=== PATIENT | female | born 1965 | race Caucasian/White ===

== ENCOUNTER 2023-08-14 10:50 | Outpatient (AMB) | payer OTHER, SELFPAY ==
--- NOTE | 2023-08-14 10:51 | MHC.PC.OV ---
Vital Signs 08/14/23 10:54 Height 5 ft 8 in Weight 204 lb 2 oz BMI 31.0 BP 134/82 Blood Pressure Location Lt brachial Position Sitting Pulse 89 Pulse Source Pulse Oximeter Pulse Oximetry (%) 99 Oxygen Delivery Method Room Air Intake Visit Reasons: APPOINTMENT COORDINATOR Est care Per AG Allergies Penicillins Allergy (Mild, Verified 08/14/23 10:56) rash bee Allergy (Severe, Uncoded 08/14/23 10:56) Swelling Medication List - Last Reconciled 08/14/23 by Marianela Plummer MD atorvastatin 20 mg PO DAILY levothyroxine 75 mcg PO DAILY minoxidil 2.5 mg PO BID Tobacco use date assessed: 08/14/23 Dental Screening Dental Screen Date: 08/14/23 Did you have a dental visit in the last 12 months?: Yes Did you have a dental problem in the last 6 months where you did not have access to dental care?: No Was dental information given to patient?: Patient has dentist HPI APPOINTMENT COORDINATOR Est care Per AG HPI Details Patient is a 58-year-old female came in today for establish care visit Patient is currently taking minoxidil 2.5 mg through Dermatology for 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 Patient would like me to take over the medication, I have ordered labs after the labs we will add finasteride 5 mg as well Patient also tried spironolactone but that caused vaginal bleeding postmenopausal so it was stopped Hypothyroidism: Currently taking levothyroxine 75 mcg and is seeing endocrinology Leighann Santana, patient also have a thyroid nodule that is being followed by endocrinology Patient have a history of left knee replacement surgery, and currently she is under care of orthopedic in [place] for her right knee pain Her other medications are atorvastatin 20 mg, patient says that she does not want to take the medication I have told her to stop the medication and then repeat labs in 6 weeks to see how high her cholesterol is and we will decide. She does not have any side effect because of the medication. Mammogram was March of 2023 Colonoscopy January of [address] Ledezma at [facility] Patient ended up having complications which required her to have 6 in of colon resecteded After that patient developed a ventral hernia She has seen a surgeon and had a CT scan of abdomen done which showed gallstone Patient is having severe bloating sensation, she will undergo elective cholecystectomy in August Her OBGYN is Dr. Castano at [facility] We will book telemedicine visit in 6 weeks to go over her labs and to decide whether to restart atorvastatin 20 mg and to add finasteride. BMI is elevated at 31.0 patient need to lose weight PFSH Family History Daughter Mental health disorder Social History Housing: House Patient Tobacco Use Status: Never used Tobacco e-Cigarette/Vaping Use: Never Used service: No Current occupational status: employed Cognitive needs: No Hearing needs: No Vision needs: Yes Questionnaire PHQ-9 Over the last 2 weeks, how often have you been bothered by any of the following problems? 1. Little interest or pleasure in doing things: not at all 2. Feeling down, depressed, or hopeless: not at all 3. Trouble falling or staying asleep, or sleeping too much: not at all 4. Feeling tired or having little energy: not at all 5. Poor appetite or overeating: not at all 6. Feeling bad about yourself - or that you are a failure or have let yourself or your family down: not at all 7. Trouble concentrating on things, such as reading the newspaper or watching television: not at all 8. Moving or speaking so slowly that other people could have noticed. Or the opposite - being so fidgety or restless that you have been moving around a lot more than usual: not at all 9. Thoughts that you would be better off or of hurting yourself in some way: not at all Total score: 0 Depression Screening Interpretation: Negative Depression Screening Done: Yes 51168 - PHQ-9 Billing: Yes Source: Developed by Drs. Clark Roy, Evette Guzman, Chip Esposito and colleagues, with an educational jono from [employer]. Thrive Questionnaire Date Thrive assessed: 08/14/23 I am a: Patient What is your living situation today?: I have a steady place to live Within the past 12 months, did the food you bought not last and you didn't have the money to get more?: Never true Within the past 12 months, did you worry whether your food would run out before you got money to buy more?: Never true Do you have trouble paying for medicines?: No Do you have trouble getting transportation to medical appointments?: No Do you have trouble paying your heating and electricity bill?: No Do you have trouble taking care of your child, family member or friend?: No Do you have trouble with day-to-day activities such as bathing, preparing meals, shopping, managing finances, etc.?: No Are you currently unemployed and looking for a job?: No Are you interested in more education?: No Please select the resources that you would like help with: None Currently or been in a relationship where the following occur: no concerns reported THRIVE Score: 0 FELIPE-7 AMB Questionnaire FELIPE-7 Date FELIPE - 7 assessed: 08/14/23 Feeling nervous, anxious, or on edge: 0 = Not at all Not being able to stop or control worryin = Not at all Worrying too much about different things: 0 = Not at all Trouble relaxin = Not at all Being so restless that it is hard to sit still: 0 = Not at all Becoming easily annoyed or irritable: 0 = Not at all Feeling afraid as if something awful might happen: 0 = Not at all Total FELIPE-7 score (0-4 normal; 5-9 mild; 10-14 moderate; 15-21 severe): 0 Source: Developed by Drs. Clark Roy, Evette Guzman, Chip Esposito and colleagues, with an educational jono from [employer]. FELIPE-7 Assessment Billing FELIPE-7 Assessment Tool: FELIPE-7 Assessment 07543 Review of Systems Const Denies chills, Denies fever(s) and Denies headache(s) Eyes Denies blurry vision ENT Denies headache(s), Denies nasal discharge, Denies nasal obstruction, Denies odynophagia and Denies sinus pain Card Denies chest pain at rest and Denies chest pain with activity Resp Denies cough and Denies hemoptysis GI Denies odynophagia, Denies vomiting and Denies hematemesis Reports as per HPI Musc Denies abnormal gait Skin/Breast Reports as per HPI Neuro Denies Neuro-related abnormal movements, Denies Abnormal speech present, Denies abnormal gait, Denies headache(s) and Denies Sensory deficit (Neuro) Psych Denies mood swings and Denies paranoia Endo Reports as per HPI Gopi/Lymph Reports as per HPI Aller/Immun Reports as per HPI Physical exam (Primary Care) Vital Signs: Last Vital Signs Pulse 89 08/14/23 10:54 BP 134/82 08/14/23 10:54 Pulse Ox 99 08/14/23 10:54 Oxygen Delivery Method Room Air 08/14/23 10:54 BMI result Body Mass Index 31.0 Tobacco/Smoking Status: Tobacco use Status Tobacco use date assessed 08/14/23 08/14/23 10:58 Patient Tobacco Use Status Never used Tobacco 08/14/23 10:58 e-Cigarette/Vaping Use Never Used 08/14/23 10:58 PHQ-9: PHQ-9 Score PHQ-9: Total score 0 08/14/23 11:10 Depression Screening Interpretation: Negative Thrive Assessment: Date of Thrive Assessment Date Thrive assessed 08/14/23 08/14/23 11:04 Currently or been in a relationship where the following occur: no concerns reported Const General: cooperative, comfortable and no acute distress Orientation/consciousness: patient oriented x3 HENMT Head: Yes normocephalic and Yes atraumatic Eyes General: appearance normal, both eyes and all related structures Pupils: Equal, round and reactive pupils present EOM: EOMs intact bilaterally Neck Neck: Yes supple and No lymphadenopathy Thyroid: Thyroid normal Lymphatic: no lymphadenopathy noted Resp Effort & Inspection: normal respiratory effort and able to speak in complete sentences Auscultation: clear to auscultation bilaterally Cardio Heart sounds: S1 normal heart sound present and S2 normal heart sound present GI Other: Small ventral hernia without any tenderness present Palpation (GI): Soft to palpation and nontender Auscultation: normal bowel sounds General: Yes no CVA tenderness Back/Spine/Pelvis Back: no CVA tenderness Skin General skin exam: elasticity normal and turgor normal Neuro General: patient oriented x3 and gait normal Cranial nerves: Yes Equal, round and reactive pupils present Speech: No Abnormal speech present Sensory Exam: No Sensory deficit (Neuro) Extrem General: Yes normal exam except as noted and No edema Office Procedures Flu Questionnaire Does the patient have a severe egg allergy?: No Does the patient have severe life threatening allergies?: No Does the patient have a fever or illness today?: No Has the patient ever had Guillain-[place] Syndrome?: No Has the patient ever had any past reaction to a flu shot?: No Immunizations flu vacc [id number] 6mos up(PF) 60 mcg(15 mcgx4)/0.5 mL IM syringe Performing Provider: Marianela Plummer MD Performing Location: [facility] Administered by: Anjali Banks CMA on 08/14/23 11:10 Dose Route Admin Location Dispensed Lot Number Expiration Date NDC Library Paraprofessional 0.5 mL IM Left Deltoid 0.5 mL [id number] 01/20/24 [id number] [employer] VIS Given Date VIS Provided VIS Publication Date 08/14/23 Single Vaccine 21 Eligibility Eligibility Date Funding Source Not VFC Eligible 08/14/23 Private Assessment and Plan Assessment & Plan (1) Establishing care with new doctor, encounter for: Code(s): Z76.89 - Persons encountering health services in other specified circumstances (2) Lipid disorder: Code(s): E78.9 - Disorder of lipoprotein metabolism, unspecified (3) Other specified hypothyroidism: Code(s): E03.8 - Other specified hypothyroidism (4) Obesity due to excess calories: Code(s): E66.09 - Other obesity due to excess calories Qualifiers: Obesity classification: adult class 1 (BMI 30 - 34.9) Serious obesity comorbidity presence: with serious comorbidity Body mass index: BMI 31.0-31.9 Qualified Code(s): E66.09 - Other obesity due to excess calories; Z68.31 - Body mass index [BMI] 31.0-31.9, adult (5) Gallstone: Code(s): K80.20 - Calculus of gallbladder without cholecystitis without obstruction Qualifiers: Cholecystitis presence: without cholecystitis Biliary obstruction: without biliary obstruction Qualified Code(s): K80.20 - Calculus of gallbladder without cholecystitis without obstruction (6) Bloating symptom: Code(s): R14.0 - Abdominal distension (gaseous) (7) Ventral hernia: Code(s): K43.9 - Ventral hernia without obstruction or gangrene Qualifiers: Obstruction and gangrene presence: without obstruction or gangrene Qualified Code(s): K43.9 - Ventral hernia without obstruction or gangrene Plan Patient is a 58-year-old female came in today for establish care visit Patient is currently taking minoxidil 2.5 mg through Dermatology for 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 Patient would like me to take over the medication, I have ordered labs after the labs we will add finasteride 5 mg as well Patient also tried spironolactone but that caused vaginal bleeding postmenopausal so it was stopped Hypothyroidism: Currently taking levothyroxine 75 mcg and is seeing endocrinology Leighann Santana, patient also have a thyroid nodule that is being followed by endocrinology Patient have a history of left knee replacement surgery, and currently she is under care of orthopedic in [place] for her right knee pain Her other medications are atorvastatin 20 mg, patient says that she does not want to take the medication I have told her to stop the medication and then repeat labs in 6 weeks to see how high her cholesterol is and we will decide. She does not have any side effect because of the medication. Mammogram was March of 2023 Colonoscopy January of [address] Ledezma at [facility] Patient ended up having complications which required her to have 6 in of colon resecteded After that patient developed a ventral hernia She has seen a surgeon and had a CT scan of abdomen done which showed gallstone Patient is having severe bloating sensation, she will undergo elective cholecystectomy in August Her OBGYN is Dr. Castano at [facility] We will book telemedicine visit in 6 weeks to go over her labs and to decide whether to restart atorvastatin 20 mg and to add finasteride. BMI is elevated at 31.0 patient need to lose weight Orders: Orders Complete Blood Count Auto Diff Today E03.8 - Other specified hypothyroidism, E66.09 - Other obesity due to excess calories, E78.9 - Disorder of lipoprotein metabolism, unspecified, Z76.89 - Persons encountering health services in other specified circumstances Influenza [id number] Immunization Today Z23 - Encounter for immunization Comprehensive [place]. Panel Fast Today E03.8 - Other specified hypothyroidism, E66.09 - Other obesity due to excess calories, E78.9 - Disorder of lipoprotein metabolism, unspecified, Z76.89 - Persons encountering health services in other specified circumstances Lipid Panel Today E03.8 - Other specified hypothyroidism, E66.09 - Other obesity due to excess calories, E78.9 - Disorder of lipoprotein metabolism, unspecified, Z76.89 - Persons encountering health services in other specified circumstances TSH reflex Free T4 Today E03.8 - Other specified hypothyroidism, E66.09 - Other obesity due to excess calories, E78.9 - Disorder of lipoprotein metabolism, unspecified, Z76.89 - Persons encountering health services in other specified circumstances Coding Level of Care Code New Pt Level 4 (95047) Diagnoses Establishing care with new doctor, encounter for Z76.89 Lipid disorder E78.9 Other specified hypothyroidism E03.8 Class 1 obesity due to excess calories with serious comorbidity and body mass index (BMI) of 31.0 to 31.9 in adult E66.09; Z68.31 Obesity classification: adult class 1 (BMI 30 - 34.9) Serious obesity comorbidity presence: with serious comorbidity Body mass index: BMI 31.0-31.9 Calculus of gallbladder without cholecystitis without obstruction K80.20 Cholecystitis presence: without cholecystitis Biliary obstruction: without biliary obstruction Bloating symptom R14.0 Ventral hernia without obstruction or gangrene K43.9 Obstruction and gangrene presence: without obstruction or gangrene Additional Codes FELIPE-7 Assessment Billing - FELIPE-7 Assessment Tool: FELIPE-7 Assessment 80474 ([id number])
[2023-08-14 10:54] VITALS: BP 134/82; PULSE 89; O2SAT 99; BMI 31.0
== END 2023-08-14 11:36 | disposition home or self-care (01) ==
PROVIDERS: Visit Provider Internal Medicine
DX: E78.9 Disorder of lipoprotein metabolism, unspecified (principal); E66.09 Other obesity due to excess calories; Z68.31 Body mass index [BMI] 31.0-31.9, adult; Z23 Encounter for immunization; E03.8 Other specified hypothyroidism; Z76.89 Persons encountering health services in other specified circumstances; K80.20 Calculus of gallbladder without cholecystitis without obstruction; R14.0 Abdominal distension (gaseous); K43.9 Ventral hernia without obstruction or gangrene
CPT/HCPCS: 90471; 90686; 99204

== ENCOUNTER 2023-09-26 09:45 | Outpatient (REF) | payer OTHER, SELFPAY ==
[2023-09-26 11:19] LABS: MANUAL DIFF FLAG NO
[2023-09-26 11:28] LABS: Basophils Percent Auto 0.5 % (0-2); Eosinophils Absolute Auto 0.1 X10*3/uL (0.0-0.4); Hematocrit 43.6 % (37.0-47.0); Hemoglobin 14.4 g/dl (12.0-16.0); Imm Gran Abs Auto 0.02 X10*3/uL (0.00-0.03); Imm Gran Pct Auto 0.3 % (0.0-0.4); Lymphocytes Absolute Auto 1.9 X10*3/uL (1.2-4.9); Lymphocytes Percent Auto 32.2 % (20-40); Mean Corpuscular Hemoglobin 30.7 pg (27.0-33.0); Mean Platelet Volume 9.9 fL (9.4-12.3); Monocytes Absolute Auto 0.5 X10*3/uL (0.1-1.2); Monocytes Percent Auto 8.2 % (2-11); Neutrophils Absolute Auto 3.4 x10*3/uL (2.0-8.3); Neutrophils Percent Auto 56.8 % (45-73); Platelet Count 259 X10*3/uL (160-400); Red Blood Count 4.69 X10*6/uL (4.20-5.50); Red Cell Distribution Width 12.5 % (11.0-16.0)
[2023-09-26 13:41] LABS: Alanine Aminotransferase 16 U/L (0-31); Albumin Level 4.1 g/dL (3.5-5.0); Alkaline Phosphatase 124 U/L (39-117); Anion Gap 10 (12-20); Aspartate Amino Transferase 13 U/L (5-31); Bilirubin Total 0.4 mg/dL (0.0-1.0); Blood Urea Nitrogen 16 mg/dL (9-16); Calcium 9.4 mg/dL (8.4-10.2); Carbon Dioxide 27 mmol/L (22-29); Chloride 107 mmol/L (96-108); Cholesterol 237 mg/dL (<200); Estimated Glomerular Filt Rate > 60; Glucose Fasting 94 mg/dL (60-99); HDL Cholesterol 57 mg/dL (>40); LDL Cholesterol Calculated 158 mg/dL (<100); Potassium 4.2 mmol/L (3.3-5.1); Sodium 140 mmol/L (135-145); Total Protein 7.3 g/dL (6.5-8.0); Triglycerides 111 mg/dL (<150)
== END 2023-09-26 09:46 | disposition home or self-care (01) ==
LOC: HO.WFDLDS 09:45
PROVIDERS: Visit Provider Internal Medicine
DX: E66.09 Other obesity due to excess calories (principal); E03.8 Other specified hypothyroidism; E78.9 Disorder of lipoprotein metabolism, unspecified; Z76.89 Persons encountering health services in other specified circumstances
CPT/HCPCS: 36415; 80053; 80061; 84443; 85025

== ENCOUNTER 2023-10-02 13:14 | Outpatient (AMB) | payer OTHER, SELFPAY ==
--- NOTE | 2023-10-02 13:16 | MHC.PC.OV ---
Vital Signs 10/02/23 13:17 Height 5 ft 8 in Intake Visit Reasons: 6 week follow up Iphone [phone] Allergies Penicillins Allergy (Mild, Verified 10/02/23 13:16) rash bee Allergy (Severe, Uncoded 08/14/23 10:56) Swelling Medication List - Last Reconciled 10/02/23 by Marianela Plummer MD levothyroxine 75 mcg PO DAILY minoxidil 2.5 mg PO BID Tobacco use date assessed: 10/02/23 Dental Screening Dental Screen Date: 10/02/23 Did you have a dental visit in the last 12 months?: Yes Did you have a dental problem in the last 6 months where you did not have access to dental care?: No Was dental information given to patient?: Patient has dentist HPI 6 week follow up Iphone [phone] HPI Details Patient is a 58 year this is telemedicine video follow-up Patient had cholecystectomy in August she is complaining of feeling bloated She also a ventral hernia which will be fixed once she recovers from cholecystectomy For the bloating I do recommend that patient refrain from drinking alcohol altogether We re-evaluate at her next visit how she is feeling Hormonal hair loss, patient is on minoxidil 2.5 mg b.i.d. I am adding finasteride 5 mg as well Lipid disorder: LDL is 158, restart atorvastatin at lower dose of 10 mg Labs to be repeated in 2 months We will repeat liver functions again, ALT still elevated BMI is above 30 patient is trying to lose weight however due to inability to exercise much she is having difficulty She agreed go to metabolic clinic at [facility] for further evaluation and help Follow-up 3 months for physical exam PFSH Family History Daughter Mental health disorder Social History Housing: House Patient Tobacco Use Status: Never used Tobacco e-Cigarette/Vaping Use: Never Used service: No Current occupational status: employed Cognitive needs: No Hearing needs: No Vision needs: Yes Questionnaire PHQ-9 Over the last 2 weeks, how often have you been bothered by any of the following problems? 1. Little interest or pleasure in doing things: not at all 2. Feeling down, depressed, or hopeless: not at all 3. Trouble falling or staying asleep, or sleeping too much: not at all 4. Feeling tired or having little energy: not at all 5. Poor appetite or overeating: not at all 6. Feeling bad about yourself - or that you are a failure or have let yourself or your family down: not at all 7. Trouble concentrating on things, such as reading the newspaper or watching television: not at all 8. Moving or speaking so slowly that other people could have noticed. Or the opposite - being so fidgety or restless that you have been moving around a lot more than usual: not at all 9. Thoughts that you would be better off or of hurting yourself in some way: not at all Total score: 0 Depression Screening Interpretation: Negative Depression Screening Done: Yes 97454 - PHQ-9 Billing: Yes Source: Developed by Drs. Clark Roy, Evette Guzman, Chip Esposito and colleagues, with an educational jono from [employer]. Thrive Questionnaire Date Thrive assessed: 10/02/23 I am a: Patient What is your living situation today?: I have a steady place to live Within the past 12 months, did the food you bought not last and you didn't have the money to get more?: Never true Within the past 12 months, did you worry whether your food would run out before you got money to buy more?: Never true Do you have trouble paying for medicines?: No Do you have trouble getting transportation to medical appointments?: No Do you have trouble paying your heating and electricity bill?: No Do you have trouble taking care of your child, family member or friend?: No Do you have trouble with day-to-day activities such as bathing, preparing meals, shopping, managing finances, etc.?: No Are you currently unemployed and looking for a job?: No Are you interested in more education?: No Please select the resources that you would like help with: None Currently or been in a relationship where the following occur: no concerns reported THRIVE Score: 0 AUDIT C Alcohol Use Questionnaire (AUDIT-C) 1. How often do you have a drink containing alcohol?: 2-3 times a week 2. How many drinks containing alcohol do you have on a typical day when you are drinking?: 1 or 2 3. How often do you have six or more drinks on one occasion?: Less than monthly Total Score: 4 Score Reviewed/Action Taken: Yes FELIPE-7 AMB Questionnaire FELIPE-7 Date FELIPE - 7 assessed: 10/02/23 Feeling nervous, anxious, or on edge: 0 = Not at all Not being able to stop or control worryin = Not at all Worrying too much about different things: 0 = Not at all Trouble relaxin = Not at all Being so restless that it is hard to sit still: 0 = Not at all Becoming easily annoyed or irritable: 0 = Not at all Feeling afraid as if something awful might happen: 0 = Not at all Total FELIPE-7 score (0-4 normal; 5-9 mild; 10-14 moderate; 15-21 severe): 0 Source: Developed by Drs. Clark Roy, Evette Guzman, Chip Esposito and colleagues, with an educational jono from [employer]. FELIPE-7 Assessment Billing FELIPE-7 Assessment Tool: FELIPE-7 Assessment 46688 Review of Systems Const Denies chills and Denies fever(s) ENT Denies epistaxis and Denies nasal discharge Card Denies chest pain Resp Denies chest congestion, Denies cough and Denies hemoptysis GI Denies diarrhea and Denies nausea Skin/Breast Denies rash Neuro Reports no additional complaints Psych Reports no additional complaints Endo Reports no additional complaints Physical exam (Primary Care) Tobacco/Smoking Status: Tobacco use Status Tobacco use date assessed 10/02/23 10/02/23 13:17 Patient Tobacco Use Status Never used Tobacco 10/02/23 13:17 e-Cigarette/Vaping Use Never Used 10/02/23 13:17 PHQ-9: PHQ-9 Score PHQ-9: Total score 0 10/02/23 13:18 Depression Screening Interpretation: Negative Thrive Assessment: Date of Thrive Assessment Date Thrive assessed 10/02/23 10/02/23 13:18 Currently or been in a relationship where the following occur: no concerns reported Telehealth Telehealth Location of provider rendering services: practice address Location of patient: address on file Patient Identification confirmed using: Name, : Yes Telehealth method: video Patient verbally consented to treatment: Yes Patient verbally consented to billing insurance company: Yes Patient informed of any privacy concerns related to visit: Yes Assessment and Plan Assessment & Plan (1) Lipid disorder: Code(s): E78.9 - Disorder of lipoprotein metabolism, unspecified (2) LFT elevation: Code(s): R79.89 - Other specified abnormal findings of blood chemistry (3) Obesity due to excess calories: Code(s): E66.09 - Other obesity due to excess calories Qualifiers: Obesity classification: adult class 1 (BMI 30 - 34.9) Serious obesity comorbidity presence: with serious comorbidity Body mass index: BMI 31.0-31.9 Qualified Code(s): E66.09 - Other obesity due to excess calories; Z68.31 - Body mass index [BMI] 31.0-31.9, adult (4) Bloating symptom: Code(s): R14.0 - Abdominal distension (gaseous) (5) Other specified hypothyroidism: Code(s): E03.8 - Other specified hypothyroidism (6) Hair loss disorder: Code(s): L65.9 - Nonscarring hair loss, unspecified Plan Patient is a 58 year this is telemedicine video follow-up Patient had cholecystectomy in August she is complaining of feeling bloated She also a ventral hernia which will be fixed once she recovers from cholecystectomy For the bloating I do recommend that patient refrain from drinking alcohol altogether We re-evaluate at her next visit how she is feeling Hormonal hair loss, patient is on minoxidil 2.5 mg b.i.d. I am adding finasteride 5 mg as well Lipid disorder: LDL is 158, restart atorvastatin at lower dose of 10 mg Labs to be repeated in 2 months We will repeat liver functions again, ALT still elevated BMI is above 30 patient is trying to lose weight however due to inability to exercise much she is having difficulty She agreed go to metabolic clinic at [facility] for further evaluation and help Follow-up 3 months for physical exam Orders: Orders Comprehensive [place]. Panel Fast 2 Months E78.9 - Disorder of lipoprotein metabolism, unspecified, R79.89 - Other specified abnormal findings of blood chemistry Lipid Panel 2 Months E78.9 - Disorder of lipoprotein metabolism, unspecified, R79.89 - Other specified abnormal findings of blood chemistry Referrals Metabolic Clinic Referral E66.09 - Other obesity due to excess calories Medications: New finasteride 5 mg PO DAILY 90 tabs 0RF minoxidil 2.5 mg PO BID 60 tabs 2RF atorvastatin 10 mg PO BEDTIME 90 tabs 0RF Coding Level of Care Code Tele Est Pt Level 4 (30292) Diagnoses Lipid disorder E78.9 LFT elevation R79.89 Class 1 obesity due to excess calories with serious comorbidity and body mass index (BMI) of 31.0 to 31.9 in adult E66.09; Z68.31 Obesity classification: adult class 1 (BMI 30 - 34.9) Serious obesity comorbidity presence: with serious comorbidity Body mass index: BMI 31.0-31.9 Bloating symptom R14.0 Other specified hypothyroidism E03.8 Hair loss disorder L65.9 Additional Codes FELIPE-7 Assessment Billing - FELIPE-7 Assessment Tool: FELIPE-7 Assessment [id number] ([id number]) Time Spent (min) 30 Comment 5 pre visit, 16 with patient, 5 charting, 4 minute coordination care
== END 2023-10-02 14:54 | disposition home or self-care (01) ==
LOC: HO.HMGC 13:15
PROVIDERS: PCP Internal Medicine; Visit Provider Internal Medicine
DX: E78.9 Disorder of lipoprotein metabolism, unspecified (principal); R79.89 Other specified abnormal findings of blood chemistry; E66.09 Other obesity due to excess calories; Z68.31 Body mass index [BMI] 31.0-31.9, adult; R14.0 Abdominal distension (gaseous); E03.8 Other specified hypothyroidism; L65.9 Nonscarring hair loss, unspecified
CPT/HCPCS: 99214

== ENCOUNTER 2023-12-25 09:09 | Outpatient (REF) | payer OTHER, SELFPAY ==
[2023-12-25 12:33] LABS: Alanine Aminotransferase 36 U/L (0-31); Albumin Level 4.1 g/dL (3.5-5.0); Alkaline Phosphatase 111 U/L (39-117); Anion Gap 13 (12-20); Aspartate Amino Transferase 21 U/L (5-31); Bilirubin Total 0.4 mg/dL (0.0-1.0); Blood Urea Nitrogen 12 mg/dL (9-16); Calcium 9.6 mg/dL (8.4-10.2); Carbon Dioxide 25 mmol/L (22-29); Chloride 107 mmol/L (96-108); Cholesterol 174 mg/dL (<200); Estimated Glomerular Filt Rate > 60; Glucose Fasting 94 mg/dL (60-99); HDL Cholesterol 52 mg/dL (>40); LDL Cholesterol Calculated 97 mg/dL (<100); Potassium 3.9 mmol/L (3.3-5.1); Sodium 141 mmol/L (135-145); Total Protein 7.2 g/dL (6.5-8.0); Triglycerides 128 mg/dL (<150)
== END 2023-12-25 09:10 | disposition home or self-care (01) ==
LOC: HO.WFDLDS 09:09
PROVIDERS: Visit Provider Internal Medicine
DX: E78.9 Disorder of lipoprotein metabolism, unspecified (principal); R79.89 Other specified abnormal findings of blood chemistry
CPT/HCPCS: 36415; 80053; 80061

== ENCOUNTER 2024-01-09 12:45 | Outpatient (AMB) | payer OTHER, SELFPAY ==
--- NOTE | 2024-01-09 12:59 | A.OFFPC_ITS ---
Vital Signs 3 01/09/24 13:01 Height 5 ft 8 in Weight 205 lb BMI 31.2 BP 140/90 H Blood Pressure Location Rt brachial Position Sitting Pulse 90 Pulse Source Pulse Oximeter Pulse Oximetry (%) 98 Oxygen Delivery Method Room Air Intake Visit Reasons: Annual PE~ Allergies Penicillins Allergy (Mild, Verified 01/09/24 13:01) rash bee Allergy (Severe, Uncoded 01/09/24 13:01) Swelling Medication List - Last Reconciled 01/09/24 by Marianela Plummer MD atorvastatin 10 mg PO BEDTIME finasteride 5 mg PO DAILY levothyroxine 75 mcg PO DAILY minoxidil 2.5 mg PO BID Tobacco use date assessed: 10/02/23 Dental Screening Dental Screen Date: 10/02/23 HPI Annual PE~ 2 HPI0 Details Patient is a 58-year-old female came in today for physical exam Labs done recently reviewed liver enzymes has improved Patient is seeing OBGYN Dr. Castano at [facility] She will be having incisional hernia repair by Dr. Wendy Knutson at [facility], she also performed her gallbladder surgery in August Patient could not tolerate finasteride that she was taking for hormonal alopecia She continued to take minoxidil however she will be having it filled through Dr. Ramirez is office BMI is elevated patient is trying to lose weight however it is difficult She also get sciatica left-sided off and on due to cyst between L3 and L4 Mammogram was March of last year Pap smear through OBGYN Colonoscopy was [address] Ledezma [facility], patient had colon perforation and ended up having resection She do not want to have further colonoscopies. Patient will return in 6 months for follow-up appointment Labs are needed before visit She is complaining of epigastric and upper abdominal discomfort off and on She has tried modifying her diet which has not helped I have sent omeprazole 20 mg to see if that will help patient. We will set up telemedicine visit in 3 weeks for that. PFSH Family History Daughter Mental health disorder Social History Housing: House Patient Tobacco Use Status: Never used Tobacco e-Cigarette/Vaping Use: Never Used service: No Current occupational status: employed Cognitive needs: No Hearing needs: No Vision needs: Yes Questionnaire Thrive Questionnaire Date Thrive assessed: 10/02/23 AUDIT C Alcohol Use Questionnaire (AUDIT-C) 1. How often do you have a drink containing alcohol?: Never 3. How often do you have six or more drinks on one occasion?: Never Total Score: 0 Score Reviewed/Action Taken: No FELIPE-7 AMB Questionnaire FELIPE-7 Date FELIPE - 7 assessed: 10/02/23 Source: Developed by Drs. Clark Roy, Evette Guzman, Chip Esposito and colleagues, with an educational jono from [employer]. Review of Systems Const Denies chills, Denies fever(s) and Denies headache(s) Eyes Denies blurry vision ENT Denies headache(s), Denies nasal discharge, Denies nasal obstruction, Denies odynophagia and Denies sinus pain Card Denies chest pain at rest and Denies chest pain with activity Resp Denies cough and Denies hemoptysis GI Denies diarrhea, Denies odynophagia, Denies vomiting and Denies hematemesis Reports as per HPI Musc Denies abnormal gait Skin/Breast Reports as per HPI Neuro Denies Neuro-related abnormal movements, Denies Abnormal speech present, Denies abnormal gait, Denies headache(s) and Denies Sensory deficit (Neuro) Psych Denies mood swings and Denies paranoia Endo Reports as per HPI Gopi/Lymph Reports as per HPI Aller/Immun Reports as per HPI Physical exam (Primary Care) Vital Signs: Last Vital Signs Pulse 90 01/09/24 13:01 BP 140/90 H 01/09/24 13:01 Pulse Ox 98 01/09/24 13:01 Oxygen Delivery Method Room Air 01/09/24 13:01 BMI result Body Mass Index 31.2 Tobacco/Smoking Status: Tobacco use Status Tobacco use date assessed 10/02/23 01/09/24 13:02 Patient Tobacco Use Status Never used Tobacco 01/09/24 13:02 e-Cigarette/Vaping Use Never Used 01/09/24 13:02 Thrive Assessment: Date of Thrive Assessment Date Thrive assessed 10/02/23 01/09/24 13:02 Const General: cooperative, comfortable and no acute distress Orientation/consciousness: patient oriented x3 HENMT Head: Yes normocephalic and Yes atraumatic Eyes General: appearance normal, both eyes and all related structures Pupils: Equal, round and reactive pupils present EOM: EOMs intact bilaterally Neck Neck: Yes supple and No lymphadenopathy Thyroid: Thyroid normal Lymphatic: no lymphadenopathy noted Resp Effort & Inspection: normal respiratory effort and able to speak in complete sentences Auscultation: clear to auscultation bilaterally Cardio Heart sounds: S1 normal heart sound present and S2 normal heart sound present GI Palpation (GI): Soft to palpation Auscultation: normal bowel sounds Abdomen image: 2 1. Discomfort with deep pressure General: Yes no CVA tenderness Back/Spine/Pelvis Back: no CVA tenderness Skin General skin exam: elasticity normal and turgor normal Neuro General: patient oriented x3 and gait normal Cranial nerves: Yes Equal, round and reactive pupils present Speech: No Abnormal speech present Sensory Exam: No Sensory deficit (Neuro) Coordination: tandem gait normal and Romberg test negative Extrem General: Yes normal exam except as noted and No edema Assessment and Plan Assessment & Plan (1) Encounter for general adult medical examination with abnormal findings: Code(s): Z00.01 - Encounter for general adult medical examination with abnormal findings (2) Left upper quadrant pain: Code(s): R10.12 - Left upper quadrant pain (3) Lipid disorder: Code(s): E78.9 - Disorder of lipoprotein metabolism, unspecified (4) Other specified hypothyroidism: Code(s): E03.8 - Other specified hypothyroidism (5) Obesity due to excess calories: Code(s): E66.09 - Other obesity due to excess calories Qualifiers: Body mass index: BMI 31.0-31.9 Obesity classification: adult class 1 (BMI 30 - 34.9) Serious obesity comorbidity presence: with serious comorbidity Qualified Code(s): E66.09 - Other obesity due to excess calories; Z68.31 - Body mass index [BMI] 31.0-31.9, adult Plan Patient is a 58-year-old female came in today for physical exam Labs done recently reviewed liver enzymes has improved Patient is seeing OBGYN Dr. Castano at [facility] She will be having incisional hernia repair by Dr. Wendy Knutson at [facility], she also performed her gallbladder surgery in August Patient could not tolerate finasteride that she was taking for hormonal alopecia She continued to take minoxidil however she will be having it filled through Dr. Ramirez is office BMI is elevated patient is trying to lose weight however it is difficult She also get sciatica left-sided off and on due to cyst between L3 and L4 Mammogram was March of last year Pap smear through OBGYN Colonoscopy was [address] Darien Santana, patient had colon perforation and ended up having resection She do not want to have further colonoscopies. Patient will return in 6 months for follow-up appointment Labs are needed before visit She is complaining of epigastric and upper abdominal discomfort off and on She has tried modifying her diet which has not helped I have sent omeprazole 20 mg to see if that will help patient. We will set up telemedicine visit in 3 weeks for that. Orders: Orders 2 Comprehensive Kirk. Panel Fast 5 Months E03.8 - Other specified hypothyroidism, E66.09 - Other obesity due to excess calories, E78.9 - Disorder of lipoprotein metabolism, unspecified, R10.12 - Left upper quadrant pain, Z68.31 - Body mass index [BMI] 31.0-31.9, adult Lipid Panel 5 Months E03.8 - Other specified hypothyroidism, E66.09 - Other obesity due to excess calories, E78.9 - Disorder of lipoprotein metabolism, unspecified, R10.12 - Left upper quadrant pain, Z68.31 - Body mass index [BMI] 31.0-31.9, adult TSH reflex Free T4 5 Months E03.8 - Other specified hypothyroidism, E66.09 - Other obesity due to excess calories, E78.9 - Disorder of lipoprotein metabolism, unspecified, R10.12 - Left upper quadrant pain, Z68.31 - Body mass index [BMI] 31.0-31.9, adult Medications: New 2 omeprazole 20 mg PO DAILY 90 caps 0RF Discontinued 2 finasteride Discontinued Reason: Doctor's Order 5 mg PO DAILY 90 tabs 0RF Coding Level of Care Code Est Pt Level 3 (96718) Est Pt Prev Care 40-64y(64343) Diagnoses Encounter for general adult medical examination with abnormal findings Z00.01 Left upper quadrant pain R10.12 Lipid disorder E78.9 Other specified hypothyroidism E03.8 Class 1 obesity due to excess calories with serious comorbidity and body mass index (BMI) of 31.0 to 31.9 in adult E66.09; Z68.31 Body mass index: BMI 31.0-31.9 Obesity classification: adult class 1 (BMI 30 - 34.9) Serious obesity comorbidity presence: with serious comorbidity
[2024-01-09 13:01] VITALS: BP 140/90; PULSE 90; O2SAT 98; BMI 31.2
== END 2024-01-09 13:30 | disposition home or self-care (01) ==
PROVIDERS: PCP Internal Medicine; Visit Provider Internal Medicine
DX: Z00.01 Encounter for general adult medical examination with abnormal findings (principal); R10.12 Left upper quadrant pain; E78.9 Disorder of lipoprotein metabolism, unspecified; E03.8 Other specified hypothyroidism; E66.09 Other obesity due to excess calories; Z68.31 Body mass index [BMI] 31.0-31.9, adult
CPT/HCPCS: 99213; 99396

== ENCOUNTER 2024-01-31 08:14 | Outpatient (AMB) | payer OTHER, SELFPAY ==
--- NOTE | 2024-01-31 08:25 | A.OFFPC_ITS ---
Intake Visit Reasons: LT upper abd F/u~ [phone] Allergies Penicillins Allergy (Mild, Verified 01/31/24 08:25) rash bee Allergy (Severe, Uncoded 01/09/24 13:01) Swelling Medication List - Last Reconciled 01/31/24 by Marianela Plummer MD atorvastatin 10 mg PO BEDTIME epinephrine (EpiPen) 0.3 mg (0.3 mL) IM Q10M PRN 90 days levothyroxine 75 mcg PO DAILY minoxidil 2.5 mg PO BID omeprazole 20 mg PO DAILY Tobacco use date assessed: 01/31/24 Dental Screening Dental Screen Date: 01/31/24 Did you have a dental visit in the last 12 months?: Yes Did you have a dental problem in the last 6 months where you did not have access to dental care?: No Was dental information given to patient?: Patient has dentist HPI LT upper abd F/u~ [phone] HPI Details f/u apt on Upper gastic discomfort Patient was started on PPI she states she is feeling much better she is to continue for 3 M and then PRN PFSH Family History Daughter Mental health disorder Social History Housing: House Patient Tobacco Use Status: Never used Tobacco e-Cigarette/Vaping Use: Never Used service: No Current occupational status: employed Cognitive needs: No Hearing needs: No Vision needs: Yes Questionnaire Thrive Questionnaire Date Thrive assessed: 10/02/23 AUDIT C Alcohol Use Questionnaire (AUDIT-C) 1. How often do you have a drink containing alcohol?: Never 3. How often do you have six or more drinks on one occasion?: Never Total Score: 0 Score Reviewed/Action Taken: Yes FELIPE-7 AMB Questionnaire FELIPE-7 Date FELIPE - 7 assessed: 10/02/23 Source: Developed by Drs. Clark Roy, Evette Guzman, Chip Esposito and colleagues, with an educational jono from [employer]. Review of Systems Const Denies chills and Denies fever(s) ENT Denies epistaxis and Denies nasal discharge Card Denies chest pain Resp Denies chest congestion, Denies cough and Denies hemoptysis GI Denies diarrhea and Denies nausea Skin/Breast Denies rash Neuro Reports no additional complaints Psych Reports no additional complaints Endo Reports no additional complaints Physical exam (Primary Care) Tobacco/Smoking Status: Tobacco use Status Tobacco use date assessed 01/31/24 01/31/24 08:25 Patient Tobacco Use Status Never used Tobacco 01/31/24 08:25 e-Cigarette/Vaping Use Never Used 01/31/24 08:25 Thrive Assessment: Date of Thrive Assessment Date Thrive assessed 10/02/23 01/31/24 08:25 Telehealth Telehealth Telehealth Platform: [employer] Location of provider rendering services: practice address Location of patient: address on file Patient Identification confirmed using: Name, : Yes Telehealth method: voice only Patient verbally consented to treatment: Yes Patient verbally consented to billing insurance company: Yes Patient informed of any privacy concerns related to visit: Yes Minutes spent on Phone/Video with Pt.: 13 Assessment and Plan Assessment & Plan (1) Left upper quadrant pain: Code(s): R10.12 - Left upper quadrant pain Plan f/u apt on Upper gastic discomfort Patient was started on PPI she states she is feeling much better she is to continue for 3 M and then PRN Coding Level of Care Code Tele Est Pt Level 3 (33782) Diagnoses Left upper quadrant pain R10.12
== END 2024-01-31 10:39 | disposition home or self-care (01) ==
LOC: HO.HMGC 08:14
PROVIDERS: PCP Internal Medicine; Visit Provider Internal Medicine
DX: R10.12 Left upper quadrant pain (principal)
CPT/HCPCS: 99213

== ENCOUNTER 2024-07-05 10:12 | Outpatient (REF) | payer OTHER, SELFPAY ==
--- OUTSIDE RECORDS SUMMARY | 2024-07-05 10:14 | XMS_ITS | Continuity of Care Document ---
Author Organization [facility] [place], [facility] Office Address [address] [place] [phone] Care Team Providers Care Lung Splitter Name Role Phone LUC NORRIS Primary Care Provider [phone] LUC NORRIS Referring Provider [phone] Assessment No assessment recorded. Plan of Treatment Reminders Order Date Submit Date Provider Last Modified By Organization Details Last Modified Time Details Appointments None record ed. Lab None record ed. Referral None record ed. Procedures None record ed. Surgeries None record ed. Imaging None record ed. Medication Orders None record ed. Patient TargetsNo targets recorded. Patient Instructions Encounter Date Encounter Id Patient Instructions Last Modified By Organization Details Last Modified Time 04/09/2024 [id number] The above clinic al findings and radiographic findings were reviewed with the patient in detail. X-rays were taken in 3 views of the right ankle today April 09, 2024. Awaiting the official radiology review. No obvious fractures, dislocations or subluxations noted. Ankle mortise appears intact. I reviewed findings consistent with peroneal tendinitis. It does seem to be improving and I recommended slowly weaning off the ankle brace and maintaining supportive midsole motion control sneakers. Warm compresses, anti-inflammatorie s and Voltaren gel all reviewed. daily stretching exercises reviewed as well as the myofascial release with a rolling stick. Peroneal strengthening exercises also reviewed. If symptoms plateau or if they worsen she was advised to call the office and return. All questions answered on today's visit. The patient understands and is in agreement with the plan. Voice recognition software disclaimer: Please note that portions of this report were transcribed using [employer] speech recognition software. If any discrepancy or uncertainty is present, please contact our office directly for clarification. [email or web address] Not available 04/09/2024 16:30:06 Reason for Referral None Reported. Results Created Date Observation Date Name Description Value Unit Range Abnormal Flag Note LastModifiedBy Organization Detail LastModifiedTime 05/27/20 24 04/09/2024 XR, ankle , 3 or more view No observ ation record ed. [email or web address] Not Available 2023 15:10:45 Result Notes None recorded. Medical Equipment None Reported. Medications Name Sig Start Date Stop Date Status Note LastModified by Organization Details LastModified Time atorvastatin 20 mg tablet TAKE 1 TABLET BY MOUTH EVERY DAY active Not Available Not Available No t Available atorvastatin 10 mg tablet TAKE 1 TABLET BY MOUTH AT BEDTIME active Not Available Not Available No t Available metronidazol e 500 mg tablet TAKE 1 TABLET BY MOUTH THREE TIMES A DAY active Not Available Not Available Not Available ciprofloxaci n 500 mg tablet TAKE 1 TABLET BY MOUTH TWICE A DAY active Not Available Not Available No t Available minoxidil 2.5 mg tablet TAKE 1 TAB ORALLY 2 TIMES A DAY active Not Available Not Available Not Available levothyroxin e 75 mcg tablet TAKE 1 TABLET BY MOUTH EVERY DAY active Not Available Not Available No t Available cephalexin 500 mg capsule TAKE 1 CAPSULE BY MOUTH 4 TIMES A DAY FOR 5 DAYS. active Not Available Not Available Not Available omeprazole 20 mg capsule,shantanu yed release TAKE 1 CAPSULE BY MOUTH EVERY DAY active Not Available Not Available No t Available Transderm-Sc op 1 mg over 3 days transdermal patch APPLY 1 PATCH TRANSDERMAL LY EVERY 3 DAYS NEEDED FOR NAUSEA AND VOMITING active Not Available Not Available No t Available epinephrine 0.3 mg/0.3 mL injection, auto-injecto r INJECT 0.3MG DIRECTED INTRAMUSCUL LAURA EVERY 10 MINUTES NEEDED FOR ANAPHYLAXIS active Not Available Not Available Not Available fluocinonide 0.05 % topical solution PLEASE SEE ATTACHED FOR DETAILED DIRECTIONS active Not Available Not Available N ot Available finasteride 5 mg tablet TAKE 1 TABLET BY MOUTH EVERY DAY active Not Available Not Available No t Available spironolacto ne 50 mg tablet TAKE 1 TABLET DAILY active Not Available Not Available No t Available diazepam 5 mg tablet TAKE 1 TABLET BY MOUTH EVERY 6 HOURS NEEDED FOR ANXIETY. active Not Available Not Available No t Available amoxicillin 875 mg-potassium clavulanate 125 mg tablet TAKE 1 TABLET BY MOUTH TWICE A DAY active Not Available Not Available No t Available oxycodone 5 mg tablet TAKE 1 TABLET (5 MG TOTAL) BY MOUTH EVERY 6 (SIX) HOURS NEEDED. active Not Available Not Available N ot Available Paxlovid 300 mg (150 mg x 2)-100 mg tablets in a dose pack TAKE 3 TABLETS BY MOUTH TWICE A DAY FOR 5 DAYS active Not Available Not Available No t Available Vitals None Recorded Social History None recorded. Functional Status None recorded. Mental Status None recorded. Family History Nothing Reported. Medical History No medical history recorded. Gynecological HistoryNo gynecological history recorded. Obstetrics History GPAL:G 0 P 0 0 0 0 Past Encounters Encounter ID Performer Location Encounter Start Date Encounter Closed Date Diagnosis/Indication Diagnosis SNOMED-CT Code Diagnosis ICD10 Code [id number] Clark Pope DPM [place] Office [address] [place] [phone] 04/09/2024 15:38:52 04/09/2024 17:16:49 Peroneal tendinitis 63337832 M76.71 Pain of ri ght ankle joint 1767280011 5239061 M25.571 Health Concerns Section Related Observation LastModified by Organization Detai ls LastModified Time None Recorded Concern Status LastModified by Organization Details LastModified Time None Recorded Payers Encounter Date Sequence Insurance Name Policy Number Policy Richards Covered Member ID Richards Member ID Guarantor Name 04/09/2024 2 [place] [facility] Kathy Velazquez [id number] Kathy Velazquez 04/09/2024 1 [facility] - HEALTH NET PLAN (MEDICAID HMO) [employer] Kathy Velazquez [id number] Kathy Velazquez Notes Date Note Type Note Provider Name and Address Organization Details Recorded Time 04/09/2024 text/html Podiatry FootReported bypatient.Notes:Hilton hangianna presents today for evaluation right ankle pain. She states it started about 2 or 3 months ago. She was receiving gel injections in her right knee for Dr. Fisher's office. The physician medical administrative assistant recommended using an ankle brace that she was having swelling and pain on the outside part of the ankle. She started wearing ankle brace 2 weeks ago and has noticed a marked improvement. It does occasionally walk up on her and she notices it when she drives for long periods of time. Clark Pope DPM [address] [place] [address], [phone], [facility], [facility] 04/09/2024 16:30:43 OBGyn Episode No OBEpisode recorded.
--- OUTSIDE RECORDS SUMMARY | 2024-07-05 10:14 | XMS_ITS | Data Portability ---
Author Organization [place] [facility] [place], [facility], [facility] Address [address] [place] [phone] Care Team Providers Care Bolt Sorter Name Role Phone LUC NORRIS Primary Care Provider [phone] LUC NORRIS Referring Provider [phone] Assessment No assessment recorded. Plan of Treatment [...] By Organization Details Last Modified Time 04/09/2024 [id number] The above clinic al findings and radiographic [...] portions of this report were transcribed using [employer] speech recognition software. If any discrepancy or [...] Available 2023 15:10:45 Result Notes None recorded. Procedures Surgical History None recorded. Imaging Results Imaging Date Name Status LastModified by Organiz ation Details LastModified Time 04/09/2024 XR, ankle, 3 or more view completed [email or web address] Information not available 05/27/2024 15:10:45 Procedure Notes None recorded. Medical Equipment None Reported. [...] Diagnosis/Indication Diagnosis SNOMED-CT Code Diagnosis ICD10 Code [id number] Clark Pope DPM [place] Office [address] [place] [phone] 04/09/2024 15:38:52 04/09/2024 17:16:49 Peroneal tendinitis 42204322 M76.71 Pain of ri ght ankle joint [id number] 6699378 M25.571 Health Concerns Section Related Observation LastModified by Organization Detai ls LastModified Time None Recorded Concern Status LastModified by Organization Details LastModified Time None Recorded Advance Directives Directive None Recorded Payers Encounter Date Sequence Insurance Name Policy Number Policy Richards Covered Member ID Richards Member ID Guarantor Name 04/09/2024 2 [place] [facility] Kathy Velazquez [id number] Kathy Velazquez 04/09/2024 1 [facility] - HEALTH NET PLAN (MEDICAID HMO) [facility] Kathy Velazquez [id number] Kathy Velazquez Notes Date Note Type Note Provider Name and Address Organization Details Recorded Time 04/09/2024 text/html Podiatry FootReported bypatient.Notes:Hilton hatch presents today for evaluation right ankle pain. She states it started about 2 or 3 months ago. She was receiving gel injections in her right knee for Dr. Fisher's office. The physician veterinary assistant technician recommended using an ankle brace that she was having swelling and pain on the outside part of the ankle. She started wearing ankle brace 2 weeks ago and has noticed a marked improvement. It does occasionally walk up on her and she notices it when she drives for long periods of time. Clark Pope DPM [address] [place] [address], [phone], [facility] - [facility] [place], [facility] 04/09/2024 16:30:43 OBGyn Episode No OBEpisode recorded.
--- OUTSIDE RECORDS SUMMARY | 2024-07-05 10:15 | XMS_ITS | Data Portability ---
Author Organization [facility], [facility] Address [address] [place] [address] Care Team Providers Care Medical Collections Specialist Name Role Phone KAUR DEY Referring Provider [phone] DEONDRE BRONSON OTHER NICOLE ANDREW Primary Care Provider Assessment Encounter Date Assessment Date Assessment LastModified by Organization Details LastModified Time 09/17/2023 09/17/2023 Clinical signs a nd symptoms are consistent with right knee osteoarthritis, imaging reviewed. We discussed etiology as well as further conservative treatment options at this time. Patient presents today requesting repeat right knee cortisone injection, as she experienced several months of significant pain relief with her last. Right knee cortisone injection was performed today in the office without difficulty. Patient tolerated the procedure well, there were no complications. She will follow-up on an as-needed basis regarding her right knee. All patient questions were answered. Patient is in agreement with the plan of care. Patient verbalizes understanding. The patient is educated to call the office with any questions or concerns. Dr. Fisher is in agreement with the plan of care and is a part of the medical decision making. Not available 09/17/2023 11:59:14 12/28/2023 12/28/2023 Xrays were perso serjio reviewed by myself. Clinical signs symptoms are consistent with exacerbation of underlying right knee osteoarthritis. We once again discussed etiology as well as further surgical versus conservative treatment options. Patient states she would like to continue with conservative treatment regarding her right knee. We discussed the option of repeat right knee cortisone injection therapy, which she would like to proceed with today. We discussed the option of viscosupplementation injections if cortisone begins to have less efficacy. Right knee cortisone injection was performed today in the office without difficulty. Patient tolerated the procedure well, there were no complications. She will follow-up on an as-needed basis regarding her knee. All patient questions were answered. Patient is in agreement with the plan of care. Patient verbalizes understanding. The patient is educated to call the office with any questions or concerns. Dr. Fisher is in agreement with the plan of care and is a part of the medical decision making. Not available 12/28/2023 12:43:25 03/25/2024 03/25/2024 The first right knee Euflexxa injection was performed today in the office without difficulty. Patient tolerated procedure well, there were no complications. She will follow up in 1 week for the second right knee Euflexxa injection. All patient questions were answered. Patient is in agreement with the plan of care. Patient verbalizes understanding. The patient is educated to call the office with any questions or concerns. Dr. Fisher is in agreement with the plan of care and is a part of the medical decision making. Not available 03/25/2024 15:03:20 04/01/2024 04/01/2024 The second right knee Euflexxa injection was performed today in the office without difficulty. Patient tolerated the procedure well, there were no complications. She will follow-up in 1 week for the third injection. All patient questions were answered. Patient is in agreement with the plan of care. Patient verbalizes understanding. The patient is educated to call the office with any questions or concerns. Dr. Fisher is in agreement with the plan of care and is a part of the medical decision making. Not available 04/01/2024 09:29:55 04/08/2024 04/08/2024 The third right knee Euflexxa injection was performed today in the office without difficulty. Patient tolerated the procedure well, there were no complications. She will follow-up on an as-needed basis regarding her knee. All patient questions were answered. Patient is in agreement with the plan of care. Patient verbalizes understanding. The patient is educated to call the office with any questions or concerns. Dr. Fisher is in agreement with the plan of care and is a part of the medical decision making. Not available 04/08/2024 14:18:28 Plan of Treatment Reminders Order Date Submit Date Provider Last Modified By Organization Details Last Modified Time Details Appointments Any 15 2024 10:15A Reginald Bronson PA-C Not available Not available Not available Lab None recorded . Referral None recorded . Procedures None recorded . Surgeries None recorded . Imaging None recorded . Medication Orders Depo-Med rol 40 mg/mL suspensi on for injectio n [id number], [address] [place] [address], [id number], 09/17/2023 11:59:15 Depo-Med rol 40 mg/mL suspensi on for injectio n [id number], [address] [place] [address], [id number], 12/28/2023 12:42:17 Euflexxa 10 mg/mL (mw 2.4-3.6 million) intra-ar ticular syringe [id number], [address] [place], [id number], 03/25/2024 15:06:09 Euflexxa 10 mg/mL (mw 2.4-3.6 million) intra-ar ticular syringe [id number], [address] [place], [id number], 04/01/2024 09:29:21 Euflexxa 10 mg/mL (mw 2.4-3.6 million) intra-ar ticular syringe [id number], [address] [place] [address], [id number], 04/08/2024 14:18:08 Patient TargetsNo targets recorded. Patient InstructionsNo instructions recorded. Reason for Referral None Reported. Problems Name Problem SNOMED Code Status Onset Date Resolution Date Notes Provider Name and Address Organization Details Recorded Time Complicati on of anesthesia 03219307 Active 2022 Latesha gonzalez [facility] 3 01:11:15 Arthritis 2481182 Active 2022 Latesha gonzalez [facility] 3 01:11:22 Osteoarthr itis 709414426 Active 2022 Latesha gonzalez, [facility] 3 01:11:28 Total knee replacemen t Active 2022 Lateshapriti Burger [facility] 3 01:11:38 Rupture of rotator cuff of shoulder 365714953 Active 2022 complete rotator cuff tear or rupture of right shoulder, not specified as traumatic Latesha gonzalez [facility] 3 01:12:34 Tear of medial meniscus of knee 205456855 [facility] 20[email or web address] 3 01:12:56 Impingemen t syndrome of shoulder region 139762971 Active 2022 right shoulder Lateshapriti gonzalez [facility] 3 01:13:12 Problem Notes None recorded. Procedures Surgical History Date Name Laterality Status Provider Name and Address Organization Details Recorded Time 2023 Viscosupplementation Knee completed Deondre Bronson PA-C [address] [place], [address], [facility] 04/08/2024 14:18:06 2023 Viscosupplementation Knee completed Deondre Bronson PA-C [address] [place], [address], [facility] 04/01/2024 09:29:19 2023 Viscosupplementation Knee completed Deondre Bronson PA-C [address] [place], [address], [facility] 03/25/2024 15:02:51 2023 Intra-articular Knee Steroid Injection completed Deondre Bronson PA-C [address] [place], [address], [facility] 12/28/2023 12:44:01 2023 Intra-articular Knee Steroid Injection completed Deondre Bronson PA-C [address] [place], [address], [facility] 09/17/2023 11:58:11 2022 Intra-articular Knee Steroid Injection completed Deondre Bronson PA-C [address] [place], [address], [facility] 04/10/2023 15:26:45 2022 Intra-articular Knee Steroid Injection completed Deondre Bronson PA-C [address] [place], [address], [facility] 11/21/2022 17:45:19 2015 total knee replacement completed Latesha Burger [facility] 11/20/2022 01:14:37 2011 Knee arthroscopy/surgery completed Not Available [facility] 09/14/2011 03:36:58 2010 Knee Surgery completed Latesha Burger [facility] 11/20/2022 01:14:20 1995 Section completed Latesha Burger [facility] 11/20/2022 01:14:08 Joint Replacement completed Noreen Lopez [facility] 11/20/2022 13:14:12 Other Surgeries completed Dai Forbes [facility] 09/17/2023 11:48:36 Imaging Results None recorded. Procedure Notes None recorded. Medical Equipment None Reported. Allergies Allergen ID Allergen Name Allergen Category Reaction Reaction Severity Criticality Documentation Date Start Date Code Code System Note Provider Name and Address Organization Details Recorded Time 202517 Medicinal product containin g penicilli n and acting as antibacte rial agent (product) medicatio n rash Not available Not available 11/20/2022 93957 05 SNOMED Latesha Burger [facility] 3 01:15:24 058489 bee pollen environme nt,medica tion Not available Not available Not available 11/20/2022 32429 7 RxNorm Lateshapriti Burger [facility] 3 01:16:01 188283 ethinyl estradiol / levonorge strel medicatio n Not available Not available Not available 11/20/2022 38289 8 RxNorm Lateshapriti Burger [facility] 3 01:16:07 538999 POLLEN EXTRACTS environme nt,medica tion Not available Not available Not available 11/20/2022 59240 6 RxNorm Noreen Lesniewsk i [facility] 3 13:13:50 574277 mold extract environme nt Not available Not available Not available 11/20/2022 92099 8 RxNorm Noreen Lesniewsk i [facility] 3 13:13:50 207746 insect venom environme nt itching other Not available Not available Not available 11/20/2022 Noreen Lesniewsk i [facility] 3 13:13:50 Medications Name Sig Start Date Stop Date Status Note LastModified by Organization Details LastModified Time amoxicillin 500 mg capsule TAKE 2 CAPSULES BY MOUTH NOW, THEN 1 CAPSULE 3 TIMES DAILY UNTIL FINISHED 04/10 completed Not Available Not Available Not Available atorvastati n 20 mg tablet TAKE 1 TABLET BY MOUTH EVERY DAY 09/15 completed Not Available Not Available Not Available Depo-Medrol 40 mg/mL suspension for injection Injected into right knee as directed 2023 active Not Available Not Available Not Avai lable clindamycin HCl 300 mg capsule TAKE 1 CAPSULE BY MOUTH EVERY 8 HOURS UNTIL FINISHED 04/10 completed Not Available Not Available Not Available atorvastati n 10 mg tablet TAKE 1 TABLET BY MOUTH EVERYDAY AT BEDTIME active Not Available Not Available No t Available azithromyci n 250 mg tablet TAKE 2 TABLETS BY MOUTH TODAY, THEN TAKE 1 TABLET DAILY FOR 4 DAYSSTA RT TODAY 04/10 completed Not Available Not Available Not Available tolterodine ER 4 mg capsule,ext ended release 24 hr TAKE 1 CAPSULE BY MOUTH EVERY DAY 11/20 completed Not Available Not Available Not Available clindamycin HCl 150 mg capsule TAKE 2 CAPSULES BY MOUTH NOW, THEN 1 CAP EVERY 6 HOURS UNTIL FINISHED. 04/09 completed Not Available Not Available Not Available metronidazo le 500 mg tablet TAKE 1 TABLET BY MOUTH THREE TIMES A DAY 12/27 completed Not Available Not Available Not Available ciprofloxac in 500 mg tablet TAKE 1 TABLET BY MOUTH TWICE A DAY 12/27 completed Not Available Not Available Not Available minoxidil 2.5 mg tablet TAKE 1 TAB ORALLY 2 TIMES A DAY active Not Available Not Available No t Available levothyroxi ne 75 mcg tablet TAKE 1 TABLET BY MOUTH EVERY DAY active Not Available Not Available No t Available oxycodone-a cetaminophe n 5 mg-325 mg tablet TAKE 1 TABLET BY MOUTH EVERY 4 HOURS NEEDED FOR PAIN 04/10 completed Not Available Not Available Not Available cephalexin 500 mg capsule TAKE 1 CAPSULE BY MOUTH 4 TIMES A DAY FOR 5 DAYS. 04/01 completed Not Available Not Available Not Available progesteron e micronized 200 mg capsule TAKE 1 CAPSULE (200 MG TOTAL) BY MOUTH NIGHTLY AT BEDTIME. 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 1 mg over 3 days transdermal patch APPLY 1 PATCH TRANSDERM ALLY EVERY 3 DAYS NEEDED FOR NAUSEA AND VOMITING active Not Available Not Available No t Available epinephrine 0.3 mg/0.3 mL injection, auto-inject or INJECT 0.3MG DIRECTED INTRAMUSC ULARLY EVERY 10 MINUTES NEEDED FOR ANAPHYLAX IS active Not Available Not Available No t Available fluocinonid e 0.05 % topical solution PLEASE SEE ATTACHED FOR DETAILED DIRECTION S active Not Available Not Available No t Available methylpredn isolone 4 mg tablets in a dose pack TAKE 6 TABLETS ON DAY 1 DIRECTED ON PACKAGE AND DECREASE BY 1 TAB EACH DAY FOR A TOTAL OF 6 DAYS 11/20 completed Not Available Not Available Not Available estradiol 0.0375 mg/[address] 1 PATCH ONTO THE SKIN 2 TIMES A WEEK. 11/20 completed Not Available Not Available Not Available doxycycline hyclate 100 mg tablet TAKE 1 TABLET BY MOUTH TWICE A DAY FOR 10 DAYS 11/20 completed Not Available Not Available Not Available finasteride 5 mg tablet TAKE 1 TABLET BY MOUTH EVERY DAY 12/27 completed Not Available Not Available Not Available spironolact one 50 mg tablet TAKE 1 TABLET DAILY 09/17 completed Not Available Not Available Not Available diazepam 5 mg tablet TAKE 1 TABLET BY MOUTH EVERY 6 HOURS NEEDED FOR ANXIETY. active Not Available Not Available No t Available amoxicillin 875 mg-potassiu m clavulanate 125 mg tablet TAKE 1 TABLET BY MOUTH TWICE A DAY 12/27 completed Not Available Not Available Not Available oxycodone 5 mg tablet TAKE 1 TABLET (5 MG TOTAL) BY MOUTH EVERY 6 (SIX) HOURS NEEDED. active Not Available Not Available No t Available clindamycin 1 % lotion APPLY PEA SIZE AMOUNT TO AFFECTED AREAS ON FACE ONCE DAILY IN THE MORNING SPOT TREATMENT 04/09 completed Not Available Not Available Not Available chlorhexidi ne gluconate 0.12 % mouthwash RINSE WITH 1/2 OZ TWICE DAILY FOR THIRTY SECONDS AND THEN EXPECTORA TE 11/20 completed Not Available Not Available Not Available Euflexxa 10 mg/mL (mw 2.4-3.6 million) intra-artic ular syringe injected into the right knee as directed 2023 active Not Available Not Available Not Avai lable ProAir HFA 90 mcg/actuati on aerosol inhaler INHALE 2 PUFFS EVERY 4 HOURS BY INHALATIO N ROUTE NEEDED 11/20 completed Not Available Not Available Not Available Paxlovid 300 mg (150 mg x 2)-100 mg tablets in a dose pack TAKE 3 TABLETS BY MOUTH TWICE A DAY FOR 5 DAYS 09/17 completed Not Available Not Available Not Available Vitals Date Recorded Body height Body mass index (BMI) Body weight Provider Name and Address Organization Details Last Updated DateTime 09/17/2023 172.72 cm 30.1 kg/m2 29960.29 g Dai Forbes [facility] 09/17/2023 11:48:27 Date Recorded Body height Body mass index (BMI) Body weight Provider Name and Address Organization Details Last Updated DateTime 12/28/2023 172.72 cm 29.3 kg/m2 33301.33 g Dai Forbes [facility] 12/28/2023 10:11:50 Date Recorded Body height Body mass index (BMI) Body weight Provider Name and Address Organization Details Last Updated DateTime 04/01/2024 172.72 cm 29.3 kg/m2 90001.33 g Payton Guidryand [facility] 04/01/2024 08:35:29 Date Recorded Body height Body mass index (BMI) Body weight Provider Name and Address Organization Details Last Updated DateTime 04/08/2024 172.72 cm 29.3 kg/m2 34299.33 edelmira Forbes [facility] 04/08/2024 13:48:49 Social History Question Answer Notes LastModified by Organizat ion Details LastModified Time Tobacco Smoking Status Former Smoker Noreen gonzalez [facility] 11/20/2022 13:14:07 Do You Have An Advance Directive? Yes Information not available 11/20/2022 What Is Your Level Of Alcohol Consumption? Moderate Information not available 11/20/2022 Are You Blind Or Do You Have Difficulty Seeing? No Information not available 11/20/2022 Is Blood Transfusion Acceptable In An Emergency? Yes Information not available 11/20/2022 What Is Your Level Of Caffeine Consumption? Moderate Information not available 11/20/2022 Are You Currently Employed? Yes Information not available 11/20/2022 Are You Deaf Or Do You Have Serious Difficulty Hearing? No Information not available 11/20/2022 What Type Of Diet Are You Following? 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 16+yearssincel carlos Information not available 11/20/2022 Which Of Your Hands Is Dominant? Right Information not available 11/20/2022 What Was The Date Of Your Most Recent Tobacco Screening? 04/08/2024 [email or web address] Information not available 04/08/2024 Do You Have Any Pets? Yes Information not available 11/20/2022 What Is Your Relationship Status? Information not available 11/20/2022 Do You Feel Stressed (tense, Restless, Nervous, Or Anxious, Or Unable To Sleep At Night)? [id number] [email or web address] Information not available 04/10/2023 Do You Use Any Illicit Or Recreational Drugs? No Information not available 11/20/2022 Has Tobacco Cessation Counseling Been Provided? No [email or web address] Information not available 04/10/2023 How Many Years Have You Smoked Tobacco? 5 Information not available 11/20/2022 Do You Or Have You Ever Used Any Other Forms Of Tobacco Or Nicotine? No Information not available 11/20/2022 How Many Days In The Past Year Have You Consumed 4 Or More Drinks? 4 Information no t available 11/20/2022 Sex: Female Functional Status Question Answer Note LastModified by Organization D etails LastModified Time Are you able to care for yourself? Yes Information not available 11/20/2022 What is your exercise level? Moderate Information not available 11/20/2022 Mental Status None recorded. Family History Relationship Description Onset Age of this Age Resolved Age Notes LastModified by Organization Details LastModified Time Father Heart disease angie Not available 07/2022 13:13:55 Father Family history of malignant neoplasm angie Not available 07/2022 13:13:55 Mother Hypertensive disorder angie Not available 07/2022 13:13:55 Medical History Condition Response Other Disease(s): Y High Cholesterol (Hyperlipidemia) Y Back/Neck Pain Y Arthritis Osteoarthritis Y Gynecological HistoryNo gynecological history recorded. Obstetrics History GPAL:G 0 P 0 0 0 0 Past Encounters Encounter ID Performer Location Encounter Start Date Encounter Closed Date Diagnosis/Indication Diagnosis SNOMED-CT Code Diagnosis ICD10 Code [id number] Deondre Bronson PA-C [facility] [address] [place] [address] 11/20/2022 13:02:57 11/20/2022 13:44:20 Osteoarthritis of right knee joint 2374311725 46632 M17.11 Osteoarthr itis of left knee joint 0695082801 38531 M17.12 [id number] Deondre Bronson PA-C [facility] [address] [place] [address] 04/10/2023 14:46:22 04/10/2023 15:15:05 Osteoarthritis of right knee joint 6094955744 59915 M17.11 [id number] Deondre Bronson PA-C [facility] [address] [place] [address] 09/17/2023 11:41:51 09/17/2023 11:43:08 Osteoarthritis of right knee joint 7229445183 32862 M17.11 [id number] Deondre Bronson PA-C [facility] [address] [place] [address] 12/28/2023 10:07:59 12/28/2023 10:40:19 Osteoarthritis of right knee joint 0739453257 54676 M17.11 [id number] Deondre Bronson PA-C [facility] [address] [place] [address] 03/25/2024 14:43:16 03/25/2024 15:12:13 Osteoarthritis of right knee joint 4079365466 58454 M17.11 [id number] Deondre Bronson PA-C [facility] [address] [address] 04/01/2024 08:32:29 04/01/2024 08:48:46 Osteoarthritis of right knee joint 2207804852 52338 M17.11 [id number] Deondre Bronson PA-C [facility] [address] [address] 04/08/2024 13:42:36 04/08/2024 13:59:56 Osteoarthritis of right knee joint 8839221150 93333 M17.11 Health Concerns Section Related Observation LastModified by Organization Detai ls LastModified Time None Recorded Concern Status LastModified by Organization Details LastModified Time None Recorded Advance Directives Directive Y: Payers Encounter Date Sequence Insurance Name Policy Number Policy Richards Covered Member ID Richards Member ID Guarantor Name 09/17/2023 1 [facility] [employer] (MEDICAID REPLACEMENT - HMO) RONNY Velazquez [id number] Kathy Velazquez 12/28/2023 1 [facility] [employer] (MEDICAID REPLACEMENT - HMO) RONNY Velazquez [id number] Kathy Velazquez 03/25/2024 1 [facility] [employer] (MEDICAID REPLACEMENT - HMO) RONNY Velazquez [id number] Kathy Velazquez 04/01/2024 1 [facility] [employer] (MEDICAID REPLACEMENT - HMO) RONNY Velazquez [id number] Kathy Velazquez 04/08/2024 1 [facility] [employer] (MEDICAID REPLACEMENT - HMO) RONNY Velazquez [id number] Kathy Velazquez Notes Date Note Type Note Provider Name and Address Organization Details Recorded Time 09/17/2023 text/html Patient presents for followup regarding her right knee. Previous standing AP and lateral x-rays of the right knee reveal Kellgren-Jamie grade 3 changes most pronounced over the lateral tibiofemoral and patellofemoral joint spaces. Patient underwent right knee cortisone injection at her last visit in March. She states this provided over 3 months of good pain relief. She reports recent recurrence of right knee discomfort primarily located over the lateral aspect of the knee. She presents today requesting right knee cortisone injection. Of note, patient has a history of left total knee arthroplasty performed by Dr. Fisher. Deondre Bronson PA-C [address] [place], [address], [facility] 09/17/2023 11:59:47 12/28/2023 text/html Patient presents for followup regarding her right knee. Previous standing AP and lateral x-rays of the right knee reveal Kellgren-Jamie grade 3 changes most pronounced over the lateral tibiofemoral and patellofemoral joint spaces. Patient underwent right knee cortisone injection at her last visit in August. She reports approximately 3 months of good pain relief, which has since resurfaced. She states pain is primarily located over the lateral aspect of the knee. She also reports crepitus/mechanical symptoms with certain activities.She presents today requesting repeat cortisone injection. Of note, patient has a history of left total knee arthroplasty performed by Dr. Fisher. Deondre Bronson PA-C [address] [place], [address], [facility] 12/28/2023 12:44:29 03/25/2024 text/html Patient presents for her first right knee Euflexxa injection. Deondre Bronson PA-C [address] [place], [address], [facility] 03/25/2024 15:06:53 04/01/2024 text/html Patient presents for her second right knee Euflexxa injection. She denies any adverse effects following previous injection. Deondre Bronson PA-C [address] [place], [address], [facility] 04/01/2024 09:30:56 04/08/2024 text/html Patient presents for her third right knee Euflexxa injection. She denies any adverse effects following previous injections. Deondre Bronson PA-C [address] [place], [address], [facility] 04/08/2024 14:25:07 OBGyn Episode No OBEpisode recorded.
--- OUTSIDE RECORDS SUMMARY | 2024-07-05 10:15 | XMS_ITS | Continuity of Care Document ---
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 Patient tolerated the procedure well, there were no complications . She will follow-up on an as-needed basis regarding her knee. All patient questions were answered. Patient is in agreement with the plan of care. Patient verbalizes understanding . The patient is educated to call the office with any questions or concerns. Dr. Fisher is in agreement with the plan of care and is a part of the medical decision making. [email or web address] Not available 04/08/2024 14:18:28 Plan of Treatment Reminders Order Date Submit Date Provider Last Modified By Organization Details Last Modified Time Details Appointments Any 15 2024 10:15A Reginald Bronson PA-C Not available Not available Not available Lab None recorded . Referral None recorded . Procedures None recorded . Surgeries None recorded . Imaging None recorded . Medication Orders Euflexxa 10 mg/mL (mw 2.4-3.6 million) intra-ar ticular syringe 2023 024 [email or web address] [id number], [address] [facility] [employer], [place], [address], 04/08/2024 14:18:08 Patient TargetsNo targets recorded. Patient InstructionsNo instructions recorded. Reason for Referral None Reported. Problems Name Problem SNOMED Code Status Onset Date Resolution Date Notes Provider Name and Address Organization Details Recorded Time Complicati on of anesthesia 84981249 Active 2022 Latesha Reallawrence [facility] 3 01:11:15 Arthritis 1261512 Active 2022 Lateshapriti Burger [facility] 3 01:11:22 Osteoarthr itis 916602091 Active 2022 Lateshapriti Burger [employer] 3 01:11:28 Total knee replacemen t Active 2022 Lateshapriti Burger [employer] 3 01:11:38 Rupture of rotator cuff of shoulder 319403334 Active 2022 complete rotator cuff tear or rupture of right shoulder, not specified as traumatic Lateshapriti Burger [employer] 3 01:12:34 Tear of medial meniscus of knee 048161428 Active 2022 Lateshapriti Burger [employer] 3 01:12:56 Impingemen t syndrome of shoulder region 118116851 Active 2022 right shoulder Lateshapriti Burger [employer] 3 01:13:12 Problem Notes None recorded. Procedures Surgical History Date Name Laterality Status Provider Name and Address Organization Details Recorded Time 2023 Viscosupplementation Knee completed Deondre Bronson PA-C [address] [place] [address], [phone], [facility] 04/08/2024 14:18:06 2023 Viscosupplementation Knee completed Deondre Bronson PA-C [address] [place] [address], [phone], [facility] 04/01/2024 09:29:19 2023 Viscosupplementation Knee completed Deondre Bronson PA-C [address] [place] [address], [phone], [facility] 03/25/2024 15:02:51 2023 Intra-articular Knee Steroid Injection completed Deondre Bronson PA-C [address] [place] [address], [phone], [facility] 12/28/2023 12:44:01 2023 Intra-articular Knee Steroid Injection completed Deondre Bronson PA-C [address] [place] [address], [phone], [facility] 09/17/2023 11:58:11 2022 Intra-articular Knee Steroid Injection completed Deonder Bronson PA-C [address] [place] [address], [phone], [facility] 04/10/2023 15:26:45 2022 Intra-articular Knee Steroid Injection completed Deondre Bronson PA-C [address] [place] [address], [phone], [facility] 11/21/2022 17:45:19 2015 total knee replacement completed Latesha Burger [facility] 11/20/2022 01:14:37 2011 Knee arthroscopy/surgery completed Not Available [facility] 09/14/2011 03:36:58 2010 Knee Surgery completed Latesha Burger [facility] 11/20/2022 01:14:20 1995 Section completed Latesha Burger [facility] 11/20/2022 01:14:08 Joint Replacement completed Noreen Lopez [facility] 11/20/2022 13:14:12 Other Surgeries completed Dai Forbes [facility] 09/17/2023 11:48:36 Imaging Results None recorded. Procedure Notes None recorded. Medical Equipment None Reported. Allergies Allergen ID Allergen Name Allergen Category Reaction Reaction Severity Criticality Documentation Date Start Date Code Code System Note Provider Name and Address Organization Details Recorded Time 462000 Medicinal product containin g penicilli n and acting as antibacte rial agent (product) medicatio n rash Not available Not available 11/20/2022 67885 05 [facility] 01:15:24 560968 bee pollen environme nt,medica tion Not available Not available Not available 11/20/2022 94685 7 RxNorm Latesha Burger [facility] 3 01:16:01 750571 ethinyl estradiol / levonorge strel medicatio n Not available Not available Not available 11/20/2022 60624 8 [facility] 3 01:16:07 428036 POLLEN EXTRACTS environme nt,medica tion Not available Not available Not available 11/20/2022 95121 6 RxNorm Noreen Renard miranda [facility] 3 13:13:50 395646 mold extract environme nt Not available Not available Not available 11/20/2022 32192 8 RxNorm Noreen Renard miranda [facility] 3 13:13:50 747312 insect venom environme nt itching other Not available Not available Not available 11/20/2022 Noreen Renard miranda [facility] 3 13:13:50 Medications Name Sig Start Date [...] Not Available No t Available 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 16+yearssincel astcigarette [email or web address] Information not available 11/20/2022 Which Of Your Hands Is Dominant? Right Information not available 11/20/2022 What Was The Date Of Your Most Recent Tobacco Screening? 04/08/2024 [email or web address] Information not available 04/08/2024 Do You Have Any Pets? Yes Information not available 11/20/2022 What Is Your Relationship Status? Information not available 11/20/2022 Do You Feel Stressed (tense, Restless, Nervous, Or Anxious, Or Unable To Sleep At Night)? [id number] [email or web address] Information not available 04/10/2023 Do You Use Any Illicit Or Recreational Drugs? No Information not available 11/20/2022 Has Tobacco Cessation Counseling Been Provided? No [email or web address] Information not available 04/10/2023 How Many Years [...] available 07/2022 13:13:55 Medical History Condition Response Back/Neck Pain Y High Cholesterol (Hyperlipidemia) Y Arthritis Osteoarthritis Y Other Disease(s): Y Gynecological HistoryNo gynecological history recorded. Obstetrics History GPAL:G 0 P 0 0 0 0 Past Encounters Encounter ID Performer Location Encounter Start Date Encounter Closed Date Diagnosis/Indication Diagnosis SNOMED-CT Code Diagnosis ICD10 Code [id number] Deondre Bronson PA-C [facility] [address] [place] [phone] 03/25/2024 14:43:16 03/25/2024 15:12:13 Osteoarthritis of right knee joint 7980876504 73438 M17.11 [id number] Deondre Bronson PA-C [facility] [address] [phone] 04/01/2024 08:32:29 04/01/2024 08:48:46 Osteoarthritis of right knee joint 6144759088 33994 M17.11 [id number] Deondre Bronson PA-C [facility] [address] [place] [phone] 04/08/2024 13:42:36 04/08/2024 13:59:56 Osteoarthritis of right knee joint 9390142451 95128 M17.11 Health Concerns Section Related Observation LastModified by Organization Detai ls LastModified Time None Recorded Concern Status LastModified by Organization Details LastModified Time None Recorded Payers Encounter Date Sequence Insurance Name Policy Number Policy Richards Covered Member ID Richards Member ID Guarantor Name 04/08/2024 1 [facility] (MEDICAID REPLACEMENT - HMO) [employer] Kathy Velazquez [id number] Kathy Velazquez Notes Date Note Type Note Provider Name and Address Organization Details Recorded Time 04/08/2024 text/html Patient presents for her third right knee Euflexxa injection. She denies any adverse effects following previous injections. Deondre Bronson PA-C [address] [place] [address], [phone], [facility]. 04/08/2024 14:25:07 OBGyn Episode No OBEpisode recorded.
[2024-07-05 12:37] LABS: Alanine Aminotransferase 38 U/L (0-31); Alkaline Phosphatase 120 U/L (39-117); Anion Gap 11 (12-20); Aspartate Amino Transferase 28 U/L (5-31); Bilirubin Total 0.4 mg/dL (0.0-1.0); Blood Urea Nitrogen 15 mg/dL (9-16); Calcium 9.4 mg/dL (8.4-10.2); Carbon Dioxide 28 mmol/L (22-29); Chloride 106 mmol/L (96-108); Cholesterol 175 mg/dL (<200); Estimated Glomerular Filt Rate > 60; Glucose Fasting 92 mg/dL (60-99); HDL Cholesterol 52 mg/dL (>40); LDL Cholesterol Calculated 108 mg/dL (<100); Potassium 4.3 mmol/L (3.3-5.1); Sodium 141 mmol/L (135-145); Total Protein 7.2 g/dL (6.5-8.0); Triglycerides 75 mg/dL (<150)
[2024-07-05 12:57] LABS: TSH reflex Free T4 2.83 uIU/mL (0.32-4.0)
== END 2024-07-05 10:13 | disposition home or self-care (01) ==
LOC: HO.HMGCLDS 10:12
PROVIDERS: PCP Internal Medicine; Visit Provider Internal Medicine
DX: E78.9 Disorder of lipoprotein metabolism, unspecified (principal); E03.8 Other specified hypothyroidism; E66.09 Other obesity due to excess calories; Z68.31 Body mass index [BMI] 31.0-31.9, adult; R10.12 Left upper quadrant pain; E03.9 Hypothyroidism, unspecified
CPT/HCPCS: 36415; 80053; 80061; 84443

== ENCOUNTER 2024-07-08 10:42 | Outpatient (AMB) | payer OTHER, SELFPAY ==
[2024-07-08 10:44] VITALS: BP 132/76; PULSE 76; O2SAT 99; BMI 33.2
--- NOTE | 2024-07-08 10:44 | MHC.PC.OV ---
Vital Signs 07/08/24 10:44 Height 5 ft 8 in Weight 218 lb 2 oz BMI 33.2 BP 132/76 Blood Pressure Location Lt brachial Position Sitting Pulse 76 Pulse Source Pulse Oximeter Pulse Oximetry (%) 99 Oxygen Delivery Method Room Air Intake Visit Reasons: 6 month follow up Allergies Penicillins Allergy (Mild, Verified 07/08/24 10:45) rash bee Allergy (Severe, Uncoded 01/09/24 13:01) Swelling Medication List - Last Reconciled 07/08/24 by Marianela Plummer MD atorvastatin 10 mg PO BEDTIME epinephrine (EpiPen) 0.3 mg (0.3 mL) IM Q10M PRN 90 days levothyroxine 75 mcg PO DAILY minoxidil 2.5 mg PO BID omeprazole 20 mg PO DAILY Tobacco use date assessed: 07/08/24 Dental Screening Dental Screen Date: 07/08/24 Did you have a dental visit in the last 12 months?: Yes Did you have a dental problem in the last 6 months where you did not have access to dental care?: No Was dental information given to patient?: Patient has dentist HPI 6 month follow up HPI Details Chief Complaint Patient reports significant joint pain with specific concern for increased pain in the knees, hips, and back. Assessment and Plan 59-year-old female with a history of osteoarthritis presenting with significant joint pain, particularly in the right knee, left hip, and back. The patient reports [id number] condition in the right knee and recent cortisone injections, with next orthopedic evaluation scheduled in July. The patient's symptoms of joint pain are potentially exacerbated by weight gain and limited mobility following recent surgeries. Current lab results indicate stable liver enzymes, normal kidney function, and no immediate need for alarm regarding cardiovascular risk despite the family history. The cessation of statin therapy is advised to evaluate any improvement in symptoms, given concerns about statin-associated muscle pain. 1. Elevated Liver Enzymes Currently Stable Continue regular monitoring via liver function tests. Regular monitoring of blood tests is advised. 2. Family History Of Heart Disease Mother With Heart Attack At Age 80 Monitor patient's cholesterol levels and cardiac health, especially with changes in statin therapy. 3. Presence of left artificial knee joint Z96.652 Monitor for ongoing functionality and pain. Discuss the continued difficulty with stairs with her orthopedic doctor 4. Weight Gain Suggest caloric intake monitoring with a target of 1200 calories per day. Evaluate the invitation to a weight management program and consider options for non-surgical intervention as appropriate. 6. Osteoarthritis Of The Right Knee Continue management with Tylenol and consider occasional Aleve. The patient should follow up with the material specialist for potential knee injections in July. Encourage low-impact activities to maintain joint mobility. Diagnostic results - Labs: CBC performed in September, Metabolic profile completed recently with normal kidney function, slightly elevated but stable liver enzymes, good cholesterol, and thyroid levels. Problem List - Osteoarthritis of the right knee - Status post left knee replacement in 2016 - Left hip pain - Weight gain - Family history of heart disease Medications - Tylenol for pain relief - Discontinue statin temporarily for symptom evaluation [place] [facility] Care: Orthopedic surgeon Patient Instructions - Temporarily stop taking the statin and monitor for changes in muscle or joint pain. - Use Tylenol and Aleve for joint pain as necessary. - Monitor caloric intake, aiming for less than 1200 calories a day. - Schedule the flu vaccine. - Attend the scheduled orthopedic follow-up in July. - Monitor joint and hip pain and report any significant changes. Maintain regular follow-ups as discussed. New medications: Phentermine for weight loss, patient agree with monthly follow-up for that, side effect of phentermine reviewed with the patient [facility] Family History Daughter Mental health disorder Social History Housing: House Patient Tobacco Use Status: Never used Tobacco e-Cigarette/Vaping Use: Never Used service: No Current occupational status: employed Cognitive needs: No Hearing needs: No Vision needs: Yes Questionnaire PHQ-9 Over the last 2 weeks, how often have you been bothered by any of the following problems? 1. Little interest or pleasure in doing things: not at all 2. Feeling down, depressed, or hopeless: not at all 3. Trouble falling or staying asleep, or sleeping too much: not at all 4. Feeling tired or having little energy: not at all 5. Poor appetite or overeating: not at all 6. Feeling bad about yourself - or that you are a failure or have let yourself or your family down: not at all 7. Trouble concentrating on things, such as reading the newspaper or watching television: not at all 8. Moving or speaking so slowly that other people could have noticed. Or the opposite - being so fidgety or restless that you have been moving around a lot more than usual: not at all 9. Thoughts that you would be better off or of hurting yourself in some way: not at all Total score: 0 Depression Screening Interpretation: Negative Depression Screening Done: Yes 44147 - PHQ-9 Billing: Yes Source: Developed by Drs. Clark Roy, Evette Guzman, Chip Esposito and colleagues, with an educational jono from [employer]. Thrive Questionnaire Date Thrive assessed: 07/08/24 I am a: Patient What is your living situation today?: I have a steady place to live Within the past 12 months, did the food you bought not last and you didn't have the money to get more?: Never true Within the past 12 months, did you worry whether your food would run out before you got money to buy more?: Never true Do you have trouble paying for medicines?: No Do you have trouble getting transportation to medical appointments?: No Do you have trouble paying your heating and electricity bill?: No Do you have trouble taking care of your child, family member or friend?: No Do you have trouble with day-to-day activities such as bathing, preparing meals, shopping, managing finances, etc.?: No Are you currently unemployed and looking for a job?: No Are you interested in more education?: No Please select the resources that you would like help with: None Currently or been in a relationship where the following occur: No concerns reported THRIVE Score: 0 AUDIT C Alcohol Use Questionnaire (AUDIT-C) 1. How often do you have a drink containing alcohol?: 2-3 times a week 2. How many drinks containing alcohol do you have on a typical day when you are drinking?: 1 or 2 3. How often do you have six or more drinks on one occasion?: Never Total Score: 3 Score Reviewed/Action Taken: Yes FELIPE-7 AMB Questionnaire FELIPE-7 Date FELIPE - 7 assessed: 07/08/24 Feeling nervous, anxious, or on edge: 0 = Not at all Not being able to stop or control worryin = Not at all Worrying too much about different things: 0 = Not at all Trouble relaxin = Not at all Being so restless that it is hard to sit still: 0 = Not at all Becoming easily annoyed or irritable: 0 = Not at all Feeling afraid as if something awful might happen: 0 = Not at all Total FELIPE-7 score (0-4 normal; 5-9 mild; 10-14 moderate; 15-21 severe): 0 Source: Developed by Drs. Clark Roy, Evette Guzman, Chip Esposito and colleagues, with an educational jono from [employer]. FELIPE-7 Assessment Billing FELIPE-7 Assessment Tool: FELIPE-7 Assessment 08671 Review of Systems Const Denies chills and Denies fever(s) ENT Denies epistaxis and Denies nasal discharge Card Denies chest pain Resp Denies chest congestion, Denies cough and Denies hemoptysis GI Denies diarrhea and Denies nausea Skin/Breast Denies rash Neuro Reports no additional complaints Psych Reports no additional complaints Endo Reports no additional complaints Physical exam (Primary Care) Vital Signs: Last Vital Signs Pulse 76 07/08/24 10:44 BP 132/76 07/08/24 10:44 Pulse Ox 99 07/08/24 10:44 Oxygen Delivery Method Room Air 07/08/24 10:44 BMI result Body Mass Index 33.2 Tobacco/Smoking Status: Tobacco use Status Tobacco use date assessed 07/08/24 07/08/24 10:47 Patient Tobacco Use Status Never used Tobacco 07/08/24 10:47 e-Cigarette/Vaping Use Never Used 07/08/24 10:47 PHQ-9: PHQ-9 Score PHQ-9: Total score 0 07/08/24 11:32 Depression Screening Interpretation: Negative Thrive Assessment: Date of Thrive Assessment Date Thrive assessed 07/08/24 07/08/24 10:47 Currently or been in a relationship where the following occur: No concerns reported Const General: cooperative, comfortable and no acute distress Orientation/consciousness: patient oriented x3 HENMT Head: Yes normocephalic Eyes General: appearance normal, both eyes and all related structures Neck Neck: Yes supple Resp Effort & Inspection: normal respiratory effort, no cough and no stridor Cardio Rhythm: regular rhythm Heart sounds: S1 normal heart sound present and S2 normal heart sound present Skin General skin exam: turgor normal Neuro General: patient oriented x3, tone normal and moves all extremities Extrem Right lower extremity: no edema Left lower extremity: no edema Office Procedures Flu Questionnaire Does the patient have a severe egg allergy?: No Does the patient have severe life threatening allergies?: No Does the patient have a fever or illness today?: No Has the patient ever had Guillain-Hancock Syndrome?: No Has the patient ever had any past reaction to a flu shot?: No Immunizations Fluarix Triv 2941-8786 (PF) 45 mcg (15 mcg x 3)/0.5 mL IM syringe Performing Provider: Marianela Plummer MD [place] [facility] [place] [facility] Administered by: BELA Lemos on 07/08/24 11:32 Dose Route Admin Location Dispensed Lot Number Expiration Date [facility] [address] [employer] 0.5 mL IM Left Deltoid 0.5 mL [id number] 01/19/25 [id number] [employer] VIS Given Date VIS Provided VIS Publication Date 07/08/24 Single Vaccine 21 Eligibility Eligibility Date Funding Source Not [facility] Eligible 07/08/24 Private Coding Level of Care Code Est Pt Level 4 (89797) Diagnoses Lipid disorder E78.9 Other specified hypothyroidism E03.8 Class 1 obesity due to excess calories with serious comorbidity and body mass index (BMI) of 31.0 to 31.9 in adult E66.09; Z68.31 Body mass index: BMI 31.0-31.9 Obesity classification: adult class 1 (BMI 30 - 34.9) Serious obesity comorbidity presence: with serious comorbidity LFT elevation R79.89 Primary osteoarthritis involving multiple joints M15.0 Osteoarthritis location: multiple joints Osteoarthritis type: primary Additional Codes FELIPE-7 Assessment Billing - FELIPE-7 Assessment Tool: FELIPE-7 Assessment 17668 ([id number]) PHQ-9 - 52162 - PHQ-9 Billing: Yes ([id number]) Assessment & Plan Assessment & Plan (1) Lipid disorder: Code(s): E78.9 - Disorder of lipoprotein metabolism, unspecified Category: Medical (2) Other specified hypothyroidism: Code(s): E03.8 - Other specified hypothyroidism Category: Medical (3) Obesity due to excess calories: Code(s): E66.09 - Other obesity due to excess calories Category: Medical Qualifiers: Body mass index: BMI 31.0-31.9 Obesity classification: adult class 1 (BMI 30 - 34.9) Serious obesity comorbidity presence: with serious comorbidity Qualified Code(s): E66.09 - Other obesity due to excess calories; Z68.31 - Body mass index [BMI] 31.0-31.9, adult (4) LFT elevation: Code(s): R79.89 - Other specified abnormal findings of blood chemistry Category: Medical (5) Osteoarthritis: Code(s): M19.90 - Unspecified osteoarthritis, unspecified site Category: Medical Qualifiers: Osteoarthritis location: multiple joints Osteoarthritis type: primary Qualified Code(s): M15.0 - Primary generalized (osteo)arthritis Plan Chief Complaint Patient reports significant joint pain with specific concern for increased pain in the knees, hips, and back. Assessment and Plan 59-year-old female with a history of osteoarthritis presenting with significant joint pain, particularly in the right knee, left hip, and back. The patient reports [id number] condition in the right knee and recent cortisone injections, with next orthopedic evaluation scheduled in July. The patient's symptoms of joint pain are potentially exacerbated by weight gain and limited mobility following recent surgeries. Current lab results indicate stable liver enzymes, normal kidney function, and no immediate need for alarm regarding cardiovascular risk despite the family history. The cessation of statin therapy is advised to evaluate any improvement in symptoms, given concerns about statin-associated muscle pain. 1. Elevated Liver Enzymes Currently Stable Continue regular monitoring via liver function tests. Regular monitoring of blood tests is advised. 2. Family History Of Heart Disease Mother With Heart Attack At Age 80 Monitor patient's cholesterol levels and cardiac health, especially with changes in statin therapy. 3. Presence of left artificial knee joint Z96.652 Monitor for ongoing functionality and pain. Discuss the continued difficulty with stairs with her orthopedic doctor 4. Weight Gain Suggest caloric intake monitoring with a target of 1200 calories per day. Evaluate the invitation to a weight management program and consider options for non-surgical intervention as appropriate. 6. Osteoarthritis Of The Right Knee Continue management with Tylenol and consider occasional Aleve. The patient should follow up with the material specialist for potential knee injections in July. Encourage low-impact activities to maintain joint mobility. Diagnostic results - Labs: CBC performed in September, Metabolic profile completed recently with normal kidney function, slightly elevated but stable liver enzymes, good cholesterol, and thyroid levels. Problem List - Osteoarthritis of the right knee - Status post left knee replacement in 2016 - Left hip pain - Weight gain - Family history of heart disease Medications - Tylenol for pain relief - Discontinue statin temporarily for symptom evaluation [place] [facility] Care: Orthopedic surgeon Patient Instructions - Temporarily stop taking the statin and monitor for changes in muscle or joint pain. - Use Tylenol and Aleve for joint pain as necessary. - Monitor caloric intake, aiming for less than 1200 calories a day. - Schedule the flu vaccine. - Attend the scheduled orthopedic follow-up in July. - Monitor joint and hip pain and report any significant changes. Maintain regular follow-ups as discussed. New medications: Phentermine for weight loss, patient agree with monthly follow-up for that, side effect of phentermine reviewed with the patient Orders: Orders Complete Blood Count Auto Diff 6 Months E03.8 - Other specified hypothyroidism, E66.09 - Other obesity due to excess calories, E78.9 - Disorder of lipoprotein metabolism, unspecified, M19.90 - Unspecified osteoarthritis, unspecified site, R79.89 - Other specified abnormal findings of blood chemistry, Z68.31 - Body mass index [BMI] 31.0-31.9, adult Comprehensive [place]. Panel Fast 6 Months E03.8 - Other specified hypothyroidism, E66.09 - Other obesity due to excess calories, E78.9 - Disorder of lipoprotein metabolism, unspecified, M19.90 - Unspecified osteoarthritis, unspecified site, R79.89 - Other specified abnormal findings of blood chemistry, Z68.31 - Body mass index [BMI] 31.0-31.9, adult Lipid Panel 6 Months E03.8 - Other specified hypothyroidism, E66.09 - Other obesity due to excess calories, E78.9 - Disorder of lipoprotein metabolism, unspecified, M19.90 - Unspecified osteoarthritis, unspecified site, R79.89 - Other specified abnormal findings of blood chemistry, Z68.31 - Body mass index [BMI] 31.0-31.9, adult TSH reflex Free T4 6 Months E03.8 - Other specified hypothyroidism, E66.09 - Other obesity due to excess calories, E78.9 - Disorder of lipoprotein metabolism, unspecified, M19.90 - Unspecified osteoarthritis, unspecified site, R79.89 - Other specified abnormal findings of blood chemistry, Z68.31 - Body mass index [BMI] 31.0-31.9, adult Influenza [id number] Immunization Today Z23 - Encounter for immunization Medications: New phentermine must administer 2 hours after breakfast 15 mg PO DAILY 30 caps 0RF 30 days
--- OUTSIDE RECORDS SUMMARY | 2024-07-08 11:11 | XMS_ITS | Continuity of Care Document ---
Author Organization [facility] Address [address] [place] [phone] Care Team Providers Care Release Coordinator Name Role Phone KAUR DEY Referring Provider [...] intra-ar ticular syringe 2023 024 [email or web address] [id number], [address] [facility] [address], [place], [address], 04/08/2024 14:18:08 Patient TargetsNo targets recorded. Patient InstructionsNo instructions recorded. Reason for Referral None Reported. Problems Name Problem SNOMED Code Status Onset Date Resolution Date Notes Provider Name and Address Organization Details Recorded Time Complicati on of anesthesia 80998979 Active 2022 Latesha Reallawrence [facility] 3 01:11:15 Arthritis 5741225 Active 2022 Lateshapriti Burger [facility] 3 01:11:22 Osteoarthr itis 771522222 Active 2022 Lateshapriti Burger [facility] 3 01:11:28 Total knee replacemen t Active 2022 Lateshapriti Burger [facility] 3 01:11:38 Rupture of rotator cuff of shoulder 287595913 Active 2022 complete rotator cuff tear or rupture of right shoulder, not specified as traumatic Lateshapriti Burger [facility] 3 01:12:34 Tear of medial meniscus of knee 662337838 Active 2022 Lateshapriti Burger [facility] 3 01:12:56 Impingemen t syndrome of shoulder region 696755981 Active 2022 right shoulder Lateshapriti Burger [facility] 3 01:13:12 Problem Notes None recorded. Procedures Surgical History Date Name Laterality Status Provider Name and Address Organization Details Recorded Time 2023 Viscosupplementation Knee completed Deondre Bronson PA-C [address] [place] [address], [phone], [facility] 04/08/2024 14:18:06 2023 Viscosupplementation Knee completed Deondre Bronson PA-C [address] [place] [address], [phone], [facility] 04/01/2024 09:29:19 2023 Viscosupplementation Knee completed Deondre Bronson PA-C [address] [place] [address], [phone], [facility] 03/25/2024 15:02:51 2023 Intra-articular Knee Steroid Injection completed Deondre Bronson PA-C [address] [place] [address], [phone], [facility] 12/28/2023 12:44:01 2023 Intra-articular Knee Steroid Injection completed Deondre Bronson PA-C [address] [place] [address], [phone], [facility] 09/17/2023 11:58:11 2022 Intra-articular Knee Steroid Injection completed Deondre Bronson PA-C [address] [place] [address], [phone], [facility] 04/10/2023 15:26:45 2022 Intra-articular Knee Steroid Injection completed Deondre Bronson PA-C [address] [place] [address], [phone], [facility] 11/21/2022 17:45:19 2015 total knee replacement completed Latesha Burger [facility] 11/20/2022 01:14:37 2011 Knee arthroscopy/surgery completed Not Available [facility] 09/14/2011 03:36:58 2010 Knee Surgery completed Latesha Burger [facility] 11/20/2022 01:14:20 1995 Section completed Latesha Burger [facility] 11/20/2022 01:14:08 Joint Replacement completed Noreen Lopez [facility] 11/20/2022 13:14:12 Other Surgeries completed Dai Forbes [facility] 09/17/2023 11:48:36 Imaging Results None recorded. Procedure Notes None recorded. Medical Equipment None Reported. Allergies Allergen ID Allergen Name Allergen Category Reaction Reaction Severity Criticality Documentation Date Start Date Code Code System Note Provider Name and Address Organization Details Recorded Time 551297 Medicinal product containin g penicilli n and acting as antibacte rial agent (product) medicatio n rash Not available Not available 11/20/2022 47578 05 [facility]ED [facility] 01:15:24 553142 bee pollen environme nt,medica tion Not available Not available Not available 11/20/2022 41873 7 RxNorm Latesha Burger [facility] 3 01:16:01 987165 ethinyl estradiol / levonorge strel medicatio n Not available Not available Not available 11/20/2022 29217 8 RxNorm [facility] 3 01:16:07 386362 POLLEN EXTRACTS environme nt,medica tion Not available Not available Not available 11/20/2022 65875 6 RxNorm Noreen Renard miranda [facility] 3 13:13:50 314920 mold extract environme nt Not available Not available Not available 11/20/2022 66257 8 RxNorm Noreen Renard miranda [facility] 3 13:13:50 443875 insect venom environme nt itching other Not available Not available Not available 11/20/2022 Noreen Renard miranda [facility] 3 13:13:50 Medications Name Sig Start [...] Available Not Available No t Available Transderm-S copper 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 16+yearssincel astcigarette [email or web address] Information not available 11/20/2022 Which Of Your Hands Is Dominant? Right Information not available 11/20/2022 What Was The Date Of Your Most Recent Tobacco Screening? 04/08/2024 Information not available 04/08/2024 Do You Have Any Pets? Yes Information not available 11/20/2022 What Is Your Relationship Status? Information not available 11/20/2022 Do You Feel Stressed (tense, Restless, Nervous, Or Anxious, Or Unable To Sleep At Night)? CD6508-4 [email or web address] Information not available 04/10/2023 Do You Use Any Illicit Or Recreational Drugs? No Information not available 11/20/2022 Has Tobacco Cessation Counseling Been Provided? No [email or web address] Information not available 04/10/2023 How Many Years Have You Smoked Tobacco? 5 Information not available 11/20/2022 Do You Or Have You Ever Used Any Other Forms Of Tobacco Or Nicotine? No Information not available 11/20/2022 How Many Days In The Past Year Have You Consumed 4 Or More Drinks? 4 [email or web address] Information no t available 11/20/2022 Sex: Female [...] available 07/2022 13:13:55 Medical History Condition Response High Cholesterol (Hyperlipidemia) Y Arthritis Osteoarthritis Y Other Disease(s): Y Back/Neck Pain Y Gynecological HistoryNo gynecological history recorded. Obstetrics History GPAL:G 0 P 0 0 0 0 Past Encounters Encounter ID Performer Location Encounter Start Date Encounter Closed Date Diagnosis/Indication Diagnosis SNOMED-CT Code Diagnosis ICD10 Code [id number] Deondre Bronson PA-C [facility] [address] [place] [phone] 03/25/2024 14:43:16 03/25/2024 15:12:13 Osteoarthritis of right knee joint 5778122595 40810 M17.11 [id number] Deondre Bronson PA-C [facility] [address] [phone] 04/01/2024 08:32:29 04/01/2024 08:48:46 Osteoarthritis of right knee joint 8157433693 91660 M17.11 [id number] Deondre Bronson PA-C [facility] [address] [place] [phone] 04/08/2024 13:42:36 04/08/2024 13:59:56 Osteoarthritis of right knee joint 8380511132 61842 M17.11 Health Concerns Section Related Observation LastModified by Organization Detai ls LastModified Time None Recorded Concern Status LastModified by Organization Details LastModified Time None Recorded Payers Encounter Date Sequence Insurance Name Policy Number Policy Richards Covered Member ID Richards Member ID Guarantor Name 04/08/2024 1 [facility] (MEDICAID REPLACEMENT - HMO) [employer] Kathy Velazquez [id number] Kathy Velazquez Notes Date Note Type Note Provider Name and Address Organization Details Recorded Time 04/08/2024 text/html Patient presents for her third right knee Euflexxa injection. She denies any adverse effects following previous injections. Deondre Bronson PA-C [address] [place] [address], [phone], [facility]. 04/08/2024 14:25:07 OBGyn Episode No OBEpisode recorded.
--- OUTSIDE RECORDS SUMMARY | 2024-07-08 11:11 | XMS_ITS | Data Portability ---
Author Organization [place] [facility], [facility], [facility] Address [address] [place] [phone] Care Team Providers Care Workplace Trainer And Assessor Name Role Phone LUC NORRIS Primary Care Provider [phone] LUC NORRIS Referring Provider [phone] Assessment No assessment recorded. Plan of Treatment [...] By Organization Details Last Modified Time 04/09/2024 [id number] The above clinic al findings and radiographic [...] portions of this report were transcribed using Kit[employer] speech recognition software. If any discrepancy or [...] Diagnosis/Indication Diagnosis SNOMED-CT Code Diagnosis ICD10 Code [id number] Clark Pope DPM [facility] [address] [place] [phone] 04/09/2024 15:38:52 04/09/2024 17:16:49 Peroneal tendinitis 70842973 M76.71 Pain of ri ght ankle joint 6639253085 8273474 M25.571 Health Concerns Section Related Observation LastModified by Organization Detai ls LastModified Time None Recorded Concern Status LastModified by Organization Details LastModified Time None Recorded Advance Directives Directive None Recorded Payers Encounter Date Sequence Insurance Name Policy Number Policy Richards Covered Member ID Richards Member ID Guarantor Name 04/09/2024 2 [place] [facility] Kathy Velazquez [id number] Kathy Velazquez 04/09/2024 1 [facility] HEALTH NET PLAN (MEDICAID HMO) [facility] Kathy Velazquez [id number] Kathy Velazquez Notes Date Note Type Note Provider Name and Address Organization Details Recorded Time 04/09/2024 text/html [facility] FootReported bypatient.Notes:Hilton hatch presents today for evaluation right ankle pain. She states it started about 2 or 3 months ago. She was receiving gel injections in her right knee for Dr. Fisher's office. The physician billing and accounting staff assistant recommended using an ankle brace that she was having swelling and pain on the outside part of the ankle. She started wearing ankle brace 2 weeks ago and has noticed a marked improvement. It does occasionally walk up on her and she notices it when she drives for long periods of time. Clark Pope DPM [address] [place] [address], [phone], [facility] - [facility], [facility] 04/09/2024 16:30:43 OBGyn Episode No OBEpisode recorded.
--- OUTSIDE RECORDS SUMMARY | 2024-07-08 11:11 | XMS_ITS | Continuity of Care Document ---
Author Organization [facility] [place], [facility] Office Address [address] [place] [phone] Care Team Providers Care Parking Manager Name Role Phone LUC NORRIS Primary Care Provider [phone] 1 LUC NORRIS Referring Provider [phone] Assessment No assessment recorded. Plan of Treatment [...] By Organization Details Last Modified Time 04/09/2024 [id number] The above clinic al findings and radiographic [...] portions of this report were transcribed using [employer]wick[employer] speech recognition software. If any discrepancy or [...] Diagnosis/Indication Diagnosis SNOMED-CT Code Diagnosis ICD10 Code [id number] Clark Pope DPM [facility] [address] [place] [phone] 04/09/2024 15:38:52 04/09/2024 17:16:49 Peroneal tendinitis 88332535 M76.71 Pain of ri ght ankle joint 9901445008 3699590 M25.571 Health Concerns Section Related Observation LastModified by Organization Detai ls LastModified Time None Recorded Concern Status LastModified by Organization Details LastModified Time None Recorded Payers Encounter Date Sequence Insurance Name Policy Number Policy Richards Covered Member ID Richards Member ID Guarantor Name 04/09/2024 2 [place]: [facility] Kathy Velazquez [id number] Kathy Velazquez 04/09/2024 1 [facility] - HEALTH NET PLAN (MEDICAID HMO) [employer] Kathy Velazquez [id number] Kathy Velazquez Notes Date Note Type Note Provider Name and Address Organization Details Recorded Time 04/09/2024 text/html Podiatry FootReported bypatient.Notes:Hilton hangianna presents today for evaluation right ankle pain. She states it started about 2 or 3 months ago. She was receiving gel injections in her right knee for Dr. Fisher's office. The physician personnel assistant recommended using an ankle brace that she was having swelling and pain on the outside part of the ankle. She started wearing ankle brace 2 weeks ago and has noticed a marked improvement. It does occasionally walk up on her and she notices it when she drives for long periods of time. Clark Pope DPM [address] [place] [address], [phone], [facility] - [facility], [facility] 04/09/2024 16:30:43 OBGyn Episode No OBEpisode recorded.
--- OUTSIDE RECORDS SUMMARY | 2024-07-08 11:11 | XMS_ITS | Data Portability ---
Author Organization [facility] [employer], svmg_admin Address [address] [place] [phone] Care Team Providers Care Glaze Wiper Name Role Phone KAUR DEY Referring Provider [...] suspensi on for injectio n [address]/Pharmacy #[id number], [address] [place] [address], [id number], 09/17/2023 11:59:15 Depo-Med rol 40 mg/mL suspensi on for injectio n [address]armacy [address][id number], [address] [place] [address], [id number], 12/28/2023 12:42:17 Euflexxa 10 mg/mL (mw 2.4-3.6 million) intra-ar ticular syringe [address]armacy #0838, [address] [place], [address], 03/25/2024 15:06:09 Euflexxa 10 mg/mL (mw 2.4-3.6 million) intra-ar ticular syringe [address]acy #0838, [address] [place], [address], 04/01/2024 09:29:21 Euflexxa 10 mg/mL (mw 2.4-3.6 million) intra-ar ticular syringe [address]acy [address][id number], [address] [place] [address], [id number], 04/08/2024 14:18:08 Patient TargetsNo targets recorded. Patient InstructionsNo instructions recorded. Reason for Referral None Reported. Problems Name Problem SNOMED Code Status Onset Date Resolution Date Notes Provider Name and Address Organization Details Recorded Time Complicati on of anesthesia 65322187 Active 2022 Latesha gonzalez [facility] 3 01:11:15 Arthritis 6607519 Active 2022 Latesha gonzalez [facility] 3 01:11:22 Osteoarthr itis 143283098 Active 2022 Latesha gonzalez, [facility] 3 01:11:28 Total knee replacemen t Active 2022 Lateshapriti Burger [facility] 3 01:11:38 Rupture of rotator cuff of shoulder 344722038 Active 2022 complete rotator cuff tear or rupture of right shoulder, not specified as traumatic Latesha gonzalez [facility] 3 01:12:34 Tear of medial meniscus of knee 715605841 Active [address] [facility] 01:12:56 Impingemen t syndrome of shoulder region 127084928 Active 2022 right shoulder Lateshapriti gonzalez [facility] 3 01:13:12 Problem Notes None recorded. Procedures Surgical History Date Name Laterality Status Provider Name and Address Organization Details Recorded Time 2023 Viscosupplementation Knee completed Deondre Bronson PA-C [address] [place], [address], [facility] 04/08/2024 14:18:06 2023 Viscosupplementation Knee completed Deondre Bronson PA-C [address] [place], [address], [facility] 04/01/2024 09:29:19 2023 Viscosupplementation Knee completed Deondre Bronson PA-C [address] [place], [address], [facility] 03/25/2024 15:02:51 2023 Intra-articular Knee Steroid Injection completed Deondre Bronson PA-C [address] [place], [address], [facility] 12/28/2023 12:44:01 2023 Intra-articular Knee Steroid Injection completed Deondre Bronson PA-C [address] [place], [address], [facility] 09/17/2023 11:58:11 2022 Intra-articular Knee Steroid Injection completed Deondre Bronson PA-C [address] [place], [address], [facility] 04/10/2023 15:26:45 2022 Intra-articular Knee Steroid Injection completed Deondre Bronson PA-C [address] [place], [address], [facility] 11/21/2022 17:45:19 2015 total knee replacement completed Latesha Burger [facility] 11/20/2022 01:14:37 2011 Knee arthroscopy/surgery completed Not Available [facility] 09/14/2011 03:36:58 2010 Knee Surgery completed Latesha Burger [facility] 11/20/2022 01:14:20 1995 Section completed Latesha Burger [facility] 11/20/2022 01:14:08 Joint Replacement completed Noreen Lopez [facility] 11/20/2022 13:14:12 Other Surgeries completed Dai Forbes [facility] 09/17/2023 11:48:36 Imaging Results None recorded. Procedure Notes None recorded. Medical Equipment None Reported. Allergies Allergen ID Allergen Name Allergen Category Reaction Reaction Severity Criticality Documentation Date Start Date Code Code System Note Provider Name and Address Organization Details Recorded Time 465768 Medicinal product containin g penicilli n and acting as antibacte rial agent (product) medicatio n rash Not available Not available 11/20/2022 47106 05 SNOMED Latesha Burger [facility] 3 01:15:24 242306 bee pollen environme nt,medica tion Not available Not available Not available 11/20/2022 46563 7 RxNorm Lateshapriti Burger [facility] 3 01:16:01 428778 ethinyl estradiol / levonorge strel medicatio n Not available Not available Not available 11/20/2022 58242 8 RxNorm Lateshapriti Burger [facility] 3 01:16:07 049911 POLLEN EXTRACTS environme nt,medica tion Not available Not available Not available 11/20/2022 26995 6 RxNorm Noreen Lesniewsk i [facility] 3 13:13:50 348088 mold extract environme nt Not available Not available Not available 11/20/2022 93535 8 RxNorm Noreen Lesniewsk i [facility] 3 13:13:50 429385 insect venom environme nt itching other Not available Not available Not available 11/20/2022 Noreen Lesniewsk i [facility] 3 13:13:50 Medications Name Sig Start [...] Not Available No t Available Transderm-S helicopter repairer 1 mg over 3 days transdermal patch [...] Updated DateTime 09/17/2023 172.72 cm 30.1 kg/m2 64804.29 g Dai Forbes [facility] 09/17/2023 11:48:27 Date Recorded Body height Body mass index (BMI) Body weight Provider Name and Address Organization Details Last Updated DateTime 12/28/2023 172.72 cm 29.3 kg/m2 52680.33 g Dai Forbes [facility] 12/28/2023 10:11:50 Date Recorded Body height Body mass index (BMI) Body weight Provider Name and Address Organization Details Last Updated DateTime 04/01/2024 172.72 cm 29.3 kg/m2 76704.33 g Payton Guidryand [facility] 04/01/2024 08:35:29 Date Recorded Body height Body mass index (BMI) Body weight Provider Name and Address Organization Details Last Updated DateTime 04/08/2024 172.72 cm 29.3 kg/m2 11149.33 edelmira Forbes [facility] 04/08/2024 13:48:49 Social History Question Answer Notes LastModified by Organizat ion Details LastModified Time Tobacco Smoking Status Former Smoker Noreen gonzalez [facility] 11/20/2022 13:14:07 Do You Have An [...] not available 11/20/2022 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 16+yearssincel carlos Information not available 11/20/2022 Which Of Your Hands Is Dominant? Right Information not available 11/20/2022 What Was The Date Of Your Most Recent Tobacco Screening? 04/08/2024 [email or web address] Information not available 04/08/2024 Do You Have Any Pets? Yes Information not available 11/20/2022 What Is Your Relationship Status? Information not available 11/20/2022 Do You Feel Stressed (tense, Restless, Nervous, Or Anxious, Or Unable To Sleep At Night)? [id number] [email or web address] Information not available 04/10/2023 Do You Use Any Illicit Or Recreational Drugs? No Information not available 11/20/2022 Has Tobacco Cessation Counseling Been Provided? No [email or web address] Information not available 04/10/2023 How Many Years [...] Diagnosis/Indication Diagnosis SNOMED-CT Code Diagnosis ICD10 Code [id number] Deondre Bronson PA-C [facility] [address] [place] [address] 11/20/2022 13:02:57 11/20/2022 13:44:20 Osteoarthritis of right knee joint 6941646451 48800 M17.11 Osteoarthr itis of left knee joint 1047279464 17864 M17.12 [id number] Deondre Bronson PA-C [facility] [address] [place] [address] 04/10/2023 14:46:22 04/10/2023 15:15:05 Osteoarthritis of right knee joint 2338135982 94234 M17.11 [id number] Deondre Bronson PA-C [facility] [address] [place] [address] 09/17/2023 11:41:51 09/17/2023 11:43:08 Osteoarthritis of right knee joint 9023526771 54992 M17.11 [id number] Deondre Bronson PA-C [facility] [address] [place] [address] 12/28/2023 10:07:59 12/28/2023 10:40:19 Osteoarthritis of right knee joint 8037670073 59027 M17.11 [id number] Deondre Bronson PA-C [facility] [address] [place] [address] 03/25/2024 14:43:16 03/25/2024 15:12:13 Osteoarthritis of right knee joint 2929068961 96061 M17.11 [id number] Deondre Bronson PA-C [facility] [address] [address] 04/01/2024 08:32:29 04/01/2024 08:48:46 Osteoarthritis of right knee joint 9587590423 52411 M17.11 [id number] Deondre Bronson PA-C [facility] [address] [address] 04/08/2024 13:42:36 04/08/2024 13:59:56 Osteoarthritis of right knee joint 1356910643 90662 M17.11 Health Concerns Section Related Observation LastModified by Organization Detai ls LastModified Time None Recorded Concern Status LastModified by Organization Details LastModified Time None Recorded Advance Directives Directive Y: Payers Encounter Date Sequence Insurance Name Policy Number Policy Richards Covered Member ID Richards Member ID Guarantor Name 09/17/2023 1 [facility] [employer] (MEDICAID REPLACEMENT - HMO) RONNY Velazquez [id number] Kathy Velazquez 12/28/2023 1 [facility] [employer] (MEDICAID REPLACEMENT - HMO) RONNY Velazquez [id number] Kathy Velazquez 03/25/2024 1 [facility] [employer] (MEDICAID REPLACEMENT - HMO) RONNY Velazquez [id number] Kathy Velazquez 04/01/2024 1 [facility] [employer] (MEDICAID REPLACEMENT - HMO) RONNY Velazquez [id number] Kathy Velazquez 04/08/2024 1 [facility] [employer] (MEDICAID REPLACEMENT - HMO) RONNY Velazquez [id number] Kathy Velazquez Notes Date Note Type Note [...] by Dr. Fisher. Deondre Bronson PA-C [address] [place], [address], [facility] 09/17/2023 11:59:47 12/28/2023 text/html [...] by Dr. Fisher. Deondre Bronson PA-C [address] [place], [address], [facility] 12/28/2023 12:44:29 03/25/2024 text/html Patient presents for her first right knee Euflexxa injection. Deondre Bronson PA-C [address] [place], [address], [facility] 03/25/2024 15:06:53 04/01/2024 text/html Patient presents for her second right knee Euflexxa injection. She denies any adverse effects following previous injection. Deondre Bronson PA-C [address] [place], [address], [facility] 04/01/2024 09:30:56 04/08/2024 text/html Patient presents for her third right knee Euflexxa injection. She denies any adverse effects following previous injections. Deondre Bronson PA-C [address] [place], [address], [facility] 04/08/2024 14:25:07 OBGyn Episode No OBEpisode recorded.
== END 2024-07-08 11:15 | disposition home or self-care (01) ==
PROVIDERS: PCP Internal Medicine; Visit Provider Internal Medicine
DX: E78.9 Disorder of lipoprotein metabolism, unspecified (principal); E03.8 Other specified hypothyroidism; E66.09 Other obesity due to excess calories; Z68.31 Body mass index [BMI] 31.0-31.9, adult; R79.89 Other specified abnormal findings of blood chemistry; M15.0 Primary generalized (osteo)arthritis; Z23 Encounter for immunization

== ENCOUNTER → 2024-07-08 10:42 | Outpatient (BNVA) | payer OTHER, SELFPAY | PROVIDERS: PCP Internal Medicine; Visit Provider Internal Medicine | DX: M25.552 Pain in left hip (principal); M54.9 Dorsalgia, unspecified; Z96.652 Presence of left artificial knee joint; M17.11 Unilateral primary osteoarthritis, right knee; E78.9 Disorder of lipoprotein metabolism, unspecified; E03.8 Other specified hypothyroidism; E66.811 Obesity, class 1; R79.89 Other specified abnormal findings of blood chemistry; M15.0 Primary generalized (osteo)arthritis; Z23 Encounter for immunization; Z68.31 Body mass index [BMI] 31.0-31.9, adult | CPT/HCPCS: 90471; 90656; 96127; 99212 ==

== ENCOUNTER 2024-08-13 10:54 | Outpatient (AMB) | payer OTHER, SELFPAY ==
[2024-08-13 10:56] VITALS: BP 134/76; PULSE 74; O2SAT 98; BMI 32.7
--- NOTE | 2024-08-13 10:56 | MHC.PC.OV ---
Vital Signs 08/13/24 10:56 Height 5 ft 8 in Weight 215 lb BMI 32.7 BP 134/76 Blood Pressure Location Lt brachial Position Sitting Pulse 74 Pulse Source Pulse Oximeter Pulse Oximetry (%) 98 Oxygen Delivery Method Room Air Intake Visit Reasons: 1 month follow up Allergies Penicillins Allergy (Mild, Verified 08/13/24 10:57) rash bee Allergy (Severe, Uncoded 01/09/24 13:01) Swelling Medication List - Last Reconciled 08/13/24 by Marianela Plummer MD atorvastatin 10 mg PO BEDTIME epinephrine (EpiPen) 0.3 mg (0.3 mL) IM Q10M PRN 90 days levothyroxine 75 mcg PO DAILY minoxidil 2.5 mg PO BID omeprazole 20 mg PO DAILY phentermine 15 mg PO DAILY 30 days Tobacco use date assessed: 08/13/24 Dental Screening Dental Screen Date: 08/13/24 Did you have a dental visit in the last 12 months?: Yes Did you have a dental problem in the last 6 months where you did not have access to dental care?: No Was dental information given to patient?: Patient has dentist HPI 1 month follow up HPI Details - The patient is a 59-year-old female presenting with weight management. Has been taking medication since July 23, and current dosage is 15 mg planned to be increased to 37.5 mg. Maintaining a food log, using an gina and weight chart. Reports three to four pounds of weight fluctuation. Started engaging in physical activity, including stationary biking and yoga, and is planning to join the [facility] for swimming to help with knee comfort. - Basal Cell Carcinoma on biopsy. Results received yesterday, indicating basal cell carcinoma hitting the deep edge. The biopsy was performed last Sunday. The patient is advised to schedule an appointment with [facility] for further tissue removal. I have placed a referral to see [facility] Problem List - Basal Cell Carcinoma - Weight Management Patient Instructions - Continue keeping a food log and tracking your weight using the gina. - Maintain physical activity, including cycling and yoga, and explore swimming at the [facility]. - Follow up with [facility] for a consultation and potential further excision of basal cell carcinoma. Review of Systems - Cardiovascular: Denies palpitations. - Musculoskeletal: Reports engaging in stationary biking and yoga for exercise. - Dermatology: Reports results indicating basal cell carcinoma from a recent biopsy. - General: No fever no chills - Neurological: No headaches no dizziness - Ear nose throat: No sore throat no hearing difficulty no ear pain - Gastrointestinal: No nausea vomiting or diarrhea - Endocrine: No polyuria polydipsia no heat intolerance - Genitourinary: No dysuria , no blood in urine Physical Exam General: No acute distress HEENT: No acute findings Neck: Supple Respiratory system: Able to talk in full sentences, no audible wheeze cardiovascular: S1-S2 regular in rate and rhythm Gastrointestinal: No pain Extremities: No new findings MULTICULTURAL INTERNSHIP: Alert awake oriented x3 motor sensory intact Skin: Basal cell carcinoma noted, biopsy results indicate it hits the deep edge PFSH Family History Daughter Mental health disorder Social History Housing: House Patient Tobacco Use Status: Never used Tobacco e-Cigarette/Vaping Use: Never Used service: No Current occupational status: employed Cognitive needs: No Hearing needs: No Vision needs: Yes Questionnaire PHQ-9 Over the last 2 weeks, how often have you been bothered by any of the following problems? 1. Little interest or pleasure in doing things: not at all 2. Feeling down, depressed, or hopeless: not at all 3. Trouble falling or staying asleep, or sleeping too much: not at all 4. Feeling tired or having little energy: not at all 5. Poor appetite or overeating: not at all 6. Feeling bad about yourself - or that you are a failure or have let yourself or your family down: not at all 7. Trouble concentrating on things, such as reading the newspaper or watching television: not at all 8. Moving or speaking so slowly that other people could have noticed. Or the opposite - being so fidgety or restless that you have been moving around a lot more than usual: not at all 9. Thoughts that you would be better off or of hurting yourself in some way: not at all Total score: 0 Depression Screening Interpretation: Negative Depression Screening Done: Yes 87640 - PHQ-9 Billing: Yes Source: Developed by Drs. Clark Roy, Evette Guzman, Chip Esposito and colleagues, with an educational jono from [employer] Thrive Questionnaire Date Thrive assessed: 08/13/24 I am a: Patient What is your living situation today?: I have a steady place to live Within the past 12 months, did the food you bought not last and you didn't have the money to get more?: Never true Within the past 12 months, did you worry whether your food would run out before you got money to buy more?: Never true Do you have trouble paying for medicines?: No Do you have trouble getting transportation to medical appointments?: No Do you have trouble paying your heating and electricity bill?: No Do you have trouble taking care of your child, family member or friend?: No Do you have trouble with day-to-day activities such as bathing, preparing meals, shopping, managing finances, etc.?: No Are you currently unemployed and looking for a job?: No Are you interested in more education?: No Please select the resources that you would like help with: None Currently or been in a relationship where the following occur: No concerns reported THRIVE Score: 0 AUDIT C Alcohol Use Questionnaire (AUDIT-C) 1. How often do you have a drink containing alcohol?: 2-4 times a month 2. How many drinks containing alcohol do you have on a typical day when you are drinking?: 1 or 2 3. How often do you have six or more drinks on one occasion?: Never Total Score: 2 Score Reviewed/Action Taken: Yes FELIPE-7 AMB Questionnaire FELIPE-7 Date FELIPE - 7 assessed: 08/13/24 Feeling nervous, anxious, or on edge: 0 = Not at all Not being able to stop or control worryin = Not at all Worrying too much about different things: 0 = Not at all Trouble relaxin = Not at all Being so restless that it is hard to sit still: 0 = Not at all Becoming easily annoyed or irritable: 0 = Not at all Feeling afraid as if something awful might happen: 0 = Not at all Total FELIPE-7 score (0-4 normal; 5-9 mild; 10-14 moderate; 15-21 severe): 0 Source: Developed by Drs. Clark Roy, Evette Guzman, Chip Esposito and colleagues, with an educational jono from [employer] FELIPE-7 Assessment Billing FELIPE-7 Assessment Tool: FELIPE-7 Assessment 40530 Physical exam (Primary Care) Vital Signs: Last Vital Signs Pulse 74 08/13/24 10:56 BP 134/76 08/13/24 10:56 Pulse Ox 98 08/13/24 10:56 Oxygen Delivery Method Room Air 08/13/24 10:56 BMI result Body Mass Index 32.7 Tobacco/Smoking Status: Tobacco use Status Tobacco use date assessed 08/13/24 08/13/24 10:59 Patient Tobacco Use Status Never used Tobacco 08/13/24 10:59 e-Cigarette/Vaping Use Never Used 08/13/24 10:59 PHQ-9: PHQ-9 Score PHQ-9: Total score 0 08/13/24 10:59 Depression Screening Interpretation: Negative Thrive Assessment: Date of Thrive Assessment Date Thrive assessed 08/13/24 08/13/24 10:59 Currently or been in a relationship where the following occur: No concerns reported Coding Level of Care Code Est Pt Level 3 (80518) Diagnoses Basal cell carcinoma, face C44.310 Class 1 obesity due to excess calories with serious comorbidity and body mass index (BMI) of 31.0 to 31.9 in adult E66.09; Z68.31 Obesity classification: adult class 1 (BMI 30 - 34.9) Serious obesity comorbidity presence: with serious comorbidity Body mass index: BMI 31.0-31.9 Additional Codes FELIPE-7 Assessment Billing - FELIPE-7 Assessment Tool: FELIPE-7 Assessment 78712 ([id number]) PHQ-9 - 34118 - PHQ-9 Billing: Yes ([id number]) Assessment & Plan Assessment & Plan (1) Basal cell carcinoma, face: Code(s): C44.310 - Basal cell carcinoma of skin of unspecified parts of face Category: Medical (2) Obesity due to excess calories: Code(s): E66.09 - Other obesity due to excess calories Category: Medical Qualifiers: Obesity classification: adult class 1 (BMI 30 - 34.9) Serious obesity comorbidity presence: with serious comorbidity Body mass index: BMI 31.0-31.9 Qualified Code(s): E66.09 - Other obesity due to excess calories; Z68.31 - Body mass index [BMI] 31.0-31.9, adult Plan - The patient is a 59-year-old female presenting with weight management. Has been taking medication since July 23, and current dosage is 15 mg planned to be increased to 37.5 mg. Maintaining a food log, using an gina and weight chart. Reports three to four pounds of weight fluctuation. Started engaging in physical activity, including stationary biking and yoga, and is planning to join the [facility] for swimming to help with knee comfort. - Basal Cell Carcinoma on biopsy. Results received yesterday, indicating basal cell carcinoma hitting the deep edge. The biopsy was performed last Sunday. The patient is advised to schedule an appointment with [facility] for further tissue removal. I have placed a referral to see [facility] Problem List - Basal Cell Carcinoma - Weight Management Patient Instructions - Continue keeping a food log and tracking your weight using the gina. - Maintain physical activity, including cycling and yoga, and explore swimming at the [facility]. - Follow up with [facility] for a consultation and potential further excision of basal cell carcinoma. Orders: Referrals Dermatology Referral C44.310 - Basal cell carcinoma of skin of unspecified parts of face Medications: Changed From phentermine must administer 2 hours after breakfast 15 mg PO DAILY 30 days 30 caps 0RF To phentermine must administer 2 hours after breakfast 37.5 mg PO DAILY 30 days 30 caps 0RF
--- OUTSIDE RECORDS SUMMARY | 2024-08-13 12:25 | XMS_ITS | Data Portability ---
Author Organization [place] [facility] [place], [facility], [facility] Address [address] [place] [address] Care Team Providers Care Public Information Specialist Name Role Phone LUC NORRIS Primary Care Provider [phone] LUC NORRIS Referring Provider [phone] Assessment No assessment recorded. Plan of Treatment [...] By Organization Details Last Modified Time 04/09/2024 [id number] The above clinic al findings and radiographic [...] portions of this report were transcribed using [employer] speech recognition software. If any discrepancy or [...] Diagnosis/Indication Diagnosis SNOMED-CT Code Diagnosis ICD10 Code Diagnosis Note [id number] Clark Pope DPM [facility] [address] [address] 04/09/2024 15:38:52 04/09/2024 17:16:49 Peroneal tendinitis 99460277 M76.71 Pain of ri ght ankle joint 5786663763 2180667 M25.571 Health Concerns Section Related Observation LastModified by Organization Detai ls LastModified Time None Recorded Concern Status LastModified by Organization Details LastModified Time None Recorded Advance Directives Directive None Recorded Payers Encounter Date Sequence Insurance Name Policy Number Policy Richards Covered Member ID Richards Member ID Guarantor Name 04/09/2024 2 [place] [facility] Kathy Velazquez [id number] Kathy Velazquez 04/09/2024 1 [facility] [employer] (MEDICAID HMO) [facility] Kathy Velazquez [id number] Kathy Velazquez Notes Date Note Type Note Provider Name and Address Organization Details Recorded Time 04/09/2024 text/html Podiatry FootReported bypatient.Notes:Hilton hatch presents today for evaluation right ankle pain. She states it started about 2 or 3 months ago. She was receiving gel injections in her right knee for Dr. Fisher's office. The physician legal executive assistant recommended using an ankle brace that she was having swelling and pain on the outside part of the ankle. She started wearing ankle brace 2 weeks ago and has noticed a marked improvement. It does occasionally walk up on her and she notices it when she drives for long periods of time. Clark Pope DPM [address] [place] [address], [phone], [facility] [place], [facility] 04/09/2024 16:30:43 OBGyn Episode No OBEpisode recorded.
--- OUTSIDE RECORDS SUMMARY | 2024-08-13 12:25 | XMS_ITS | Continuity of Care Document ---
Author Organization [facility] Address [address] [place] [id number] Care Team Providers Care Supervisor [employer] Name Role Phone KAUR DEY Referring Provider [phone] DEONDRE BRONSON OTHER NICOLE ANDREW Primary Care Provider Assessment Encounter Date Assessment Date Assessment LastModified by Organization Details LastModified Time 08/04/2024 08/04/2024 X-rays were personally reviewed by myself. Clinical signs symptoms are consistent with r exacerbation of right knee osteoarthritis. We discussed etiology as well as further treatment options. Patient presents today requesting right knee cortisone injection for further analgesia. We will proceed with this today. We also discussed the option of Zilretta injection, which she would like to submit for authorization as well. Right knee cortisone injection was performed today in the office without difficulty. Patient tolerated the procedure well, there were no complications. Request for right knee Zilretta injection will also be made to the patient's insurance carrier and she will follow-up accordingly. We also discussed the role of a hinged knee brace, to be worn as needed for activity to further offload the knee joint. Patient was fitted with a hinged knee brace today and instructed regarding its use and application. All patient questions were answered. Patient is in agreement with the plan of care. Patient verbalizes understanding. The patient is educated to call the office with any questions or concerns. Dr. Fisher is in agreement with the plan of care and is a part of the medical decision making. [email or web address] Not available 08/04/2024 11:02:24 Plan of Treatment Reminders Order Date Submit Date Provider Last Modified By Organization Details Last Modified Time Details Appointments Injectio n 15 2024 10:45A M Deondre Bronson PA-C Not available Not available Not available Lab None recorded . Referral None recorded . Procedures None recorded . Surgeries None recorded . Imaging None recorded . Medication Orders Depo-Med rol 40 mg/mL suspensi on for injectio n 2024 025 [email or web address] [facility][id number], [address] [place], [address], 08/04/2024 12:08:37 Patient TargetsNo targets recorded. Patient InstructionsNo instructions recorded. Reason for Referral None Reported. Problems Name Problem SNOMED Code Status Onset Date Resolution Date Notes Provider Name and Address Organization Details Recorded Time Complicati on of anesthesia 02458794 Active 2022 Latesha gonzalez [facility] 3 01:11:15 Arthritis 4025801 Active 2022 Latesha gonzalez [facility] 3 01:11:22 Osteoarthr itis 149199611 Active 2022 Latesha gonzalez [facility] 3 01:11:28 Total knee replacemen t Active 2022 Latesha gonzalez [facility] 3 01:11:38 Rupture of rotator cuff of shoulder 179714382 Active 2022 complete rotator cuff tear or rupture of right shoulder, not specified as traumatic Latesha gonzalez [facility] 3 01:12:34 Tear of medial meniscus of knee 035513867 Active 2022 Latesha gonzalez [facility] 3 01:12:56 Impingemen t syndrome of shoulder region 137496409 Active 2022 right shoulder Latesha gonzalez [facility] 3 01:13:12 Problem Notes None recorded. Procedures Surgical History Date Name Laterality Status Provider Name and Address Organization Details Recorded Time 2024 Intra-articular Knee Steroid Injection completed Deondre Bronson PA-C [address] [place] [address], [phone], [facility] 08/04/2024 11:01:40 2023 Viscosupplementation Knee completed Deondre Bronson PA-C [address] [place] [address], [phone], [facility] 04/08/2024 14:18:06 2023 Viscosupplementation Knee completed Deondre Bronson PA-C [address] [place] [address], [phone], [facility] 04/01/2024 09:29:19 2023 Viscosupplementation Knee completed Deondre Bronson PA-C [address] [place] [address], [phone], [facility] 03/25/2024 15:02:51 2023 Intra-articular Knee Steroid Injection completed Deondre Bronson PA-C [address] [place] [address], [phone], [facility] 12/28/2023 12:44:01 2023 Intra-articular Knee Steroid Injection completed Deondre Bronson PA-C [address] [place] [address], [phone], [facility] 09/17/2023 11:58:11 2022 Intra-articular Knee Steroid Injection completed Deondre Bronson PA-C [address] [place] [address], [phone], [facility] 04/10/2023 15:26:45 2022 Intra-articular Knee Steroid Injection completed Deondre Bronson PA-C [address] [place] [address], [phone], [facility] 11/21/2022 17:45:19 2015 total knee replacement completed Latesha Burger [facility] 11/20/2022 01:14:37 2011 Knee arthroscopy/surgery completed Not Available [facility] 09/14/2011 03:36:58 2010 Knee Surgery completed Latesha Burger [facility] 11/20/2022 01:14:20 1995 Section completed Latesha Burger [facility] 11/20/2022 01:14:08 Joint Replacement completed Noreen Lopez [facility] 11/20/2022 13:14:12 Other Surgeries completed Dai Forbes [facility] 09/17/2023 11:48:36 Imaging Results None recorded. Procedure Notes None recorded. Medical Equipment None Reported. Allergies Allergen ID Allergen Name Allergen Category Reaction Reaction Severity Criticality Documentation Date Start Date Code Code System Note Provider Name and Address Organization Details Recorded Time 765992 Product containin g penicilli n and antibioti c (product) medicatio n rash Not available Not available 11/20/2022 86395 05 SNOMED Latesha Burger [facility] 01:15:24 757421 bee pollen environme nt,medica tion Not available Not available Not available 11/20/2022 73300 7 RxNorm Latesha Burger [facility] 3 01:16:01 051668 ethinyl estradiol / levonorge strel medicatio n Not available Not available Not available 11/20/2022 95047 8 RxNorm Latesha Burger [facility] 3 01:16:07 857996 POLLEN EXTRACTS environme nt,medica tion Not available Not available Not available 11/20/2022 21311 6 RxNorm Noreen Glynn i [facility] 3 13:13:50 354694 mold extract environme nt Not available Not available Not available 11/20/2022 11016 8 RxNorm Nroeen Glynn i lisa [facility] 3 13:13:50 733638 insect venom environme nt itching other Not available Not available Not available 11/20/2022 63057 UNK Noreen Glynn i lisa [facility] 3 13:13:50 Medications Name Sig [...] injection Injected into right knee as directed 2024 active Not Available Not Available Not Avai lable clindamycin HCl 300 mg capsule TAKE 1 CAPSULE BY MOUTH EVERY 8 HOURS UNTIL FINISHED 04/10 completed Not Available Not Available Not Available atorvastati n 10 mg tablet TAKE 1 TABLET BY MOUTH DAILY AT BEDTIME active Not Available Not Available No t Available azithromyci n 250 mg tablet TAKE 2 TABLETS BY MOUTH TODAY, THEN TAKE 1 TABLET DAILY FOR 4 DAYS DIRECTED 08/04 completed Not Available Not Available Not Available tolterodine ER 4 mg capsule,ext ended release 24 hr TAKE 1 CAPSULE BY MOUTH EVERY DAY 11/20 completed Not Available Not Available Not Available phentermine 15 mg capsule TAKE 1 CAPSULE BY MOUTH DAILY 2 HOURS AFTER BREAKFAST FOR 30 DAYS active Not Available Not Available No t Available clindamycin HCl 150 mg capsule TAKE [...] Available minoxidil 2.5 mg tablet TAKE 1 TABLET DAILY FOR HAIR LOSS active Not Available Not Available No t [...] Available Not Available No t Available Transderm-S epic kaleidoscope analyst 1 mg over 3 days transdermal patch APPLY 1 PATCH TRANSDERM ALLY EVERY 3 DAYS NEEDED FOR NAUSEA AND VOMITING 08/04 completed Not Available Not Available Not Available epinephrine 0.3 mg/0.3 mL injection, auto-inject or INJECT 0.3MG DIRECTED INTRAMUSC ULARLY EVERY 10 MINUTES NEEDED FOR ANAPHYLAX IS 08/04 completed Not Available Not Available Not Available fluocinonid e 0.05 % topical solution PLEASE SEE ATTACHED FOR DETAILED DIRECTION S 08/04 completed Not Available Not Available Not Available methylpredn isolone 4 mg tablets in [...] Not Available finasteride 5 mg tablet TAKE 1/2 TABLET BY MOUTH DAILY active Not Available Not Available No t Available spironolact one 50 mg tablet TAKE 1 TABLET DAILY 09/17 completed Not Available Not Available Not Available diazepam 5 mg tablet TAKE 1 TABLET BY MOUTH EVERY 6 HOURS NEEDED FOR ANXIETY. 08/04 completed Not Available Not Available Not Available amoxicillin 875 mg-potassiu m clavulanate 125 mg tablet TAKE 1 TABLET BY MOUTH TWICE A DAY 12/27 completed Not Available Not Available Not Available oxycodone 5 mg tablet TAKE 1 TABLET BY MOUTH EVERY 4 HOURS NEEDED FOR PAIN 08/04 completed Not Available Not Available Not Available clindamycin 1 % lotion APPLY PEA [...] Not Available Vitals Date Recorded Body height Provider Name an d Address Organization Details Last Updated DateTime 08/04/2024 172.72 cm Yomaira Tomas [facility] 08/04/2024 10:26:27 Date Recorded Body mass index (BMI) Body weight Provider Name and Address Organization Details Last Updated DateTime 08/04/2024 33.1 kg/m2 17917.14 g Yomaira Tomas [facility] 08/04/2024 10:26:36 Social History Question Answer Notes LastModified by Organizat ion Details LastModified Time Tobacco Smoking Status Never Smoker Yomaira gonzalez [facility] 08/04/2024 10:26:47 Do You Have An Advance Directive? Yes Information not available 11/20/2022 What Is Your Level Of Alcohol Consumption? 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 16+yearssincel astcigarette Information not available 11/20/2022 Which Of Your Hands Is Dominant? Right Information not available 11/20/2022 What Was The Date Of Your Most Recent Tobacco Screening? 08/04/2024 Information not available 08/04/2024 Have You Ever Been Counseled For Unhealthy Alcohol Use? No Information not available 08/04/2024 Do You Have Any Pets? Yes Information not available 11/20/2022 What Is Your Relationship Status? Information not available 11/20/2022 Do You Feel Stressed (tense, Restless, Nervous, Or Anxious, Or Unable To Sleep At Night)? [id number] [email or web address] Information not available 04/10/2023 Do You Use Any Illicit Or Recreational Drugs? No Information not available 11/20/2022 Has Tobacco Cessation Counseling Been Provided? No [email or web address] Information not available 04/10/2023 How Many Years [...] Organization Details LastModified Time Father Heart disease Not available 07/2022 13:13:55 Father Family history of malignant neoplasm angie Not available 07/2022 13:13:55 Mother Hypertensive disorder Not available 07/2022 13:13:55 Medical History Condition Response Other Disease(s): Y High Cholesterol (Hyperlipidemia) Y Back/Neck Pain Y Arthritis Osteoarthritis Y Gynecological HistoryNo gynecological history recorded. Obstetrics History GPAL:G 0 P 0 0 0 0 Past Encounters Encounter ID Performer Location Encounter Start Date Encounter Closed Date Diagnosis/Indication Diagnosis SNOMED-CT Code Diagnosis ICD10 Code Diagnosis Note [id number] Deondre Bronson PA-C [facility] [address] [place] [phone] 08/04/2024 10:15:48 08/04/2024 10:41:26 Osteoarthritis of right knee joint 9401944683 70890 M17.11 Health Concerns Section Related Observation LastModified by Organization Detai ls LastModified Time None Recorded Concern Status LastModified by Organization Details LastModified Time None Recorded Payers Encounter Date Sequence Insurance Name Policy Number Policy Richards Covered Member ID Richards Member ID Guarantor Name 08/04/2024 1 [facility] ([facility] RONNY Velazquez [id number] Kathy Velazquez Notes Date Note Type Note Provider Name and Address Organization Details Recorded Time 08/04/2024 text/html Patient presents for followup regarding her right knee. Previous standing AP and lateral x-rays of the right knee reveal Kellgren-Jamie grade 3 changes most pronounced over the lateral tibiofemoral and patellofemoral joint spaces. Patient completed right knee Euflexxa injection series in March. She did not experience any significant pain relief following this injection series. She reports persistence of right knee pain, particularly about the lateral aspect. She states pain is exacerbated by increased periods of activity or ambulation. Pain is dull/achy in nature. She has undergone cortisone injection in the past, which provided good pain relief, however she states this did not last significantly long. Of note, patient has a history of left total knee arthroplasty performed by Dr. Fisher. Deondre Bronson PA-C [address] [place] [address], [phone], [facility]. 08/04/2024 12:11:03 OBGyn Episode No OBEpisode recorded.
--- OUTSIDE RECORDS SUMMARY | 2024-08-13 12:25 | XMS_ITS | Data Portability ---
Author Organization [facility] Repunch, svmg_admin Address [address] [place] [phone] Care Team Providers Care Translator Deaf Name Role Phone KAUR DEY Referring Provider DEONDRE BRONSON OTHER NICOLE ANDREW Primary Care Provider Assessment Encounter Date Assessment Date Assessment LastModified by Organization Details LastModified Time 12/28/2023 12/28/2023 Xrays were perso serjio reviewed [...] medical decision making. Not available 04/08/2024 14:18:28 08/04/2024 08/04/2024 X-rays were personally reviewed by [...] of the medical decision making. Not available 08/04/2024 11:02:24 Plan of Treatment [...] suspensi on for injectio n 2023 024 [email or web address] [facility]/Pharmacy #[id number], [address] [place] [address], [id number], 12/28/2023 12:42:17 Euflexxa 10 mg/mL (mw 2.4-3.6 million) intra-ar ticular syringe [address]/Pharmacy #[id number], [address] [place] [address], [id number], 03/25/2024 15:06:09 Euflexxa 10 mg/mL (mw 2.4-3.6 million) intra-ar ticular syringe [address]/Pharmacy #[id number], [address] [place] [address], [id number], 04/01/2024 09:29:21 Euflexxa 10 mg/mL (mw 2.4-3.6 million) intra-ar ticular syringe 2023 [id number] [address] [place] [address], [id number], 04/08/2024 14:18:08 Depo-Med rol 40 mg/mL suspensi on for injectio n 2024 025 [email or web address] [facility]/Pharmacy #[id number], [address] [place], [id number], 08/04/2024 12:08:37 Patient TargetsNo targets recorded. Patient InstructionsNo instructions recorded. Reason for Referral None Reported. Problems Name Problem SNOMED Code Status Onset Date Resolution Date Notes Provider Name and Address Organization Details Recorded Time Complicati on of anesthesia 45275076 Active 2022 Latesha gonzalez [facility] 3 01:11:15 Arthritis 9409904 Active 2022 Lateshapriti Burger [facility] 3 01:11:22 Osteoarthr itis 265436937 Active 2022 Lateshapriti gonzalez [facility] 3 01:11:28 Total knee replacemen t Active 2022 Lateshapriti Burger [facility] 3 01:11:38 Rupture of rotator cuff of shoulder 648599096 Active 2022 complete rotator cuff tear or rupture of right shoulder, not specified as traumatic Lateshapriti Burger [facility] 3 01:12:34 Tear of medial meniscus of knee 139011588 Active 2022 Lateshapriti gonzalez [facility] 3 01:12:56 Impingemen t syndrome of shoulder region 106921461 Active 2022 right shoulder Lateshapriti Burger [facility] 3 01:13:12 Problem Notes None recorded. Procedures Surgical History Date Name Laterality Status Provider Name and Address Organization Details Recorded Time 2024 Intra-articular Knee Steroid Injection completed Deondre Bronson PA-C [address] [place] [address], [phone], [facility] 08/04/2024 11:01:40 2023 Viscosupplementation Knee completed Deondre Bronson PA-C [address] [place] [address], [phone], [facility] 04/08/2024 14:18:06 2023 Viscosupplementation Knee completed Deondre Bronson PA-C [address] [place] [address], [phone], [facility] 04/01/2024 09:29:19 2023 Viscosupplementation Knee completed Deondre Bronson PA-C [address] [place] [address], [phone], [facility] 03/25/2024 15:02:51 2023 Intra-articular Knee Steroid Injection completed Deondre Bronson PA-C [address] [place] [address], [phone], [facility] 12/28/2023 12:44:01 2023 Intra-articular Knee Steroid Injection completed Deondre Bronson PA-C [address] [place] [address], [phone], [facility] 09/17/2023 11:58:11 2022 Intra-articular Knee Steroid Injection completed Deondre Bronson PA-C [address] [place] [address], [phone], [facility] 04/10/2023 15:26:45 2022 Intra-articular Knee Steroid Injection completed Deondre Bronson PA-C [address] [place] [address], [phone], [facility] 11/21/2022 17:45:19 2015 total knee replacement completed Latesha Burger [facility] 11/20/2022 01:14:37 2011 Knee arthroscopy/surgery completed Not Available [facility] 09/14/2011 03:36:58 2010 Knee Surgery completed Latesha Burger [facility] 11/20/2022 01:14:20 1995 Section completed Latesha Burger [facility] 11/20/2022 01:14:08 Joint Replacement completed Noreen Lopez [facility] 11/20/2022 13:14:12 Other Surgeries completed Dai Leidy [facility] 09/17/2023 11:48:36 Imaging Results None recorded. Procedure Notes None recorded. Medical Equipment None Reported. Allergies Allergen ID Allergen Name Allergen Category Reaction Reaction Severity Criticality Documentation Date Start Date Code Code System Note Provider Name and Address Organization Details Recorded Time 048844 Product containin g penicilli n and antibioti c (product) medicatio n rash Not available Not available 11/20/2022 87606 05 SNOMED Latesha Burger [facility] 3 01:15:24 688196 bee pollen environme nt,medica tion Not available Not available Not available 11/20/2022 60585 7 [facility] 01:16:01 906916 ethinyl estradiol / levonorge strel medicatio n Not available Not available Not available 11/20/2022 75638 8 [facility]Norm [facility] 3 01:16:07 097870 POLLEN EXTRACTS environme nt,medica tion Not available Not available Not available 11/20/2022 01946 6 RxNorm Noreen Lesniewsk ruben [facility] 3 13:13:50 569610 mold extract environme nt Not available Not available Not available 11/20/2022 14844 8 RxNorm Noreen Lesniewsk i [facility] 3 13:13:50 503064 insect venom environme nt itching other Not available Not available Not available 11/20/2022 49344 UNK Noreen Glynn ruben [facility] [place] [facility] 13:13:50 Medications Name Sig Start Date Stop [...] d Address Organization Details Last Updated DateTime 12/28/2023 172.72 cm Dai Forbes [facility] 12/28/2023 10:11:41 Date Recorded Body mass index (BMI) Body weight Provider Name and Address Organization Details Last Updated DateTime 12/28/2023 29.3 kg/m2 89893.33 g Dai Leidy [facility] 12/28/2023 10:11:50 Date Recorded Body height Provider Name an d Address Organization Details Last Updated DateTime 04/01/2024 172.72 cm Payton [facility] 04/01/2024 08:35:24 Date Recorded Body mass index (BMI) Body weight Provider Name and Address Organization Details Last Updated DateTime 04/01/2024 29.3 kg/m2 10390.33 g Payton [facility] 04/01/2024 08:35:29 Date Recorded Body height Provider Name an d Address Organization Details Last Updated DateTime 04/08/2024 172.72 cm Dai Leidy [facility] 04/08/2024 13:48:46 Date Recorded Body mass index (BMI) Body weight Provider Name and Address Organization Details Last Updated DateTime 04/08/2024 29.3 kg/m2 63340.33 g Dai Forbes [facility] 04/08/2024 13:48:49 Date Recorded Body height Provider Name an d Address Organization Details Last Updated DateTime 08/04/2024 172.72 cm Yomaira Tomas [facility] 08/04/2024 10:26:27 Date Recorded Body mass index (BMI) Body weight Provider Name and Address Organization Details Last Updated DateTime 08/04/2024 33.1 kg/m2 93865.14 g Yomaira Tomas [facility] 08/04/2024 10:26:36 Social History Question Answer Notes LastModified by Organizat ion Details LastModified Time Tobacco Smoking Status Never Smoker Yomaira Tomas lisa [facility] 08/04/2024 10:26:47 Do You Have [...] not available 11/20/2022 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 16+yearssincel [email or web address] Information not available 11/20/2022 Which Of Your Hands Is Dominant? Right Information not available 11/20/2022 What Was The Date Of Your Most Recent Tobacco Screening? 08/04/2024 Information not available 08/04/2024 Have You Ever Been Counseled For Unhealthy Alcohol Use? No Information not available 08/04/2024 Do You Have Any Pets? Yes Information not available 11/20/2022 What Is Your Relationship Status? [email or web address] Information not available 11/20/2022 Do You Feel Stressed (tense, Restless, Nervous, Or Anxious, Or Unable To Sleep At Night)? KS3839-3 [email or web address] Information not available 04/10/2023 Do You Use Any Illicit Or Recreational Drugs? No Information not available 11/20/2022 Has Tobacco Cessation Counseling Been Provided? No [email or web address] Information not available 04/10/2023 How Many Years Have You Smoked Tobacco? 5 Information not available 11/20/2022 Do You Or Have You Ever Used Any Other Forms Of Tobacco Or Nicotine? No Information not available 11/20/2022 How Many Days In The Past Year Have You Consumed 4 Or More Drinks? 4 [email or web address] Information no t available 11/20/2022 Sex: Female [...] SNOMED-CT Code Diagnosis ICD10 Code Diagnosis Note [id number] Deondre Bronson PA-C [facility] [address] [place] [phone] 11/20/2022 13:02:57 11/20/2022 13:44:20 Osteoarthritis of right knee joint 8317483065 04689 M17.11 Osteoarthr itis of left knee joint 0276838834 52737 M17.12 [id number] Deondre Bronson PA-C [facility] [address] [place] [phone] 04/10/2023 14:46:22 04/10/2023 15:15:05 Osteoarthritis of right knee joint 4731721192 71613 M17.11 [id number] Deondre Bronson PA-C [facility] [address] [place] [phone] 09/17/2023 11:41:51 09/17/2023 11:43:08 Osteoarthritis of right knee joint 7801446190 44943 M17.11 [id number] Deondre Bronson PA-C [facility] [address] [place] [phone] 12/28/2023 10:07:59 12/28/2023 10:40:19 Osteoarthritis of right knee joint 3809387757 M17.11 [id number] Deondre Bronson PA-C [facility] [address] [place] [phone] 03/25/2024 14:43:16 03/25/2024 15:12:13 Osteoarthritis of right knee joint 9532616938 M17.11 [id number] Deondre Bronson PA-C [facility] [address] [place] [address] 04/01/2024 08:32:29 04/01/2024 08:48:46 Osteoarthritis of right knee joint 7234244525 M17.11 [id number] Deondre Bronson PA-C [facility] [address] [place] [phone] 04/08/2024 13:42:36 04/08/2024 13:59:56 Osteoarthritis of right knee joint 2831594063 40476 M17.11 [id number] Deondre Bronson PA-C [facility] [address] [phone] 08/04/2024 10:15:48 08/04/2024 10:41:26 Osteoarthritis of right knee joint 7449429176 89887 M17.11 Health Concerns Section Related Observation LastModified by Organization Detai ls LastModified Time None Recorded Concern Status LastModified by Organization Details LastModified Time None Recorded Advance Directives Directive Y: Payers Encounter Date Sequence Insurance Name Policy Number Policy Richards Covered Member ID Richards Member ID Guarantor Name 12/28/2023 1 [facility] [employer] (MEDICAID REPLACEMENT - HMO) [employer]LE[employer] Kathy Velazquez [id number] Kathy Velazquez 03/25/2024 1 [facility] [employer] (MEDICAID REPLACEMENT - HMO) [employer] Kathy Velazquez [id number] Kathy Velazquez 04/01/2024 1 [facility] [employer] (MEDICAID REPLACEMENT - HMO) [employer] Kathy Velazquez [id number] Kathy Velazquez 04/08/2024 1 [facility] [employer] (MEDICAID REPLACEMENT - HMO) ELENANACO Kathy Velazquez [id number] Kathy Velazquez 08/04/2024 1 [facility] [employer] (HMO) ELENANACO Kathy Velazquez [id number] Kathy Velazquez Notes Date Note Type Note Provider Name and Address Organization Details Recorded Time 12/28/2023 text/html Patient presents for followup regarding [...] performed by Dr. Fisher. Deondre Bronson PA-C [address] [place] [address], [phone], [facility] 12/28/2023 12:44:29 03/25/2024 text/html Patient presents for her first right knee Euflexxa injection. Deondre Bronson PA-C [address] [place], [address], [facility] 03/25/2024 15:06:53 04/01/2024 text/html Patient presents for her second right knee Euflexxa injection. She denies any adverse effects following previous injection. Deondre Bronson PA-C [address] [place] [address], [phone], [facility] 04/01/2024 09:30:56 04/08/2024 text/html Patient presents for her third right knee Euflexxa injection. She denies any adverse effects following previous injections. Deondre Bronson PA-C [address] [place], [address], [facility] 04/08/2024 14:25:07 08/04/2024 text/html Patient presents for followup regarding [...] by Dr. Fisher. Deondre Bronson PA-C [address] [place], [address], [facility] 08/04/2024 12:11:03 OBGyn Episode No OBEpisode recorded.
== END 2024-08-13 11:27 | disposition home or self-care (01) ==
PROVIDERS: PCP Internal Medicine; Visit Provider Internal Medicine
DX: C44.310 Basal cell carcinoma of skin of unspecified parts of face (principal); E66.09 Other obesity due to excess calories; Z68.31 Body mass index [BMI] 31.0-31.9, adult

== ENCOUNTER → 2024-08-13 10:54 | Outpatient (BNVA) | payer OTHER, SELFPAY | PROVIDERS: PCP Internal Medicine; Visit Provider Internal Medicine | DX: R79.89 Other specified abnormal findings of blood chemistry (principal); E66.09 Other obesity due to excess calories; Z68.31 Body mass index [BMI] 31.0-31.9, adult; E03.8 Other specified hypothyroidism; E78.9 Disorder of lipoprotein metabolism, unspecified; M19.90 Unspecified osteoarthritis, unspecified site; C44.310 Basal cell carcinoma of skin of unspecified parts of face; Z71.3 Dietary counseling and surveillance | CPT/HCPCS: 96127; 99212 ==

== ENCOUNTER 2024-09-12 08:34 | Outpatient (AMB) | payer OTHER, SELFPAY ==
--- NOTE | 2024-09-12 08:38 | MHC.PC.OV ---
Vital Signs 09/12/24 08:41 Height 5 ft 8 in Weight 212 lb BMI 32.2 BP 146/88 H Blood Pressure Location Lt brachial Respiration 18 Pulse 101 H Pulse Source Pulse Oximeter Temp 98.1 F Temp Source Oral Pulse Oximetry (%) 98 Oxygen Delivery Method Room Air Intake Visit Reasons: 1m follow up Allergies Penicillins Allergy (Mild, Verified 09/12/24 08:43) rash bee Allergy (Severe, Uncoded 01/09/24 13:01) Swelling Medication List - Last Reconciled 09/12/24 by Marianela Plummer MD atorvastatin 10 mg PO BEDTIME epinephrine (EpiPen) 0.3 mg (0.3 mL) IM Q10M PRN 90 days levothyroxine 75 mcg PO DAILY minoxidil 2.5 mg PO BID omeprazole 20 mg PO DAILY phentermine 37.5 mg PO DAILY 30 days Tobacco use date assessed: 09/12/24 Dental Screening Dental Screen Date: 09/12/24 Did you have a dental visit in the last 12 months?: Yes Did you have a dental problem in the last 6 months where you did not have access to dental care?: No Was dental information given to patient?: Patient has dentist HPI 1m follow up HPI Details History - The patient is a 59-year-old female presenting for weight management - Progressively decreasing weight, from 215 to 212 pounds, but slowly. - Engages in physical activities and exercises at [facility], including swimming and strength training. - Dietary modifications include sugar elimination and reduced bread consumption, with daily calories at approximately 5537-1249. - Upcoming surgical intervention for basal cell carcinoma, previously excised but requiring further removal. - Denies symptoms such as chest pain, palpitations, nausea, or vomiting related to current complaints. Problem List - Weight gain - Basal cell carcinoma Patient Instructions - Continue the current exercise routine at the [facility] and aim for three days a week. - Maintain dietary changes by avoiding sugar and limiting bread intake. - Monitor calorie intake to remain between 1100 and 1200 calories daily. - Proceed with the scheduled basal cell carcinoma surgery and follow post-operative care instructions. - Return for regular follow-up appointments to monitor weight and medication efficacy. Review of Systems - General: No fever no chills - Neurological: No headaches no dizziness - Ear nose throat: No sore throat no hearing difficulty no ear pain - Cardiovascular: No syncope, no chest pain, no palpitations - Gastrointestinal: No nausea vomiting or diarrhea - Endocrine: No polyuria polydipsia no heat intolerance - Genitourinary: No dysuria , no blood in urine Physical Exam - General: No acute distress - HEENT: No acute findings - Neck: Supple - Respiratory system: Able to talk in full sentences, no audible wheeze - cardiovascular: S1-S2 regular in rate and rhythm - Gastrointestinal: No pain - Extremities: No new findings - BUSINESS TRAINER: Alert awake oriented x3 motor sensory intact - Skin: Normal turgor PFSH Family History Daughter Mental health disorder Social History Housing: House Patient Tobacco Use Status: Never used Tobacco e-Cigarette/Vaping Use: Never Used service: No Current occupational status: employed Cognitive needs: No Hearing needs: No Vision needs: Yes Questionnaire PHQ-9 Over the last 2 weeks, how often have you been bothered by any of the following problems? 1. Little interest or pleasure in doing things: not at all 2. Feeling down, depressed, or hopeless: not at all 3. Trouble falling or staying asleep, or sleeping too much: not at all 4. Feeling tired or having little energy: not at all 5. Poor appetite or overeating: not at all 6. Feeling bad about yourself - or that you are a failure or have let yourself or your family down: not at all 7. Trouble concentrating on things, such as reading the newspaper or watching television: not at all 8. Moving or speaking so slowly that other people could have noticed. Or the opposite - being so fidgety or restless that you have been moving around a lot more than usual: not at all 9. Thoughts that you would be better off or of hurting yourself in some way: not at all Total score: 0 Depression Screening Interpretation: Negative Depression Screening Done: Yes 73489 - PHQ-9 Billing: Yes Source: Developed by Drs. Clark Roy, Evette Guzman, Chip Esposito and colleagues, with an educational jono from [employer]. Thrive Questionnaire Date Thrive assessed: 09/12/24 I am a: Patient What is your living situation today?: I have a steady place to live Within the past 12 months, did the food you bought not last and you didn't have the money to get more?: Never true Within the past 12 months, did you worry whether your food would run out before you got money to buy more?: Never true Do you have trouble paying for medicines?: No Do you have trouble getting transportation to medical appointments?: No Do you have trouble paying your heating and electricity bill?: No Do you have trouble taking care of your child, family member or friend?: No Do you have trouble with day-to-day activities such as bathing, preparing meals, shopping, managing finances, etc.?: No Are you currently unemployed and looking for a job?: No Are you interested in more education?: No Please select the resources that you would like help with: None Currently or been in a relationship where the following occur: No concerns reported THRIVE Score: 0 AUDIT C Alcohol Use Questionnaire (AUDIT-C) 1. How often do you have a drink containing alcohol?: 2-4 times a month 2. How many drinks containing alcohol do you have on a typical day when you are drinking?: 1 or 2 3. How often do you have six or more drinks on one occasion?: Never Total Score: 2 Score Reviewed/Action Taken: Yes FELIPE-7 AMB Questionnaire FELIPE-7 Date FELIPE - 7 assessed: 09/12/24 Feeling nervous, anxious, or on edge: 0 = Not at all Not being able to stop or control worryin = Not at all Worrying too much about different things: 0 = Not at all Trouble relaxin = Not at all Being so restless that it is hard to sit still: 0 = Not at all Becoming easily annoyed or irritable: 0 = Not at all Feeling afraid as if something awful might happen: 0 = Not at all Total FELIPE-7 score (0-4 normal; 5-9 mild; 10-14 moderate; 15-21 severe): 0 Source: Developed by Drs. Clark Roy, Evette Guzman, Chip Esposito and colleagues, with an educational jono from [employer] FELIPE-7 Assessment Billing FELIPE-7 Assessment Tool: FELIPE-7 Assessment 23363 Physical exam (Primary Care) Vital Signs: Last Vital Signs Temp 98.1 F 09/12/24 08:41 Pulse 101 H 09/12/24 08:41 Resp 18 09/12/24 08:41 BP 146/88 H 09/12/24 08:41 Pulse Ox 98 09/12/24 08:41 Oxygen Delivery Method Room Air 09/12/24 08:41 BMI result Body Mass Index 32.2 Tobacco/Smoking Status: Tobacco use Status Tobacco use date assessed 09/12/24 09/12/24 08:43 Patient Tobacco Use Status Never used Tobacco 09/12/24 08:40 e-Cigarette/Vaping Use Never Used 09/12/24 08:40 PHQ-9: PHQ-9 Score PHQ-9: Total score 0 09/12/24 08:55 Depression Screening Interpretation: Negative Thrive Assessment: Date of Thrive Assessment Date Thrive assessed 09/12/24 09/12/24 08:43 Currently or been in a relationship where the following occur: No concerns reported Coding Level of Care Code Est Pt Level 3 (19697) Diagnoses Class 1 obesity due to excess calories with serious comorbidity and body mass index (BMI) of 31.0 to 31.9 in adult E66.09; Z68.31 Obesity classification: adult class 1 (BMI 30 - 34.9) Serious obesity comorbidity presence: with serious comorbidity Body mass index: BMI 31.0-31.9 Basal cell carcinoma, face C44.310 Additional Codes FELIPE-7 Assessment Billing - FELIPE-7 Assessment Tool: FELIPE-7 Assessment 73897 ([id number]) PHQ-9 - 73391 - PHQ-9 Billing: Yes ([id number]) Assessment & Plan Assessment & Plan (1) Obesity due to excess calories: Code(s): E66.09 - Other obesity due to excess calories Category: Medical Qualifiers: Obesity classification: adult class 1 (BMI 30 - 34.9) Serious obesity comorbidity presence: with serious comorbidity Body mass index: BMI 31.0-31.9 Qualified Code(s): E66.09 - Other obesity due to excess calories; Z68.31 - Body mass index [BMI] 31.0-31.9, adult (2) Basal cell carcinoma, face: Code(s): C44.310 - Basal cell carcinoma of skin of unspecified parts of face Category: Medical Plan History - The patient is a 59-year-old female presenting for weight management - Progressively decreasing weight, from 215 to 212 pounds, but slowly. - Engages in physical activities and exercises at [facility], including swimming and strength training. - Dietary modifications include sugar elimination and reduced bread consumption, with daily calories at approximately 3686-7970. - Upcoming surgical intervention for basal cell carcinoma, previously excised but requiring further removal. - Denies symptoms such as chest pain, palpitations, nausea, or vomiting related to current complaints. Problem List - Weight gain - Basal cell carcinoma Patient Instructions - Continue the current exercise routine at the [facility] and aim for three days a week. - Maintain dietary changes by avoiding sugar and limiting bread intake. - Monitor calorie intake to remain between 1100 and 1200 calories daily. - Proceed with the scheduled basal cell carcinoma surgery and follow post-operative care instructions. - Return for regular follow-up appointments to monitor weight and medication efficacy. Medications: Refilled phentermine must administer 2 hours after breakfast 37.5 mg PO DAILY 30 days 30 caps 0RF
[2024-09-12 08:41] VITALS: BP 146/88; PULSE 101; RESP 18; TEMP 36.7; O2SAT 98; BMI 32.2
--- OUTSIDE RECORDS SUMMARY | 2024-09-12 08:49 | XMS_ITS | Data Portability ---
Author Organization [facility] Link_[employer]_ [employer], svmg_admin Address [address] [place] [phone] Care Team Providers Care Marketing Support Assistant Name Role Phone KAUR DEY Referring Provider [phone] DEONDRE BRONSON OTHER NICOLE ANDREW Primary Care [...] suspensi on for injectio n 2024 025 [email or web address]/Pharmacy #[id number], [address] [place] [address], [id number], 08/04/2024 12:08:37 Euflexxa 10 mg/mL (mw 2.4-3.6 million) intra-ar ticular syringe [address]/Pharmacy #[id number], [address] [place] [address], [id number], 04/08/2024 14:18:08 Euflexxa 10 mg/mL (mw 2.4-3.6 million) intra-ar ticular syringe [address]/Pharmacy #0838, [address] [place] [address], [id number], 04/01/2024 09:29:21 Euflexxa 10 mg/mL (mw 2.4-3.6 million) intra-ar ticular syringe 2023 [id number] [address] [place] [address], [id number], 03/25/2024 15:06:09 Depo-Med rol 40 mg/mL suspensi on for injectio n 2023 024 [email or web address]/Pharmacy #[id number], [address] [place], [id number], 12/28/2023 12:42:17 Patient TargetsNo targets recorded. Patient InstructionsNo instructions recorded. Reason for Referral None Reported. Problems Name Problem SNOMED Code Status Onset Date Resolution Date Notes Provider Name and Address Organization Details Recorded Time Complicati on of anesthesia 80331100 Active 2022 Latesha gonzalez [facility] 3 01:11:15 Arthritis 7037980 Active 2022 Lateshapriti Burger [facility] 3 01:11:22 Osteoarthr itis 898957634 Active 2022 Lateshapriti gonzalez [facility] 3 01:11:28 Total knee replacemen t Active 2022 Lateshapriti Burger [facility] 3 01:11:38 Rupture of rotator cuff of shoulder 720406930 Active 2022 complete rotator cuff tear or rupture of right shoulder, not specified as traumatic Lateshapriti Burger [facility] 3 01:12:34 Tear of medial meniscus of knee 116906390 Active 2022 Lateshapriti gonzalez [facility] 3 01:12:56 Impingemen t syndrome of shoulder region 484833810 Active 2022 right shoulder Lateshapriti Burger [facility] 3 01:13:12 Problem Notes None recorded. Procedures Surgical History Date Name Laterality Status Provider Name and Address Organization Details Recorded Time 2024 Intra-articular Knee Steroid Injection completed Deondre Bronson PA-C [address] [place] [address], [phone], [facility] 08/04/2024 11:01:40 2023 Viscosupplementation Knee completed Deondre Bronson PA-C [address] [place] [address], [phone], [facility] 04/08/2024 14:18:06 2023 Viscosupplementation Knee completed Deondre Bronson PA-C [address] [place] [address], [phone], [facility] 04/01/2024 09:29:19 2023 Viscosupplementation Knee completed Deondre Bronson PA-C [address] [place] [address], [phone], [facility] 03/25/2024 15:02:51 2023 Intra-articular Knee Steroid Injection completed Deondre Bronson PA-C [address] [place] [address], [address], [facility] 12/28/2023 12:44:01 2023 Intra-articular Knee Steroid Injection completed Deondre Bronson PA-C [address] [place] [address], [phone], [facility] 09/17/2023 11:58:11 2022 Intra-articular Knee Steroid Injection completed Deondre Bronson PA-C [address] [place] [address], [phone], [facility] 04/10/2023 15:26:45 2022 Intra-articular Knee Steroid Injection completed Deondre Bronson PA-C [address] [place] [address], [phone], [facility] 11/21/2022 17:45:19 2015 total knee replacement completed Latesha Burger [facility] 11/20/2022 01:14:37 2011 Knee arthroscopy/surgery completed Not Available [facility] 09/14/2011 03:36:58 2010 Knee Surgery completed Latesha Burger [facility] 11/20/2022 01:14:20 1995 Section completed Latesha Burger [facility] 11/20/2022 01:14:08 Joint Replacement completed Noreen Lopez [facility] 11/20/2022 13:14:12 Other Surgeries completed Dai Forbes [facility] 09/17/2023 11:48:36 Imaging Results None recorded. Procedure Notes None recorded. Medical Equipment None Reported. Allergies Allergen ID Allergen Name Allergen Category Reaction Reaction Severity Criticality Documentation Date Start Date Code Code System Note Provider Name and Address Organization Details Recorded Time 054346 Product containin g penicilli n (product) medicatio n rash Not available Not available 11/20/2022 27827 8001 SNOMED Latesha Burger [facility] 3 01:15:24 509655 bee pollen environme nt,medica tion Not available Not available Not available 11/20/2022 97369 7 [facility] 01:16:01 300125 ethinyl estradiol / levonorge strel medicatio n Not available Not available Not available 11/20/2022 59326 8 [facility] 3 01:16:07 374108 POLLEN EXTRACTS environme nt,medica tion Not available Not available Not available 11/20/2022 52329 6 RxNorm [facility]en Lesniewsk [facility] 13:13:50 828673 mold extract environme nt Not available Not available Not available 11/20/2022 67844 8 RxNorm Noreen Earlenialbertok ruben lisa [facility] 3 13:13:50 636445 insect venom environme nt itching other Not available Not available Not available 11/20/2022 31722 UNK Noreen Atkinsonalbertolillain ruben gonzalez [place] - [facility] 13:13:50 Medications Name Sig Start Date Stop [...] Available Not Available No t Available 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 1 mg over 3 days transdermal patch [...] Updated DateTime 12/28/2023 172.72 cm 29.3 kg/m2 86021.33 g Dai Forbes [facility] 12/28/2023 10:11:50 Date Recorded Body height Body mass index (BMI) Body weight Provider Name and Address Organization Details Last Updated DateTime 04/01/2024 172.72 cm 29.3 kg/m2 05473.33 g Payton Rollins [facility] 04/01/2024 08:35:29 Date Recorded Body height Body mass index (BMI) Body weight Provider Name and Address Organization Details Last Updated DateTime 04/08/2024 172.72 cm 29.3 kg/m2 17839.33 g Dai Forbes [facility] 04/08/2024 13:48:49 Date Recorded Body height Body mass index (BMI) Body weight Provider Name and Address Organization Details Last Updated DateTime 08/04/2024 172.72 cm 33.1 kg/m2 48551.14 g Yomaira Tomas MA [facility] 08/04/2024 10:26:36 Social History Question Answer Notes LastModified by Organizat ion Details LastModified Time Tobacco Smoking Status Never Smoker Yomaira gonzalez [facility] 08/04/2024 10:26:47 Do You Have An Advance [...] not available 11/20/2022 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 [id number] Information not available 04/10/2023 Do You Use Any Illicit Or Recreational Drugs? No Information not available 11/20/2022 Has Tobacco Cessation Counseling Been Provided? No [email or web address] Information not available 04/10/2023 How Many Years [...] SNOMED-CT Code Diagnosis ICD10 Code Diagnosis Note [id number] Deondre Bronson PA-C [facility] [address] [place] [address] 11/20/2022 13:02:57 11/20/2022 13:44:20 Osteoarthritis of right knee joint 5910033239 74243 M17.11 Osteoarthr itis of left knee joint 1862727852 82752 M17.12 [id number] Deondre Bronson PA-C [facility] [address] [place] [address] 04/10/2023 14:46:22 04/10/2023 15:15:05 Osteoarthritis of right knee joint 8223148896 51451 M17.11 [id number] Deondre Bronson PA-C [facility] [address] [place] [address] 09/17/2023 11:41:51 09/17/2023 11:43:08 Osteoarthritis of right knee joint 4114245535 64883 M17.11 [id number] Deondre Bronson PA-C [facility] [address] [place] [address] 12/28/2023 10:07:59 12/28/2023 10:40:19 Osteoarthritis of right knee joint 0364758257 06638 M17.11 [id number] Deondre Bronson PA-C [facility] [address] [place] [address] 03/25/2024 14:43:16 03/25/2024 15:12:13 Osteoarthritis of right knee joint 4567732484 61044 M17.11 [id number] Deondre Bronson PA-C [facility] [address] [place] [address] 04/01/2024 08:32:29 04/01/2024 08:48:46 Osteoarthritis of right knee joint 4704429273 63211 M17.11 [id number] Deondre Bronson PA-C [facility] [address] [place] [address] 04/08/2024 13:42:36 04/08/2024 13:59:56 Osteoarthritis of right knee joint 7401346419 11635 M17.11 [id number] Deondre Bronson PA-C [facility] [address] [place] [address] 08/04/2024 10:15:48 08/04/2024 10:41:26 Osteoarthritis of right knee joint 7653875022 68688 M17.11 Health Concerns Section Related Observation LastModified by Organization Detai ls LastModified Time None Recorded Concern Status LastModified by Organization Details LastModified Time None Recorded Advance Directives Directive Y: Payers Encounter Date Sequence Insurance Name Policy Number Policy Richards Covered Member ID Richards Member ID Guarantor Name 12/28/2023 1 [facility] [employer] (MEDICAID REPLACEMENT - HMO) RONNY Velazquez [id number] Kathy Velazquez 03/25/2024 1 [facility] [employer] [employer] (MEDICAID REPLACEMENT - HMO) SELENAO Kathy Velazquez [id number] Kathy Velazquez 04/01/2024 1 [facility] [employer] (MEDICAID REPLACEMENT - HMO) ELENANACO Kathy Caroline [id number] Kathy Velazquez 04/08/2024 1 [facility] (MEDICAID REPLACEMENT - HMO) SELENAO Kathy Velazquez [id number] Kathy Velazquez 08/04/2024 1 [facility] (HMO) RONNY Kathy Stevie Velazquez [id number] Kathy Velazquez Notes Date Note Type Note [...] by Dr. Fisher. Deondre Bronson PA-C [address] [place], [address], [facility]. 12/28/2023 12:44:29 03/25/2024 text/html Patient presents for her first right knee Euflexxa injection. Deondre Bronson PA-C [address] [place], [address], [facility]. 03/25/2024 15:06:53 04/01/2024 text/html Patient presents for her second right knee Euflexxa injection. She denies any adverse effects following previous injection. Deondre Bronson PA-C [address] [place], [address], [facility] 04/01/2024 09:30:56 04/08/2024 text/html Patient presents for her third right knee Euflexxa injection. She denies any adverse effects following previous injections. Deondre Bronson PA-C [address] [place], [address], [facility] 04/08/2024 14:25:07 08/04/2024 text/html Patient presents [...] by Dr. Fisher. Deondre Bronson PA-C [address] [place], [address], [facility]. 08/04/2024 12:11:03 OBGyn Episode No OBEpisode recorded.
--- OUTSIDE RECORDS SUMMARY | 2024-09-12 08:49 | XMS_ITS | Data Portability ---
Author Organization [place] [facility], [facility], [facility] Address [address] [place] [phone] Care Team Providers Care Reading Aide Name Role Phone LUC NORRIS Primary Care Provider [phone] LUC NORRIS Referring Provider [phone] Assessment No assessment recorded. Plan of Treatment [...] By Organization Details Last Modified Time 04/09/2024 [id number] The above clinic al findings and radiographic [...] portions of this report were transcribed using D[employer] speech recognition software. If any discrepancy or [...] SNOMED-CT Code Diagnosis ICD10 Code Diagnosis Note [id number] Clark Pope DPM [facility] [address] [address] 04/09/2024 15:38:52 04/09/2024 17:16:49 Peroneal tendinitis 35970912 M76.71 Pain of ri ght ankle joint 4492096873 4639778 M25.571 Health Concerns Section Related Observation LastModified by Organization Detai ls LastModified Time None Recorded Concern Status LastModified by Organization Details LastModified Time None Recorded Advance Directives Directive None Recorded Payers Encounter Date Sequence Insurance Name Policy Number Policy Richards Covered Member ID Richards Member ID Guarantor Name 04/09/2024 2 [place] [facility] Kathy Velazquez [id number] Kathy Velazquez 04/09/2024 1 [facility] [employer] (MEDICAID HMO) [facility] Kathy Velazquez [id number] Kathy Velazquez Notes Date Note Type Note Provider Name and Address Organization Details Recorded Time 04/09/2024 text/html Podiatry FootReported bypatient.Notes:Hliton hatch presents today for evaluation right ankle pain. She states it started about 2 or 3 months ago. She was receiving gel injections in her right knee for Dr. Fisher's office. The physician assistant counsel recommended using an ankle brace that she was having swelling and pain on the outside part of the ankle. She started wearing ankle brace 2 weeks ago and has noticed a marked improvement. It does occasionally walk up on her and she notices it when she drives for long periods of time. Clark Pope DPM [address] [place] [address], [phone], [facility] - [facility], [facility] 04/09/2024 16:30:43 OBGyn Episode No OBEpisode recorded.
== END 2024-09-12 08:56 | disposition home or self-care (01) ==
PROVIDERS: PCP Internal Medicine; Visit Provider Internal Medicine
DX: E66.09 Other obesity due to excess calories (principal); Z68.31 Body mass index [BMI] 31.0-31.9, adult; C44.310 Basal cell carcinoma of skin of unspecified parts of face

== ENCOUNTER → 2024-09-12 08:34 | Outpatient (BNVA) | payer OTHER, SELFPAY | PROVIDERS: PCP Internal Medicine; Visit Provider Internal Medicine | DX: E66.09 Other obesity due to excess calories (principal); Z68.31 Body mass index [BMI] 31.0-31.9, adult; C44.310 Basal cell carcinoma of skin of unspecified parts of face; Z71.3 Dietary counseling and surveillance | CPT/HCPCS: 96127; 99212 ==

== ENCOUNTER 2024-10-10 08:57 | Outpatient (AMB) | payer OTHER, SELFPAY ==
[2024-10-10 09:02] VITALS: BP 122/70; PULSE 101; TEMP 36.6; O2SAT 96; BMI 31.8
--- NOTE | 2024-10-10 09:02 | MHC.PC.OV ---
Vital Signs 10/10/24 09:02 Height 5 ft 8 in Weight 209 lb 4 oz BMI 31.8 BP 122/70 Blood Pressure Location Rt brachial Position Sitting Pulse 101 H Pulse Source Pulse Oximeter Temp 97.9 F Temp Source Oral Pulse Oximetry (%) 96 Oxygen Delivery Method Room Air Intake Visit Reasons: 1m follow up Allergies Penicillins Allergy (Mild, Verified 10/10/24 09:06) rash bee Allergy (Severe, Uncoded 01/09/24 13:01) Swelling Medication List - Last Reconciled 10/10/24 by Marianela Plummer MD atorvastatin 10 mg PO BEDTIME epinephrine (EpiPen) 0.3 mg (0.3 mL) IM Q10M PRN 90 days levothyroxine 75 mcg PO DAILY minoxidil 2.5 mg PO BID omeprazole 20 mg PO DAILY phentermine 37.5 mg PO DAILY 30 days Tobacco use date assessed: 10/10/24 Dental Screening Dental Screen Date: 10/10/24 Did you have a dental visit in the last 12 months?: Yes Did you have a dental problem in the last 6 months where you did not have access to dental care?: No Was dental information given to patient?: Patient has dentist HPI 1m follow up HPI Details History - The patient is a 59-year-old female presenting with weight management concerns. - There has been recent weight loss, with a recorded decrease from 212 pounds on September 12 to 209.4 pounds today. - Following recent surgery right-sided facial surgery to remove cancerous growth, instructions were given to avoid physical exercise for three weeks and swimming for four weeks to prevent potential surgical complications. - Post-surgery, the patient reports the area of the incision remains numb and somewhat swollen, although it is healing adequately. Problem List - Post-operative status following recent surgery - Weight management Patient Instructions - Continue current medications as prescribed. - Gradually resume exercise activities as per post-operative guidelines. - Maintain adherence to weight management goals. Review of Systems - General: No fever no chills - Neurological: No headaches no dizziness - Ear nose throat: No sore throat no hearing difficulty no ear pain - Cardiovascular: No syncope, no chest pain, no palpitations - Gastrointestinal: No nausea vomiting or diarrhea - Endocrine: No polyuria polydipsia no heat intolerance - Genitourinary: No dysuria , no blood in urine Physical Exam - General: No acute distress - HEENT: No acute findings - Neck: Supple - Respiratory system: Able to talk in full sentences, no audible wheeze - cardiovascular: S1-S2 regular in rate and rhythm - Gastrointestinal: No pain - Extremities: No new findings - AMUSEMENT OR 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 49385 - PHQ-9 Billing: Patient declined-do not bill Source: Developed by Drs. Clark Roy, Evette Guzman, Chip Esposito and colleagues, with an educational jono from [employer]. Thrive Questionnaire Date Thrive assessed: 10/10/24 I am a: Patient What is your living situation today?: I have a steady place to live Within the past 12 months, did the food you bought not last and you didn't have the money to get more?: Never true Within the past 12 months, did you worry whether your food would run out before you got money to buy more?: Never true Do you have trouble paying for medicines?: No Do you have trouble getting transportation to medical appointments?: No Do you have trouble paying your heating and electricity bill?: No Do you have trouble taking care of your child, family member or friend?: No Do you have trouble with day-to-day activities such as bathing, preparing meals, shopping, managing finances, etc.?: No Are you currently unemployed and looking for a job?: No Are you interested in more education?: No Please select the resources that you would like help with: None Currently or been in a relationship where the following occur: No concerns reported THRIVE Score: 0 AUDIT C Alcohol Use Questionnaire (AUDIT-C) 1. How often do you have a drink containing alcohol?: Never 3. How often do you have six or more drinks on one occasion?: Never Total Score: 0 Score Reviewed/Action Taken: Yes FELIPE-7 AMB Questionnaire FELIPE-7 Date FELIPE - 7 assessed: 10/10/24 Feeling nervous, anxious, or on edge: 0 = Not at all Not being able to stop or control worryin = Not at all Worrying too much about different things: 0 = Not at all Trouble relaxin = Not at all Being so restless that it is hard to sit still: 0 = Not at all Becoming easily annoyed or irritable: 0 = Not at all Feeling afraid as if something awful might happen: 0 = Not at all Total FELIPE-7 score (0-4 normal; 5-9 mild; 10-14 moderate; 15-21 severe): 0 Source: Developed by Drs. Clark Roy, Evette Guzman, Chip Esposito and colleagues, with an educational jono from [employer]. FELIPE-7 Assessment Billing FELIPE-7 Assessment Tool: FELIPE-7 Assessment 62113 Physical exam (Primary Care) Vital Signs: Last Vital Signs Temp 97.9 F 10/10/24 09:02 Pulse 101 H 10/10/24 09:02 BP 122/70 10/10/24 09:02 Pulse Ox 96 10/10/24 09:02 Oxygen Delivery Method Room Air 10/10/24 09:02 BMI result Body Mass Index 31.8 Tobacco/Smoking Status: Tobacco use Status Tobacco use date assessed 10/10/24 10/10/24 09:07 Patient Tobacco Use Status Never used Tobacco 10/10/24 09:05 e-Cigarette/Vaping Use Never Used 10/10/24 09:05 Thrive Assessment: Date of Thrive Assessment Date Thrive assessed 10/10/24 10/10/24 09:07 Currently or been in a relationship where the following occur: No concerns reported Coding Level of Care Code Est Pt Level 3 (34975) Diagnoses Class 1 obesity due to excess calories with serious comorbidity and body mass index (BMI) of 31.0 to 31.9 in adult E66.09; Z68.31 Obesity classification: adult class 1 (BMI 30 - 34.9) Serious obesity comorbidity presence: with serious comorbidity Body mass index: BMI 31.0-31.9 Additional Codes FELIPE-7 Assessment Billing - FELIPE-7 Assessment Tool: FELIPE-7 Assessment 67585 ([id number]) Assessment & Plan Assessment & Plan (1) Obesity due to excess calories: Code(s): E66.09 - Other obesity due to excess calories Category: Medical Qualifiers: Obesity classification: adult class 1 (BMI 30 - 34.9) Serious obesity comorbidity presence: with serious comorbidity Body mass index: BMI 31.0-31.9 Qualified Code(s): E66.09 - Other obesity due to excess calories; Z68.31 - Body mass index [BMI] 31.0-31.9, adult Plan History - The patient is a 59-year-old female presenting with weight management concerns. - There has been recent weight loss, with a recorded decrease from 212 pounds on September 12 to 209.4 pounds today. - Following recent surgery right-sided facial surgery to remove cancerous growth, instructions were given to avoid physical exercise for three weeks and swimming for four weeks to prevent potential surgical complications. - Post-surgery, the patient reports the area of the incision remains numb and somewhat swollen, although it is healing adequately. Problem List - Post-operative status following recent surgery - Weight management Patient Instructions - Continue current medications as prescribed. - Gradually resume exercise activities as per post-operative guidelines. - Maintain adherence to weight management goals. Medications: Refilled phentermine must administer 2 hours after breakfast 37.5 mg PO DAILY 30 caps 0RF 30 days
--- OUTSIDE RECORDS SUMMARY | 2024-10-10 09:27 | XMS_ITS | Encounter Summary ---
Author Organization [facility] Address [address] [place] [address] Care Team Providers Care Pharmacy Retail Support Specialist Name Role Phone Marianela Plummer Primary Care Provider [phone] Reason for Referral * Dermatology (Routine) - Pending Review Specialty Diagnoses / Procedures Referred By Keli t Referred To Contact Diagnoses Basal cell carcinoma (BCC) of skin of right upper lip Procedures MOHS Surgery Alexandre Ansari MD [address] [place] [address] Phone: tel: fax: Referral ID Status Reason Start Date Expiration Date V isits Requested Visits Authorized [id number] Pending Review 09/16/2024 03/18/2026 1 1 Reason for Visit * Reason Comments Basal Cell Carcinoma Right inferior medi al malar cheek Encounter Details Date Type Department Care Team (Latest Contact Info) Description 09/16/2024 1:00 PM EST Procedure visit [facility] 4th [address] [place] [address], [place] [address] Ticket Maker: Alexandre Calvillo MD [address] [place] [address] [phone] Basal cell carcinoma (BCC) of skin of right upper lip (Primary Dx) Social History Tobacco Use Types Packs/Day Years Used Date Smoking Tobacco: Never Assessed Comments Unknown Sex and Gender Information Value Date Recorded Sex Assigned at Female 09/15/2024 10:10 PM EST Legal Sex Female 8:20 AM EST Gender Identity Female 09/15/2024 10:10 PM EST Sexual Orientation Choose not to disclose 2024 10:10 PM EST documented as of this encounter Last Filed Vital Signs Vital Sign Reading Time Taken Comments Blood Pressure 158/82 09/16/2024 1:13 PM EST Pulse 93 09/16/2024 1:13 PM EST Temperature - - Respiratory Rate - - Oxygen Saturation - - Inhaled Oxygen Concentration - - Weight - - Height - - Body Mass Index - - documented in this encounter Patient Instructions * Patient Instructions* Katherine Tadeo MA - 09/16/2024 1:00 PM EST [facility] DERMATOLOGIC SURGERY WOUND CARE INSTRUCTIONS Dr. Alexandre Ansari performed Mohs Surgery. INITIAL DRESSING CARE Initial bulky dressing stays in place for 48 hours. Keep the dressing absolutely dry. Keep the dressing ON in the shower You may remove the dressing and continue with wound care DAILY DRESSING CARE Wash hands before each dressing change. Change the bandage once daily. Remove the bandage Gently cleanse the wound with liquid soap and water. Try to clean off any crust or debris. Then apply a thick layer of Mupirocin ointment. Cover the wound with a bandaid / telfa and tape. Continue wound care for 7 days. Keep wound covered at all times until your sutures are removed. THINGS TO AVOID Avoid strenuous activities such as exercise, bending, lifting more than 5 lbs, cleaning. Activitiescan place stress the wound or raise your blood pressure and result in infection or bleeding complications Avoid submerging the wound such as taking a bath, swimming or using a jacuzzi. Avoid smoking which can delay wound healing. DISCOMFORT: Keeping the area elevated in the first 48 hours will decrease swelling and discomfort. You may ice the area for 10 -15 minutes every hour for the first 24 - 48 hours while awake. For pain, take tylenol (acetaminophen) every 6 hours. Avoid alcohol and ibuprofen for 3 days. DO NOT stop aspirin if you currently take a daily aspirin. BLEEDING: If light bleeding occurs, apply direct pressure over the wound for 15-20 minutes with a clean cloth. If bleeding continues, repeat this cycle once again. If bleeding still persists, call us. INFECTION: Signs of infection include increasing pain, increasing redness, swelling, drainage, red streaks, fever. If you experience any signs of infection, call the number below. PHONE NUMBERS TO CALL (Please call us with any questions or concerns) Weekdays 8AM - 4PM Call the Clinic at: and ask for the nurse. Weekends, evenings, nights Call and ask for the ???Claims Assistant juvenile probation officer?? documented in this encounter Progress Notes * Alexandre Ansari MD - 09/16/2024 1:06 PM EST Images from the original note were not included. [facility] Department of Dermatology, Mohs Micrographic Surgery Report: Surgical Staff: Alexandre Ansari MD., Marry. Bridgette Maguire MD (Fellow) Referring Provider: Shabana Smith Asma Kareem Procedure: Mohs micrographic surgery of a Basal Cell Carcinoma from the Right Inferior Medial Malar Cheek witha Rotation Flap closure. Patient Profile: Mohs micrographic surgery was chosen over simple excision or destruction techniques because of the type of tumor, the location of the tumor, the need for tissue sparing, poorly defined margins, and the size of the lesion Pre-OP Diagnosis: Basal cell carcinoma Nodular Lesion Size: The lesion measured 0.5 cm by 0.5 cm Post-OP Diagnosis: Basal cell carcinoma Nodular Description of Procedure Prep & Drape: - The patient was brought to the surgical suite where informed consent was obtained. The site was identified by the surgeon and confirmed by the patient and a time out was performed. The surgical location was cleaned thoroughly with Betadine and draped in a sterile fashion. - Local anesthesia was obtained with lidocaine 2% with epinephrine 1:110,000. Procedure Details: - This procedure was performed using the accepted Mohs Micrographic Surgery techniques in which theattending physician, Dr. Alexandre Ansari, acts in two integrated, but distinct, capacities as surgeon and pathologist. - The lesion was sharply debulked to remove residual apparent tumor. A first Mohs cut was taken to include 1-2 mm of normal appearing epidermis peripherally as well as underlying tissue. Hemostasis was achieved with electrocautery. The tissue was mapped and then into 1 piece and color coded in the three color marking system. Slides were prepared from the tissue and reviewed. Tumor was revealed focally on deeper sections in block but not present at tissue margins. - The specimen showed clear margins Closure: - Closure options were examined. The defect measured 0.9 by 0.9 cm. After a full review of treatment options, it was decided that the defect would best be closed by flap closure in order to preserve free margin , mobilize adjacent tissue reservoir, provide the best cosmetic appearance, and prevent tissue distortion. This was discussed fully with the patient. The area was reprepped and draped and supplemental anesthesia administered. - The flap was designed extending along the R NLF, cut, and completely undermined. Hemostasis was obtained within the defect and under the undermined tissue. The flap was carried over and rotated into the wound and sutured using 5-0 Monocryl buried sutures and 6-0 Prolene cutaneous sutures including horizontal mattress to promote eversion. - The final repair size after closure measured 3 x 2 cm. Dressing: - A sterile pressure dressing was applied. Patient Discharge: - The patient was given extensive wound care instructions in oral and written form. - The patient tolerated the procedure well and was discharged in stable condition. The procedure results were discussed with the patient prior to discharge. Complications: None Follow Up: The patient will return in 1 week for suture removal. Additional Photos: Alexandre Ansari MD [facility] Mohs Surgery * Naima Augustin LPN - 09/16/2024 1:00 PM ESTAssociated Order(s): MOHS Surgery MOHS Surgery Date/Time: 09/16/2024 1:00 PM Performed by: Alexandre Ansari MD Authorized by: Alexandre Ansari MD Procedure (Free Text): Mohs surgery for a BCC right inferior medial malar cheek Patient identity confirmed?: Name and with patient and Verbally Written consent obtained?: Yes Risks and benefits discussed?: Yes Consent given by?: Patient Patient states understanding of procedure being performed?: Yes Patient's understanding of procedure matches consent?: Yes Procedure consent matches procedure to be performed: Yes All relevant documents/tests are correctly identified, labeled, and matched to patient: Yes Relevant tests/ Imaging studies available/reviewed: Yes Correct site marked: Yes Required blood products, implants, devices and special equipment available: N/A Immediately prior to the procedure a time out was called: Yes An attending physician was present for the procedure OR the procedure was performed by an Advanced Practice Provider (Residents: A yes indicates you are attesting to the attending being present for the youngblood portions of the procedure. Checking yes when the attending was not present may result in fraudulent charges being submitted): Yes Attending Provider:: Alexandre Ansari Fellow: Ham Maguire Nurse: Chica Augustin MOA: shar Gamino Patient Fasting?: No Allergies: Allergen Anv-Xwfsd-Altvf Bee Penicillins Implant Devices: Other (see comment) Other (comment): No implants Blood Thinners?: No Joint Replacement?: Yes In the last year?: No Antibiotics Before the Dentist?: No Cautery set up:: [facility] Grounding pad site:: Right arm Surgical Prep: Povidine Iodine 8 mL lidocaine-epinephrine (PF) 1%-1:220,000 (PF) 1%-1:220,000 Patient Condition: Stable Wound Treated With:: Vaseline Bandages to remain in place for:: 48 hours Follow up required:: One Week Discharge: Patient tolerated the procedure well with no immediate complications, Pressure dressing applied, Wound care reviewed verbally and in writing and Patient discharged in good condition documented in this encounter Plan of Treatment Not on file documented as of this encounter Procedures * Due to [place] [employer] law, this organization might not be sharing negative HIV tests. Procedure Name Priority Date/Time Associated Diagnosis Comments MOHS SURGERY Routine 09/16/2024 Basal cell carcinoma (BCC) of skin of right upper lip documented in this encounter Results * Due to [place] [employer] law, this organization might not be sharing negative HIV tests. * MOHS Surgery (09/16/2024) Narrative PROVATION - 09/16/2024 Crystal Guess ? 09/16/2024 ??3:27 PM MOHS Surgery Date/Time: 09/16/2024 1:00 PM Performed by: Alexandre Ansari MD Authorized by: Alexandre Ansari MD ?? Procedure (Free Text): ??Mohs surgery for a BCC right inferior medial malar cheek Patient identity confirmed?: ??Name and with patient and Verbally Written consent obtained?: ??Yes Risks and benefits discussed?: ??Yes Consent given by?: ??Patient Patient states understanding of procedure being performed?: ??Yes Patient's understanding of procedure matches consent?: ??Yes Procedure consent matches procedure to be performed: ??Yes All relevant documents/tests are correctly identified, labeled, and matched to patient: ??Yes Relevant tests/ Imaging studies available/reviewed: ??Yes Correct site marked: ??Yes Required blood products, implants, devices and special equipment available: ??N/A Immediately prior to the procedure a time out was called: ??Yes An attending physician was present for the procedure OR the procedure was performed by an Advanced Practice Provider (Residents: A yes indicates you are attesting to the attending being present for the youngblood portions of the procedure. ??Checking yes when the attending was not present may result in fraudulent charges being submitted): Yes ?? Attending Provider:: ??Alexandre Ansari Fellow: ??Ham Maguire Nurse: ??Chica Augustin MOA: ??Guess, shar Patient Fasting?: No ?? Allergies: Allergen Lki-Emtph-Glmxv Bee Penicillins Implant Devices: ??Other (see comment) Other (comment): ??No implants Blood Thinners?: No ?? Joint Replacement?: Yes ?? In the last year?: No ?? Antibiotics Before the Dentist?: No ?? Cautery set up:: ??[facility] Grounding pad site:: ??Right arm Surgical Prep: ??Povidine Iodine 8 mL lidocaine-epinephrine (PF) 1%-1:220,000 (PF) 1%-1:220,000 Patient Condition: ??Stable Wound Treated With:: ??Vaseline Bandages to remain in place for:: ??48 hours Follow up required:: ??One Week Discharge: ??Patient tolerated the procedure well with no immediate complications, Pressure dressing applied, Wound care reviewed verbally and in writing and Patient discharged in good condition Procedure Note Naima Augustin LPN - 09/16/2024 1:00 PM EST MOHS Surgery Date/Time: 09/16/2024 1:00 PM Performed by: Alexandre Ansari MD Authorized by: Alexandre Ansari MD Procedure (Free Text): Mohs surgery for a BCC right inferior medial malarcheek Patient identity confirmed?: Name and with patient and Verbally Written consent obtained?: Yes Risks and benefits discussed?: Yes Consent given by?: Patient Patient states understanding of procedure being performed?: Yes Patient's understanding of procedure matches consent?: Yes Procedure consent matches procedure to be performed: Yes All relevant documents/tests are correctly identified, labeled, andmatched to patient: Yes Relevant tests/ Imaging studies available/reviewed: Yes Correct site marked: Yes Required blood products, implants, devices and special equipmentavailable: N/A Immediately prior to the procedure a time out was called: Yes An attending physician was present for the procedure OR the procedure wasperformed by an Advanced Practice Provider (Residents: A yes indicates youare attesting to the attending being present for the youngblood portions of theprocedure. Checking yes when the attending was not present may result infraudulent charges being submitted): Yes Attending Provider:: Alexandre Ansari Fellow: Ham Maguire Nurse: Chica Augustin MOA: Stevenson, shar Patient Fasting?: No Allergies: Allergen Keg-Zazcn-Ymaga Bee Penicillins Implant Devices: Other (see comment) Other (comment): No implants Blood Thinners?: No Joint Replacement?: Yes In the last year?: No Antibiotics Before the Dentist?: No Cautery set up:: [facility] Grounding pad site:: Right arm Surgical Prep: Povidine Iodine 8 mL lidocaine-epinephrine (PF) 1%-1:220,000 (PF) 1%-1:220,000 Patient Condition: Stable Wound Treated With:: Vaseline Bandages to remain in place for:: 48 hours Follow up required:: One Week Discharge: Patient tolerated the procedure well with no immediatecomplications, Pressure dressing applied, Wound care reviewed verbally andin writing and Patient discharged in good condition us Alexandre Ansari MD DERM PROCEDURE ORDERABLES Final Result PROVATION documented in this encounter Visit Diagnoses Diagnosis Basal cell carcinoma (BCC) of skin of right upper lip- Primary documented in this encounter Administered Medications Inactive Administered Medications - up to 3 most recent administrations Medication Order MAR Action Action Date Dose Rate Site lidocaine-epinephrine (PF) 1%-1:220,000 (XYLOCAINE W/EPI) buffered injection 8 mL 8 mL, intradermal, One-time injection, Starting on Sun09/16/24 at 1300, 1 dose, Until Sun09/16/24 at 1300Indications:Basal cell carcinoma (BCC) of skin of right upper lip Given 09/16/2024 1:00 PM EST 8 mL mupirocin (BACTROBAN) 2% ointment topical, Once, On Sun09/16/24 at 1530, 1 dose, Apply as directed Given 09/16/2024 3:17 PM EST documented in this encounter Care Teams Pharmacy Retail Support Specialist Relationship Specialty Start Date End Date Marianela Plummer [address] [place] [address] PCP - General Internal Medicine 08/21/24 documented as of this encounter
--- OUTSIDE RECORDS SUMMARY | 2024-10-10 09:27 | XMS_ITS | Data Portability ---
Author Organization [place] [facility], [facility], [facility] Address [address] [place] [phone] Care Team Providers Care Agency Legal Counsel Name Role Phone LUC NORRIS Primary Care Provider [phone] LUC NORRIS Referring Provider [phone] Assessment No assessment recorded. Plan of Treatment [...] By Organization Details Last Modified Time 04/09/2024 [id number] The above clinic al findings and radiographic [...] portions of this report were transcribed using [employer] speech recognition software. If any discrepancy or [...] SNOMED-CT Code Diagnosis ICD10 Code Diagnosis Note [id number] Clark Pope DPM [place] [facility] [address] [phone] 04/09/2024 15:38:52 04/09/2024 17:16:49 Peroneal tendinitis 61249332 M76.71 Pain of ri ght ankle joint [id number] M25.571 Health Concerns Section Related Observation LastModified by Organization Detai ls LastModified Time None Recorded Concern Status LastModified by Organization Details LastModified Time None Recorded Advance Directives Directive None Recorded Payers Encounter Date Sequence Insurance Name Policy Number Policy Richards Covered Member ID Richards Member ID Guarantor Name 04/09/2024 2 [place] [facility] Kathy Velazquez [id number] Kathy Velazquez 04/09/[address] [facility] HEALTH NET PLAN (MEDICAID HMO) [facility] Kathy Velazquez [id number] Kathy Velazquez Notes Date Note Type Note Provider Name and Address Organization Details Recorded Time 04/09/2024 text/html Podiatry FootReported bypatient.Notes:Hilton hatch presents today for evaluation right ankle pain. She states it started about 2 or 3 months ago. She was receiving gel injections in her right knee for Dr. Fisher's office. The physician addictions counselor assistant recommended using an ankle brace that she was having swelling and pain on the outside part of the ankle. She started wearing ankle brace 2 weeks ago and has noticed a marked improvement. It does occasionally walk up on her and she notices it when she drives for long periods of time. Clark Pope DPM [address] [place] [address], [phone], [facility] - [facility], [facility] 04/09/2024 16:30:43 OBGyn Episode No OBEpisode recorded.
--- OUTSIDE RECORDS SUMMARY | 2024-10-10 09:27 | XMS_ITS | Encounter Summary ---
Author Organization [facility] Address [address] [place] [address] Care Team Providers Care Fuel Distribution System Operator Name Role Phone Marianela Plummer Primary Care Provider [phone] Encounter Details Date Type Department Care Team (Late st Contact Info) Description 09/18/2024 Telephone [facility] [address]th [address] [place] [address], [place] [id number] Template Reproduction Technician: Ayleen Maguire, Charline Angeles MD [address] [place] [address] [place] [address] Social History Tobacco Use Types Packs/Day Years Used Date Smoking Tobacco: Never Assessed Comments Unknown Sex and Gender Information Value Date Recorded Sex Assigned at Female 09/15/2024 10:10 PM EST Legal Sex Female 8:20 AM EST Gender Identity Female 09/15/2024 10:10 PM EST Sexual Orientation Choose not to disclose 2024 10:10 PM EST documented as of this encounter Miscellaneous Notes * Telephone Encounter - Charline Maguire MD - 09/18/2024 10:19 AM EST Post Operative Call Back Called patient one day after Mohs surgery to check in and make sure all was well. There have been no issues with active bleeding. Some blood on inferior aspect of bandage. She had asked about swelling noted very normal to have swelling at this stage. Would want to know about rapidly expanding swelling or active bleeding. Patient to remove bandage today. Offered for her to send in a photo if there is any question or concern. Discussed wound care. Asked them to please call with any questions or concerns. FU: 09/23/2024 Charline Maguire MD PGY5 MSDO Fellow, Dermatology documented in this encounter Plan of Treatment Not on file documented as of this encounter Visit Diagnoses Not on filedocumented in this encounter Care Teams Fuel Distribution System Operator Relationship Specialty Start Date End Date Marianela Plummer [address] [place] [id number] PCP - General Internal Medicine 08/21/24 documented as of this encounter
--- OUTSIDE RECORDS SUMMARY | 2024-10-10 09:27 | XMS_ITS | Data Portability ---
Author Organization [facility], svmg_admin Address [address] [place] [address] Care Team Providers Care Appliance Service Technician Name Role Phone KAUR DEY Referring Provider [phone] DEONDRE BRONSON OTHER NICOLE ANDREW Primary Care [...] suspensi on for injectio n 2024 [facility]25 [email or web address]acy #[id number], [address] [place] [address], [id number], 08/04/2024 12:08:37 Euflexxa 10 mg/mL (mw 2.4-3.6 million) intra-ar ticular syringe [address]/Pharmacy #[id number], [address] [place] [address], [id number], 04/08/2024 14:18:08 Euflexxa 10 mg/mL (mw 2.4-3.6 million) intra-ar ticular syringe [address]/Pharmacy #[id number], [address] [place] [address], [id number], 04/01/2024 09:29:21 Euflexxa 10 mg/mL (mw 2.4-3.6 million) intra-ar ticular syringe 2023 [id number] [address] [place] [address], [id number], 03/25/2024 15:06:09 Depo-Med rol 40 mg/mL suspensi on for injectio n 2023 024 [email or web address] [facility]/Pharmacy #[id number], [address] [place], [address], 12/28/2023 12:42:17 Patient TargetsNo targets recorded. Patient InstructionsNo instructions recorded. Reason for Referral None Reported. Problems Name Problem SNOMED Code Status Onset Date Resolution Date Notes Provider Name and Address Organization Details Recorded Time Complicati on of anesthesia 80600844 Active 2022 Latesha gonzalez [facility] 3 01:11:15 Arthritis 8882169 Active 2022 Lateshapriti Burger [facility] 3 01:11:22 Osteoarthr itis 664253977 Active 2022 Lateshapriti gonzalez [facility] 3 01:11:28 Total knee replacemen t Active 2022 Lateshapriti Burger [facility] 3 01:11:38 Rupture of rotator cuff of shoulder 618787178 Active 2022 complete rotator cuff tear or rupture of right shoulder, not specified as traumatic Lateshapriti Burger [facility] 3 01:12:34 Tear of medial meniscus of knee 082075679 Active 2022 Lateshapriti gonzalez [facility] 3 01:12:56 Impingemen t syndrome of shoulder region 562495924 Active 2022 right shoulder Lateshapriti Burger [facility] 3 01:13:12 Problem Notes None recorded. Procedures Surgical History Date Name Laterality Status Provider Name and Address Organization Details Recorded Time 2024 Intra-articular Knee Steroid Injection completed Deondre Bronson PA-C [address] [place] [address], [phone], [facility] 08/04/2024 11:01:40 2023 Viscosupplementation Knee completed Deondre Bronson PA-C [address] [place] [address], [phone], [facility] 04/08/2024 14:18:06 2023 Viscosupplementation Knee completed Deondre Bronson PA-C [address] [place] [address], [phone], [facility] 04/01/2024 09:29:19 2023 Viscosupplementation Knee completed Deondre Bronson PA-C [address] [place] [address], [phone], [facility] 03/25/2024 15:02:51 2023 Intra-articular Knee Steroid Injection completed Deondre Bronson PA-C [address] [place] [address], [phone], [facility] 12/28/2023 12:44:01 2023 Intra-articular Knee Steroid Injection completed Deondre Bronson PA-C [address] [place] [address], [phone], [facility] 09/17/2023 11:58:11 2022 Intra-articular Knee Steroid Injection completed Deondre Bronson PA-C [address] [place] [address], [phone], [facility] 04/10/2023 15:26:45 2022 Intra-articular Knee Steroid Injection completed Deondre Bronson PA-C [address] [place] [address], [phone], [facility] 11/21/2022 17:45:19 2015 total knee replacement completed Latesha Burger [facility] 11/20/2022 01:14:37 2011 Knee arthroscopy/surgery completed Not Available [facility] 09/14/2011 03:36:58 2010 Knee Surgery completed Latesha Burger [facility] 11/20/2022 01:14:20 1995 Section completed Latehsa Burger [facility] 11/20/2022 01:14:08 Joint Replacement completed Noreen Lopez [facility] 11/20/2022 13:14:12 Other Surgeries completed Dai Forbes [facility] 09/17/2023 11:48:36 Imaging Results None recorded. Procedure Notes None recorded. Medical Equipment None Reported. Allergies Allergen ID Allergen Name Allergen Category Reaction Reaction Severity Criticality Documentation Date Start Date Code Code System Note Provider Name and Address Organization Details Recorded Time 078199 Product containin g penicilli n (product) medicatio n rash Not available Not available 11/20/2022 99745 8001 SNOMED Latesha Burger [facility] 3 01:15:24 900503 bee pollen environme nt,medica tion Not available Not available Not available 11/20/2022 85251 7 [facility] 01:16:01 414719 ethinyl estradiol / levonorge strel medicatio n Not available Not available Not available 11/20/2022 23545 8 [facility] 3 01:16:07 312886 POLLEN EXTRACTS environme nt,medica tion Not available Not available Not available 11/20/2022 69291 6 RxNorm [facility] Lesniewsk [facility] 13:13:50 958891 mold extract environme nt Not available Not available Not available 11/20/2022 72329 8 RxNorm Noreen Earlenialbertok ruben lisa [facility] 3 13:13:50 464561 insect venom environme nt itching other Not available Not available Not available 11/20/2022 79604 UNK Noreen Atkinsonalbertolillian ruben gonzalez [place] - [facility] 13:13:50 Medications Name Sig Start Date [...] Available Not Available No t Available Transderm-S hand coper 1 mg over 3 days transdermal patch [...] Updated DateTime 12/28/2023 172.72 cm 29.3 kg/m2 73333.33 g Dai Forbes [facility] 12/28/2023 10:11:50 Date Recorded Body height Body mass index (BMI) Body weight Provider Name and Address Organization Details Last Updated DateTime 04/01/2024 172.72 cm 29.3 kg/m2 63782.33 g Payton Rollins [facility] 04/01/2024 08:35:29 Date Recorded Body height Body mass index (BMI) Body weight Provider Name and Address Organization Details Last Updated DateTime 04/08/2024 172.72 cm 29.3 kg/m2 37753.33 g Dai Forbes [facility] 04/08/2024 13:48:49 Date Recorded Body height Body mass index (BMI) Body weight Provider Name and Address Organization Details Last Updated DateTime 08/04/2024 172.72 cm 33.1 kg/m2 84930.14 g Yomaira Tomas MA [facility] 08/04/2024 10:26:36 Social History Question Answer Notes LastModified by Organizat ion Details LastModified Time Tobacco Smoking Status Never Smoker Yomaira gonzalez [facility] 08/04/2024 10:26:47 Do You Have An [...] not available 11/20/2022 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 [id number] [email or web address] Information not available 04/10/2023 Do You Use Any Illicit Or Recreational Drugs? No Information not available 11/20/2022 Has Tobacco Cessation Counseling Been Provided? No [email or web address] Information not available 04/10/2023 How Many Years [...] available 07/2022 13:13:55 Medical History Condition Response Arthritis Osteoarthritis Y Back/Neck Pain Y High Cholesterol (Hyperlipidemia) Y Other Disease(s): Y Gynecological HistoryNo gynecological history recorded. Obstetrics History GPAL:G 0 P 0 0 0 0 Past Encounters Encounter ID Performer Location Encounter Start Date Encounter Closed Date Diagnosis/Indication Diagnosis SNOMED-CT Code Diagnosis ICD10 Code Diagnosis Note [id number] Deondre Bronson PA-C [facility] [address] [place] [phone] 11/20/2022 13:02:57 11/20/2022 13:44:20 Osteoarthritis of right knee joint 2376633348 94978 M17.11 Osteoarthr itis of left knee joint 8178884618 21796 M17.12 [id number] Deondre Bronson PA-C [facility] [address] [place] [phone] 04/10/2023 14:46:22 04/10/2023 15:15:05 Osteoarthritis of right knee joint 0497148357 58396 M17.11 [id number] Deondre Bronson PA-C [facility] [address] [place] [id number] 09/17/2023 11:41:51 09/17/2023 11:43:08 Osteoarthritis of right knee joint 9148743444 02804 M17.11 [id number] Deondre Bronson PA-C [facility] [address] [place] [address] 12/28/2023 10:07:59 12/28/2023 10:40:19 Osteoarthritis of right knee joint 2748501321 95158 M17.11 [id number] Deondre Bronson PA-C [facility] [address] [place] [address] 03/25/2024 14:43:16 03/25/2024 15:12:13 Osteoarthritis of right knee joint 6408414821 47529 M17.11 [id number] Deondre Bronson PA-C [facility] [address] [place] [id number] 04/01/2024 08:32:29 04/01/2024 08:48:46 Osteoarthritis of right knee joint 9223290006 18588 M17.11 [id number] Deondre Bronson PA-C [facility] [address] [place] [address] 04/08/2024 13:42:36 04/08/2024 13:59:56 Osteoarthritis of right knee joint 5298897249 65494 M17.11 [id number] Deondre Bronson PA-C [facility] [address] [place] [phone] 08/04/2024 10:15:48 08/04/2024 10:41:26 Osteoarthritis of right knee joint 0290200328 21422 M17.11 Health Concerns Section Related Observation LastModified by Organization Detai ls LastModified Time None Recorded Concern Status LastModified by Organization Details LastModified Time None Recorded Advance Directives Directive Y: Payers Encounter Date Sequence Insurance Name Policy Number Policy Richards Covered Member ID Richards Member ID Guarantor Name 12/28/2023 1 [facility] [employer] (MEDICAID REPLACEMENT - HMO) RONNY Velazquez [id number] Kathy Velazquez 03/25/2024 1 [facility] [employer] (MEDICAID REPLACEMENT - HMO) ELENANACO Kathy Velazquez [id number] Kathy Velazquez 04/01/2024 1 [facility] (MEDICAID REPLACEMENT - HMO) ELENANACO Kathy Velazquez [id number] Kathy Velazquez 04/08/2024 1 [facility] [employer] (MEDICAID REPLACEMENT - HMO) ELENANACO Kathy Velazquez [id number] Kathy Velazquez 08/04/2024 1 [facility] (HMO) SELENAAlesia Kathy Velazquez [id number] Kathy Velazquez Notes Date Note Type Note [...] performed by Dr. Fisher. Deondre Bronson PA-C [address] [place] [address], [phone], [facility]. 12/28/2023 12:44:29 03/25/2024 text/html Patient presents for her first right knee Euflexxa injection. Deondre Bronson PA-C [address] [place], [address], [facility]. 03/25/2024 15:06:53 04/01/2024 text/html Patient presents for her second right knee Euflexxa injection. She denies any adverse effects following previous injection. Deondre Bronson PA-C [address] [place], [address], [facility] 04/01/2024 09:30:56 04/08/2024 text/html Patient presents for her third right knee Euflexxa injection. She denies any adverse effects following previous injections. Deondre Bronson PA-C [address] [place], [address], [facility] 04/08/2024 14:25:07 08/04/2024 text/html Patient [...] by Dr. Fisher. Deondre Bronson PA-C [address] [place], [address], [facility] 08/04/2024 12:11:03 OBGyn Episode No OBEpisode recorded.
--- OUTSIDE RECORDS SUMMARY | 2024-10-10 09:28 | XMS_ITS | Encounter Summary ---
Author Organization [facility] Address [address] [place] [address] Care Team Providers Care Web Content Executive Name Role Phone Marianela Plummer Primary Care Provider [phone] Reason for Visit * Reason Comments Suture removal-1 Week Encounter Details Date Type Department Care Team (Late st Contact Info) Description 09/23/2024 2:45 PM EST Follow-Up [facility] Dermatology Clinic [address] [place] [address], Fourth [place] [phone] Sound Technician Supervisor: Alexandre Calvillo MD [address] [place] [address] [phone] Visit for suture removal (Primary Dx) Social History Tobacco Use Types Packs/Day Years Used Date Smoking Tobacco: Never Assessed Comments Unknown Sex and Gender Information Value Date Recorded Sex Assigned at Female 09/15/2024 10:10 PM EST Legal Sex Female 8:20 AM EST Gender Identity Female 09/15/2024 10:10 PM EST Sexual Orientation Choose not to disclose 2024 10:10 PM EST documented as of this encounter Progress Notes * Alexandre Ansari MD - 09/23/2024 4:28 PM EST Images from the original note were not included. Subjective Post-operative visit Kathy Velazquez is a 59 y.o. female who is here for a post-operative check of R upper lip s/p Mohs for BCC with rotation flap closure. She has been experiencing swelling and redness starting yesterday . Objective Wound:healing well, incision well approximated, no drainage, no dehiscence, mild erythema and + swelling, focal erosion at flap tip Assessment & Plan Suture Removal- epidermal sutures removed Doing well postoperatively. Inflammation present which is NTTP and no discharge on firm palpation. Favor inflammation from healing which will improve with SR today. Also will start doxycycline for anti-inflammatory properties (take 100mg BID x 5 days with food/water and avoid sunlight while taking,do not take if ) Wound care discussed. Wash daily with soap/water, apply Vaseline to area and cover until fully healed. Follow-up: general dermatology Alexandre Ansari MD [facility] Dermatology documented in this encounter Plan of Treatment Not on file documented as of this encounter Visit Diagnoses Diagnosis Visit for suture removal- Primary documented in this encounter Care Teams Web Content Executive Relationship Specialty Start Date End Date Marianela Plummer [address] [place] [address] PCP - General Internal Medicine 08/21/24 documented as of this encounter
--- OUTSIDE RECORDS SUMMARY | 2024-10-10 09:28 | XMS_ITS | Encounter Summary ---
Author Organization [facility] Address [address] [place] [address] Care Team Providers Care Cake Mixer Name Role Phone Marianela Plummer Primary Care Provider [phone] Encounter Details Date Type Department Care Team (Latest Contact Info) Description 09/22/2024 myChart Message [facility] Dermatology Clinic [address] [place] [address], [place] [address] Sheeter Waxer Operator: Jak Jolly MD [address] [place] [address] Upload photo of Mohs wound to this converstation Social History Tobacco Use Types Packs/Day Years Used Date Smoking Tobacco: Never Assessed Comments Unknown Sex and Gender Information Value Date Recorded Sex Assigned at Female 09/15/2024 10:10 PM EST Legal Sex Female 8:20 AM EST Gender Identity Female 09/15/2024 10:10 PM EST Sexual Orientation Choose not to disclose 2024 10:10 PM EST documented as of this encounter Plan of Treatment Not on file documented as of this encounter Visit Diagnoses Not on filedocumented in this encounter Care Teams Cake Mixer Relationship Specialty Start Date End Date Marianela Plummer [address] [place] [address] PCP - General Internal Medicine 08/21/24 documented as of this encounter
--- OUTSIDE RECORDS SUMMARY | 2024-10-10 09:28 | XMS_ITS | Encounter Summary ---
Author Organization [facility] Address [address] [place] [address] Care Team Providers Care Human Projectile Name Role Phone Marianela Plummer Primary Care Provider [phone] Encounter Details Date Type Department Care Team (Late st Contact Info) Description 09/22/2024 Telephone [facility] Dermatology Clinic [address]th [address] [place] [address], [place] [address] Automobile Rental Clerk: Jak Jolly MD [address] [place] [address] Social History Tobacco Use Types Packs/Day Years [...] encounter Miscellaneous Notes * Telephone Encounter - Jak Hill MD - 09/22/2024 7:47 PM EST Reports ongoing redness of the Mohs wound and then this AM it became noticeably more puffy and patient noticed some tingling in the area. Then this evening patient was changing dressing and noticedyellowish oozing. Denies pain, fever, or cloudy white draining. Patient uploaded photos to [employer] message which displace nicely approximated edges of Mohs closure on the right upper cutaneous lip with some pink surrounding erythema and mild edema. No drainage observed in the photo. I reassured patient that the wound did not appear infected in the photos and that the Surgical team could more closely examine tomorrow in person. documented in this encounter Plan of Treatment Not on file documented as of this encounter Visit Diagnoses Not on filedocumented in this encounter Care Teams Human Projectile Relationship Specialty Start Date End Date Marianela Plummer [address] [place] [address] PCP - General Internal Medicine 08/21/24 documented as of this encounter
--- OUTSIDE RECORDS SUMMARY | 2024-10-10 09:28 | XMS_ITS | Clinical Summary ---
Author Organization [facility] Address [address] [place] [address] Care Team Providers Care Health Claims Examiner Name Role Phone Marianela Plummer Primary Care Provider [phone] Allergies Active Allergy Reactions Criticality Noted Date Comments Allergen Gup-Pxcsz-Jbyli Bee Itching,Oth er (see comments),Swelling High 01/20/2002 Penicillins Hives,Rash Low 1965 Medications acetaminophen (TYLENOL) 325 mg tablet Take 325-650 mg by mouth every 6 hours as needed. 02/26/20 24 Active atorvastatin (LIPITOR) 10 mg tablet SMARTSI Tablet(s) By Mouth Every Night Active cholecalciferol (VITAMIN D3) 1,000 unit tablet Take 1,000 Units by mouth daily. Active EPINEPHrine (EPIPEN) 0.3 mg/0.3 mL injection syringe INJECT 0.3MG DIRECTED INTRAMUSCULARLY EVERY 10 MINUTES NEEDED FOR ANAPHYLAXIS 01/16/20 24 Active finasteride (PROSCAR) 5 mg tablet SMARTSI.5 Tablet(s) By Mouth Daily 05/06/20 24 Active levothyroxine (SYNTHROID, LEVOTHROID) 75 mcg tablet SMARTSI Tablet(s) By Mouth Daily Active minoxidiL (LONITEN) 2.5 mg tablet 04/15/20 20 Active omeprazole (PriLOSEC) 20 mg capsule SMARTSI Capsule(s) By Mouth Daily Active phentermine 37.5 mg capsule 07/23/19 25 Active doxycycline monohydrate (MONODOX) 100 mg capsule Take 1 tablet (100mg) by mouth twice daily with food and water. Avoid direct sunlight. Do not take if . 10 capsule 09/24/19 Active Hospital, Clinic, or Other Facility Administered Medication Ordered Dose Route Frequency Start Date End Date Status mupirocin (BACTROBAN) 2% ointment topical Once 09/16/2024 09/16/2024 Ended lidocaine-epinephr ine (PF) 1%-1:220,000 (XYLOCAINE W/EPI) buffered injection 8 mLIndications:Basa l cell carcinoma (BCC) of skin of right upper lip 8 mL intraderma One-time injection 09/16/2024 09/16/2024 Ended Encounters Date Type Department Care Team Description 09/23/2024 2:45 PM EST Follow-Up [facility] Dermatology [address] [address] Yoga Instructor: Alexandre Calvillo MD Visit for suture removal (Primary Dx) 09/22/2024 myChart Message [facility] Dermatology [address] [address] Yoga Instructor: Jak Jolly MD Upload photo of Mohs wound to this converstation 09/22/2024 Telephone [facility] Dermatology [address] [address] Yoga Instructor: Jak Jolly MD 09/18/2024 Telephone [facility] [address] [place] [phone] Yoga Instructor: Charline Sandhu MD 09/16/2024 1:00 PM EST Procedure visit [facility] [address] [place] [phone] Yoga Instructor: Alexandre Calvillo MD Basal cell carcinoma (BCC) of skin of right upper lip (Primary Dx) from Last 3 Months Social History Tobacco Use Types Packs/Day Years Used Date Smoking Tobacco: Never Assessed Comments Unknown Sex and Gender Information Value Date Recorded Sex Assigned at Female 09/15/2024 10:10 PM EST Legal Sex Female 8:20 AM EST Gender Identity Female 09/15/2024 10:10 PM EST Sexual Orientation Choose not to disclose 2024 10:10 PM EST Last Filed Vital Signs Vital Sign Reading Time Taken Comments Blood Pressure 158/82 09/16/2024 1:13 PM EST Pulse 93 09/16/2024 1:13 PM EST Temperature - - Respiratory Rate - - Oxygen Saturation - - Inhaled Oxygen Concentration - - Weight - - Height - - Body Mass Index - - Plan of Treatment Health Maintenance Due Date Last Done Comments Cervical Cancer Screening 1965 Cologuard 1965 Colon Cancer Screening 1965 Colonoscopy 1965 FOBT / Fit Test 1965 HIV Screening 1965 HPV and Pap Smear 1965 Hepatitis C Screening 1965 Pap Smear 1965 Sigmoidoscopy 1965 Hepatitis B Vaccines (1 of 3 - 19+ 3-dose series) 02/29/1984 Pneumococcal Vaccine: 50+ Ye ars (1 of 1 - PCV) 2015 Zoster Vaccines (1 of 2) 2015 Mammogram 11/05/2023 11/04/2021, 10/21, 06/24/2020, Additional history exists Alcohol/Substance Use Screening 07/23/2024 Depression Screening and Follow-Up 07/23/2024 Social Drivers of Health Radha ual Screening 07/23/2024 DTaP,Tdap,and Td Vaccines (3 - Td or Tdap) 12/08/2030 12/08/2020, 09/12/2011 RSV Vaccine (60+ years old a nd patients) (1 - 1-dose 75+ series) 02/29/2040 COVID-19 Vaccine Completed 06/17/2024, 04/2022, 05/26/2021, Additional history exists Influenza Vaccine Completed 07/08/2024, , 08/29/2022, Additional history exists Procedures * Due to [place] state law, this organization might not be sharing negative HIV tests. Procedure Name Priority Date/Time Associated Diagnosis Comments MOHS SURGERY Routine 09/16/2024 Basal cell carcinoma (BCC) of skin of right upper lip from Last 3 Months Results * Due to [place] state law, this organization might not be sharing [...] shar Patient Fasting?: No ?? Allergies: Allergen Uup-Furpb-Oflvt Bee Penicillins Implant Devices: ??Other (see comment) Other (comment): ??No implants Blood Thinners?: No ?? Joint Replacement?: Yes ?? In the last year?: No ?? Antibiotics Before the Dentist?: No ?? Cautery set up:: ??[facility] Grounding pad site:: ??Right arm Surgical [...] Alexandre Ansari Fellow: Ham Maguire Nurse: Chica FUNKA: Stevenson, shar Patient Fasting?: No Allergies: Allergen Reu-Qzeju-Ksxld Bee Penicillins Implant Devices: Other (see comment) [...] MD DERM PROCEDURE ORDERABLES Final Result PROVATION from Last 3 Months [place] [phone] Care Teams Health Claims Examiner Relationship Specialty Start Date End Date ElianMarianela [address] [place] [address] PCP - General Internal Medicine 08/21/24
--- OUTSIDE RECORDS SUMMARY | 2024-10-10 09:28 | XMS_ITS | Referral Summary ---
Author Organization [facility] Address [address] [place] [address] Care Team Providers Care Reservations Specialist Name Role Phone Marianela Plummer Primary Care Provider [phone] Encounters Date Type Department Care Team Description 09/23/2024 2:45 PM EST Follow-Up [facility] [address] [place] [address] [phone] Double Needle Operator: Alexandre Calvillo MD Visit for suture removal (Primary Dx) 09/22/2024 myChart Message [facility] [address] [place] [address] [phone] Double Needle Operator: Jak Jolly MD Upload photo of Mohs wound to this converstation 09/22/2024 Telephone [facility] [address] [place] [phone] Double Needle Operator: Jak Jolly MD 09/18/2024 Telephone [facility] [address] [place] [phone] Double Needle Operator: Charline Sandhu MD 09/16/2024 1:00 PM EST Procedure visit [facility] [address] [place] [phone] Double Needle Operator: Alexandre Calvillo MD Basal cell carcinoma (BCC) of skin of right upper lip (Primary Dx) from Last 3 Months Allergies Active Allergy Reactions Criticality Noted Date Comments Allergen Ivz-Nxgzh-Qbcgj Bee Itching,Oth er (see comments),Swelling High 01/20/2002 [...] not take if . 10 capsule 09/24/19 25 Active Hospital, Clinic, or Other Facility Administered Medication Ordered Dose Route Frequency Start Date End Date Status mupirocin (BACTROBAN) 2% ointment topical Once 09/16/2024 09/16/2024 Ended lidocaine-epinephr ine (PF) 1%-1:220,000 (XYLOCAINE W/EPI) buffered injection 8 mLIndications:Basa l cell carcinoma (BCC) of skin of right upper lip 8 mL intraderma One-time injection 09/16/2024 09/16/2024 Ended Social History Tobacco Use Types Packs/Day Years [...] Mass Index - - Plan of Treatment Not on file Procedures * Due to [place] [employer] law, this organization might not be sharing negative HIV tests. Procedure Name Priority Date/Time Associated Diagnosis Comments MOHS SURGERY Routine 09/16/2024 Basal cell carcinoma (BCC) of skin of right upper lip from Last 3 Months Results * Due to [place] [employer] law, this organization might not be sharing [...] ??Ham Maguire Nurse: ??Chica Augustin MOA: ??Guess, shra Patient Fasting?: No ?? Allergies: Allergen Tyg-Knjjn-Wedar Bee Penicillins Implant Devices: ??Other (see comment) [...] Stevenson, shar Patient Fasting?: No Allergies: Allergen Edo-Efxzv-Zfujm Bee Penicillins Implant Devices: Other (see comment) Other (comment): No implants Blood Thinners?: No Joint Replacement?: Yes In the last year?: No Antibiotics Before the Dentist?: No Cautery set up:: [employer] [facility] Grounding pad site:: Right arm Surgical [...] from Last 3 Months Insurance [employer] Care Teams Reservations Specialist Relationship Specialty Start Date End Date Marianela Plummer [address] [place] [phone] PCP - General Internal Medicine 08/21/24
== END 2024-10-10 09:19 | disposition home or self-care (01) ==
LOC: HO.HMCC 08:58
PROVIDERS: PCP Internal Medicine; Visit Provider Internal Medicine
DX: E66.09 Other obesity due to excess calories (principal); Z68.31 Body mass index [BMI] 31.0-31.9, adult

== ENCOUNTER → 2024-10-10 08:57 | Outpatient (BNVA) | payer OTHER, SELFPAY | PROVIDERS: PCP Internal Medicine; Visit Provider Internal Medicine | DX: E66.09 Other obesity due to excess calories (principal); Z68.31 Body mass index [BMI] 31.0-31.9, adult; Z71.3 Dietary counseling and surveillance | CPT/HCPCS: 96127; 99212 ==

== ENCOUNTER 2024-11-11 08:53 | Outpatient (AMB) | payer OTHER, SELFPAY ==
[2024-11-11 08:56] VITALS: BP 142/90; PULSE 78; RESP 16; TEMP 36.7; O2SAT 96; BMI 31.3
--- NOTE | 2024-11-11 08:56 | A.OFFPC_ITS ---
Vital Signs 11/11/24 08:56 Height 5 ft 8 in Weight 206 lb BMI 31.3 BP 142/90 H Blood Pressure Location Lt brachial Position Sitting Respiration 16 Pulse 78 Pulse Source Pulse Oximeter Temp 98.0 F Temp Source Oral Pulse Oximetry (%) 96 Oxygen Delivery Method Room Air Intake Visit Reasons: 1 month f/up Allergies Penicillins Allergy (Mild, Verified 11/11/24 08:58) rash bee Allergy (Severe, Uncoded 11/11/24 08:58) Swelling Medication List - Last Reconciled 11/11/24 by Marianela Plummer MD atorvastatin 10 mg PO BEDTIME epinephrine (EpiPen) 0.3 mg (0.3 mL) IM Q10M PRN 90 days levothyroxine 75 mcg PO DAILY minoxidil 2.5 mg PO ONCE omeprazole 20 mg PO DAILY phentermine 37.5 mg PO DAILY 30 days Tobacco use date assessed: 11/11/24 Dental Screening Dental Screen Date: 11/11/24 Did you have a dental visit in the last 12 months?: Yes Did you have a dental problem in the last 6 months where you did not have access to dental care?: No Was dental information given to patient?: Patient has dentist HPI 1 month f/up HPI Details History - The patient is a 59-year-old female pr esenting with an evaluation of weight, patient has been taking phentermine and gradually losing weight - Blood pressure historically fluctuates , with a recent increase to 130/90 mmHg.. - The history of Essential Hypertension includes a recommendation to limit sodium intake. Problem List - Essential Hypertension - obesity with BMI of 31.3 patient was a ble to lose 3 lb since seen last month Patient Instructions - Avoid salt in your diet. - Monitor blood pressure at home. - continue phentermine refill sent Review of Systems - General: No fever no chills - Neurological: No headaches no dizziness - Ear nose throat: No sore throat no hearing difficulty no ear pain - Cardiovascular: No syncope, no chest pain, no palpitations - Gastrointestinal: No nausea vomiting or diarrhea Physical Exam General: No acute distress HEENT: No acute findings Neck: Supple Respiratory system: Able to talk in full sentences, no audible wheeze Cardiovascular: S1-S2 regular in rate and rhythm, blood pressure 130/90 Gastrointestinal: No pain Extremities: No new findings MUD ANALYSIS SUPERVISOR: Alert awake oriented x3 motor sensory intact Skin: Normal turgor PFSH Family History Daughter Mental health disorder Social History Housing: House Patient Tobacco Use Status: Never used Tobacco e-Cigarette/Vaping Use: Never Used service: No Current occupational status: employed Cognitive needs: No Hearing needs: No Vision needs: Yes Questionnaire Thrive Questionnaire Date Thrive assessed: 08/08/24 I am a: Patient What is your living situation today?: I have a steady place to live Within the past 12 months, did the food you bought not last and you didn't have the money to get more?: Never true Within the past 12 months, did you worry whether your food would run out before you got money to buy more?: Never true Do you have trouble paying for medicines?: No Do you have trouble getting transportation to medical appointments?: No Do you have trouble paying your heating and electricity bill?: No Do you have trouble taking care of your child, family member or friend?: No Do you have trouble with day-to-day activities such as bathing, preparing meals, shopping, managing finances, etc.?: No Are you currently unemployed and looking for a job?: No Are you interested in more education?: No Please select the resources that you would like help with: None Currently or been in a relationship where the following occur: No concerns reported THRIVE Score: 0 FELIPE-7 AMB Questionnaire FELIPE-7 Date FELIPE - 7 assessed: 10/10/24 Source: Developed by Drs. Clark Roy, Evette Guzman, Chip Esposito and colleagues, with an educational jono from [employer]. Physical exam (Primary Care) Vital Signs: Last Vital Signs Temp 98.0 F 11/11/24 08:56 Pulse 78 11/11/24 08:56 Resp 16 11/11/24 08:56 BP 142/90 H 11/11/24 08:56 Pulse Ox 96 11/11/24 08:56 Oxygen Delivery Method Room Air 11/11/24 08:56 BMI result Body Mass Index 31.3 Tobacco/Smoking Status: Tobacco use Status Tobacco use date assessed 11/11/24 11/11/24 09:00 Patient Tobacco Use Status Never used Tobacco 11/11/24 09:00 e-Cigarette/Vaping Use Never Used 11/11/24 09:00 Thrive Assessment: Date of Thrive Assessment Date Thrive assessed 08/08/24 11/11/24 09:00 Currently or been in a relationship where the following occur: No concerns reported Coding Level of Care Code Est Pt Level 3 (66859) Diagnoses Class 1 obesity due to excess calories with serious comorbidity and body mass index (BMI) of 31.0 to 31.9 in adult E66.09; Z68.31 Obesity classification: adult class 1 (BMI 30 - 34.9) Serious obesity comorbidity presence: with serious comorbidity Body mass index: BMI 31.0-31.9 Assessment & Plan Assessment & Plan (1) Obesity due to excess calories: Code(s): E66.09 - Other obesity due to excess calories Category: Medical Qualifiers: Obesity classification: adult class 1 (BMI 30 - 34.9) Serious obesity comorbidity presence: with serious comorbidity Body mass index: BMI 31.0-31.9 Qualified Code(s): E66.09 - Other obesity due to excess calories; Z68.31 - Body mass index [BMI] 31.0-31.9, adult Plan History - The patient is a 59-year-old female presenting with an evaluation of weight, patient has been taking phentermine and gradually losing weight - Blood pressure historically fluctuates, with a recent increase to 130/90 mmHg.. - The history of Essential Hypertension includes a recommendation to limit sodium intake. Problem List - Essential Hypertension - obesity with BMI of 31.3 patient was able to lose 3 lb since seen last month Patient Instructions - Avoid salt in your diet. - Monitor blood pressure at home. - continue phentermine refill sent Medications: Changed From minoxidil 2.5 mg PO BID 60 tabs 2RF To minoxidil 2.5 mg PO ONCE Refilled phentermine must administer 2 hours after breakfast 37.5 mg PO DAILY 30 days 30 caps 0RF
--- OUTSIDE RECORDS SUMMARY | 2024-11-11 09:18 | XMS_ITS | Referral Summary ---
Author Organization [facility] Address [address] [place] [address] Care Team Providers Care Ink Maker Name Role Phone Marianela Plummer Primary Care Provider [phone] Encounters Date Type Department Care Team Description 09/23/2024 2:45 PM EST Follow-Up [facility] [address] [place] [address] [phone] Private Branch Exchange Service Adviser: Alexandre Calvillo MD Visit for suture removal (Primary Dx) 09/22/2024 myChart Message [facility] [address] [place] [address] [phone] Private Branch Exchange Service Adviser: Jak Jolly MD Upload photo of Mohs wound to this converstation 09/22/2024 Telephone [facility] [address] [place] [phone] Private Branch Exchange Service Adviser: Jak Jolly MD 09/18/2024 Telephone [facility] [address] [place] [phone] Private Branch Exchange Service Adviser: Charline Sandhu MD 09/16/2024 1:00 PM EST Procedure visit [facility] [address] [place] [phone] Private Branch Exchange Service Adviser: Alexandre Calvillo MD Basal cell carcinoma (BCC) of skin of right upper lip (Primary Dx) from Last 3 Months Allergies Active Allergy Reactions Criticality Noted Date Comments Allergen Oqt-Kcmpj-Bntmx Bee Itching,Oth er (see comments),Swelling High 01/20/2002 [...] if . 10 capsule 09/24/19 25 Active Social History Tobacco Use Types Packs/Day Years [...] Not on file Procedures * Due to [place] [employer] law, this organization might not be sharing negative HIV tests. Procedure Name Priority Date/Time Associated Diagnosis Comments MOHS SURGERY Routine 09/16/2024 Basal cell carcinoma (BCC) of skin of right upper lip from Last 3 Months Results * Due to [place] [employer] law, this organization might not be sharing [...] shar Patient Fasting?: No ?? Allergies: Allergen Bya-Xnzby-Qijss Bee Penicillins Implant Devices: ??Other (see comment) [...] shar Gamino Patient Fasting?: No Allergies: Allergen Uku-Swdhm-Unkjs Bee Penicillins Implant Devices: Other (see comment) [...] and Patient discharged in good condition us Alexanrde Ansari MD DERM PROCEDURE ORDERABLES Final Result PROVATION from Last 3 Months Insurance [facility] MEDICAID Care Teams Ink Maker Relationship Specialty Start Date End Date Marianela Plummer [address] [place] [address] PCP - General Internal Medicine 08/21/24
--- OUTSIDE RECORDS SUMMARY | 2024-11-11 09:19 | XMS_ITS | Clinical Summary ---
Author Organization [facility] Address [address] [place] [address] Care Team Providers Care Nurse Licensed Practical Name Role Phone Marianela Plummer Primary Care Provider [phone] Allergies Active Allergy Reactions Criticality Noted Date Comments Allergen Gov-Pfpce-Uhgyb Bee Itching,Oth er (see comments),Swelling High 01/20/2002 [...] take if . 10 capsule 09/24/19 Active Encounters Date Type Department Care Team Description 09/23/2024 2:45 PM EST Follow-Up [facility] [address] [place] [phone] Operating Room Rn: Alexandre Calvillo MD Visit for suture removal (Primary Dx) 09/22/2024 myChart Message [facility] [address] [place] [address] [phone] Operating Room Rn: Jak Jolly MD Upload photo of Mohs wound to this converstation 09/22/2024 Telephone [facility] [address] [place] [address] [phone] Operating Room Rn: Jak Jolly MD 09/18/2024 Telephone [facility] [address] [place] [address] [phone] Operating Room Rn: Charline Sandhu MD 09/16/2024 1:00 PM EST Procedure visit [facility] [address] [place] [address] [phone] Operating Room Rn: Alexandre Calvillo MD Basal cell carcinoma (BCC) [...] Additional history exists Procedures * Due to [place] [employer] law, this organization might not be sharing negative HIV tests. Procedure Name Priority Date/Time Associated Diagnosis Comments MOHS SURGERY Routine 09/16/2024 Basal cell carcinoma (BCC) of skin of right upper lip from Last 3 Months Results * Due to [place] [employer] law, this organization might not be sharing [...] shar Patient Fasting?: No ?? Allergies: Allergen Uvl-Ghatl-Bujci Bee Penicillins Implant Devices: ??Other (see comment) [...] shar Gamino Patient Fasting?: No Allergies: Allergen Rjt-Isuzm-Wczcm Bee Penicillins Implant Devices: Other (see comment) [...] Result PROVATION from Last 3 Months Insurance [facility] MEDICAID Care Teams Nurse Licensed Practical Relationship Specialty Start Date End Date Marianela Plummer [address] [place] [address] PCP - General Internal Medicine 08/21/24
--- OUTSIDE RECORDS SUMMARY | 2024-11-11 09:19 | XMS_ITS | Data Portability ---
Author Organization [facility] [place] [facility], [facility], [facility] Address [address] [place] [phone] Care Team Providers Care Chef Teacher Name Role Phone LUC NORRIS Primary Care Provider [phone] LUC NORRIS Referring Provider [phone] Assessment No assessment recorded. Plan of Treatment [...] By Organization Details Last Modified Time 04/09/2024 [id number] The above clinic al findings and radiographic [...] portions of this report were transcribed using [email or web address] speech recognition software. If any discrepancy or [...] SNOMED-CT Code Diagnosis ICD10 Code Diagnosis Note [id number] Clark Pope DPM [facility] [address] [phone] 04/09/2024 15:38:52 04/09/2024 17:16:49 Peroneal tendinitis [id number] M76.71 Pain of ri ght ankle joint [id number] M25.571 Health Concerns Section Related Observation LastModified by Organization Detai ls LastModified Time None Recorded Concern Status LastModified by Organization Details LastModified Time None Recorded Advance Directives Directive None Recorded Payers Encounter Date Sequence Insurance Name Policy Number Policy Richards Covered Member ID Richards Member ID Guarantor Name 04/09/2024 2 [place] [facility] Kathy Velazquez [id number] Kathy Velazquez 04/09/2024 1 [facility] - HEALTH NET PLAN (MEDICAID HMO) [facility] Kathy Velazquez [id number] Kathy Velazquez Notes Date Note Type Note Provider Name and Address Organization Details Recorded Time 04/09/2024 text/html Podiatry FootReported bypatient.Notes:Hilton hatch presents today for evaluation right ankle pain. She states it started about 2 or 3 months ago. She was receiving gel injections in her right knee for Dr. Fisher's office. The physician secretary administrative assistant recommended using an ankle brace that she was having swelling and pain on the outside part of the ankle. She started wearing ankle brace 2 weeks ago and has noticed a marked improvement. It does occasionally walk up on her and she notices it when she drives for long periods of time. Clark Pope DPM [address] [place] [address], [phone], [facility] - [place] [facility] [place], [facility] 04/09/2024 16:30:43 OBGyn Episode No OBEpisode recorded.
--- OUTSIDE RECORDS SUMMARY | 2024-11-11 09:19 | XMS_ITS | Data Portability ---
Author Organization [facility], [facility] Address [address] [place] [phone] Care Team Providers Care [employer]tron[employer] Technician Name Role Phone KAUR DEY Referring Provider [phone] DEONDRE BRONSON OTHER NICOLE ANDREW Primary Care Provider Assessment Encounter Date Assessment Date Assessment LastModified by Organization Details LastModified Time 03/25/2024 03/25/2024 The first right knee Euflexxa [...] medical decision making. Not available 08/04/2024 11:02:24 10/21/2024 10/21/2024 Right knee Zilretta injection was performed today in the office without difficulty. Patient tolerated the procedure well, there were no complications. She will follow-up on an as-needed basis. Patient was informed of all treatment options and based upon shared decision making, has elected to proceed. Patient understands the risks and benefits of proceeding versus not proceeding with treatment. All patient questions were answered. Patient is in agreement with the plan of care. Patient verbalizes understanding. The patient is educated to call the office with any questions or concerns. Dr. Fisher is in agreement with the plan of care and is a part of the medical decision making. Not available 10/21/2024 11:46:25 Plan of Treatment Reminders Order Date Submit Date Provider Last Modified By Organization Details Last Modified Time Details Appointments None recorded. Lab None recorded. Referral None recorded. Procedures None recorded. Surgeries None recorded. Imaging None recorded. Medication Orders Zilretta 32 mg intra-artic ular suspension, extended release [id number], [address] [place] [address], [address], 5 11:46:26 Depo-Medrol 40 mg/mL suspension for injection 2024 [id number] [address] [place] [address], [address], 5 12:08:37 Euflexxa 10 mg/mL (mw 2.4-3.6 million) intra-artic ular syringe [id number], [address] [place] [address], [address], 4 14:18:08 Euflexxa 10 mg/mL (mw 2.4-3.6 million) intra-artic ular syringe [id number], [address] [place] [address], [address], 4 09:29:21 Euflexxa 10 mg/mL (mw 2.4-3.6 million) intra-artic ular syringe [id number], [address] [place] [address], [address], 15:06:09 Patient TargetsNo targets recorded. Patient InstructionsNo instructions recorded. Reason for Referral None Reported. Problems Name Problem SNOMED Code Status Onset Date Resolution Date Notes Provider Name and Address Organization Details Recorded Time Complicati on of anesthesia 03021171 Active 2022 Latesha gonzalez, [facility] 3 01:11:15 Arthritis 4384328 Active 2022 Latesha gonzalez, [facility] 3 01:11:22 Osteoarthr itis 995517334 Active 2022 Latesha gonzalez, [facility] 3 01:11:28 Total knee replacemen t Active 2022 Lateshapriti gonzalez, [facility] 3 01:11:38 Rupture of rotator cuff of shoulder 755304285 Active 2022 complete rotator cuff tear or rupture of right shoulder, not specified as [facility] 01:12:34 Tear of medial meniscus of knee 829313631 Active 2022 Latesha gonzalez, [facility] 3 01:12:56 Impingemen t syndrome of shoulder region 074235362 Active 2022 right shoulder Lateshapriti gonzalez, [email or web address] 3 01:13:12 Problem Notes None recorded. Procedures Surgical History Date Name Laterality Status Provider Name and Address Organization Details Recorded Time 2024 Corticosteroid Injection - Zilretta completed Deondre Bronson PA-C [address] [place] [address], [phone], [facility] 10/21/2024 11:45:59 2024 Intra-articular Knee Steroid Injection completed Deondre Bronson PA-C [address] [place] [address], [address], [facility] 08/04/2024 11:01:40 2023 Viscosupplementation Knee completed Deondre Bronson PA-C [address] [place] [address], [phone], [facility] 04/08/2024 14:18:06 2023 Viscosupplementation Knee completed Deondre Bronson PA-C [address] [place] [address], [phone], [facility] 04/01/2024 09:29:19 2023 Viscosupplementation Knee completed Deondre Bronson PA-C [address] [place] [address], [address], [facility] 03/25/2024 15:02:51 2023 Intra-articular Knee Steroid Injection completed Deondre Bronson PA-C [address] [place] [address], [phone], [facility] 12/28/2023 12:44:01 2023 Intra-articular Knee Steroid Injection completed Deondre Bronson PA-C [address] [place] [address], [phone], [facility] 09/17/2023 11:58:11 2022 Intra-articular Knee Steroid Injection completed Deondre Bronson PA-C [address] [place] [address], [phone], [facility] 04/10/2023 15:26:45 2022 Intra-articular Knee Steroid Injection completed Deondre Bronson PA-C [address] [place] [address], [phone], [facility] 11/21/2022 17:45:19 2015 total knee replacement completed Latesha Burger [facility] 11/20/2022 01:14:37 2011 Knee arthroscopy/surgery completed Not Available [facility] 09/14/2011 03:36:58 2010 Knee Surgery completed Latesha Burger [facility] 11/20/2022 01:14:20 1995 Section completed Latesha Burger [facility] 11/20/2022 01:14:08 Joint Replacement completed Noreen Lopez [facility] 11/20/2022 13:14:12 Other Surgeries completed Dai Singerucher [facility] 09/17/2023 11:48:36 Imaging Results None recorded. Procedure Notes None recorded. Medical Equipment None Reported. Allergies Allergen ID Allergen Name Allergen Category Reaction Reaction Severity Criticality Documentation Date Start Date Code Code System Note Provider Name and Address Organization Details Recorded Time 230682 Product containin g penicilli n (product) medicatio n rash Not available Not available 11/20/2022 30166 8001 SNOMED Latesha Burger [facility] 01:15:24 045758 bee pollen environme nt,medica tion Not available Not available Not available 11/20/2022 03208 7 RxNorm Latesha Burger [facility] 3 01:16:01 045357 ethinyl estradiol / levonorge strel medicatio n Not available Not available Not available 11/20/2022 22655 8 RxNorm Latesha Burger [facility] 01:16:07 611540 POLLEN EXTRACTS environme nt,medica tion Not available Not available Not available 11/20/2022 94099 6 RxNorm Noreen Lesniewsk ruben [facility] 3 13:13:50 609355 mold extract environme nt Not available Not available Not available 11/20/2022 80074 8 RxNorm Noreen Lesniewsk ruben [facility] 3 13:13:50 031095 insect venom environme nt itching other Not available Not available Not available 11/20/2022 08649 UNK Noreen Fannyk ruben [facility] 3 13:13:50 Medications Name Sig [...] 2 HOURS AFTER BREAKFAST FOR 30 DAYS 10/21 completed Not Available Not Available Not Available [...] Not Available Not Available Not Available doxycycline monohydrate 100 mg capsule TAKE 1 TABLET BY MOUTH TWICE DAILY WITH FOOD AND WATER.SHAVONNE ID DIRECT SUNLIGHT. DO NOT TAKE IF 10/21 completed Not Available Not Available Not Available [...] Available Not Available No t Available Transderm-S coping machine assembler 1 mg over 3 days transdermal patch [...] tablet TAKE 1/2 TABLET BY MOUTH DAILY 10/21 completed Not Available Not Available Not Available phentermine 37.5 mg capsule TAKE 1 CAPSULE BY MOUTH EVERY DAY. MUST ADMINISTE R 2 HOURS AFTER BREAKFAST . active Not Available Not Available No t [...] completed Not Available Not Available Not Available Zilretta 32 mg intra-artic ular suspension, extended release injected into the right knee as directed 2024 active Not Available Not Available Not Avai lable Paxlovid 300 mg (150 mg x 2)-100 mg tablets in a dose pack TAKE 3 TABLETS BY MOUTH TWICE A DAY FOR 5 DAYS 09/17 completed Not Available Not Available Not Available Vitals Date Recorded Body height Body mass index (BMI) Body weight Provider Name and Address Organization Details Last Updated DateTime 04/01/2024 172.72 cm 29.3 kg/m2 57357.33 g Payton Rollins [facility]. 04/01/2024 08:35:29 Date Recorded Body height Body mass index (BMI) Body weight Provider Name and Address Organization Details Last Updated DateTime 04/08/2024 172.72 cm 29.3 kg/m2 05073.33 g Dai Forbes [facility]. 04/08/2024 13:48:49 Date Recorded Body height Body mass index (BMI) Body weight Provider Name and Address Organization Details Last Updated DateTime 08/04/2024 172.72 cm 33.1 kg/m2 52019.14 g Yomaira Tomas [facility] 08/04/2024 10:26:36 Date Recorded Body height Body mass index (BMI) Body weight Provider Name and Address Organization Details Last Updated DateTime 10/21/2024 172.72 cm 30.9 kg/m2 12768.25 g Dorota Michaud [facility] 10/21/2024 10:44:24 Social History Question Answer Notes LastModified by Organizat ion Details LastModified Time Tobacco Smoking Status Never [facility]oker [facility]2024 10:26:47 Do You Have [...] not available 11/20/2022 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 16+yearssincel astcigarette Information not available 11/20/2022 Which Of Your Hands Is Dominant? Right Information not available 11/20/2022 What Was The Date Of Your Most Recent Tobacco Screening? 10/21/2024 [email or web address] Information not available 10/21/2024 Have You Ever Been Counseled For Unhealthy Alcohol Use? No sadu Information not available 08/04/2024 Do You Have Any Pets? Yes Information not available 11/20/2022 What Is Your Relationship Status? Information not available 11/20/2022 Do You Feel Stressed (tense, Restless, Nervous, Or Anxious, Or Unable To Sleep At Night)? [id number] [email or web address] Information not available 04/10/2023 Do You Use Any Illicit Or Recreational Drugs? No Information not available 11/20/2022 Has Tobacco Cessation Counseling Been Provided? No [email or web address] Information not available 04/10/2023 How Many Years [...] SNOMED-CT Code Diagnosis ICD10 Code Diagnosis Note [id number] Deondre Bronson PA-C [facility] [address] [place] [phone] 11/20/2022 13:02:57 11/20/2022 13:44:20 Osteoarthritis of right knee joint 8562353825 86806 M17.11 Osteoarthr itis of left knee joint 0231964723 27505 M17.12 [id number] Deondre Bronson PA-C [facility] [address] [place] [address] 04/10/2023 14:46:22 04/10/2023 15:15:05 Osteoarthritis of right knee joint 5003663084 84951 M17.11 [id number] Deondre Bronson PA-C [facility] [address] [place] [address] 09/17/2023 11:41:51 09/17/2023 11:43:08 Osteoarthritis of right knee joint [id number] [facility] M17.11 [id number] Deondre Bronson PA-C [facility] [address] [place] [address] 12/28/2023 10:07:59 12/28/2023 10:40:19 Osteoarthritis of right knee joint 0328090503 [facility] M17.11 [id number] Deondre Bronson PA-C [facility] [address] [place] [address] 03/25/2024 14:43:16 03/25/2024 15:12:13 Osteoarthritis of right knee joint [id number] [facility] M17.11 [id number] Deondre Bronson PA-C [facility] [address] [place] [address] 04/01/2024 08:32:29 04/01/2024 08:48:46 Osteoarthritis of right knee joint [id number] [facility] M17.11 [id number] Deondre Bronson PA-C [facility] [address] [place] [address] 04/08/2024 13:42:36 04/08/2024 13:59:56 Osteoarthritis of right knee joint [id number] [facility] M17.11 [id number] Deondre Bronson PA-C [facility] [address] [place] [address] 08/04/2024 10:15:48 08/04/2024 10:41:26 Osteoarthritis of right knee joint 0441697105 39802 M17.11 [id number] Deondre Bronson PA-C [facility] [address] [facility] [address] [place] [address] 10/21/2024 10:41:16 10/21/2024 11:42:46 Osteoarthritis of right knee joint 3759426128 77861 M17.11 Health Concerns Section Related Observation LastModified by Organization Detai ls LastModified Time None Recorded Concern Status LastModified by Organization Details LastModified Time None Recorded Advance Directives Directive Y: Payers Encounter Date Sequence Insurance Name Policy Number Policy Richards Covered Member ID Richards Member ID Guarantor Name 03/25/2024 1 [facility] (MEDICAID REPLACEMENT - HMO) [employer] Kathy Caroline [id number] Kathy Velazquez 04/01/2024 1 [facility] (MEDICAID REPLACEMENT - HMO) [employer] Kathy Velazquez [id number] Kathy Velazquez 04/08/2024 1 [facility] (MEDICAID REPLACEMENT - HMO) [employer] Kathyfarheen Velazquez [id number] Kathyfarheen Velazquez 08/04/2024 1 [facility] [employer] (HMO) [employer] Kathy B Caroline [id number] Kathy Caroline 10/21/2024 1 [facility] [employer] (HMO) [employer] Kathy B Caroline [id number] Kathyfarheen Velazquez Notes Date Note Type Note Provider Name and Address Organization Details Recorded Time 03/25/2024 text/html Patient presents for her first right knee Euflexxa injection. Deondre Bronson PA-C [address] [place], [address], [facility] 03/25/2024 15:06:53 04/01/2024 text/html Patient presents for her second right knee Euflexxa injection. She denies any adverse effects following previous injection. Deondre Bronson PA-C [address] [place], [address], [facility] 04/01/2024 09:30:56 04/08/2024 text/html Patient presents for her third right knee Euflexxa injection. She denies any adverse effects following previous injections. Deondre Bronson PA-C [address] [place] [address], [phone], [facility] 04/08/2024 14:25:07 08/04/2024 text/html [...] by Dr. Fisher. Deondre Bronson PA-C [address] [place], [address], [facility] 08/04/2024 12:11:03 10/21/2024 text/html Patient presents for right knee Zilretta injection. Deondre Bronson PA-C [address] [place], [address], [facility] 10/21/2024 11:47:05 OBGyn Episode No OBEpisode recorded.
== END 2024-11-11 09:11 | disposition home or self-care (01) ==
LOC: HO.HMCC 08:53
PROVIDERS: PCP Internal Medicine; Visit Provider Internal Medicine
DX: E66.09 Other obesity due to excess calories (principal); Z68.31 Body mass index [BMI] 31.0-31.9, adult

== ENCOUNTER → 2024-11-11 08:53 | Outpatient (BNVA) | payer OTHER, SELFPAY | PROVIDERS: PCP Internal Medicine; Visit Provider Internal Medicine | DX: E66.09 Other obesity due to excess calories (principal); Z68.31 Body mass index [BMI] 31.0-31.9, adult; Z71.3 Dietary counseling and surveillance | CPT/HCPCS: 99212 ==

== ENCOUNTER 2024-12-10 09:36 | Outpatient (AMB) | payer OTHER, SELFPAY ==
--- NOTE | 2024-12-10 09:39 | A.OFFPC_ITS ---
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 Required: No Accompanied by: Self / Same As Patient Allergies Penicillins Allergy (Mild, Verified 12/10/24 09:41) rash bee Allergy (Severe, Uncoded 11/11/24 08:58) Swelling Medication List - Last Reconciled 12/10/24 by Marianela Plummer MD atorvastatin 10 mg PO BEDTIME epinephrine (EpiPen) 0.3 mg (0.3 mL) IM Q10M PRN 90 days levothyroxine 75 mcg PO DAILY minoxidil 2.5 mg PO ONCE omeprazole 20 mg PO DAILY phentermine 37.5 mg PO DAILY 30 days Tobacco use date assessed: 11/11/24 Dental Screening Dental Screen Date: 11/11/24 HPI 1 month f/up HPI Details History - The patient is a 59-year-old female pr esenting with chronic lower back pain. And also for pain management medication refill - She reports a cyst located between the L4 and L5 vertebrae, identified years ago. 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 - The pain radiates down the leg left, a nd she has difficulty standing and walking. - Sacroiliac joint involvement is suspec harshal, alongside previously diagnosed arthritis of the lumbar spine. - The patient also inquires about EpiPen replacement due to her history of anaphylaxis following bee stings, which resulted in hospitalization previously. - She keeps an EpiPen in her car and car [employer], despite never having self-administered the EpiPen. Phentermine prescription sent patient was able to lose another 3 lb in last 4 weeks Tolerating medication well Problem List - Obesity - Anaphylaxis due to bee sting - Chronic lower back pain - Sacroiliac joint pain - Arthritis of the lumbar spine - obesity Patient Instructions - Continue current exercise and diet con trol for weight management. Continue phentermine script sent - Obtain a liver and kidney function isadora t next door, no fasting required. - Replace EpiPen; a two-pack has been ordered. - Proceed to get an x-ray to evaluate ba ck pain, available at the location of lab tests. - A referral to [facility] will be arranged. - Continue carrying Benadryl and the Epi Pen for allergy management. Review of Systems General: No fever no chills neurological: No headaches no dizziness ear nose throat: No sore throat no hearing difficulty no ear pain cardiovascular: No syncope, no chest pain, no palpitations gastrointestinal: No nausea vomiting or diarrhea endocrine: No polyuria polydipsia no heat intolerance genitourinary: No dysuria skin: No new complaints Physical Exam general: No acute distress HEENT: No acute findings neck: Supple respiratory system: Able to talk in full sentences, no audible wheeze no stridor cardiovascular: S1-S2 RRR gastrointestinal: No pain extremities: No new findings ICER MACHINE: Alert awake oriented x3 motor sensory intact skin: Normal turgor PFSH Family History Daughter Mental health disorder Social History Housing: House Patient Tobacco Use Status: Never used Tobacco e-Cigarette/Vaping Use: Never Used service: No Current occupational status: employed Cognitive needs: No Hearing needs: No Vision needs: Yes Questionnaire Thrive Questionnaire Date Thrive assessed: 08/08/24 I am a: Patient What is your living situation today?: I have a steady place to live Within the past 12 months, did the food you bought not last and you didn't have the money to get more?: Never true Within the past 12 months, did you worry whether your food would run out before you got money to buy more?: Never true Do you have trouble paying for medicines?: No Do you have trouble getting transportation to medical appointments?: No Do you have trouble paying your heating and electricity bill?: No Do you have trouble taking care of your child, family member or friend?: No Do you have trouble with day-to-day activities such as bathing, preparing meals, shopping, managing finances, etc.?: No Are you currently unemployed and looking for a job?: No Are you interested in more education?: No Please select the resources that you would like help with: None Currently or been in a relationship where the following occur: No concerns reported THRIVE Score: 0 FELIPE-7 AMB Questionnaire FELIPE-7 Date FELIPE - 7 assessed: 10/10/24 Source: Developed by Drs. Clark Roy, Evette Guzman, Chip Esposito and colleagues, with an educational jono from [employer]. Physical exam (Primary Care) Vital Signs: Last Vital Signs Pulse 71 12/10/24 09:40 BP 130/80 12/10/24 09:40 Pulse Ox 98 12/10/24 09:40 Oxygen Delivery Method Room Air 12/10/24 09:40 BMI result Body Mass Index 30.9 Tobacco/Smoking Status: Tobacco use Status Tobacco use date assessed 11/11/24 12/10/24 09:39 Patient Tobacco Use Status Never used Tobacco 12/10/24 09:39 e-Cigarette/Vaping Use Never Used 12/10/24 09:39 Thrive Assessment: Date of Thrive Assessment Date Thrive assessed 08/08/24 12/10/24 09:39 Currently or been in a relationship where the following occur: No concerns reported Coding Level of Care Code Est Pt Level 4 (70868) Diagnoses Osteoarthritis of spine with radiculopathy, lumbar region M47.26 Spinal osteoarthritis complication: with radiculopathy Class 1 obesity due to excess calories with serious comorbidity and body mass index (BMI) of 31.0 to 31.9 in adult E66.09; Z68.31 Body mass index: BMI 31.0-31.9 Obesity classification: adult class 1 (BMI 30 - 34.9) Serious obesity comorbidity presence: with serious comorbidity Lipid disorder E78.9 Other specified hypothyroidism E03.8 Lumbar pain M54.50 Assessment & Plan Assessment & Plan (1) Degenerative joint disease (DJD) of lumbar spine: Code(s): M47.816 - Spondylosis without myelopathy or radiculopathy, lumbar region Category: Medical Qualifiers: Spinal osteoarthritis complication: with radiculopathy Qualified Code(s): M47.26 - Other spondylosis with radiculopathy, lumbar region (2) Obesity due to excess calories: Code(s): E66.09 - Other obesity due to excess calories Category: Medical Qualifiers: Body mass index: BMI 31.0-31.9 Obesity classification: adult class 1 (BMI 30 - 34.9) Serious obesity comorbidity presence: with serious comorbidity Qualified Code(s): E66.09 - Other obesity due to excess calories; Z68.31 - Body mass index [BMI] 31.0-31.9, adult (3) Lipid disorder: Code(s): E78.9 - Disorder of lipoprotein metabolism, unspecified Category: Medical (4) Other specified hypothyroidism: Code(s): E03.8 - Other specified hypothyroidism Category: Medical (5) Lumbar pain: Code(s): M54.50 - Low back pain, unspecified Category: Medical Plan History - The patient is a 59-year-old female presenting with chronic lower back pain. And also for pain management medication refill - She reports a cyst located between the L4 and L5 vertebrae, identified years ago. 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 - The pain radiates down the leg left, and she has difficulty standing and walking. - Sacroiliac joint involvement is suspected, alongside previously diagnosed arthritis of the lumbar spine. - The patient also inquires about EpiPen replacement due to her history of anaphylaxis following bee stings, which resulted in hospitalization previously. - She keeps an EpiPen in her car and carries Benadryl, despite never having self-administered the EpiPen. Phentermine prescription sent patient was able to lose another 3 lb in last 4 weeks Tolerating medication well Problem List - Obesity - Anaphylaxis due to bee sting - Chronic lower back pain - Sacroiliac joint pain - Arthritis of the lumbar spine - obesity - lipid disorder Patient Instructions - Continue current exercise and diet control for weight management. Continue phentermine script sent - Obtain a liver and kidney function test next door, no fasting required. - Replace EpiPen; a two-pack has been ordered. - Proceed to get an x-ray to evaluate back pain, available at the location of lab tests. - A referral to [facility] will be arranged. - Continue carrying Benadryl and the EpiPen for allergy management. Orders: Orders Comprehensive Met. Panel Today E03.8 - Other specified hypothyroidism, E66.09 - Other obesity due to excess calories, E78.9 - Disorder of lipoprotein metabolism, unspecified, Z68.31 - Body mass index [BMI] 31.0-31.9, adult Complete Blood Count Auto Diff Today E03.8 - Other specified hypothyroidism, E66.09 - Other obesity due to excess calories, E78.9 - Disorder of lipoprotein metabolism, unspecified, Z68.31 - Body mass index [BMI] 31.0-31.9, adult TSH reflex Free T4 Today E03.8 - Other specified hypothyroidism XR lumbar spine 2-3V Today M54.50 - Low back pain, unspecified Referrals Pain Management Referral M54.50 - Low back pain, unspecified Medications: New epinephrine (EpiPen 2-Tramaine) for 2 doses 0.3 mg (0.3 mL) IM Q10M PRN 2 ea 0RF anaphylaxis Refilled phentermine must administer 2 hours after breakfast 37.5 mg PO DAILY 30 days 30 caps 0RF
[2024-12-10 09:40] VITALS: BP 130/80; PULSE 71; O2SAT 98; BMI 30.9
--- OUTSIDE RECORDS SUMMARY | 2024-12-10 10:52 | XMS_ITS | Clinical Summary ---
Author Organization [facility] Address [address] [place] [address] Care Team Providers Care Cook Mess Name Role Phone Marianela Plummer Primary Care Provider [phone] Allergies Active Allergy Reactions Criticality Noted Date Comments Allergen Nzk-Iwuts-Kmdot Bee Itching,Oth er (see comments),Swelling High 01/20/2002 [...] Team Description 09/23/2024 2:45 PM EST Follow-Up [facility] [address] [place] [phone] Decating Machine Operator: Alexandre Calvillo MD Visit for suture removal (Primary Dx) 09/22/2024 myChart Message [facility] [address] [place] [phone] Decating Machine Operator: Jak Jolly MD Upload photo of Mohs wound to this converstation 09/22/2024 Telephone [facility] [address] [place] [phone] Decating Machine Operator: Jak Jolly MD 09/18/2024 Telephone [facility] [address] [place] [phone] Decating Machine Operator: Charline Sandhu MD 09/16/2024 1:00 PM EST Procedure visit [facility] [address] [place] [phone] Decating Machine Operator: Alexandre Calvillo MD Basal cell carcinoma [...] Additional history exists Procedures * Due to [place] law, this organization might not be sharing negative HIV tests. Procedure Name Priority Date/Time Associated Diagnosis Comments MOHS SURGERY Routine 09/16/2024 Basal cell carcinoma (BCC) of skin of right upper lip from Last 3 Months Results * Due to [place] law, this organization might not be sharing [...] shar Patient Fasting?: No ?? Allergies: Allergen Mqz-Vugqb-Crclu Bee Penicillins Implant Devices: ??Other (see comment) [...] shar Gamino Patient Fasting?: No Allergies: Allergen Sju-Joyou-Qywhz Bee Penicillins Implant Devices: Other (see comment) [...] Result PROVATION from Last 3 Months Insurance [facility] MEDICAID Care Teams Cook Mess Relationship Specialty Start Date End Date Marianela Plummer [address] [place] [address] PCP - General Internal Medicine 08/21/24
--- OUTSIDE RECORDS SUMMARY | 2024-12-10 10:52 | XMS_ITS | Data Portability ---
Author Organization [facility] [email or web address], [facility]admin Address [address] [place] [phone] Care Team Providers Care Dermatologist And Dermatopathologist Name Role Phone KAUR DEY Referring Provider [phone] DEONDRE BRONSON OTHER NICOLE ANDREW Primary Care [...] intra-artic ular suspension, extended release [address]/Pharmacy #[id number], [address] [place] [address], [address], 5 11:46:26 Depo-Medrol 40 mg/mL suspension for injection 2024 025 [id number], [address] [place] [address], [address], 5 12:08:37 Euflexxa 10 mg/mL (mw 2.4-3.6 million) intra-artic ular syringe [address]/Pharmacy #0838, [address] [place] [address], [address], 4 14:18:08 Euflexxa 10 mg/mL (mw 2.4-3.6 million) intra-artic ular syringe [address]/Pharmacy #0838, [address] [place] [address], [address], 4 09:29:21 Euflexxa 10 mg/mL (mw 2.4-3.6 million) intra-artic ular syringe [address]/Pharmacy #0838, [address] [place] [address], [address], 15:06:09 Patient TargetsNo targets recorded. Patient InstructionsNo instructions recorded. Reason for Referral None Reported. Problems Name Problem SNOMED Code Status Onset Date Resolution Date Notes Provider Name and Address Organization Details Recorded Time Complicati on of anesthesia 33885753 Active 2022 Latesha gonzalez, [facility] 3 01:11:15 Arthritis 9898623 Active 2022 Latesha gonzalez, [facility] 3 01:11:22 Osteoarthr itis 720419073 Active 2022 Latesha gonzalez, [facility] 3 01:11:28 Total knee replacemen t Active 2022 Lateshapriti gonzalez, [facility] 3 01:11:38 Rupture of rotator cuff of shoulder 526233669 Active 2022 complete rotator cuff tear or rupture of right shoulder, not specified as traumatic [facility] 01:12:34 Tear of medial meniscus of knee 469104642 Active 2022 Latesha gonzalez, [facility] 3 01:12:56 Impingemen t syndrome of shoulder region 550772485 Active 2022 right shoulder Lateshapriti gonzalez, [facility] 3 01:13:12 Problem Notes None recorded. Procedures Surgical History Date Name Laterality Status Provider Name and Address Organization Details Recorded Time 2024 Corticosteroid Injection - Zilretta completed Deondre Bronson PA-C [address] [place] [address], [phone], [facility] 10/21/2024 11:45:59 2024 Intra-articular Knee Steroid Injection completed Deondre Bronson PA-C [address] [place] [address], [address], [facility] 08/04/2024 11:01:40 2023 Viscosupplementation Knee completed Deondre Bronson PA-C [address] [place] [address], [phone], [facility] 04/08/2024 14:18:06 2023 Viscosupplementation Knee completed Deondre Bronson PA-C [address] [place] [address], [phone], [facility] 04/01/2024 09:29:19 2023 Viscosupplementation Knee completed Deondre Bronson PA-C [address] [place] [address], [phone], [facility] 03/25/2024 15:02:51 2023 Intra-articular Knee Steroid Injection completed Deondre Bronson PA-C [address] [place] [address], [address], [facility] 12/28/2023 12:44:01 2023 Intra-articular Knee Steroid Injection completed Deondre Bronson PA-C [address] [place] [address], [phone], [facility] 09/17/2023 11:58:11 2022 Intra-articular Knee Steroid Injection completed Deondre Bronson PA-C [address] [place] [address], [address], [facility] 04/10/2023 15:26:45 2022 Intra-articular Knee Steroid Injection completed Deondre Bronson PA-C [address] [place] [address], [phone], [facility] 11/21/2022 17:45:19 2015 total knee replacement completed Latesha Burger [facility] 11/20/2022 01:14:37 2011 Knee arthroscopy/surgery completed Not Available [facility] 09/14/2011 03:36:58 2010 Knee Surgery completed Latesha Burger [facility] 11/20/2022 01:14:20 1995 Section completed Latesha Burger [facility] 11/20/2022 01:14:08 Joint Replacement completed Noreen Lopez [facility] 11/20/2022 13:14:12 Other Surgeries completed Dai Singerucher [facility] 09/17/2023 11:48:36 Imaging Results None recorded. Procedure Notes None recorded. Medical Equipment None Reported. Allergies Allergen ID Allergen Name Allergen Category Reaction Reaction Severity Criticality Documentation Date Start Date Code Code System Note Provider Name and Address Organization Details Recorded Time 621918 Product containin g penicilli n (product) medicatio n rash Not available Not available 11/20/2022 79338 8001 SNOMED Latesha Burger [facility] 01:15:24 038676 bee pollen environme nt,medica tion Not available Not available Not available 11/20/2022 62578 7 RxNorm Latesha Burger [facility] 3 01:16:01 545161 ethinyl estradiol / levonorge strel medicatio n Not available Not available Not available 11/20/2022 48978 8 RxNorm Latesha Burger [facility] 01:16:07 601139 POLLEN EXTRACTS environme nt,medica tion Not available Not available Not available 11/20/2022 34460 6 RxNorm Noreen Lesniewsk ruben [facility] 3 13:13:50 171675 mold extract environme nt Not available Not available Not available 11/20/2022 49357 8 RxNorm Noreen Lesniewsk ruben [facility] 3 13:13:50 934117 insect venom environme nt itching other Not available Not available Not available 11/20/2022 52345 UNK Noreen Fannyk ruben [facility] 3 13:13:50 Medications Name Sig [...] Available Not Available No t Available Transderm-S mass spectroscopist 1 mg over 3 days transdermal patch [...] Updated DateTime 04/01/2024 172.72 cm 29.3 kg/m2 85364.33 g Payton Rollins [facility]. 04/01/2024 08:35:29 Date Recorded Body height Body mass index (BMI) Body weight Provider Name and Address Organization Details Last Updated DateTime 04/08/2024 172.72 cm 29.3 kg/m2 37792.33 g Dai Forbes [facility]. 04/08/2024 13:48:49 Date Recorded Body height Body mass index (BMI) Body weight Provider Name and Address Organization Details Last Updated DateTime 08/04/2024 172.72 cm 33.1 kg/m2 08170.14 g Yomaira Tomas [facility] 08/04/2024 10:26:36 Date Recorded Body height Body mass index (BMI) Body weight Provider Name and Address Organization Details Last Updated DateTime 10/21/2024 172.72 cm 30.9 kg/m2 31558.25 g Dorota Michaud [facility] 10/21/2024 10:44:24 Social History Question Answer Notes LastModified by Organizat ion Details LastModified Time Tobacco Smoking Status Never Smoker [facility]/04/2024 10:26:47 Do You Have An Advance Directive? Yes Information not available 11/20/2022 Are You Blind Or Do You Have Difficulty Seeing? No Information not available 11/20/2022 Is Blood Transfusion Acceptable In An Emergency? Yes Information not available 11/20/2022 What Is Your Level Of Caffeine Consumption? Moderate Information not available 11/20/2022 Are You Deaf Or Do You Have Serious Difficulty Hearing? No Information not available 11/20/2022 What Type Of Diet Are You Following? REGULAR Information not available 11/20/2022 When Did You Quit Smoking? 16+yearssince lastcigarette Information not available 11/20/2022 Which Of Your Hands Is Dominant? Right Information not available 11/20/2022 What Was The Date Of Your Most Recent Tobacco Screening? 10/21/2024 Information not available 10/21/2024 Have You Ever Been Counseled For Unhealthy Alcohol Use? No sadu Information not available 08/04/2024 Do You Have Any Pets? Yes Information not available 11/20/2022 What Is Your Relationship Status? Information not available 11/20/2022 Has Tobacco Cessation Counseling Been Provided? No Information not available 04/10/2023 How Many Years Have You Smoked Tobacco? 5 Information not available 11/20/2022 How Many Days In The Past Year Have You Consumed 4 Or More Drinks? 4 Information no t available 11/20/2022 Sex: Female Functional Status Question Answer Note LastModified by Organizat ion Details LastModified Time Do you use any illicit or recreational drugs? No Information not available 11/20/2022 Do you or have you ever used any other forms of tobacco or nicotine? No Information not available 11/20/2022 What is your level of alcohol consumption? Moderate Information not available 11/20/2022 Are you currently employed? Yes Information not available 11/20/2022 Are you able to care for yourself? 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 Moderate Information not available 11/20/2022 Mental Status Question Answer Note LastModified by Organization D etails LastModified Time Do you feel stressed (tense, restless, nervous, or anxious, or unable to sleep at night)? [email or web address] Information not available 04/10/2023 Family History Relationship Description Onset Age of [...] SNOMED-CT Code Diagnosis ICD10 Code Diagnosis Note [id number] Deondre Bronson PA-C [facility] [address] [place] [phone] 11/20/2022 13:02:57 11/20/2022 13:44:20 Osteoarthritis of right knee joint 3601843108 95465 M17.11 Osteoarthr itis of left knee joint 3709530686 24375 M17.12 [id number] Clyde Fisher MD [facility] [address] [place] [address] [place] [address] 04/10/2023 14:46:22 04/10/2023 15:15:05 Osteoarthritis of right knee joint 6258927314 17320 M17.11 [id number] Clyde Fisher MD [facility] [address] [place] [phone] 09/17/2023 11:41:51 09/17/2023 11:43:08 Osteoarthritis of right knee joint 0598616142 05223 M17.11 [id number] Clyde Fisher MD [facility] [address] [place] [phone] 12/28/2023 10:07:59 12/28/2023 10:40:19 Osteoarthritis of right knee joint 5586100042 20136 M17.11 [id number] Clyde Fisher MD [facility] [address] [place] [phone] 03/25/2024 14:43:16 03/25/2024 15:12:13 Osteoarthritis of right knee joint 2384883872 19216 M17.11 [id number] Clyde Fisher MD [facility] [address] [place] [phone] 04/01/2024 08:32:29 04/01/2024 08:48:46 Osteoarthritis of right knee joint 7672740403 23516 M17.11 [id number] Clyde Fisher MD [facility] [address] [place] [address] 04/08/2024 13:42:36 04/08/2024 13:59:56 Osteoarthritis of right knee joint 8678945836 73145 M17.11 [id number] Clyde Fisher MD [facility] [address] [place] [phone] 08/04/2024 10:15:48 08/04/2024 10:41:26 Osteoarthritis of right knee joint 4530953240 01587 M17.11 [id number] Clyde Fisher MD [facility] [address] [place] [phone] 6 10/21/2024 10:41:16 10/21/2024 11:42:46 Osteoarthritis of right knee joint 0310055480 38271 M17.11 Health Concerns Section Related Observation LastModified by Organization Detai ls LastModified Time None Recorded Concern Status LastModified by Organization Details LastModified Time None Recorded Advance Directives Directive Y: Payers Encounter Date Sequence Insurance Name Policy Number Policy Richards Covered Member ID Richards Member ID Guarantor Name 03/25/2024 1 [employer] (MEDICAID REPLACEMENT - HMO) [employer] Kathy Caroline [id number] Kathy Velazquez 04/01/2024 1 [employer] (MEDICAID REPLACEMENT - HMO) [employer] Kathy Velazquez [id number] Kathy Velazquez 04/08/2024 1 [employer] [facility] [employer] (MEDICAID REPLACEMENT - HMO) [employer] Kathy Velazquez [id number] Kathy Velazquez 08/04/2024 1 [employer] (HMO) [employer] Kathy B Caroline [id number] Kathy Velazquez 10/21/2024 1 [employer] (HMO) [employer] Kathy B Caroline [id number] Kathy Velazquez Notes Date Note Type Note Provider Name and Address Organization Details Recorded Time 03/25/2024 text/html Patient presents for her first right knee Euflexxa injection. Deondre Bronson PA-C [address] [place] [address], [address], [facility]. 03/25/2024 15:06:53 04/01/2024 text/html Patient presents for her second right knee Euflexxa injection. She denies any adverse effects following previous injection. Deondre Bronson PA-C [address] [place], [address], [facility] 04/01/2024 09:30:56 04/08/2024 text/html Patient presents for her third right knee Euflexxa injection. She denies any adverse effects following previous injections. Deondre Bronson PA-C [address] [place], [address], [facility] 04/08/2024 14:25:07 08/04/2024 [...] by Dr. Fisher. Deondre Bronson PA-C [address] [place], [phone], [facility] 08/04/2024 12:11:03 10/21/2024 text/html Patient presents for right knee Zilretta injection. Deondre Bronson PA-C [address] [place], [address], [facility] 10/21/2024 11:47:05 OBGyn Episode No OBEpisode recorded.
--- OUTSIDE RECORDS SUMMARY | 2024-12-10 10:52 | XMS_ITS | Referral Summary ---
Author Organization [facility] Address [address] [place] [address] Care Team Providers Care Ad Trafficker Name Role Phone Marianela Plummer Primary Care Provider [phone] Encounters Date Type Department Care Team Description 09/23/2024 2:45 PM EST Follow-Up [facility] [address] [place] [phone] Concrete Block Mason: Alexandre Calvillo MD Visit for suture removal (Primary Dx) 09/22/2024 myChart Message [facility] [address] [place] [phone] Concrete Block Mason: Jak Jolly MD Upload photo of Mohs wound to this converstation 09/22/2024 Telephone [facility] [address] [place] [phone] Concrete Block Mason: Jak Jolly MD 09/18/2024 Telephone [facility] [address] [place] [phone] Concrete Block Mason: Charline Sandhu MD 09/16/2024 1:00 PM EST Procedure visit [facility] [address] [place] [phone] Concrete Block Mason: Alexandre Calvillo MD Basal cell carcinoma (BCC) of skin of right upper lip (Primary Dx) from Last 3 Months Allergies Active Allergy Reactions Criticality Noted Date Comments Allergen Ikh-Oumla-Ylfbq Bee Itching,Oth er (see comments),Swelling High 01/20/2002 [...] Not on file Procedures * Due to [place] [employer] law, this organization might not be sharing negative HIV tests. Procedure Name Priority Date/Time Associated Diagnosis Comments MOHS SURGERY Routine 09/16/2024 Basal cell carcinoma (BCC) of skin of right upper lip from Last 3 Months Results * Due to [place] [employer] law, this organization might not be sharing negative HIV tests. * MOHS Surgery (09/16/2024) Narrative PROVATION - 09/16/2024 Crystal Guess ? 09/16/2024 ??3:27 PM MOHS Surgery Date/Time: 09/16/2024 1:00 PM Performed by: Alexanrde Ansari MD Authorized by: Alexandre Ansari MD [...] shar Patient Fasting?: No ?? Allergies: Allergen Cyd-Dodwa-Pojwq Bee Penicillins Implant Devices: ??Other (see comment) [...] shar Gamino Patient Fasting?: No Allergies: Allergen Zwv-Jhtgx-Umepo Bee Penicillins Implant Devices: Other (see comment) [...] Result PROVATION from Last 3 Months Insurance [facility] MEDICAID Care Teams Ad Trafficker Relationship Specialty Start Date End Date Marianela Plummer [address] [place] [address] PCP - General Internal Medicine 08/21/24
--- OUTSIDE RECORDS SUMMARY | 2024-12-10 10:53 | XMS_ITS | Data Portability ---
Author Organization [place] [facility], [facility], [facility] Address [address] [place] [phone] Care Team Providers Care Consultant [employer]. Vice President [employer] (Ex ) Name Role Phone LUC NORRIS Primary Care Provider [phone] LUC NORRIS Referring Provider [phone] Assessment No assessment recorded. Plan of Treatment [...] By Organization Details Last Modified Time 04/09/2024 [id number] The above clinic al findings and radiographic [...] portions of this report were transcribed using [employer] speech recognition software. If any discrepancy or [...] SNOMED-CT Code Diagnosis ICD10 Code Diagnosis Note [id number] Clark Pope DPM [facility] [address] [phone] 04/09/2024 15:38:52 04/09/2024 17:16:49 Peroneal tendinitis 79342970 M76.71 Pain of ri ght ankle joint 6926682314 2866866 M25.571 Health Concerns Section Related Observation LastModified by Organization Detai ls LastModified Time None Recorded Concern Status LastModified by Organization Details LastModified Time None Recorded Advance Directives Directive None Recorded Payers Insurance Date Sequence Insurance Name Policy Number Policy Richards Covered Member ID Richards Member ID Guarantor Name 03/25/2024 3 [place] [facility] Kathy Velazquez [id number] Kathy Velazquez 03/25/2024 2 [place] [facility] Kathy Velazquez [id number] Kathy Velazquez 04/09/2024 1 [facility] [facility] PLAN (MEDICAID HMO) [employer] Kathy Velazquez [id number] Kathy Velazquez Notes Date Note Type Note Provider Name and Address Organization Details Recorded Time 04/09/2024 text/html [facility] by[facility].Notes:Hilton hatch presents today for evaluation right ankle pain. She states it started about 2 or 3 months ago. She was receiving gel injections in her right knee for Dr. Fisher's office. The physician assistant prosecuting attorney recommended using an ankle brace that she was having swelling and pain on the outside part of the ankle. She started wearing ankle brace 2 weeks ago and has noticed a marked improvement. It does occasionally walk up on her and she notices it when she drives for long periods of time. Clark Pope DPM [address] [place] [address], [phone], [facility] - [facility], [facility] 04/09/2024 16:30:43 OBGyn Episode No OBEpisode recorded.
== END 2024-12-10 09:56 | disposition home or self-care (01) ==
LOC: HO.HMCC 09:37
PROVIDERS: PCP Internal Medicine; Visit Provider Internal Medicine
DX: M47.26 Other spondylosis with radiculopathy, lumbar region (principal); E66.09 Other obesity due to excess calories; Z68.31 Body mass index [BMI] 31.0-31.9, adult; E78.9 Disorder of lipoprotein metabolism, unspecified; E03.8 Other specified hypothyroidism; M54.50 Low back pain, unspecified

== ENCOUNTER 2024-12-10 09:36 | Outpatient (REF) | payer OTHER, SELFPAY ==
--- NOTE | ~2024-12-10 | XR_ITS ---
EXAMINATION: XR LUMBOSACRAL SPINE CLINICAL INFORMATION: M54.50 - Low back pain, unspecified COMPARISON: None available. TECHNIQUE: Three views of the lumbosacral spine. FINDINGS: Multilevel marginal osteophyte formation, endplate sclerosis decreased intervertebral disc height at the lower thoracic spine. Grade 1 anterolisthesis L4-5. Small marginal osteophyte formation at multiple levels of the lumbar spine. Facet joint hypertrophy at L5-S1 and L4-5 levels. S-shaped curvature of the lumbar spine. Rudimentary ribs at T12. Vascular clips right upper quadrant abdomen and sutures in the right hemiabdomen. XR/XR lumbar spine 2-3V IMPRESSION: Multilevel thoracolumbar spondylosis resulting in grade 1 anterolisthesis L4-5. Electronically signed by: Felix Schuster MD 12/10/2024 10:21 AM EDT
--- OUTSIDE RECORDS SUMMARY | 2024-12-10 11:20 | XMS_ITS | Clinical Summary ---
Author Organization [facility] Address [address] [place] [address] Care Team Providers Care Nurse Receptionist Name Role Phone Marianela Plummer Primary Care Provider [phone] Allergies Active Allergy Reactions Criticality Noted Date Comments Allergen Fzf-Mwqub-Horjf Bee Itching,Oth er (see comments),Swelling High 01/20/2002 [...] Team Description 09/23/2024 2:45 PM EST Follow-Up [facility] [address] [place] [phone] Piano Technician: Alexandre Calvillo MD Visit for suture removal (Primary Dx) 09/22/2024 myChart Message [facility] [address] [place] [phone] Piano Technician: Jak Jolly MD Upload photo of Mohs wound to this converstation 09/22/2024 Telephone [facility] [address] [place] [phone] Piano Technician: Jak Jolly MD 09/18/2024 Telephone [facility] [address] [place] [phone] Piano Technician: Charline Sandhu MD 09/16/2024 1:00 PM EST Procedure visit [facility] [address] [place] [phone] Piano Technician: Alexandre Calvillo MD Basal cell carcinoma (BCC) [...] Additional history exists Procedures * Due to [place] [employer] law, this organization might not be sharing negative HIV tests. Procedure Name Priority Date/Time Associated Diagnosis Comments MOHS SURGERY Routine 09/16/2024 Basal cell carcinoma (BCC) of skin of right upper lip from Last 3 Months Results * Due to [place] [employer] law, this organization might not be sharing [...] shar Patient Fasting?: No ?? Allergies: Allergen Lsc-Rgcih-Jhosz Bee Penicillins Implant Devices: ??Other (see comment) [...] shar Gamino Patient Fasting?: No Allergies: Allergen Prk-Ydquf-Ehsss Bee Penicillins Implant Devices: Other (see comment) [...] Result PROVATION from Last 3 Months Insurance [facility] MEDICAID Care Teams Nurse Receptionist Relationship Specialty Start Date End Date Marianela Plummer [address] [place] [address] PCP - General Internal Medicine 08/21/24
--- OUTSIDE RECORDS SUMMARY | 2024-12-10 11:20 | XMS_ITS | Referral Summary ---
Author Organization [facility] Address [address] [place] [address] Care Team Providers Care Freight Broker Name Role Phone Marianela Plummer Primary Care Provider [phone] Encounters Date Type Department Care Team Description 09/23/2024 2:45 PM EST Follow-Up [facility] [address] [place] [phone] On Call Pharmacy Technician: Alexandre Calvillo MD Visit for suture removal (Primary Dx) 09/22/2024 myChart Message [facility] [address] [place] [phone] On Call Pharmacy Technician: Jak Jolly MD Upload photo of Mohs wound to this converstation 09/22/2024 Telephone [facility] [address] [place] [phone] On Call Pharmacy Technician: Jak Jolly MD 09/18/2024 Telephone [facility] [address] [place] [phone] On Call Pharmacy Technician: Charline Sandhu MD 09/16/2024 1:00 PM EST Procedure visit [facility] [address] [place] [phone] On Call Pharmacy Technician: Alexandre Calvillo MD Basal cell carcinoma (BCC) of skin of right upper lip (Primary Dx) from Last 3 Months Allergies Active Allergy Reactions Criticality Noted Date Comments Allergen Ipg-Ugauu-Gplgm Bee Itching,Oth er (see comments),Swelling High 01/20/2002 [...] Not on file Procedures * Due to [place] [employer] law, this organization might not be sharing negative HIV tests. Procedure Name Priority Date/Time Associated Diagnosis Comments MOHS SURGERY Routine 09/16/2024 Basal cell carcinoma (BCC) of skin of right upper lip from Last 3 Months Results * Due to [place] [employer] law, this organization might not be sharing [...] shar Patient Fasting?: No ?? Allergies: Allergen Byw-Gnhjj-Cbapo Bee Penicillins Implant Devices: ??Other (see comment) [...] shar Gamino Patient Fasting?: No Allergies: Allergen Cgb-Qykop-Kzlyl Bee Penicillins Implant Devices: Other (see comment) [...] Result PROVATION from Last 3 Months Insurance [facility] MEDICAID Care Teams Freight Broker Relationship Specialty Start Date End Date Marianela Plummer [address] [place] [address] PCP - General Internal Medicine 08/21/24
== END 2024-12-10 09:37 | disposition home or self-care (01) ==
LOC: HO.HMGCX 09:36
PROVIDERS: PCP Internal Medicine; Visit Provider Internal Medicine
DX: M47.26 Other spondylosis with radiculopathy, lumbar region (principal); E66.09 Other obesity due to excess calories; Z68.31 Body mass index [BMI] 31.0-31.9, adult; E78.9 Disorder of lipoprotein metabolism, unspecified; E03.8 Other specified hypothyroidism; M54.50 Low back pain, unspecified; G89.29 Other chronic pain
CPT/HCPCS: 72100; 99212

== ENCOUNTER → 2024-12-10 10:01 | Outpatient (BNV) | payer OTHER, SELFPAY | PROVIDERS: PCP Internal Medicine; Visit Provider Radiology Diagnostic Radiology | DX: M47.895 Other spondylosis, thoracolumbar region (principal) | CPT/HCPCS: 72100 ==

== ENCOUNTER 2024-12-26 09:26 | Outpatient (AMB) | payer OTHER, SELFPAY ==
[2024-12-26 09:30] VITALS: BP 137/79; PULSE 98; RESP 16; O2SAT 98; BMI 30.3
--- NOTE | 2024-12-26 09:30 | A.OFFVIS_ITS ---
Vital Signs 12/26/24 09:30 Height 5 ft 8 in Weight 199 lb BMI 30.3 BP 137/79 Blood Pressure Location Lt brachial Position Sitting Respiration 16 Pulse 98 Pulse Source Pulse Oximeter Pulse Oximetry (%) 98 Oxygen Delivery Method Room Air Intake Visit Reasons: Low back pain, unspecified Recreational Therapy Technician Required: No Allergies Penicillins Allergy (Mild, Verified 12/10/24 09:41) rash bee Allergy (Severe, Uncoded 11/11/24 08:58) Swelling HPI Comments Details: The patient is a 59-year-old female presenting with chronic lower back pain that has persisted since approximately 2015. Initial diagnosis revealed a lumbar cyst between the L4 and L5 vertebrae, which was treated with injections leading to its resolution. However, the patient continues to suffer from chronic pain impacting her quality of life. The pain is particularly exacerbated by walking, using stairs, or standing for extended periods without leaning forward. This Sharp, shooting pain radiates down her left leg to the thigh, sometimes accompanied by tingling sensations. Over the years, the patient's pain has restricted her ability to engage in daily activities and contribute to progressive weight gain due to reduced activity levels. She has a history of right knee osteoarthritis, a condition which causes pain managed via steroid injections, though still leads to episodes of severe pain disrupting her sleep. Despite previous physical therapy and chiropractic interventions, her condition has shown minimal improvement prompting further evaluation and consideration for advanced imaging studies to monitor progression of lumbar spinal stenosis. She continues with HEP including use of exercise band s during stretches but her pain persists. - Onset/Timing: - Initial onset in 2015, persisting chronically since then. - Quality/Character: - Sharp, shooting pain radiating down the left leg, occasionally tingling. - Primary Location and Radiation: - Originates in the lower back, radiates down the left thigh. - Aggravating Factors: - Walking, standing upright, using stairs. - Alleviating Factors: - Leaning forward provides temporary relief. - Interference with Activities: - Limits ability to walk, stand for long periods, engage in yoga and routine activities. - Affect: - Chronic pain impacting the patient's quality of life and ability to participate in formerly enjoyed activities such as walking and yoga. - Analgesia: - Aleve provides some relief; however, pain persists and fluctuates in intensity. - Adverse Effects: - No specific side effects reported from current pain management regimen. - Activities of Daily Living: - Significant limitations on walking, standing, and exercise due to pain. - Weight gain attributed to decreased physical activity. - Aberrant Drug Related Behaviors: - No aberrant drug-related behaviors discussed or noted. Denies red flag symptoms including new loss of bowel, bladder or saddle anesthesia Denies implantable devices, pacemaker or defibrillator Denies current use of anticoagulants PFSH Family History Daughter Mental health disorder Social History Housing: House Patient Tobacco Use Status: Never used Tobacco e-Cigarette/Vaping Use: Never Used service: No Current occupational status: employed Cognitive needs: No Hearing needs: No Vision needs: Yes Review of Systems Const Details: - Musculoskeletal: Reports chronic lower back pain, intermittent right knee pain, radiating pain to the left thigh. Denies pain in the sacroiliac joints. - Neurological: Reports shooting pain radiating down the left leg to the thigh, possible tingling sensations. - Genitourinary: Denies incontinence but reports occasional urgency. Physical Exam Vital Signs: Last Vital Signs Pulse 98 12/26/24 09:30 Resp 16 12/26/24 09:30 BP 137/79 12/26/24 09:30 Pulse Ox 98 12/26/24 09:30 Oxygen Delivery Method Room Air 12/26/24 09:30 BMI result Body Mass Index 30.3 General: awake, alert, oriented. Answers questions appropriately. Fully engaged in examination. Skin: warm, dry, intact HEENT: Normocephalic. Hearing intact. Cardiac: External chest normal in appearance. Respiratory: No cough, audible wheezing or stridor. Abdomen: without gross distension. MS: No obvious swelling or deformities. Able to stand on bilateral tiptoes and bilateral heels.? Able to transition from sit to stand unassisted. Ambulates with bilaterally normal heel strike and toe off Maintain slight forward flexed position. Nontender over bilateral PSIS Tenderness over midline lumbar vertebrae and lumbar paraspinal muscles SLR negative bilaterally Bilateral lower extremity strength 5/5 Facet loading positive RAMIN positive on the left Neurological: Oriented to person, place, time and situation. Thought process intact. No gait abnormalities appreciated. Psychiatric: Appropriate mood and affect. Good judgment and insight. Results Reviewed Results Reviewed: 12/10/24 XR/XR lumbar spine 2-3V FINDINGS: Multilevel marginal osteophyte formation, endplate sclerosis decreased intervertebral disc height at the lower thoracic spine. Grade 1 anterolisthesis L4-5. Small marginal osteophyte formation at multiple levels of the lumbar spine. Facet joint hypertrophy at L5-S1 and L4-5 levels. S-shaped curvature of the lumbar spine. Rudimentary ribs at T12. Vascular clips right upper quadrant abdomen and sutures in the right hemiabdomen. IMPRESSION: Multilevel thoracolumbar spondylosis resulting in grade 1 anterolisthesis L4-5. MRI lumbar spine 07/04/2020 completed at [facility]: Impression: 1. Presumed synovial cyst associated with the right facet joint at L4-5 effacing and displacing the thecal sac to the left is no longer demonstrated. There is moderate persisting central canal stenosis at L4-5 which is mildly improved from 01/16/2017. 2. Mild progressive degenerative change at L4-5. 3. No other significant changes from 01/16/2017 MRI lumbar spine 01/16/2017: Impression: 1. Moderate-severe central canal stenosis at L4-5 which appears to be due to combination of moderate-severe facet arthropathy with thickening of ligamentum flavum and what is likely a 9 mm x 5 mm synovial cyst on the right which effaces and displaces the thecal sac towards the left. 2. Severe facet arthropathy at L5-S1 with a very mild grade 1 spondylosis of L5 on S1 which is almost certain degenerative. No evidence of spinal stenosis at this level. 3. Moderate narrowing of the left neural foramina at L4-5 and mild-moderate narrowing of the right neural foramen at this level due to disc-osteophyte and facet arthropathy. Assessment & Plan Assessment & Plan (1) Spinal stenosis: Code(s): M48.00 - Spinal stenosis, site unspecified Category: Medical (2) Degenerative joint disease (DJD) of lumbar spine: Code(s): M47.816 - Spondylosis without myelopathy or radiculopathy, lumbar region Category: Medical Qualifiers: Spinal osteoarthritis complication: with radiculopathy Qualified Code(s): M47.26 - Other spondylosis with radiculopathy, lumbar region (3) Lumbar spondylosis: Code(s): M47.816 - Spondylosis without myelopathy or radiculopathy, lumbar region Category: Medical Plan I will proceed with acquiring an updated MRI of the lumbar spine to evaluate any further stenosis since prior imaging. Upon assessing the MRI, we will consider a precise steroid injection to mitigate pain caused by potential lumbar stenosis. This intervention aims to jono the patient symptomatic relief, enabling increased physical activity that may assist in addressing her weight concerns. If the MRI does not show significant progression in narrowing, or interventions fail to alleviate her condition, surgical consultation may be pursued as a last resort, although patient apprehension towards surgery is noted. Continued adherence to the home exercise regimen will be emphasized, and detailed expenditures will be made to assure insurance compliance for further physical therapy if necessitated. During our conversation, I discussed the likely causes of her symptoms, focusing on lumbar spinal stenosis and degenerative arthritis as primary contributors. I recommended obtaining an updated MRI to evaluate for potential progression of the stenosis and discussed the possible management options, including considerat ion of a corticosteroid injection for symptomatic relief. We discussed the risks and possible benefits of such an intervention, along with the fact that surgery would be considered if necessary and less invasive measures fail. We also reviewed her adherence to home exercises post-physical therapy and established the expectations from upcoming imaging studies. Future considerations of involving a surgeon were agreed to be the last option. Patient was informed and verbally consented to the use of an ambient scribe for clinic note documentation during this visit. Orders: Orders MR lumbar spine wo con Today M47.26 - Other spondylosis with radiculopathy, lumbar region, M47.816 - Spondylosis without myelopathy or radiculopathy, lumbar region, M48.00 - Spinal stenosis, site unspecified Patient Instructions: - Follow up with us if you do not receive a call for the MRI scheduling. - Continue performing your home exercise regimen as previously instructed by your physical therapy. - Stay active within your pain threshold; light exercises are encouraged once pain management allows. - Reach out through the patient portal or call our office with any questions or concerns. - If you experience any new or worsening symptoms, such as loss of bladder control or severe debilitation, seek medical attention promptly. Coding Level of Care Code New Pt Level 4 (64265) Complex EM visit Add On G2211 Diagnoses Spinal stenosis M48.00 Osteoarthritis of spine with radiculopathy, lumbar region M47.26 Spinal osteoarthritis complication: with radiculopathy Lumbar spondylosis M47.816
--- OUTSIDE RECORDS SUMMARY | 2024-12-26 10:02 | XMS_ITS | Data Portability ---
Author Organization [facility], [facility] Address [address] [place] [id number] Care Team Providers Care Cable Repairer Name Role Phone KAUR DEY Referring Provider [...] intra-artic ular suspension, extended release [address]/[facility][id number], [address] [place] [address], [address], 5 11:46:26 Depo-Medrol 40 mg/mL suspension for injection 2024 [id number] [address] [place] [address], [address], 5 12:08:37 Euflexxa 10 mg/mL (mw 2.4-3.6 million) intra-artic ular syringe [address]/[facility][id number], [address] [place] [address], [address], 4 14:18:08 Euflexxa 10 mg/mL (mw 2.4-3.6 million) intra-artic ular syringe [address]/[facility][id number], [address] [place] [address], [address], 4 09:29:21 Euflexxa 10 mg/mL (mw 2.4-3.6 million) intra-artic ular syringe [address]/[facility][id number], [address] [place] [address], [address], 15:06:09 Patient TargetsNo targets recorded. Patient InstructionsNo instructions recorded. Reason for Referral None Reported. Problems Name Problem SNOMED Code Status Onset Date Resolution Date Notes Provider Name and Address Organization Details Recorded Time Complicati on of anesthesia 41233085 Active 2022 Latesha gonzalez, [facility] 3 01:11:15 Arthritis 3173061 Active 2022 Latesha gonzalez, [facility] 3 01:11:22 Osteoarthr itis 743752546 Active 2022 Latesha gonzalez, [facility] 3 01:11:28 Total knee replacemen t Active 2022 Lateshapriti gonzalez, [facility] 3 01:11:38 Rupture of rotator cuff of shoulder 302847561 Active 2022 complete rotator cuff tear or rupture of right shoulder, not specified as traumatic [facility] 01:12:34 Tear of medial meniscus of knee 924030831 Active 2022 Latesha gonzalez, [facility] 3 01:12:56 Impingemen t syndrome of shoulder region 989250549 Active 2022 right shoulder Lateshapriti gonzalez, [facility] 3 01:13:12 Problem Notes None recorded. Procedures Surgical History Date Name Laterality Status Provider Name and Address Organization Details Recorded Time 2024 Corticosteroid Injection - Zilretta completed Deondre Bronson PA-C [address] [place] [address], [phone], [facility] 10/21/2024 11:45:59 2024 Intra-articular Knee Steroid Injection completed Deondre Bronson PA-C [address] [place] [address], [phone], [facility] 08/04/2024 11:01:40 2023 Viscosupplementation Knee completed Deondre Bronson PA-C [address] [place] [address], [phone], [facility] 04/08/2024 14:18:06 2023 Viscosupplementation Knee completed Deondre Bronson PA-C [address] [place] [address], [phone], [facility] 04/01/2024 09:29:19 2023 Viscosupplementation Knee completed Deondre Bronson PA-C [address] [place] [address], [phone], [facility] 03/25/2024 15:02:51 2023 Intra-articular Knee Steroid Injection completed Deondre Bronson PA-C [address] [place] [address], [phone], [facility] 12/28/2023 12:44:01 2023 Intra-articular Knee Steroid Injection completed Deondre Bronson PA-C [address] [place] [address], [phone], [facility] 09/17/2023 11:58:11 2022 Intra-articular Knee Steroid Injection completed Deondre Bronson PA-C [address] [place] [address], [phone], [facility] 04/10/2023 15:26:45 2022 Intra-articular Knee Steroid Injection completed Deondre Bronson PA-C [address] [place] [address], [phone], [facility] 11/21/2022 17:45:19 2015 total knee replacement completed Latesha Burger [facility] 11/20/2022 01:14:37 2011 Knee arthroscopy/surgery completed Not Available [facility] 09/14/2011 03:36:58 2010 Knee Surgery completed Latesha Burger [facility] 11/20/2022 01:14:20 1995 Section completed Latesha Burger [facility] [place] 11/20/2022 01:14:08 Joint Replacement completed Noreen Lopez [facility] [place] 11/20/2022 13:14:12 Other Surgeries completed Dai Singerucher [facility] [place] 09/17/2023 11:48:36 Imaging Results None recorded. Procedure Notes None recorded. Medical Equipment None Reported. Allergies Allergen ID Allergen Name Allergen Category Reaction Reaction Severity Criticality Documentation Date Start Date Code Code System Note Provider Name and Address Organization Details Recorded Time 611034 Product containin g penicilli n (product) medicatio n rash Not available Not available 11/20/2022 70175 8001 SNOMED Latesha Burger [facility] 01:15:24 784291 bee pollen environme nt,medica tion Not available Not available Not available 11/20/2022 38694 7 RxNorm Latesha Burger [facility] 3 01:16:01 761163 ethinyl estradiol / levonorge strel medicatio n Not available Not available Not available 11/20/2022 14772 8 RxNorm Latesha Burger [facility] 01:16:07 340583 POLLEN EXTRACTS environme nt,medica tion Not available Not available Not available 11/20/2022 18268 6 RxNorm Noreen Lesniewsk ruben [facility] 3 13:13:50 055241 mold extract environme nt Not available Not available Not available 11/20/2022 63326 8 RxNorm Noreen Lesniewsk ruben [facility] 3 13:13:50 075943 insect venom environme nt itching other Not available Not available Not available 11/20/2022 84130 UNK Noreen Fannyk ruben [facility] 3 13:13:50 Medications Name Sig [...] Available Not Available No t Available Transderm-S marketing copywriter 1 mg over 3 days transdermal patch [...] Updated DateTime 08/04/2024 172.72 cm 33.1 kg/m2 46688.14 g Yomaira Tomas [facility]. 08/04/2024 10:26:36 Date Recorded Body height Body mass index (BMI) Body weight Provider Name and Address Organization Details Last Updated DateTime 10/21/2024 172.72 cm 30.9 kg/m2 37622.25 g Dorota Michaud [facility] 10/21/2024 10:44:24 Date Recorded Body height Body mass index (BMI) Body weight Provider Name and Address Organization Details Last Updated DateTime 04/01/2024 172.72 cm 29.3 kg/m2 42323.33 g Payton Rollins [facility] 04/01/2024 08:35:29 Date Recorded Body height Body mass index (BMI) Body weight Provider Name and Address Organization Details Last Updated DateTime 04/08/2024 172.72 cm 29.3 kg/m2 32687.33 g Dai Forbes [facility] [place] 04/08/2024 13:48:49 Social History Question Answer Notes [...] Of Your Most Recent Tobacco Screening? 10/21/2024 [email or web address] Information not available 10/21/2024 Have You Ever Been Counseled For Unhealthy Alcohol Use? No sadu Information not available 08/04/2024 Do You Have Any Pets? Yes Information not available 11/20/2022 What Is Your Relationship Status? Information not available 11/20/2022 Has Tobacco Cessation Counseling Been Provided? 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 Moderate Information not available 11/20/2022 Mental Status Question Answer Note LastModified by Organization D etails LastModified Time Do you feel stressed (tense, restless, nervous, or anxious, or unable to sleep at night)? [id number] [email or web address] Information not available 04/10/2023 Family History Relationship [...] SNOMED-CT Code Diagnosis ICD10 Code Diagnosis Note [id number] Deondre Bronson PA-C [facility] [address] [place] [phone] 11/20/2022 13:02:57 11/20/2022 13:44:20 Osteoarthritis of right knee joint 8370794200 55820 M17.11 Osteoarthr itis of left knee joint 3952999105 25502 M17.12 [id number] Clyde Fisher MD [facility] [address] [place] [address] [place] [address] 04/10/2023 14:46:22 04/10/2023 15:15:05 Osteoarthritis of right knee joint 3379039166 30523 M17.11 [id number] Clyde Fisher MD [facility] [address] [place] [phone] 6 09/17/2023 11:41:51 09/17/2023 11:43:08 Osteoarthritis of right knee joint 4059103690 32386 M17.11 [id number] Clyde Fisher MD [facility] [address] [place] [address] 12/28/2023 10:07:59 12/28/2023 10:40:19 Osteoarthritis of right knee joint 3653713454 11934 M17.11 [id number] Clyde Fisher MD [facility] [address] [place] [phone] 03/25/2024 14:43:16 03/25/2024 15:12:13 Osteoarthritis of right knee joint 5476906168 30301 M17.11 [id number] Clyde Fisher MD [facility] [address] [place] [phone] 6 04/01/2024 08:32:29 04/01/2024 08:48:46 Osteoarthritis of right knee joint 6836564457 49728 M17.11 [id number] Clyde Fisher MD [facility] [address] [place] [phone] 04/08/2024 13:42:36 04/08/2024 13:59:56 Osteoarthritis of right knee joint 6316954355 99806 M17.11 [id number] Clyde Fisher MD [facility] [address] [place] [phone] 08/04/2024 10:15:48 08/04/2024 10:41:26 Osteoarthritis of right knee joint 8974080220 92188 M17.11 [id number] Clyde Fisher MD [facility] [address] [place] [phone] 10/21/2024 10:41:16 10/21/2024 11:42:46 Osteoarthritis of right knee joint 2883996463 78225 M17.11 Health Concerns Section Related Observation LastModified by Organization Detai ls LastModified Time None Recorded Concern Status LastModified by Organization Details LastModified Time None Recorded Advance Directives Directive Y: Payers Encounter Date Sequence Insurance Name Policy Number Policy Richards Covered Member ID Richards Member ID Guarantor Name 03/25/2024 1 [facility] [employer] (MEDICAID REPLACEMENT - HMO) [employer] Kathy Caroline [id number] Kathy Velazquez 04/01/2024 1 [facility] [employer] (MEDICAID REPLACEMENT - HMO) [employer] Kathy Velazquez [id number] Kathy Velazquez 04/08/2024 1 [facility] [employer] (MEDICAID REPLACEMENT - HMO) [employer] Kathy Velazquez [id number] Kathy Velazquez 08/04/2024 1 [facility] [employer] (HMO) [employer] Kathy B Caroline [id number] Kathy Velazquez 10/21/2024 1 [facility] [employer] (HMO) [employer] Kathy B Caroline [id number] Kathy Velazquez Notes Date Note Type Note Provider Name and Address Organization Details Recorded Time 03/25/2024 text/html Patient presents for her first right knee Euflexxa injection. Deondre Bronson PA-C [address] [place] [address], [phone], [facility]. 03/25/2024 15:06:53 04/01/2024 text/html Patient presents for her second right knee Euflexxa injection. She denies any adverse effects following previous injection. Deondre Bronson PA-C [address] [place], [phone], [facility] 04/01/2024 09:30:56 04/08/2024 text/html Patient presents for her third right knee Euflexxa injection. She denies any adverse effects following previous injections. Deondre Bronson PA-C [address] [place], [phone], [facility] 04/08/2024 14:25:07 08/04/2024 text/html Patient [...] by Dr. Fisher. Deondre Bronson PA-C [address] [place], [phone], [facility] 08/04/2024 12:11:03 10/21/2024 text/html Patient presents for right knee Zilretta injection. Deondre Bronson PA-C [address] [place], [phone], [facility] 10/21/2024 11:47:05 OBGyn Episode No OBEpisode recorded.
== END 2024-12-26 09:59 | disposition home or self-care (01) ==
LOC: HO.PMC 09:27
PROVIDERS: PCP Internal Medicine; Referring Provider Internal Medicine; Visit Provider Registered Nurse Emergency
DX: M48.00 Spinal stenosis, site unspecified (principal); M47.26 Other spondylosis with radiculopathy, lumbar region; M47.816 Spondylosis without myelopathy or radiculopathy, lumbar region
CPT/HCPCS: 99204; G2211

== ENCOUNTER → 2024-12-26 09:26 | Outpatient (BNVA) | payer OTHER, SELFPAY | PROVIDERS: PCP Internal Medicine; Referring Provider Internal Medicine; Visit Provider Registered Nurse Emergency | DX: M48.061 Spinal stenosis, lumbar region without neurogenic claudication (principal); M47.816 Spondylosis without myelopathy or radiculopathy, lumbar region; M47.26 Other spondylosis with radiculopathy, lumbar region | CPT/HCPCS: 99202 ==

== ENCOUNTER → 2024-12-31 19:29 | Outpatient (BNV) | payer OTHER, SELFPAY | PROVIDERS: PCP Internal Medicine; Visit Provider Radiology Diagnostic Radiology | DX: M43.16 Spondylolisthesis, lumbar region (principal) | CPT/HCPCS: 72148 ==

== ENCOUNTER 2024-12-31 19:30 | Outpatient (REF) | payer OTHER, SELFPAY ==
--- NOTE | ~2024-12-31 | MR_ITS ---
EXAMINATION: MR LUMBAR SPINE WITHOUT CONTRAST CLINICAL INFORMATION: Spinal stenosis, site unspecified. COMPARISON: None available. TECHNIQUE: MRI of the lumbar spine was obtained using routine sequences without contrast. FINDINGS: Last rib-bearing vertebra labeled T12. Mild bone marrow STIR signal in the posterior elements of L5 and S1. Disc desiccation, L4-5. Grade 1 anterolisthesis L4-5. Grade 1 retrolisthesis L2-3. Conus medullaris ends at superior endplate of L1 with normal signal. 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 T12-L1: No disc herniation. Facet joint hypertrophy. No neuroforamina stenosis. L1-2: Facet joint and ligamentum flavum hypertrophy. No disc herniation. No neuroforamina stenosis. No central spinal canal stenosis. L2-3: Broad-based disc bulging. Facet joint and ligamentum flavum hypertrophy. No disc herniation. Reduced AP diameter of the thecal sac. No gross neuroforamina stenosis. L3-4: Broad-based disc bulging. Facet joint and ligamentum flavum hypertrophy. Reduced AP diameter of the thecal sac encroaching the neural elements. Bilateral neuroforamina narrowing. L4-5: Grade 1 anterolisthesis. Facet joint and ligamentum flavum hypertrophy. Facet effusion, bilaterally. 5 mm fluid signal characteristic abnormality beneath the left ligamentum flavum and posterior medial to the facet joint. CSF effacement of the thecal sac. Central spinal canal stenosis compressing the neural elements of the thecal sac. Bilateral neuroforamina narrowing encroaching the L4 exiting nerve roots. L5-S1: Broad-based disc bulging. Facet joint and ligamentum flavum hypertrophy. Reduced AP diameter of the thecal sac and bilateral neuroforamina narrowing encroaching the neural elements, S1 and L5 nerve roots. Facet effusions, bilaterally. 11 mm fluid signal characteristic anterior lateral to the right facet joint. No prevertebral compartment hematoma, or mass . MR/MR lumbar spine wo con IMPRESSION: Grade 1 anterolisthesis L4-5 likely secondary to spondylolysis pars interarticularis resulting in central spinal canal stenosis compressing the neural elements of the thecal sac and bilateral neuroforamina narrowing encroaching the L4 exiting nerve roots. Spondylosis L3-4 and L5-S1 resulting in mild central spinal canal and bilateral neuroforamina stenosis. 5 mm synovial cyst beneath the ligamentum flavum, left L4-5. 11 mm synovial cyst without compression upon neural elements, anterior lateral right L5-S1 facet joint. Electronically signed by: Felix Schuster MD 01/01/2025 09:30 AM EDT
--- OUTSIDE RECORDS SUMMARY | 2024-12-31 19:39 | XMS_ITS | Referral Summary ---
Author Organization [facility] Address [address] [place] [address] Care Team Providers Care Service Writer Advisor Name Role Phone Marianela Plummer Primary Care Provider [phone] Allergies Active Allergy Reactions Criticality Noted Date Comments Allergen Jeb-Tkouu-Zzxsb Bee Itching,Oth er (see comments),Swelling High 01/20/2002 [...] take if . 10 capsule 09/24/19 Active Social History Tobacco Use Types Packs/Day [...] - Plan of Treatment Not on file Insurance [employer] Care Teams Service Writer Advisor Relationship Specialty Start Date End Date Marianela Plummer [address] [place] [address] PCP - General Internal Medicine 08/21/24
== END 2024-12-31 19:31 | disposition home or self-care (01) ==
LOC: HO.MRI 19:30
PROVIDERS: PCP Internal Medicine; Visit Provider Registered Nurse Emergency
DX: M48.00 Spinal stenosis, site unspecified (principal); M47.26 Other spondylosis with radiculopathy, lumbar region; M47.816 Spondylosis without myelopathy or radiculopathy, lumbar region
CPT/HCPCS: 72148

== ENCOUNTER 2025-01-09 08:23 | Outpatient (REF) | payer OTHER, SELFPAY ==
--- OUTSIDE RECORDS SUMMARY | 2025-01-09 08:29 | XMS_ITS | Referral Summary ---
Author Organization [facility] Address [address] [place] [address] Care Team Providers Care General Manager Food Name Role Phone Marianela Plummer Primary Care Provider [phone] Allergies Active Allergy Reactions Criticality Noted Date Comments Allergen Keo-Bfmtm-Beaih Bee Itching,Oth er (see comments),Swelling High 01/20/2002 [...] on file Insurance [employer] Care Teams General Manager Food Relationship Specialty Start Date End Date Marianela Plummer [address] [place] [address] PCP - General Internal Medicine 08/21/24
[2025-01-09 11:42] LABS: MANUAL DIFF FLAG NO
[2025-01-09 11:44] LABS: Basophils Percent Auto 0.5 % (0-2); Eosinophils Absolute Auto 0.2 X10*3/uL (0.0-0.4); Eosinophils Percent Auto 3.2 % (0-4); Hematocrit 43.3 % (37.0-47.0); Hemoglobin 14.2 g/dl (12.0-16.0); Imm Gran Abs Auto 0.02 X10*3/uL (0.00-0.03); Imm Gran Pct Auto 0.3 % (0.0-0.4); Lymphocytes Absolute Auto 1.9 X10*3/uL (1.2-4.9); Mean Corpuscular HGB Conc 32.8 g/dl (31.0-35.0); Mean Corpuscular Hemoglobin 30.1 pg (27.0-33.0); Mean Corpuscular Volume 91.7 fL (80.0-98.0); Mean Platelet Volume 9.9 fL (9.4-12.3); Monocytes Absolute Auto 0.6 X10*3/uL (0.1-1.2); Neutrophils Absolute Auto 3.5 x10*3/uL (2.0-8.3); Platelet Count 258 X10*3/uL (160-400); Red Blood Count 4.72 X10*6/uL (4.20-5.50); Red Cell Distribution Width 12.7 % (11.0-16.0); White Blood Count 6.2 X10*3/uL (4.8-10.8)
[2025-01-09 12:27] LABS: Alanine Aminotransferase 31 U/L (0-31); Albumin Level 4.3 g/dL (3.5-5.0); Alkaline Phosphatase 118 U/L (39-117); Anion Gap 11 (12-20); Aspartate Amino Transferase 29 U/L (5-31); Bilirubin Total 0.5 mg/dL (0.0-1.0); Blood Urea Nitrogen 15 mg/dL (9-16); Calcium 9.6 mg/dL (8.4-10.2); Carbon Dioxide 27 mmol/L (22-29); Chloride 103 mmol/L (96-108); Cholesterol 169 mg/dL (<200); Estimated Glomerular Filt Rate > 60; Glucose Fasting 92 mg/dL (60-99); Glucose Random 92 mg/dL (60-115); HDL Cholesterol 56 mg/dL (>40); LDL Cholesterol Calculated 98 mg/dL (<100); Sodium 137 mmol/L (135-145); TSH reflex Free T4 2.55 uIU/mL (0.32-4.0); Total Protein 7.3 g/dL (6.5-8.0); Triglycerides 75 mg/dL (<150)
== END 2025-01-09 08:24 | disposition home or self-care (01) ==
LOC: HO.WFDLDS 08:23
PROVIDERS: Visit Provider Internal Medicine
DX: R79.89 Other specified abnormal findings of blood chemistry (principal); E66.09 Other obesity due to excess calories; Z68.31 Body mass index [BMI] 31.0-31.9, adult; E03.8 Other specified hypothyroidism; E78.9 Disorder of lipoprotein metabolism, unspecified; M19.90 Unspecified osteoarthritis, unspecified site
CPT/HCPCS: 36415; 80053; 80061; 84443; 85025

== ENCOUNTER 2025-01-14 12:28 | Outpatient (AMB) | payer OTHER, SELFPAY ==
--- NOTE | 2025-01-14 12:30 | MHC.PC.OV ---
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 Allergies Penicillins Allergy (Mild, Verified 01/14/25 12:32) rash bee Allergy (Severe, Uncoded 11/11/24 08:58) Swelling Medication List - Last Reconciled 01/14/25 by Marianela Plummer MD atorvastatin 10 mg PO BEDTIME epinephrine (EpiPen 2-Tramaine) 0.3 mg (0.3 mL) IM Q10M PRN levothyroxine 75 mcg PO DAILY minoxidil 2.5 mg PO ONCE omeprazole 20 mg PO DAILY phentermine 37.5 mg PO DAILY 30 days Tobacco use date assessed: 11/11/24 Dental Screening Dental Screen Date: 11/11/24 HPI Annual PE~ HPI Details Physical exam appointment - The patient is a 59-year-old female presenting with back pain and weight management issues. - Back pain has been severe this month, limiting physical activity to gym visits twice. - MRI was conducted, and the patient is scheduled to meet with pain management. It is for her chronic lumbar pain - Weight was 203 pounds on December 14, decreased to 199 pounds early this month, and is now 201 pounds. Phentermine alone is not working, I have sent Topamax 25 mg to be taken once a day with phentermine - Urinary incontinence has been noted, with increased urgency and frequency. Start VESIcare - Knee pain persists, with a history of knee replacement surgery. - Varicose veins are present, with no significant symptoms reported. - Preventative care includes a mammogram conducted on the of this month and a colonoscopy last performed on February 10, 2022. Health Maintenance - Mammogram conducted on the of this month. - Colonoscopy last performed on February 10, 2022, with a recommendation for a five-year interval. Patient had a complication of perforation during her last colonoscopy and is now reluctant to have it again [facility] - OBGYN care at [facility] for 25 years. Has appointment coming up tomorrow - Considering a different sales expert home theater for future colonoscopy. Medications - Atorvastatin 10 mg for hyperlipidemia. - Levothyroxine 75 mg for hypothyroidism. - Omeprazole 20 mg for gastroesophageal reflux disease. - Phentermine 37.5 mg for weight management. Diagnostic results - Labs: CBC within normal limits, metabolic profile stable, kidney function intact, fasting glucose 92 mg/dL, liver enzymes stable, LDL 98 mg/dL, TSH within normal limits. - Imaging: MRI conducted for back pain, results pending detailed review. Patient Instructions - Continue current medications as prescribed. - Start new medication for urinary incontinence, monitor for side effects. VESIcare - Follow up with pain management for back pain management. - Schedule next colonoscopy in 2026. - start Topamax 1st await 1 week before starting VESIcare - continue phentermine - follow-up 1 month Review of Systems - General: No fever no chills - Neurological: No headaches no dizziness - Ear nose throat: No sore throat no hearing difficulty no ear pain - Cardiovascular: No syncope, no chest pain, no palpitations - Gastrointestinal: No nausea vomiting or diarrhea - Endocrine: No polyuria polydipsia no heat intolerance - Genitourinary: No dysuria - Skin: No new complaints Physical Exam General: Cooperative, healthy appearing, comfortable, no acute distress Orientation: Patient oriented x3 Head: Normal to inspection Ears: Within normal limit visually Nose: Normal external nose present Face and sinus: Normal facial exam Eyes: Appearance normal, extraocular movement intact pupils reactive Neck: Normal visual inspection and supple Respiratory: Normal respiratory effort and able to speak in complete sentences. Clear to auscultation, no stridor Cardiovascular: S1 and S2 RRR Breast exam through OBGYN GI: Normal to inspection. Soft to palpation and nontender Skin: Turgor normal, no acute findings Neuro: Patient oriented x3, motor sensory intact, balance intact, tandem pass Extremities: Normal to inspection, but patient reports knee issues and has had a knee replacement. Varicosities present right more than left lower extremity PFSH Family History Daughter Mental health disorder Social History Housing: House Patient Tobacco Use Status: Never used Tobacco e-Cigarette/Vaping Use: Never Used service: No Current occupational status: employed Cognitive needs: No Hearing needs: No Vision needs: Yes Questionnaire PHQ-9 Over the last 2 weeks, how often have you been bothered by any of the following problems? 1. Little interest or pleasure in doing things: not at all 2. Feeling down, depressed, or hopeless: not at all 3. Trouble falling or staying asleep, or sleeping too much: not at all 4. Feeling tired or having little energy: not at all 5. Poor appetite or overeating: not at all 6. Feeling bad about yourself - or that you are a failure or have let yourself or your family down: not at all 7. Trouble concentrating on things, such as reading the newspaper or watching television: not at all 8. Moving or speaking so slowly that other people could have noticed. Or the opposite - being so fidgety or restless that you have been moving around a lot more than usual: not at all 9. Thoughts that you would be better off or of hurting yourself in some way: not at all Total score: 0 Depression Screening Interpretation: Negative Depression Screening Done: Yes 61328 - PHQ-9 Billing: Yes Source: Developed by Drs. Clark Roy, Evette Guzman, Chip Esposito and colleagues, with an educational jono from [employer]. Thrive Questionnaire Date Thrive assessed: 01/14/25 I am a: Patient What is your living situation today?: I have a steady place to live Within the past 12 months, did the food you bought not last and you didn't have the money to get more?: Never true Within the past 12 months, did you worry whether your food would run out before you got money to buy more?: Never true Do you have trouble paying for medicines?: No Do you have trouble getting transportation to medical appointments?: No Do you have trouble paying your heating and electricity bill?: No Do you have trouble taking care of your child, family member or friend?: No Do you have trouble with day-to-day activities such as bathing, preparing meals, shopping, managing finances, etc.?: No Are you currently unemployed and looking for a job?: No Are you interested in more education?: No Please select the resources that you would like help with: None Currently or been in a relationship where the following occur: No concerns reported THRIVE Score: 0 AUDIT C Alcohol Use Questionnaire (AUDIT-C) 1. How often do you have a drink containing alcohol?: Never 3. How often do you have six or more drinks on one occasion?: Never Total Score: 0 Score Reviewed/Action Taken: Yes FELIPE-7 AMB Questionnaire FELIPE-7 Date FELIPE - 7 assessed: 01/14/25 Feeling nervous, anxious, or on edge: 0 = Not at all Not being able to stop or control worryin = Not at all Worrying too much about different things: 0 = Not at all Trouble relaxin = Not at all Being so restless that it is hard to sit still: 0 = Not at all Becoming easily annoyed or irritable: 0 = Not at all Feeling afraid as if something awful might happen: 0 = Not at all Total FELIPE-7 score (0-4 normal; 5-9 mild; 10-14 moderate; 15-21 severe): 0 Source: Developed by Drs. Clark Roy, Evette Guzman, Chip Esposito and colleagues, with an educational jono from [employer]. FELIPE-7 Assessment Billing FELIPE-7 Assessment Tool: FELIPE-7 Assessment 25067 Physical exam (Primary Care) Vital Signs: Last Vital Signs Pulse 94 01/14/25 12:31 BP 130/80 01/14/25 12:31 Pulse Ox 96 01/14/25 12:31 BMI result Body Mass Index 30.6 Tobacco/Smoking Status: Tobacco use Status Tobacco use date assessed 11/11/24 01/14/25 12:30 Patient Tobacco Use Status Never used Tobacco 01/14/25 12:30 e-Cigarette/Vaping Use Never Used 01/14/25 12:30 PHQ-9: PHQ-9 Score PHQ-9: Total score 0 01/14/25 12:51 Depression Screening Interpretation: Negative Thrive Assessment: Date of Thrive Assessment Date Thrive assessed 01/14/25 01/14/25 12:34 Currently or been in a relationship where the following occur: No concerns reported Coding Level of Care Code Est Pt Level 3 (27117) Est Pt Prev Care 40-64y(31787) Diagnoses Encounter for general adult medical examination with abnormal findings Z00.01 Urge incontinence of urine N39.41 Other specified hypothyroidism E03.8 Class 1 obesity due to excess calories with serious comorbidity and body mass index (BMI) of 31.0 to 31.9 in adult E66.09; Z68.31 Obesity classification: adult class 1 (BMI 30 - 34.9) Serious obesity comorbidity presence: with serious comorbidity Body mass index: BMI 31.0-31.9 Lipid disorder E78.9 Osteoarthritis involving multiple joints on both sides of body M15.9 Additional Codes FELIPE-7 Assessment Billing - FELIPE-7 Assessment Tool: FELIPE-7 Assessment 66115 ([id number]) PHQ-9 - 91054 - PHQ-9 Billing: Yes ([id number]) Assessment & Plan Assessment & Plan (1) Encounter for general adult medical examination with abnormal findings: Code(s): Z00.01 - Encounter for general adult medical examination with abnormal findings Category: Medical (2) Urge incontinence of urine: Code(s): N39.41 - Urge incontinence Category: Medical (3) Other specified hypothyroidism: Code(s): E03.8 - Other specified hypothyroidism Category: Medical (4) Obesity due to excess calories: Code(s): E66.09 - Other obesity due to excess calories Category: Medical Qualifiers: Obesity classification: adult class 1 (BMI 30 - 34.9) Serious obesity comorbidity presence: with serious comorbidity Body mass index: BMI 31.0-31.9 Qualified Code(s): E66.09 - Other obesity due to excess calories; Z68.31 - Body mass index [BMI] 31.0-31.9, adult (5) Lipid disorder: Code(s): E78.9 - Disorder of lipoprotein metabolism, unspecified Category: Medical (6) Osteoarthritis involving multiple joints on both sides of body: Code(s): M15.9 - Polyosteoarthritis, unspecified Category: Medical Plan Physical exam appointment - The patient is a 59-year-old female presenting with back pain and weight management issues. - Back pain has been severe this month, limiting physical activity to gym visits twice. - MRI was conducted, and the patient is scheduled to meet with pain management. It is for her chronic lumbar pain - Weight was 203 pounds on December 14, decreased to 199 pounds early this month, and is now 201 pounds. Phentermine alone is not working, I have sent Topamax 25 mg to be taken once a day with phentermine - Urinary incontinence has been noted, with increased urgency and frequency. Start VESIcare - Knee pain persists, with a history of knee replacement surgery. - Varicose veins are present, with no significant symptoms reported. - Preventative care includes a mammogram conducted on the of this month and a colonoscopy last performed on February 10, 2022. Health Maintenance - Mammogram conducted on the of this month. - Colonoscopy last performed on February 10, 2022, with a recommendation for a five-year interval. Patient had a complication of perforation during her last colonoscopy and is now reluctant to have it again - established with Dermatology for skin cancer screening [facility] - OBGYN care at [facility] for 25 years. Has appointment coming up tomorrow - Considering a different sales expert home theater for future colonoscopy. Medications - Atorvastatin 10 mg for hyperlipidemia. - Levothyroxine 75 mg for hypothyroidism. - Omeprazole 20 mg for gastroesophageal reflux disease. - Phentermine 37.5 mg for weight management. Diagnostic results - Labs: CBC within normal limits, metabolic profile stable, kidney function intact, fasting glucose 92 mg/dL, liver enzymes stable, LDL 98 mg/dL, TSH within normal limits. - Imaging: MRI conducted for back pain, results pending detailed review. Patient Instructions - Continue current medications as prescribed. - Start new medication for urinary incontinence, monitor for side effects. VESIcare - Follow up with pain management for back pain management. - Schedule next colonoscopy in 2026. - start Topamax 1st await 1 week before starting VESIcare - continue phentermine - follow-up 1 month Medications: New topiramate (Topamax) 25 mg PO DAILY 30 tabs 0RF solifenacin (Vesicare) 5 mg PO DAILY 30 tabs 0RF Refilled omeprazole 20 mg PO DAILY 90 caps 0RF phentermine must administer 2 hours after breakfast 37.5 mg PO DAILY 30 caps 0RF 30 days
[2025-01-14 12:31] VITALS: BP 130/80; PULSE 94; O2SAT 96; BMI 30.6
== END 2025-01-14 12:53 | disposition home or self-care (01) ==
LOC: HO.HMCC 12:29
PROVIDERS: PCP Internal Medicine; Visit Provider Internal Medicine
DX: Z00.00 Encounter for general adult medical examination without abnormal findings (principal); N39.41 Urge incontinence; E03.8 Other specified hypothyroidism; E66.09 Other obesity due to excess calories; Z68.31 Body mass index [BMI] 31.0-31.9, adult; E78.9 Disorder of lipoprotein metabolism, unspecified; M15.9 Polyosteoarthritis, unspecified

== ENCOUNTER → 2025-01-14 12:28 | Outpatient (BNVA) | payer OTHER, SELFPAY | PROVIDERS: PCP Internal Medicine; Visit Provider Internal Medicine | DX: Z00.01 Encounter for general adult medical examination with abnormal findings (principal); E66.811 Obesity, class 1; E66.01 Morbid (severe) obesity due to excess calories; M54.9 Dorsalgia, unspecified; M25.69 Stiffness of other specified joint, not elsewhere classified; I83.90 Asymptomatic varicose veins of unspecified lower extremity; N39.41 Urge incontinence; E03.8 Other specified hypothyroidism; M15.9 Polyosteoarthritis, unspecified; Z68.31 Body mass index [BMI] 31.0-31.9, adult | CPT/HCPCS: 96127; 99212; 99396 ==

== ENCOUNTER 2025-01-16 10:07 | Outpatient (AMB) | payer OTHER, SELFPAY ==
--- NOTE | 2025-01-16 10:09 | MHC.OFFVIS ---
Vital Signs 01/16/25 10:10 Height 5 ft 8 in Weight 200 lb BMI 30.4 BP 145/82 H Blood Pressure Location Rt brachial Position Sitting Respiration 16 Pulse 92 Pulse Source Pulse Oximeter Pulse Oximetry (%) 98 Oxygen Delivery Method Room Air Intake Visit Reasons: MRI review Bleach Packer Required: No Accompanied by: Self / Same As Patient Allergies Penicillins Allergy (Mild, Verified 01/16/25 10:14) rash bee Allergy (Severe, Uncoded 11/11/24 08:58) Swelling HPI Comments Details: The patient is a 59-year-old female presenting for follow up, review of recent MRI. Reports lower back pain with radiation down left leg to the thigh with some reported left leg weakness and fatigue. Pain exacerbated by walking, stairs and standing for extended period of time. MRI notable for recurrence of a synovial cyst at L4-5 causing spinal stenosis and associated symptoms. The patient previously had a cyst at the same location which resolved after receiving injections. Currently, the cyst has recurred, contributing to spinal stenosis and degenerative changes at L4-5. - Pain is located at L4-5 with associated leg weakness and fatigue. - Pain is exacerbated by the narrowing and compression of nerve roots. Prior visit from 12/26/24 The patient is a 59-year-old female presenting with chronic lower back pain that has persisted since approximately 2015. Initial diagnosis revealed a lumbar cyst between the L4 and L5 vertebrae, which was treated with injections leading to its resolution. However, the patient continues to suffer from chronic pain impacting her quality of life. The pain is particularly exacerbated by walking, using stairs, or standing for extended periods without leaning forward. This Sharp, shooting pain radiates down her left leg to the thigh, sometimes accompanied by tingling sensations. Over the years, the patient's pain has restricted her ability to engage in daily activities and contribute to progressive weight gain due to reduced activity levels. She has a history of right knee osteoarthritis, a condition which causes pain managed via steroid injections, though still leads to episodes of severe pain disrupting her sleep. Despite previous physical therapy and chiropractic interventions, her condition has shown minimal improvement prompting further evaluation and consideration for advanced imaging studies to monitor progression of lumbar spinal stenosis. She continues with HEP including use of exercise bands during stretches but her pain persists. - Onset/Timing: - Initial onset in 2016, persisting chronically since then. - Quality/Character: - Sharp, shooting pain radiating down the left leg, occasionally tingling. - Primary Location and Radiation: - Originates in the lower back, radiates down the left thigh. - Aggravating Factors: - Walking, standing upright, using stairs. - Alleviating Factors: - Leaning forward provides temporary relief. - Interference with Activities: - Limits ability to walk, stand for long periods, engage in yoga and routine activities. - Affect: - Chronic pain impacting the patient's quality of life and ability to participate in formerly enjoyed activities such as walking and yoga. - Analgesia: - Aleve provides some relief; however, pain persists and fluctuates in intensity. - Adverse Effects: - No specific side effects reported from current pain management regimen. - Activities of Daily Living: - Significant limitations on walking, standing, and exercise due to pain. - Weight gain attributed to decreased physical activity. - Aberrant Drug Related Behaviors: - No aberrant drug-related behaviors discussed or noted. Denies red flag symptoms including new loss of bowel, bladder or saddle anesthesia Denies implantable devices, pacemaker or defibrillator Denies current use of anticoagulants PFSH Family History Daughter Mental health disorder Social History Housing: House Patient Tobacco Use Status: Never used Tobacco e-Cigarette/Vaping Use: Never Used service: No Current occupational status: employed Cognitive needs: No Hearing needs: No Vision needs: Yes Review of Systems Const Details: - Musculoskeletal: Reports chronic lower back pain radiating pain to the left thigh. Denies pain in the sacroiliac joints. - Neurological: Reports pain radiating down the left leg to the thigh - Genitourinary: Denies incontinence but reports occasional urgency. Physical Exam Vital Signs: Last Vital Signs Pulse 92 01/16/25 10:10 Resp 16 01/16/25 10:10 BP 145/82 H 01/16/25 10:10 Pulse Ox 98 01/16/25 10:10 Oxygen Delivery Method Room Air 01/16/25 10:10 BMI result Body Mass Index 30.4 General: awake, alert, oriented. Answers questions appropriately. Fully engaged in examination. Skin: warm, dry, intact HEENT: Normocephalic. Hearing intact. Cardiac: External chest normal in appearance. Respiratory: No cough, audible wheezing or stridor. Abdomen: without gross distension. MS: No obvious swelling or deformities. Able to transition from sit to stand unassisted. Ambulates with bilaterally normal heel strike and toe off Maintain slight forward flexed position. Neurological: Oriented to person, place, time and situation. Thought process intact. No gait abnormalities appreciated. Psychiatric: Appropriate mood and affect. Good judgment and insight. Results Reviewed Results Reviewed: 12/31/24 MR LS WO FINDINGS: Last rib-bearing vertebra labeled T12. Mild bone marrow STIR signal in the posterior elements of L5 and S1. Disc desiccation, L4-5. Grade 1 anterolisthesis L4-5. Grade 1 retrolisthesis L2-3. Conus medullaris ends at superior endplate of L1 with normal signal. 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 T12-L1: No disc herniation. Facet joint hypertrophy. No neuroforamina stenosis. L1-2: Facet joint and ligamentum flavum hypertrophy. No disc herniation. No neuroforamina stenosis. No central spinal canal stenosis. L2-3: Broad-based disc bulging. Facet joint and ligamentum flavum hypertrophy. No disc herniation. Reduced AP diameter of the thecal sac. No gross neuroforamina stenosis. L3-4: Broad-based disc bulging. Facet joint and ligamentum flavum hypertrophy. Reduced AP diameter of the thecal sac encroaching the neural elements. Bilateral neuroforamina narrowing. L4-5: Grade 1 anterolisthesis. Facet joint and ligamentum flavum hypertrophy. Facet effusion, bilaterally. 5 mm fluid signal characteristic abnormality beneath the left ligamentum flavum and posterior medial to the facet joint. CSF effacement of the thecal sac. Central spinal canal stenosis compressing the neural elements of the thecal sac. Bilateral neuroforamina narrowing encroaching the L4 exiting nerve roots. L5-S1: Broad-based disc bulging. Facet joint and ligamentum flavum hypertrophy. Reduced AP diameter of the thecal sac and bilateral neuroforamina narrowing encroaching the neural elements, S1 and L5 nerve roots. Facet effusions, bilaterally. 11 mm fluid signal characteristic anterior lateral to the right facet joint. No prevertebral compartment hematoma, or mass . IMPRESSION: Grade 1 anterolisthesis L4-5 likely secondary to spondylolysis pars interarticularis resulting in central spinal canal stenosis compressing the neural elements of the thecal sac and bilateral neuroforamina narrowing encroaching the L4 exiting nerve roots. Spondylosis L3-4 and L5-S1 resulting in mild central spinal canal and bilateral neuroforamina stenosis. 5 mm synovial cyst beneath the ligamentum flavum, left L4-5. 11 mm synovial cyst without compression upon neural elements, anterior lateral right L5-S1 facet joint. 12/10/24 XR/XR lumbar spine 2-3V FINDINGS: Multilevel marginal osteophyte formation, endplate sclerosis decreased intervertebral disc height at the lower thoracic spine. Grade 1 anterolisthesis L4-5. Small marginal osteophyte formation at multiple levels of the lumbar spine. Facet joint hypertrophy at L5-S1 and L4-5 levels. S-shaped curvature of the lumbar spine. Rudimentary ribs at T12. Vascular clips right upper quadrant abdomen and sutures in the right hemiabdomen. IMPRESSION: Multilevel thoracolumbar spondylosis resulting in grade 1 anterolisthesis L4-5. MRI lumbar spine 07/04/2020 [facility]: Impression: 1. Presumed synovial cyst associated with the right facet joint at L4-5 effacing and displacing the thecal sac to the left is no longer demonstrated. There is moderate persisting central canal stenosis at L4-5 which is mildly improved from 01/16/2017. 2. Mild progressive degenerative change at L4-5. 3. No other significant changes from 01/16/2017 MRI lumbar spine 01/16/2017: Impression: 1. Moderate-severe central canal stenosis at L4-5 which appears to be due to combination of moderate-severe facet arthropathy with thickening of ligamentum flavum and what is likely a 9 mm x 5 mm synovial cyst on the right which effaces and displaces the thecal sac towards the left. 2. Severe facet arthropathy at L5-S1 with a very mild grade 1 spondylosis of L5 on S1 which is almost certain degenerative. No evidence of spinal stenosis at this level. 3. Moderate narrowing of the left neural foramina at L4-5 and mild-moderate narrowing of the right neural foramen at this level due to disc-osteophyte and facet arthropathy. Assessment & Plan Assessment & Plan (1) Spinal stenosis: Code(s): M48.00 - Spinal stenosis, site unspecified Category: Medical (2) Degenerative joint disease (DJD) of lumbar spine: Code(s): M47.816 - Spondylosis without myelopathy or radiculopathy, lumbar region Category: Medical Qualifiers: Spinal osteoarthritis complication: with radiculopathy Qualified Code(s): M47.26 - Other spondylosis with radiculopathy, lumbar region (3) Lumbar spondylosis: Code(s): M47.816 - Spondylosis without myelopathy or radiculopathy, lumbar region Category: Medical Plan The plan involves performing a minimally invasive lumbar decompression procedure to address the ligamentum flavum hypertrophy and synovial cyst at L4-5. An epidural steroid injection will also be administered to reduce inflammation and nerve root irritation. I discussed with the patient the recurrence of the synovial cyst at L4-5 and the associated spinal stenosis. We reviewed the MRI findings, which showed degenerative changes and ligamentum flavum hypertrophy contributing to the symptoms. I explained the minimally invasive lumbar decompression procedure, including its benefits, such as relieving pain and improving mobility, and the risks involved. The patient was informed that the procedure is performed under anesthesia and is a same-day surgery. I also mentioned that insurance approval is necessary before scheduling the procedure. Patient has exhausted conservative therapy including PT, home exercise program, NSAIDs, with the current medications, ice, heat and previous attempts at injections without improvement of her symptoms. Patient was informed and verbally consented to the use of an ambient scribe for clinic note documentation during this visit. Patient Instructions: - Await insurance approval for the procedure. - Review information about the minimally invasive lumbar decompression procedure online for better understanding. - Follow up with the clinic once insurance approval is obtained to schedule the procedure. Coding Level of Care Code Est Pt Level 3 (11391) Complex EM visit Add On G2211 Diagnoses Spinal stenosis M48.00 Osteoarthritis of spine with radiculopathy, lumbar region M47.26 Spinal osteoarthritis complication: with radiculopathy Lumbar spondylosis M47.816
[2025-01-16 10:10] VITALS: BP 145/82; PULSE 92; RESP 16; O2SAT 98; BMI 30.4
--- OUTSIDE RECORDS SUMMARY | 2025-01-16 10:44 | XMS_ITS | Data Portability ---
Author Organization [facility], [facility], [facility] Address [address] [place] [id number] Care Team Providers Care Bulldogger Name Role Phone LUC NORRIS Primary Care Provider [phone] LUC NORRIS Referring Provider [phone] Assessment No assessment recorded. Plan of Treatment [...] By Organization Details Last Modified Time 04/09/2024 [id number] The above clinic al findings and radiographic [...] portions of this report were transcribed using VeriShow speech recognition software. If any discrepancy or [...] SNOMED-CT Code Diagnosis ICD10 Code Diagnosis Note [id number] Clark Pope DPM [place] [facility] [address] [place] [phone] 04/09/2024 15:38:52 04/09/2024 17:16:49 Peroneal tendinitis [id number] M76.71 Pain of ri ght ankle joint [id number] M25.571 Health Concerns Section Related Observation LastModified by Organization Detai ls LastModified Time None Recorded Concern Status LastModified by Organization Details LastModified Time None Recorded Advance Directives Directive None Recorded Payers Insurance Date Sequence Insurance Name Policy Number Policy Richards Covered Member ID Richards Member ID Guarantor Name 03/25/2024 3 [place] [facility] PL[facility] Kathy Velazquez [id number] Kathy Velazquez 03/25/2024 2 [place] [facility] Kathy Velazquez [id number] Kathy Velazquez 04/09/[address] [facility] NET PLAN (MEDICAID HMO) [employer] Kathy Velazquez [id number] Kathy Velazquez Notes Date Note Type Note Provider Name and Address Organization Details Recorded Time 04/09/2024 text/html Podiatry FootReported bypatient.Notes:Hilton hatch presents today for evaluation right ankle pain. She states it started about 2 or 3 months ago. She was receiving gel injections in her right knee for Dr. Fisher's office. The physician human resource assistant recommended using an ankle brace that she was having swelling and pain on the outside part of the ankle. She started wearing ankle brace 2 weeks ago and has noticed a marked improvement. It does occasionally walk up on her and she notices it when she drives for long periods of time. Clark Pope DPM [address] [place] [address], [phone], [facility], [facility] 04/09/2024 16:30:43 OBGyn Episode No OBEpisode recorded.
== END 2025-01-16 10:58 | disposition home or self-care (01) ==
LOC: HO.PMC 10:07
PROVIDERS: PCP Internal Medicine; Visit Provider Registered Nurse Emergency
DX: M48.00 Spinal stenosis, site unspecified (principal); M47.26 Other spondylosis with radiculopathy, lumbar region; M47.816 Spondylosis without myelopathy or radiculopathy, lumbar region
CPT/HCPCS: 99213; G2211

== ENCOUNTER → 2025-01-16 10:07 | Outpatient (BNVA) | payer OTHER, SELFPAY | PROVIDERS: PCP Internal Medicine; Visit Provider Registered Nurse Emergency | DX: M47.816 Spondylosis without myelopathy or radiculopathy, lumbar region (principal); M47.26 Other spondylosis with radiculopathy, lumbar region; M48.061 Spinal stenosis, lumbar region without neurogenic claudication | CPT/HCPCS: 99212 ==

== ENCOUNTER 2025-02-10 08:56 | Outpatient (AMB) | payer OTHER, SELFPAY ==
[2025-02-10 08:59] VITALS: BP 130/78; PULSE 76; O2SAT 98
--- NOTE | 2025-02-10 08:59 | MHC.PC.OV ---
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 Required: No Allergies Penicillins Allergy (Mild, Verified 02/10/25 08:59) rash bee Allergy (Severe, Uncoded 11/11/24 08:58) Swelling Medication List - Last Reconciled 02/10/25 by Marianela Plummer MD atorvastatin 10 mg PO BEDTIME epinephrine (EpiPen 2-Tramaine) 0.3 mg (0.3 mL) IM Q10M PRN levothyroxine 75 mcg PO DAILY minoxidil 2.5 mg PO ONCE omeprazole 20 mg PO DAILY phentermine 37.5 mg PO DAILY 30 days solifenacin (Vesicare) 5 mg PO DAILY topiramate (Topamax) 25 mg PO DAILY Tobacco use date assessed: 11/11/24 Dental Screening Dental Screen Date: 11/11/24 HPI 1 month follow up HPI Details History - The patient is a 59 year old female presenting with chronic back pain and weight loss management - Reports chronic back pain that limits exercise; planning to undergo a minimally invasive lumbar decompression procedure on March 11, meeting with Dr. Ackerman to discuss on February 23. - The patient has experienced weight loss since starting weight management medication, she is doing well with phentermine and Topamax combination - The patient denies palpitations and reports being able to tolerate medications without any issues. . Medical History: - Chronic back pain - obesity - hypothyroidism - GERD Medications: - Phentermine 37.5 mg for weight management - Topamax 25 mg for weight management - Omeprazole for gastrointestinal symptoms - Levothyroxine for thyroid condition Social History: - Engages in exercise, though limited by back pain, and participates in strength training despite limitations. - Indicates adherence to a weight loss management plan with continued efforts. Problem List - Chronic back pain - Weight management Patient Instructions - Continue current medications unless instructed otherwise before spinal procedure. - Discontinue phentermine and Topamax one week prior to spinal procedure. - Resume medications post-procedure when recovery allows and notify once restarted. - Focus on back recovery and continued weight loss. Review of Systems - General: No fever no chills - Neurological: No headaches no dizziness - Ear nose throat: No sore throat no hearing difficulty no ear pain - Cardiovascular: No syncope, no chest pain, no palpitations - Gastrointestinal: No nausea vomiting or diarrhea - Endocrine: No polyuria polydipsia no heat intolerance - Genitourinary: No dysuria , no blood in urine Physical Exam General: No acute distress HEENT: No acute findings Neck: Supple Respiratory system: Able to talk in full sentences, no audible wheeze Cardiovascular: S1-S2 regular in rate and rhythm, no palpitations Gastrointestinal: No pain Extremities: No new findings SUPERVISOR GRINDING: Alert awake oriented x3 motor sensory intact Skin: Normal [facility] History No pertinent past surgical history Family History Daughter Mental health disorder Social History Housing: House Patient Tobacco Use Status: Never used Tobacco e-Cigarette/Vaping Use: Never Used service: No Current occupational status: employed Cognitive needs: No Hearing needs: No Vision needs: Yes Questionnaire Thrive Questionnaire Date Thrive assessed: 02/10/25 I am a: Patient What is your living situation today?: I have a steady place to live Within the past 12 months, did the food you bought not last and you didn't have the money to get more?: Never true Within the past 12 months, did you worry whether your food would run out before you got money to buy more?: Never true Do you have trouble paying for medicines?: No Do you have trouble getting transportation to medical appointments?: No Do you have trouble paying your heating and electricity bill?: No Do you have trouble taking care of your child, family member or friend?: No Do you have trouble with day-to-day activities such as bathing, preparing meals, shopping, managing finances, etc.?: No Are you currently unemployed and looking for a job?: No Are you interested in more education?: No Please select the resources that you would like help with: None Currently or been in a relationship where the following occur: No concerns reported THRIVE Score: 0 FELIPE-7 AMB Questionnaire FELIPE-7 Date FELIPE - 7 assessed: 01/14/25 Source: Developed by Drs. Clark Roy, Evette Guzman, Chip Esposito and colleagues, with an educational jono from [employer]. Physical exam (Primary Care) Vital Signs: Last Vital Signs Pulse 76 02/10/25 08:59 BP 130/78 02/10/25 08:59 Pulse Ox 98 02/10/25 08:59 Oxygen Delivery Method Room Air 02/10/25 08:59 BMI result Body Mass Index 30.0 Tobacco/Smoking Status: Tobacco use Status Tobacco use date assessed 11/11/24 02/10/25 09:00 Patient Tobacco Use Status Never used Tobacco 02/10/25 09:00 e-Cigarette/Vaping Use Never Used 02/10/25 09:00 Thrive Assessment: Date of Thrive Assessment Date Thrive assessed 02/10/25 02/10/25 09:00 Currently or been in a relationship where the following occur: No concerns reported Coding Level of Care Code Est Pt Level 3 (02578) Diagnoses Class 1 obesity due to excess calories with serious comorbidity and body mass index (BMI) of 31.0 to 31.9 in adult E66.09; Z68.31 Obesity classification: adult class 1 (BMI 30 - 34.9) Serious obesity comorbidity presence: with serious comorbidity Body mass index: BMI 31.0-31.9 Spinal stenosis, unspecified spinal region M48.00 Spinal region: unspecified Osteoarthritis of spine with radiculopathy, lumbar region M47.26 Spinal osteoarthritis complication: with radiculopathy Lumbar spondylosis M47.816 Assessment & Plan Assessment & Plan (1) Obesity due to excess calories: Code(s): E66.09 - Other obesity due to excess calories Category: Medical Qualifiers: Obesity classification: adult class 1 (BMI 30 - 34.9) Serious obesity comorbidity presence: with serious comorbidity Body mass index: BMI 31.0-31.9 Qualified Code(s): E66.09 - Other obesity due to excess calories; Z68.31 - Body mass index [BMI] 31.0-31.9, adult (2) Spinal stenosis: Code(s): M48.00 - Spinal stenosis, site unspecified Category: Medical Qualifiers: Spinal region: unspecified Qualified Code(s): M48.00 - Spinal stenosis, site unspecified (3) Degenerative joint disease (DJD) of lumbar spine: Code(s): M47.816 - Spondylosis without myelopathy or radiculopathy, lumbar region Category: Medical Qualifiers: Spinal osteoarthritis complication: with radiculopathy Qualified Code(s): M47.26 - Other spondylosis with radiculopathy, lumbar region (4) Lumbar spondylosis: Code(s): M47.816 - Spondylosis without myelopathy or radiculopathy, lumbar region Category: Medical Plan History - The patient is a 59 year old female presenting with chronic back pain and weight loss management - Reports chronic back pain that limits exercise; planning to undergo a minimally invasive lumbar decompression procedure on March 11, meeting with Dr. Ackerman to discuss on February 23. - The patient has experienced weight loss since starting weight management medication, she is doing well with phentermine and Topamax combination - The patient denies palpitations and reports being able to tolerate medications without any issues. . Medical History: - Chronic back pain - obesity - hypothyroidism - GERD Medications: - Phentermine 37.5 mg for weight management - Topamax 25 mg for weight management - Omeprazole for gastrointestinal symptoms - Levothyroxine for thyroid condition Social History: - Engages in exercise, though limited by back pain, and participates in strength training despite limitations. - Indicates adherence to a weight loss management plan with continued efforts. Problem List - Chronic back pain - Weight management Patient Instructions - Continue current medications unless instructed otherwise before spinal procedure. - Discontinue phentermine and Topamax one week prior to spinal procedure. - Resume medications post-procedure when recovery allows and notify once restarted. - Focus on back recovery and continued weight loss. Medications: Refilled topiramate (Topamax) 25 mg PO DAILY 30 tabs 0RF phentermine must administer 2 hours after breakfast 37.5 mg PO DAILY 30 caps 0RF 30 days
--- OUTSIDE RECORDS SUMMARY | 2025-02-10 09:21 | XMS_ITS | Referral Summary ---
Author Organization [facility] Address [address] [place] [address] Care Team Providers Care Record Center Specialist Name Role Phone Marianela Plummer Primary Care Provider [phone] Allergies Active Allergy Reactions Criticality Noted Date Comments Allergen Qiy-Dwojb-Ixqnz Bee Itching,Oth er (see comments),Swelling High 01/20/2002 [...] on file Insurance [employer] Care Teams Record Center Specialist Relationship Specialty Start Date End Date Marianela Plummer [address] [place] [address] PCP - General Internal Medicine 08/21/24
--- OUTSIDE RECORDS SUMMARY | 2025-02-10 09:21 | XMS_ITS | Encounter Summary ---
Author Organization [facility] Address [address] [place] [address] Phone Care Team Providers Care Fender Mechanic Name Role Phone Anup Jaramillo MD Primary Care Provider [phone] Marianela Plummer MD Primary Care Provider [phone] Pcp, Unknown Unavailable Unavailable Encounter Details Date Type Department Care Team (Late st Contact Info) Description 11/02/2021 Procedure Pass [facility], [address] [address] Social History Tobacco Use Types Packs/Day Years Used Date Smoking Tobacco: Former Smokeless Tobacco: Never Comments:IN COLLEGE 30 YEARS AGO Alcohol Use Standard Drinks/Week Comments Yes 5 (1 standard drink = 0.6 oz pur e alcohol) weekly Comments No Sex and Gender Information Value Date Recorded Sex Assigned at Female 04/24/2023 7:49 PM EDT Legal Sex Female 9:41 PM EDT Gender Identity Female 04/24/2023 7:49 PM EDT Sexual Orientation Straight 04/24/2023 7: 49 PM EDT documented as of this encounter Plan of Treatment Upcoming Encounters Date Type Department Care Team (Late st Contact Info) Description 03/25/2025 10:20 AM EDT Office Visit [facility] [address] [place] [address] [place] [address] Omaira Obregon MD [address] [facility], [address] [place] [address] 12/30/2025 10:40 AM EDT Office Visit [facility] [address] [place] [address] Estefania Busch MD [address] [address] [email or web address] documented as of this encounter Visit Diagnoses Not on filedocumented in this encounter Care Teams Fender Mechanic Relationship Specialty Start Date End Date Anup Jaramillo MD [address] [place] [address] PCP - General Internal Medicine 10/21/18 09/23/23 Marianela Plummer MD [facility] [place] [address] PCP - General Internal Medicine 09/24/23 Pcp, Unknown 05/08/17 documented as of this encounter Additional Source Comments The information contained in this document represents components of the legal health record. It is not the complete legal health record.[facility]
--- OUTSIDE RECORDS SUMMARY | 2025-02-10 09:21 | XMS_ITS | Data Portability ---
Author Organization [facility] [place], [facility], [facility] Address [address] [place] [id number] Care Team Providers Care Centrifugal Casting Machine Operator Name Role Phone LUC NORRIS Primary Care Provider [phone] LUC NORRIS Referring Provider [phone] Assessment No assessment recorded. Plan of Treatment [...] By Organization Details Last Modified Time 04/09/2024 [id number] The above clinic al findings and radiographic [...] portions of this report were transcribed using TimZon speech recognition software. If any discrepancy or [...] SNOMED-CT Code Diagnosis ICD10 Code Diagnosis Note [id number] Clark Pope DPM [place] Office [address] [place] [id number] 04/09/2024 15:38:52 04/09/2024 17:16:49 Peroneal tendinitis [id number] M76.71 Pain of ri ght ankle joint [id number] M25.571 Health Concerns Section Related Observation LastModified by Organization Detai ls LastModified Time None Recorded Concern Status LastModified by Organization Details LastModified Time None Recorded Advance Directives Directive None Recorded Payers Insurance Date Sequence Insurance Name Policy Number Policy Richards Covered Member ID Richards Member ID Guarantor Name 03/25/2024 3 [place] [facility] Kathy Velazquez [id number] Kathy Velazquez 03/25/2024 2 [place] [facility] Kathy Velazquez [id number] Kathy Velazquez 04/09/2024 1 [facility] PLAN (MEDICAID HMO) [place] Kathy Velazquez [id number] Kathy Velazquez Notes Date Note Type Note Provider Name and Address Organization Details Recorded Time 04/09/2024 text/html Podiatry FootReported bypatient.Notes:Hilton hatch presents today for evaluation right ankle pain. She states it started about 2 or 3 months ago. She was receiving gel injections in her right knee for Dr. Fisher's office. The physician social science research assistant recommended using an ankle brace that she was having swelling and pain on the outside part of the ankle. She started wearing ankle brace 2 weeks ago and has noticed a marked improvement. It does occasionally walk up on her and she notices it when she drives for long periods of time. Clark Pope DPM [address] [place] [address], [phone], [facility] [place], [facility] 04/09/2024 16:30:43 OBGyn Episode No OBEpisode recorded.
== END 2025-02-10 09:24 | disposition home or self-care (01) ==
LOC: HO.HMCC 08:56
PROVIDERS: PCP Internal Medicine; Visit Provider Internal Medicine
DX: E66.09 Other obesity due to excess calories (principal); Z68.31 Body mass index [BMI] 31.0-31.9, adult; M48.00 Spinal stenosis, site unspecified; M47.26 Other spondylosis with radiculopathy, lumbar region; M47.816 Spondylosis without myelopathy or radiculopathy, lumbar region

== ENCOUNTER → 2025-02-10 08:56 | Outpatient (BNVA) | payer OTHER, SELFPAY | PROVIDERS: PCP Internal Medicine; Visit Provider Internal Medicine | DX: K21.9 Gastro-esophageal reflux disease without esophagitis (principal); E66.09 Other obesity due to excess calories; M48.00 Spinal stenosis, site unspecified; M47.26 Other spondylosis with radiculopathy, lumbar region; Z68.30 Body mass index [BMI] 30.0-30.9, adult | CPT/HCPCS: 99212 ==

== ENCOUNTER 2025-02-23 10:25 | Outpatient (AMB) | payer OTHER, SELFPAY ==
--- NOTE | 2025-02-23 10:28 | MHC.OFFVIS ---
Vital Signs 02/23/25 10:29 Height 5 ft 8 in Weight 197 lb BMI 30.0 BP 178/91 H Blood Pressure Location Lt brachial Position Sitting Respiration 16 Pulse 70 Pulse Source Pulse Oximeter Pulse Oximetry (%) 99 Oxygen Delivery Method Room Air Intake Visit Reasons: MILD Procedure Discussion Trapeze Artist Required: No Allergies Penicillins Allergy (Mild, Verified 02/23/25 10:30) rash bee Allergy (Severe, Uncoded 02/23/25 10:30) Swelling Medication List - Last Reconciled 02/23/25 by Desiree Julien LPN atorvastatin 10 mg PO BEDTIME epinephrine (EpiPen 2-Tramaine) 0.3 mg (0.3 mL) IM Q10M PRN levothyroxine 75 mcg PO DAILY minoxidil 2.5 mg PO ONCE omeprazole 20 mg PO DAILY phentermine 37.5 mg PO DAILY 30 days solifenacin (Vesicare) 5 mg PO DAILY topiramate (Topamax) 25 mg PO DAILY HPI HPI MILD Procedure Discussion: Details: History of Present Illness The patient is a 59-year-old female presenting with questions regarding her upcoming lumbar decompression procedure and concerns about lumbar spinal stenosis and associated conditions. 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 The cysts are associated with lumbar spinal stenosis and spondylolisthesis at L4-5, contributing to her symptoms. The patient experiences pain primarily in the left buttock, radiating down the leg, which worsens with walking and standing, causing her to pitch forward. She reports sharp pain when attempting to stand straight, and the pain is exacerbated by certain movements such as transitioning from a plank to downward dog in yoga. The patient has a history of a knee replacement in 2016 due to an old injury and arthritis, which was a successful recovery. She also underwent a colon resection following a perforation during a routine colonoscopy, resulting in multiple surgeries and a significant impact on her core strength. 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 Pain Description - Pain primarily located in the left buttock, radiating down the leg - Pain worsens with walking and standing, causing forward pitching - Sharp pain when attempting to stand straight - Pain exacerbated by movements such as transitioning from plank to downward dog in yoga Physical Exam - Appears afebrile. - Alert and oriented. - Mood and affect appropriate. - Follows and participates in conversation appropriately. - Respiratory effort is unlabored. - Able to transition from sit to stand unassisted. - Ambulates with bilaterally normal heel strike and toe off. - Able to stand and walk on toes and heels. [facility] Surgical History No pertinent past surgical history Family History Daughter Mental health disorder Social History Housing: House Patient Tobacco Use Status: Never used Tobacco e-Cigarette/Vaping Use: Never Used service: No Current occupational status: employed Cognitive needs: No Hearing needs: No Vision needs: Yes Physical Exam Vital Signs: Last Vital Signs Pulse 70 02/23/25 10:29 Resp 16 02/23/25 10:29 BP 178/91 H 02/23/25 10:29 Pulse Ox 99 02/23/25 10:29 Oxygen Delivery Method Room Air 02/23/25 10:29 BMI result Body Mass Index 30.0 Assessment & Plan Assessment & Plan (1) Spondylolisthesis of lumbar region: Comment: L4/5 pars interarticularis Code(s): M43.16 - Spondylolisthesis, lumbar region Category: Medical Plan Plan - Plan to proceed with lumbar decompression to address synovial cysts and alleviate symptoms associated with lumbar spinal stenosis and LF hypertrophy. - Discussed potential need for future surgical fusion if symptoms persist or worsen, with a focus on delaying such intervention as long as possible. - Consideration of meeting with a spine surgeon to discuss surgical options and timing, especially if decompression does not provide sufficient relief. Patient was informed and verbally consented to the use of an ambient scribe for clinic note documentation during this visit. Discussion Notes I discussed with the patient the nature of her lumbar spinal stenosis and the associated synovial cysts at L4-5, explaining the planned decompression procedure and its potential benefits in alleviating her symptoms. We reviewed the possibility of future surgical fusion if her condition progresses, emphasizing the goal of delaying such surgery as long as possible. I advised her to consider consulting with a spine surgeon to explore all surgical options and to make an informed decision regarding the timing of any potential future interventions. Patient Instructions - Proceed with scheduled lumbar decompression procedure. - Consider consulting with a spine surgeon to discuss future surgical options. - Monitor symptoms and report any significant changes or worsening to the healthcare provider. Orders: Referrals Neurosurgery Referral M43.16 - Spondylolisthesis, lumbar region Coding Level of Care Code Est Pt Level 3 (57303) Diagnoses Spondylolisthesis of lumbar region M43.16
[2025-02-23 10:29] VITALS: BP 178/91; PULSE 70; RESP 16; O2SAT 99
--- OUTSIDE RECORDS SUMMARY | 2025-02-23 11:08 | XMS_ITS | Referral Summary ---
Author Organization [facility] Address [address] [place] [address] Care Team Providers Care Remote Operations Producer Name Role Phone Marianela Plummer Primary Care Provider [phone] Allergies Active Allergy Reactions Criticality Noted Date Comments Allergen Oce-Xipze-Wnkcu Bee Itching,Oth er (see comments),Swelling High 01/20/2002 [...] on file Insurance [employer] Care Teams Remote Operations Producer Relationship Specialty Start Date End Date Marianela Plummer [address] [place] [address] PCP - General Internal Medicine 08/21/24
--- OUTSIDE RECORDS SUMMARY | 2025-02-23 11:08 | XMS_ITS | Encounter Summary ---
Author Organization [facility] Address [address] [place] [address] Phone Care Team Providers Care Mallet Cutter Name Role Phone Anup Jaramillo MD Primary Care Provider [phone] Marianela Plummer MD Primary Care Provider [phone] Pcp, Unknown Unavailable Unavailable Encounter Details Date Type Department Care Team (Late st Contact Info) Description 11/02/2021 Procedure Pass [facility], [address] [address] Social History Tobacco Use Types Packs/Day Years [...] Description 03/25/2025 10:20 AM EDT Office Visit [facility] [address] [place] [address] [place] [address] Omaira Obregon MD 22 [facility], [address] [place] [address] 12/30/2025 10:40 AM EDT Office Visit [facility] [address] [place] [address] Estefania Busch MD [address] [address] [email or web address] documented as of this encounter Visit Diagnoses Not on filedocumented in this encounter Care Teams Mallet Cutter Relationship Specialty Start Date End Date Anup Jaramillo MD [address] [place] [address] PCP - General Internal Medicine 10/21/18 09/23/23 Marianela Plummer MD [facility] [place] [address] PCP - General Internal Medicine 09/24/23 Pcp, Unknown 05/08/17 documented as of this encounter Additional Source Comments The information contained in this document represents components of the legal health record. It is not the complete legal health record.[facility]
== END 2025-02-23 11:04 | disposition home or self-care (01) ==
LOC: HO.PMC 10:26
PROVIDERS: PCP Internal Medicine; Visit Provider Internal Medicine
DX: M43.16 Spondylolisthesis, lumbar region (principal)
CPT/HCPCS: 99213

== ENCOUNTER → 2025-02-23 10:25 | Outpatient (BNVA) | payer OTHER, SELFPAY | PROVIDERS: PCP Internal Medicine; Visit Provider Internal Medicine | DX: Z01.818 Encounter for other preprocedural examination (principal); M43.16 Spondylolisthesis, lumbar region | CPT/HCPCS: 99212 ==

== ENCOUNTER 2025-03-04 13:55 | Outpatient (AMB) | payer OTHER, SELFPAY ==
--- NOTE | 2025-03-04 08:40 | A.SPINEOV_ITS ---
Intake Visit Reasons: Spondylolisthesis, lumbar region Intake Note: Ms. Velazquez is here today c/o low back pain. [place] done [place] [facility] Mastic Man Required: No Allergies Penicillins Allergy (Mild, Verified 02/23/25 10:30) rash bee Allergy (Severe, Uncoded 02/23/25 10:30) Swelling Assessment & Plan Assessment & Plan (1) Spondylolisthesis of lumbar region: Code(s): M43.16 - Spondylolisthesis, lumbar region Category: Medical Plan Dear Dr. Aguayo, Thank you for referring Kathy to our office today. She is a pleasant 60 year old female who comes in today for evaluation of low back pain and shooting pains into her bilateral lower extremities. She reports that this has been ongoing for about 10 years, and seems to have slowly worsened over time. She reports her pain waxes and wanes day to day, and states she will sometimes experience days where her pain is low grade in nature, around 3/10, then will have bad days where her pain is severe around an 8/10. She denies any known inciting incident. She reports that her pain start in her low back, and shoots into her bilateral buttocks / posterior thighs. On the left hand side the pain extends down a bit farther toward the posterior / lateral knee. She reports that the pain is worse with standing and ambulation, particularly with positional changes such as rising from a seated position. Her pain is relieved by sitting down in a chair and resting. She reports that she is able to walk for about 2-3 blocks until she needs to either stop or turn around and head home due to the pain. She denies any numbness / tingling / burning associated with the pain. She does report that she has attempted multiple courses of physical therapy in the past, all of which have only increased her pain. She also has attempted many cortisone injections in the past without lasting relief. She was most recently evaluated by your office and referred to us for consideration of lumbar fusion. PMH: Hypothyroidism,Hx basal cell carcinoma of face, osteoarthritis, urge incontinence. Hx of perforation during bowel surgery with emergency resection of 6 inches of bowel. Hx of abdominal hernia repair. Hx of left TKA. Social hx: Patient does not smoke, reports no substance use. Medications: See [employer] list, no anticoagulants, no cardiac medications, no pulmonary medications. Allergies: PCN, bees. Physical exam: The patient has full 5/5 strength in her upper and lower extremities. She ambulates well with a non-antalgic and non-spastic gait. Her reflexes are 2+ intact diffusely. She reports no sensational deficits to light touch on examination. (-) Bilateral straight leg raise, (-) fay's, (-) clonus. Imaging review: The patient has a grade 1 spondylolisthesis at L4-5. There is severe central canal and bilateral foraminal stenosis at this level. There is also a large synovial cyst underneath the ligamentum flavum which is constributing to the compression seen here. Impression: Kathy is a pleasant 60 year old female who comes in today as a referral from our colleagues in pain management for consideration of lumbar fusion. She is suffering from 10 years of low back pain and radicular pain into her bilateral lower extremities. This is likely due to the spondylolithesis and stenosis seen at L4-5. I was able to evaluate the patient alongside the attending neurosurgeon Dr. Yu in clinic today, who recommended that the patient undergo L4-5 oblique lumbar interbody fusion. We discussed risks/benef its with the patient, and thoroughly explained the procedure using our spine models in office. Dr. Yu does not believe that her hernia mesh or bowel resection surgery should interfere with OLIF approach. The patient has been tentatively scheduled for 04/21/2025. The patient was given risk and benefits of surgery including but not limited to infection, hematoma, nerve injury, durotomy, weakness, bowel/bladder injury, persistent pain. We also discussed the option to continue with conservative treatment and patient wishes to proceed with surgery. They are aware they should stop NSAIDs 7 days prior to surgery. All questions were answered to the best of our ability. If there is anything about this patients medical history that we have overlooked or concerns you have about us proceeding with surgery we would appreciate any input you can offer Thank you for allowing us to care for your patient. The total time spent with this visit with this patient was 45 minutes reviewing history, physical exam, MRI imaging review, and implementation of treatment plan or further diagnostic testing Robert Yu MD,PhD [facility] Orders: Orders XR lumbar spine 4V min 03/04/25 M43.10 - Spondylolisthesis, site unspecified Coding Level of Care Code New Pt Level 4 (27904) Diagnoses Spondylolisthesis of lumbar region M43.16
--- OUTSIDE RECORDS SUMMARY | 2025-03-04 14:19 | XMS_ITS | Referral Summary ---
Author Organization [facility] Address [address] [place] [address] Care Team Providers Care Animal Rehabilitator Name Role Phone Marianela Plummer Primary Care Provider [phone] Allergies Active Allergy Reactions Criticality Noted Date Comments Allergen Uum-Oxzln-Hkpwf Bee Itching,Oth er (see comments),Swelling High 01/20/2002 [...] on file Insurance [employer] Care Teams Animal Rehabilitator Relationship Specialty Start Date End Date Marianela Plummer [address] [place] [address] PCP - General Internal Medicine 08/21/24
--- OUTSIDE RECORDS SUMMARY | 2025-03-04 14:19 | XMS_ITS | Encounter Summary ---
Author Organization [facility] Address [address] [place] [address] Phone Care Team Providers Care Vice President Of Contracts Name Role Phone Anup Jaramillo MD Primary Care Provider [phone] Marianela Plummer MD Primary Care Provider [phone] Pcp, Unknown Unavailable Unavailable Encounter Details Date Type Department Care Team (Late st Contact Info) Description 11/02/2021 Procedure Pass [facility], [address] [address] Social History Tobacco Use Types Packs/Day Years [...] Description 03/25/2025 10:20 AM EDT Office Visit [facility] [address] [place] [address] [place] [address] Omaira Obregon MD 22 [facility], [address] [place] [address] 12/30/2025 10:40 AM EDT Office Visit [facility] [address] [place] [address] Estefania Busch MD [address] [address] [email or web address] documented as of this encounter Visit Diagnoses Not on filedocumented in this encounter Care Teams Vice President Of Contracts Relationship Specialty Start Date End Date Anup Jaramillo MD [address] [place] [id number] PCP - General Internal Medicine 10/21/18 09/23/23 Marianela Plummer MD [facility] [place] [address] PCP - General Internal Medicine 09/24/23 Pcp, Unknown 05/08/17 documented as of this encounter Additional Source Comments The information contained in this document represents components of the legal health record. It is not the complete legal health record.[facility]
== END 2025-03-04 15:24 | disposition home or self-care (01) ==
LOC: HO.HNS 13:56
PROVIDERS: PCP Internal Medicine; Referring Provider Internal Medicine; Visit Provider Physician Assistant
DX: M43.16 Spondylolisthesis, lumbar region (principal)
CPT/HCPCS: 99204

== ENCOUNTER 2025-03-04 13:55 | Outpatient (REF) | payer OTHER, SELFPAY ==
--- NOTE | ~2025-03-04 | XR_ITS ---
EXAMINATION: XR LUMBOSACRAL SPINE CLINICAL INFORMATION: M43.10 - Spondylolisthesis, site unspecified COMPARISON: December 10, 2024. TECHNIQUE: 6 views of the lumbar spine, inclusive of flexion and extension views, were obtained. FINDINGS: Grade 1 anterolisthesis at L4-5 which remains in unchanged position during flexion and extension position. Multilevel marginal osteophyte formation and endplate sclerosis throughout the axial skeleton. S-shaped curvature of the thoracolumbar spine. No acute cortical disruption. Facet joint hypertrophy at L4-5 and L5-S1. Vascular clips right hemiabdomen probable prior cholecystectomy. Vascular calcifications, aorta. XR/XR lumbar spine 4V min IMPRESSION: Multilevel thoracolumbar spondylosis. Grade 1 anterolisthesis L4-5 without gross instability. Electronically signed by: Fleix Schuster MD 03/04/2025 03:28 PM EDT
== END 2025-03-04 13:56 | disposition home or self-care (01) ==
LOC: HO.HOSX 13:55
PROVIDERS: PCP Internal Medicine; Referring Provider Internal Medicine; Visit Provider Physician Assistant
DX: M43.16 Spondylolisthesis, lumbar region (principal); Z79.899 Other long term (current) drug therapy
CPT/HCPCS: 72110; 99202

== ENCOUNTER → 2025-03-04 14:44 | Outpatient (BNV) | payer OTHER, SELFPAY | PROVIDERS: PCP Internal Medicine; Referring Provider Internal Medicine; Visit Provider Radiology Diagnostic Radiology | DX: M43.10 Spondylolisthesis, site unspecified (principal); M47.815 Spondylosis without myelopathy or radiculopathy, thoracolumbar region | CPT/HCPCS: 72110 ==

== ENCOUNTER 2025-03-10 08:53 | Outpatient (AMB) | payer OTHER, SELFPAY ==
--- NOTE | 2025-03-10 09:00 | A.OFFPC_ITS ---
Vital Signs 03/10/25 09:01 Height 5 ft 8 in Weight 196 lb BMI 29.8 BP 138/80 Blood Pressure Location Rt brachial Position Sitting Pulse 81 Pulse Source Pulse Oximeter Pulse Oximetry (%) 98 Oxygen Delivery Method Room Air Intake Visit Reasons: 1 month f/up Titrator Required: No Allergies Penicillins Allergy (Mild, Verified 03/10/25 09:01) rash bee Allergy (Severe, Uncoded 02/23/25 10:30) Swelling Medication List - Last Reconciled 03/10/25 by Marianela Plummer MD atorvastatin 10 mg PO BEDTIME epinephrine (EpiPen 2-Tramaine) 0.3 mg (0.3 mL) IM Q10M PRN levothyroxine 75 mcg PO DAILY minoxidil 2.5 mg PO ONCE omeprazole 20 mg PO DAILY phentermine 37.5 mg PO DAILY 30 days solifenacin (Vesicare) 5 mg PO DAILY topiramate (Topamax) 25 mg PO DAILY Tobacco use date assessed: 11/11/24 Dental Screening Dental Screen Date: 11/11/24 HPI 1 month f/up HPI Details Chief Complaint Follow-up for weight control and back pain management. History of Present Illness The patient is a 60-year-old female presenting with weight management and back pain concerns. Weight Management: - Expresses concern over dietary intake, especially during recent birthday celebrations causing an episode of overconsumption and temporary gastrointestinal discomfort. - Current weight is 196 pounds, with a B zechariah Mass Index (BMI) of 29.8. - Patient managed to lose one pound sinc e the last visit despite dietary indiscretion. Hypertension: - Blood pressure is 138/80 mmHg, improve d from 178 mmHg at the last visit. - No history of chest pains or side effe cts from current medications. Spondylolisthesis and Spinal Stenosis: - Initially scheduled for a procedure to address back decompression due to spondylolisthesis. - Revised diagnosis from MRI (December) and recent x-rays indicate anteriorolisthesis at L4 with L5 spondylosis, resulting in spinal stenosis and compression of neural elements. - Current recommendation for lumbar fusi on surgery due to L4/L5 instability. - Patient reports apprehension about kennedy nany and expresses interest in a second opinion. Medical History: - Hypertension. - Spondylolisthesis with spinal stenosis . Surgical History: - History includes three previous abdomi nal surgeries. Medications: - Phentermine 37.5 mg for weight managem ent. - Topamax 25 mg for weight management. Social History: - Recent birthday celebration with joshua y from [place] and [place]. - Engages in swimming and strength train ing as part of physical activity. - Expresses concern about dietary lapses affecting weight management efforts. Problem List - Essential Hypertension. - Spondylolisthesis and Spinal Stenosis. - Obesity. - suboptimal control of blood pressure Patient Instructions - Continue taking medications as prescri bed. - Consider seeking a second opinion rega rding the recommended spinal surgery. Referral placed as per patient's request - Maintain current physical activities, such as swimming and strength training, to support back health. - Monitor dietary intake to prevent richar rointestinal discomfort and maintain weight loss efforts. - Schedule follow-up appointments and co nsultations promptly. - dose of Topamax increased to 50 mg, ph entermine script sent Follow-up 4 weeks weight management Review of Systems - General: No fever no chills - Neurological: No headaches no dizziness - Ear nose throat: No sore throat no hearing difficulty no ear pain - Cardiovascular: No syncope, no chest pain, no palpitations - Gastrointestinal: No nausea vomiting or diarrhea - Endocrine: No polyuria polydipsia no heat intolerance - Genitourinary: No dysuria , no blood in urine Physical Exam - General: No acute distress - HEENT: No acute findings - Neck: Supple - Respiratory system: Able to talk in f ull sentences, no audible wheeze - Cardiovascular: S1-S2 regular in rate and rhythm - Gastrointestinal: No pain - Extremities: No new findings - APN: Alert awake oriented x3 motor se nsory intact - Skin: Normal turgor PFSH Surgical History No pertinent past surgical history Family History Daughter Mental health disorder Social History Housing: House Patient Tobacco Use Status: Never used Tobacco e-Cigarette/Vaping Use: Never Used service: No Current occupational status: employed Cognitive needs: No Hearing needs: No Vision needs: Yes Questionnaire Thrive Questionnaire Date Thrive assessed: 02/10/25 I am a: Patient What is your living situation today?: I have a steady place to live Within the past 12 months, did the food you bought not last and you didn't have the money to get more?: Never true Within the past 12 months, did you worry whether your food would run out before you got money to buy more?: Never true Do you have trouble paying for medicines?: No Do you have trouble getting transportation to medical appointments?: No Do you have trouble paying your heating and electricity bill?: No Do you have trouble taking care of your child, family member or friend?: No Do you have trouble with day-to-day activities such as bathing, preparing meals, shopping, managing finances, etc.?: No Are you currently unemployed and looking for a job?: No Are you interested in more education?: No Please select the resources that you would like help with: None Currently or been in a relationship where the following occur: No concerns reported THRIVE Score: 0 FELIPE-7 AMB Questionnaire FELIPE-7 Date FELIPE - 7 assessed: 01/14/25 Source: Developed by Drs. Clark Roy, Evette Guzman, Chip Esposito and colleagues, with an educational jono from [employer]. Physical exam (Primary Care) Vital Signs: Last Vital Signs Pulse 81 03/10/25 09:01 BP 138/80 03/10/25 09:01 Pulse Ox 98 03/10/25 09:01 Oxygen Delivery Method Room Air 03/10/25 09:01 BMI result Body Mass Index 29.8 Tobacco/Smoking Status: Tobacco use Status Tobacco use date assessed 11/11/24 03/10/25 09:03 Patient Tobacco Use Status Never used Tobacco 03/10/25 09:03 e-Cigarette/Vaping Use Never Used 03/10/25 09:03 Thrive Assessment: Date of Thrive Assessment Date Thrive assessed 02/10/25 03/10/25 09:03 Currently or been in a relationship where the following occur: No concerns reported Coding Level of Care Code Est Pt Level 4 (12478) Diagnoses Spondylolisthesis of lumbar region M43.16 Spinal stenosis of lumbar region without neurogenic claudication M48.061 Neurogenic claudication status: without neurogenic claudication Class 1 obesity due to excess calories with serious comorbidity and body mass index (BMI) of 31.0 to 31.9 in adult E66.09; Z68.31 Obesity classification: adult class 1 (BMI 30 - 34.9) Serious obesity comorbidity presence: with serious comorbidity Body mass index: BMI 31.0-31.9 Lumbar spondylosis M47.816 Time Spent (min) 30 Comment Reviewing images, consultations, [id number], coordination of care Assessment & Plan Assessment & Plan (1) Spondylolisthesis of lumbar region: Code(s): M43.16 - Spondylolisthesis, lumbar region Category: Medical (2) Lumbar spinal stenosis: Code(s): M48.061 - Spinal stenosis, lumbar region without neurogenic claudication Category: Medical Qualifiers: Neurogenic claudication status: without neurogenic claudication Qualified Code(s): M48.061 - Spinal stenosis, lumbar region without neurogenic claudication (3) Obesity due to excess calories: Code(s): E66.09 - Other obesity due to excess calories Category: Medical Qualifiers: Obesity classification: adult class 1 (BMI 30 - 34.9) Serious obesity comorbidity presence: with serious comorbidity Body mass index: BMI 31.0-31.9 Qualified Code(s): E66.09 - Other obesity due to excess calories; Z68.31 - Body mass index [BMI] 31.0-31.9, adult (4) Lumbar spondylosis: Code(s): M47.816 - Spondylosis without myelopathy or radiculopathy, lumbar region Category: Medical Plan Chief Complaint Follow-up for weight control and back pain management. History of Present Illness The patient is a 60-year-old female presenting with weight management and back pain concerns. Weight Management: - Expresses concern over dietary intake, especially during recent birthday celebrations causing an episode of overconsumption and temporary gastrointestinal discomfort. - Current weight is 196 pounds, with a Body Mass Index (BMI) of 29.8. - Patient managed to lose one pound since the last visit despite dietary indiscretion. Hypertension: - Blood pressure is 138/80 mmHg, improved from 178 mmHg at the last visit. - No history of chest pains or side effects from current medications. Spondylolisthesis and Spinal Stenosis: - Initially scheduled for a procedure to address back decompression due to spondylolisthesis. - Revised diagnosis from MRI (December) and recent x-rays indicate anteriorolisthesis at L4 with L5 spondylosis, resulting in spinal stenosis and compression of neural elements. - Current recommendation for lumbar fusion surgery due to L4/L5 instability. - Patient reports apprehension about surgery and expresses interest in a second opinion. Medical History: - Hypertension. - Spondylolisthesis with spinal stenosis. Surgical History: - History includes three previous abdominal surgeries. Medications: - Phentermine 37.5 mg for weight management. - Topamax 25 mg for weight management. Social History: - Recent birthday celebration with family from [place] and [place]. - Engages in swimming and strength training as part of physical activity. - Expresses concern about dietary lapses affecting weight management efforts. Problem List - Essential Hypertension. - Spondylolisthesis and Spinal Stenosis. - Obesity. - suboptimal control of blood pressure Patient Instructions - Continue taking medications as prescribed. - Consider seeking a second opinion regarding the recommended spinal surgery. Referral placed as per patient's request - Maintain current physical activities, such as swimming and strength training, to support back health. - Monitor dietary intake to prevent gastrointestinal discomfort and maintain weight loss efforts. - Schedule follow-up appointments and consultations promptly. - dose of Topamax increased to 50 mg, phentermine script sent Follow-up 4 weeks weight management Orders: Referrals Neurosurgery Referral M43.16 - Spondylolisthesis, lumbar region, M47.816 - Spondylosis without myelopathy or radiculopathy, lumbar region, M48.061 - Spinal stenosis, lumbar region without neurogenic claudication Medications: Changed From topiramate (Topamax) 25 mg PO DAILY 30 tabs 0RF To topiramate 50 mg PO DAILY 30 tabs 0RF 30 days Refilled phentermine must administer 2 hours after breakfast 37.5 mg PO DAILY 30 caps 0RF 30 days
[2025-03-10 09:01] VITALS: BP 138/80; PULSE 81; O2SAT 98; BMI 29.8
--- OUTSIDE RECORDS SUMMARY | 2025-03-10 09:43 | XMS_ITS | Encounter Summary ---
Author Organization [facility] Address [address] [place] [address] Phone Care Team Providers Care Soda Dry House Operator Name Role Phone Anup Jaramillo MD Primary Care Provider [phone] Marianela Plmumer MD Primary Care Provider [phone] Pcp, Unknown Unavailable Unavailable Encounter Details Date Type Department Care Team (Late st Contact Info) Description 11/02/2021 Procedure [facility], [address] [address] Social History Tobacco Use Types Packs/Day Years [...] Description 03/25/2025 10:20 AM EDT Office Visit [facility] [address] [place] [address] [place] [address] Omaira Obregon MD [address], [address] [place] [address] 12/30/2025 10:40 AM EDT Office Visit [facility] [address] [place] [address] Estefania Busch MD [address] [address] [email or web address] documented as of this encounter Visit Diagnoses Not on filedocumented in this encounter Care Teams Soda Dry House Operator Relationship Specialty Start Date End Date Anup Jaramillo MD [address] [place] [id number] PCP - General Internal Medicine 10/21/18 09/23/23 Marianela Plummer MD [facility] [place] [address] PCP - General Internal Medicine 09/24/23 Pcp, Unknown 05/08/17 documented as of this encounter Additional Source Comments The information contained in this document represents components of the legal health record. It is not the complete legal health record.[facility]
--- OUTSIDE RECORDS SUMMARY | 2025-03-10 09:43 | XMS_ITS | Clinical Summary ---
Author Organization [facility] Address [address] [place] [address] Care Team Providers Care Machinery Mover Name Role Phone Marianela Plummer Primary Care Provider [phone] Allergies Active Allergy Reactions Criticality Noted Date Comments Allergen Csn-Xokcs-Cbqqe Bee Itching,Oth er (see comments),Swelling High 01/20/2002 [...] Screening 1965 Pap Smear 1965 Sigmoidoscopy 1965 Pneumococcal Vaccine: 50+ Years (1 of 1 - PCV) 2015 Zoster Vaccines (1 of 2) 2015 Mammogram 11/05/2023 11/04/2021, 10/21, 06/24/2020, Additional history exists Alcohol/Substance Use Screening 07/23/2024 Depression Screening and Follow-Up 07/23/2024 Social Drivers of Health Annual Screening 07/23/2024 Influenza Vaccine (#1) 2025 , 08/14/2023, 08/29/2022, Additional history exists DTaP,Tdap,and Td Vaccines (3 - Td or Tdap) 12/08/2030 12/08/2020, 09/12/2011 RSV Vaccine (60+ years old and patients) (1 - 1-dose 75+ series) 02/29/2040 COVID-19 Vaccine Completed 06/17/2024, 04/2022, 05/26/2021, Additional history exists Hepatitis B Vaccines Aged Out No long er eligible based on patient's age to complete this topic Insurance [employer] Care Teams Machinery Mover Relationship Specialty Start Date End Date Marianela Plummer [address] [place] [address] PCP - General Internal Medicine 08/21/24
== END 2025-03-10 09:23 | disposition home or self-care (01) ==
PROVIDERS: PCP Internal Medicine; Visit Provider Internal Medicine
DX: M43.16 Spondylolisthesis, lumbar region (principal); M48.061 Spinal stenosis, lumbar region without neurogenic claudication; E66.09 Other obesity due to excess calories; Z68.31 Body mass index [BMI] 31.0-31.9, adult; M47.816 Spondylosis without myelopathy or radiculopathy, lumbar region

== ENCOUNTER → 2025-03-10 08:53 | Outpatient (BNVA) | payer OTHER, SELFPAY | PROVIDERS: PCP Internal Medicine; Visit Provider Internal Medicine | DX: I10 Essential (primary) hypertension (principal); M43.16 Spondylolisthesis, lumbar region; M48.061 Spinal stenosis, lumbar region without neurogenic claudication; E66.811 Obesity, class 1; E66.09 Other obesity due to excess calories; M47.816 Spondylosis without myelopathy or radiculopathy, lumbar region; Z68.29 Body mass index [BMI] 29.0-29.9, adult | CPT/HCPCS: 99212 ==

== ENCOUNTER 2025-04-07 11:38 | Outpatient (AMB) | payer OTHER, SELFPAY ==
--- NOTE | 2025-04-07 11:44 | A.OFFPC_ITS ---
Vital Signs 04/07/25 11:50 Height 5 ft 8 in Weight 192 lb 6 oz BMI 29.2 BP 138/80 Blood Pressure Location Lt brachial Position Sitting Pulse 81 Pulse Source Pulse Oximeter Pulse Oximetry (%) 98 Intake Visit Reasons: 1 month f/up Allergies Penicillins Allergy (Mild, Verified 04/07/25 11:50) rash bee Allergy (Severe, Uncoded 02/23/25 10:30) Swelling Medication List - Last Reconciled 04/07/25 by Marianela Plummer MD atorvastatin 10 mg PO BEDTIME epinephrine (EpiPen 2-Tramaine) 0.3 mg (0.3 mL) IM Q10M PRN levothyroxine 75 mcg PO DAILY minoxidil 2.5 mg PO ONCE omeprazole 20 mg PO DAILY phentermine 37.5 mg PO DAILY 30 days solifenacin (Vesicare) 5 mg PO DAILY topiramate 50 mg PO DAILY 30 days Tobacco use date assessed: 11/11/24 Dental Screening Dental Screen Date: 11/11/24 HPI 1 month f/up HPI Details History of Present Illness The patient is a 60-year-old female presenting with lower back pain and the need for medication refill. Chronic Lower Back Pain: - Reported severe lower back pain, ongoi ng for a while - Pain radiates to the hip and down the leg, exacerbated by sleeping on the left side. - Describes the pain as significantly wo rsening by the evening, impacting movement and ability to sleep comfortably. - Alleviated by Aleve (naproxen) and tc etimes ibuprofen, which is taken alternatively and not concurrently. - Holds off on taking Aleve until the pa in is severe to maintain its efficacy. - Reports difficulty with standing, walk ing, and performing exercises like crunches due to back pain - An MRI showed multilevel degenerative disc disease, anterolisthesis at L4-L5, and narrowed facet joints indicating possible nerve compression. patient has apt coming up for second opinion in few weeks Wt managment : able to lose more wt Medications: - Phentermine - for weight management - Topiramate (referred to as topamide) - for weight management - Aleve (naproxen) - for lower back pain management - Ibuprofen (occasionally used but not c oncurrently with Aleve) - for lower back pain management Problem List - Degenerative Disc Disease - Anterolisthesis of L4-L5 - Weight Management Patient Instructions - Start gabapentin 100 mg capsule at [facility] nerve pain. May increase to two capsules if tolerated. - Continue current medication of Aleve f or pain management. - Avoid concurrent use of Aleve and ibup rofen within 24 hours. - Avoid exercises that put pressure on t he back and wait for the next appointment for further guidance. - refill sent for Phentermin and topmax f/u 4 wks Review of Systems - General: Denies any issues with medica tions. - General: No fever no chills - Neurological: No headaches no dizziness - Ear nose throat: No sore throat no hearing difficulty no ear pain - Cardiovascular: No syncope, no chest pain, no palpitations - Gastrointestinal: No nausea vomiting or diarrhea - Endocrine: No polyuria polydipsia no heat intolerance - Genitourinary: No dysuria , no blood in urine Physical Exam - General: No acute distress - HEENT: No acute findings - Neck: Supple - Respiratory system: Able to talk in f ull sentences, no audible wheeze - Cardiovascular: S1-S2 regular in rate and rhythm - Gastrointestinal: No pain - Back : located lumber area - Extremities: No new findings - LINEN KEEPER: Alert awake oriented x3 motor i ntact - Skin: Normal turgor [facility] Surgical History No pertinent past surgical history Family History Daughter Mental health disorder Social History Housing: House Patient Tobacco Use Status: Never used Tobacco e-Cigarette/Vaping Use: Never Used service: No Current occupational status: employed Cognitive needs: No Hearing needs: No Vision needs: Yes Questionnaire Thrive Questionnaire Date Thrive assessed: 08/08/24 I am a: Patient What is your living situation today?: I have a steady place to live Within the past 12 months, did the food you bought not last and you didn't have the money to get more?: Never true Within the past 12 months, did you worry whether your food would run out before you got money to buy more?: Never true Do you have trouble paying for medicines?: No Do you have trouble getting transportation to medical appointments?: No Do you have trouble paying your heating and electricity bill?: No Do you have trouble taking care of your child, family member or friend?: No Do you have trouble with day-to-day activities such as bathing, preparing meals, shopping, managing finances, etc.?: No Are you currently unemployed and looking for a job?: No Are you interested in more education?: No Please select the resources that you would like help with: None Currently or been in a relationship where the following occur: No concerns reported THRIVE Score: 0 FELIPE-7 AMB Questionnaire FELIPE-7 Date FELIPE - 7 assessed: 01/14/25 Source: Developed by Drs. Clark Roy, Evette Guzman, Chip Esposito and colleagues, with an educational jono from [employer]. Physical exam (Primary Care) Vital Signs: Last Vital Signs Pulse 81 04/07/25 11:50 BP 138/80 04/07/25 11:50 Pulse Ox 98 04/07/25 11:50 BMI result Body Mass Index 29.2 Tobacco/Smoking Status: Tobacco use Status Tobacco use date assessed 11/11/24 04/07/25 11:45 Patient Tobacco Use Status Never used Tobacco 04/07/25 11:45 e-Cigarette/Vaping Use Never Used 04/07/25 11:45 Thrive Assessment: Date of Thrive Assessment Date Thrive assessed 08/08/24 04/07/25 11:45 Currently or been in a relationship where the following occur: No concerns reported Coding Level of Care Code Est Pt Level 3 (95446) Complex EM visit Add On G2211 Diagnoses Spondylolisthesis of lumbar region M43.16 Spinal stenosis of lumbar region without neurogenic claudication M48.061 Neurogenic claudication status: without neurogenic claudication Class 1 obesity due to excess calories with serious comorbidity and body mass index (BMI) of 31.0 to 31.9 in adult E66.09; Z68.31 Obesity classification: adult class 1 (BMI 30 - 34.9) Serious obesity comorbidity presence: with serious comorbidity Body mass index: BMI 31.0-31.9 Lumbar spondylosis M47.816 Assessment & Plan Assessment & Plan (1) Spondylolisthesis of lumbar region: Code(s): M43.16 - Spondylolisthesis, lumbar region Category: Medical (2) Lumbar spinal stenosis: Code(s): M48.061 - Spinal stenosis, lumbar region without neurogenic claudication Category: Medical Qualifiers: Neurogenic claudication status: without neurogenic claudication Qualified Code(s): M48.061 - Spinal stenosis, lumbar region without neurogenic claudication (3) Obesity due to excess calories: Code(s): E66.09 - Other obesity due to excess calories Category: Medical Qualifiers: Obesity classification: adult class 1 (BMI 30 - 34.9) Serious obesity comorbidity presence: with serious comorbidity Body mass index: BMI 31.0-31.9 Qualified Code(s): E66.09 - Other obesity due to excess calories; Z68.31 - Body mass index [BMI] 31.0-31.9, adult (4) Lumbar spondylosis: Code(s): M47.816 - Spondylosis without myelopathy or radiculopathy, lumbar region Category: Medical Plan History of Present Illness The patient is a 60-year-old female presenting with lower back pain and the need for medication refill. Chronic Lower Back Pain: - Reported severe lower back pain, ongoing for a while - Pain radiates to the hip and down the leg, exacerbated by sleeping on the left side. - Describes the pain as significantly worsening by the evening, impacting movement and ability to sleep comfortably. - Alleviated by Aleve (naproxen) and sometimes ibuprofen, which is taken alternatively and not concurrently. - Holds off on taking Aleve until the pain is severe to maintain its efficacy. - Reports difficulty with standing, walking, and performing exercises like crunches due to back pain - An MRI showed multilevel degenerative disc disease, anterolisthesis at L4-L5, and narrowed facet joints indicating possible nerve compression. patient has apt coming up for second opinion in few weeks Wt managment : able to lose more wt Medications: - Phentermine - for weight management - Topiramate (referred to as topamide) - for weight management - Aleve (naproxen) - for lower back pain management - Ibuprofen (occasionally used but not concurrently with Aleve) - for lower back pain management Problem List - Degenerative Disc Disease - Anterolisthesis of L4-L5 - Weight Management Patient Instructions - Start gabapentin 100 mg capsule at night for nerve pain. May increase to two capsules if tolerated. - Continue current medication of Aleve for pain management. - Avoid concurrent use of Aleve and ibuprofen within 24 hours. - Avoid exercises that put pressure on the back and wait for the next appointment for further guidance. - refill sent for Phentermin and topmax f/u 4 wks Medications: New gabapentin 200 mg (2 x 100 mg) PO BEDTIME 60 caps 0RF Refilled topiramate 50 mg PO DAILY 30 tabs 0RF 30 days phentermine must administer 2 hours after breakfast 37.5 mg PO DAILY 30 caps 0RF 30 days
[2025-04-07 11:50] VITALS: BP 138/80; PULSE 81; O2SAT 98; BMI 29.2
--- OUTSIDE RECORDS SUMMARY | 2025-04-07 15:53 | XMS_ITS | Encounter Summary ---
Author Organization [facility] Address [address] [place] [address] Phone Care Team Providers Care Java Golden Gate Developer Name Role Phone Anup Jaramillo MD Primary Care Provider [phone] Marianela Plummer MD Primary Care Provider [phone] Pcp, Unknown Unavailable Unavailable Tamara Diaz MD Unavailable [phone] Anjali Murdock CNM Unavailable [phone] Encounter Details Date Type Department Care Team (Late st Contact Info) Description 01/11/2021 Procedure Pass [place] Admitting Dept - Virtual Department 30 [place] [address] Social History Tobacco Use Types Packs/Day Years [...] Care Team (Late st Contact Info) Description 12/30/2025 10:40 AM EDT Office Visit [facility] 22 [place] [address] Estefania Busch MD [address] [address] documented as of this encounter Visit Diagnoses Not on filedocumented in this encounter Care Teams Java Golden Gate Developer Relationship Specialty Start Date End Date Anup Jaramillo MD [address] [place] [address] PCP - General Internal Medicine 10/21/18 09/23/23 Marianela Plummer MD [facility] [place] [address] PCP - General Internal Medicine 09/24/23 Pcp, Unknown 05/08/17 Tamara Diaz MD [address] [place] [address] [email or web address] Historical LMR Provider 05/10/17 07/30/21 Anjali Murdock CNM [address] [place] [address] Historical LMR Provider 05/10/17 2 documented as of this encounter Additional Source Comments The information contained in this document represents components of the legal health record. It is not the complete legal health record.[facility]
--- OUTSIDE RECORDS SUMMARY | 2025-04-07 15:53 | XMS_ITS | Encounter Summary ---
Author Organization [facility] Address [address] [place] [address] Phone Care Team Providers Care Dynamometer Mechanic Name Role Phone Anup Jaramillo MD Primary Care Provider [phone] Marianela Plummer MD Primary Care Provider [phone] Pcp, Unknown Unavailable Unavailable Encounter Details Date Type Department Care Team (Late st Contact Info) Description 09/04/2023 Procedure Pass OR Admitting Dept - Virtual Department [address] [place] [address] Social History Tobacco Use Types Packs/Day Years Used Date Smoking Tobacco: Former Cigarettes Smokeless Tobacco: Never Comments:IN COLLEGE 30 YEARS AGO Alcohol Use Standard Drinks/Week Comments Yes 3 (1 standard drink = 0.6 oz pur e alcohol) weekly Education Answer Date Recorded Are you interested in more education? Not on cherie e 11/17/2022 Are you concerned about learning? Not on file 11/17/2022 No 11/17/2022 No 11/17/2022 Digital Access Answer Date Recorded No 12/18/2022 No 12/18/2022 Reliable internet access at home? Not on file 12/18/2022 Device with a working camera? Not on file Intimate Partner Violence Answer Date R ecorded Are you denied basic needs s uch as food, clothing, or medical care? No 09/04/2023 In the past 12 months have y ou been in a relationship with a person who hurts, threatens, or tries to control you? No 09/04/2023 Are you denied basic needs s uch as food, clothing, or medical care? No 09/04/2023 In the past 12 months have y ou been in a relationship with a person who hurts, threatens, or tries to control you? No 09/04/2023 Comments No Sex and Gender Information Value [...] AM EDT Office Visit [facility] [address] [place] [address] Estefania Busch MD [address] [address] [email or web address] documented as of this encounter Visit Diagnoses Not on filedocumented in this encounter Care Teams Dynamometer Mechanic Relationship Specialty Start Date End Date Anup Jaramillo MD [address] [place] [address] PCP - General Internal Medicine 10/21/18 09/23/23 Marianela Plummer MD [address] [place] [address] [place] [address] PCP - General Internal Medicine 09/24/23 Pcp, Unknown 05/08/17 documented as of this encounter Additional Source Comments The information contained in this document represents components of the legal health record. It is not the complete legal health record.[facility]
--- OUTSIDE RECORDS SUMMARY | 2025-04-07 15:53 | XMS_ITS | Encounter Summary ---
Author Organization [facility] Address [address] [place] [address] Phone Care Team Providers Care Regional Training Manager Name Role Phone Anup Jaramillo MD Primary Care Provider [phone] Marianela Plummer MD Primary Care Provider [phone] Pcp, Unknown Unavailable Unavailable Encounter Details Date Type Department Care Team (Late st Contact Info) Description 11/02/2021 Procedure Pass [facility], [address] [address] Social History Tobacco Use Types Packs/Day Years [...] 10:40 AM EDT Office Visit [facility] [address] [place] [address] Estefania Busch MD [address] [place] [address] [email or web address] documented as of this encounter Visit Diagnoses Not on filedocumented in this encounter Care Teams Regional Training Manager Relationship Specialty Start Date End Date Anup Jaramillo MD [address] [place] [address] PCP - General Internal Medicine 10/21/18 09/23/23 Marianela Plummer MD [facility] [place] [address] PCP - General Internal Medicine 09/24/23 Pcp, Unknown 05/08/17 documented as of this encounter Additional Source Comments The information contained in this document represents components of the legal health record. It is not the complete legal health record.[facility]
--- OUTSIDE RECORDS SUMMARY | 2025-04-07 15:53 | XMS_ITS | Encounter Summary ---
Author Organization [facility] Address [address] [place] [address] Phone Care Team Providers Care Membership Administrator Name Role Phone Marianela Plummer MD Primary Care Provider [phone] Pcp, Unknown Unavailable Unavailable Encounter Details Date Type Department Care Team (Late st Contact Info) Description 02/26/2024 Procedure Pass OR Admitting Dept - Virtual Department 30 [place] [address] Social History Tobacco Use Types Packs/Day Years Used Date Smoking Tobacco: Former Cigarettes Smokeless Tobacco: Never Comments:IN COLLEGE 30 YEARS AGO Alcohol Use Standard Drinks/Week Comments Never 0 (1 standard drink = 0.6 oz pur e alcohol) Education Answer Date Recorded Are you interested [...] AM EDT Office Visit [facility] [address] [place] [address] Estefania Busch MD [address] [place] [address] [email or web address] documented as of this encounter Visit Diagnoses Not on filedocumented in this encounter Care Teams Membership Administrator Relationship Specialty Start Date End Date Marianela Plummer MD [address] [facility] [place] [address] PCP - General Internal Medicine 09/24/23 Pcp, Unknown 05/08/17 documented as of this encounter Additional Source Comments The information contained in this document represents components of the legal health record. It is not the complete legal health record.[facility]
--- OUTSIDE RECORDS SUMMARY | 2025-04-07 15:53 | XMS_ITS | Encounter Summary ---
Author Organization [facility] Address [address] [place] [address] Phone Care Team Providers Care Store Cashier Name Role Phone Anup Jaramillo MD Primary Care Provider [phone] Marianela Plummer MD Primary Care Provider [phone] Pcp, Unknown Unavailable Unavailable Encounter Details Date Type Department Care Team (Late st Contact Info) Description 02/07/2022 Procedure Pass OR Admitting Dept - Virtual Department 30 [place] [address] Social History Tobacco Use Types Packs/Day Years [...] 10:40 AM EDT Office Visit [facility] [address] [place] [address] Estefania Busch MD [address] [place] [address] [email or web address] documented as of this encounter Visit Diagnoses Not on filedocumented in this encounter Care Teams Store Cashier Relationship Specialty Start Date End Date Anup Jaramillo MD [address] [place] [address] PCP - General Internal Medicine 10/21/18 09/23/23 Marianela Plummer MD [facility] [place] [address] PCP - General Internal Medicine 09/24/23 Pcp, Unknown 05/08/17 documented as of this encounter Additional Source Comments The information contained in this document represents components of the legal health record. It is not the complete legal health record.[facility]
--- OUTSIDE RECORDS SUMMARY | 2025-04-07 15:53 | XMS_ITS | Encounter Summary ---
Author Organization [facility] Address [address] [place] [address] Phone Care Team Providers Care Marble Mason Name Role Phone Anup Jaramillo MD Primary Care Provider [phone] Marianela Plummer MD Primary Care Provider [phone] Pcp, Unknown Unavailable Unavailable Encounter Details Date Type Department Care Team (Late st Contact Info) Description 04/25/2023 Procedure Pass [facility], Ct Scan - [facility] [address] [place] [address] Social History Tobacco Use Types Packs/Day Years [...] with a working camera? Not on file Comments No Sex and Gender Information Value [...] AM EDT Office Visit [facility] [address] [place] [address] Estefania Busch MD [address] [address] [email or web address] documented as of this encounter Visit Diagnoses Not on filedocumented in this encounter Care Teams Marble Mason Relationship Specialty Start Date End Date Anup Jaramillo MD [address] [place] [address] PCP - General Internal Medicine 10/21/18 09/23/23 Marianela Plummer MD [address] [place] [address] [place] [address] PCP - General Internal Medicine 09/24/23 Pcp, Unknown 05/08/17 documented as of this encounter Additional Source Comments The information contained in this document represents components of the legal health record. It is not the complete legal health record.[facility]
--- OUTSIDE RECORDS SUMMARY | 2025-04-07 15:53 | XMS_ITS | Encounter Summary ---
Author Organization [facility] Address [address] [place] [address] Phone Care Team Providers Care Veterinary Epidemiologist Name Role Phone Marianela Plummer MD Primary Care Provider [phone] Pcp, Unknown Unavailable Unavailable Encounter Details Date Type Department Care Team (Late st Contact Info) Description 11/27/2023 Procedure Pass [facility], Ct Scan - [address] [address] Social History Tobacco Use Types Packs/Day Years [...] 10:40 AM EDT Office Visit [facility] [address] [place] [address] [place] [address] Estefania Busch MD [address] [place] [address] [email or web address] documented as of this encounter Visit Diagnoses Not on filedocumented in this encounter Care Teams Veterinary Epidemiologist Relationship Specialty Start Date End Date Marianela Plummer MD [address] [place] [address] PCP - General Internal Medicine 09/24/23 Pcp, Unknown 05/08/17 documented as of this encounter Additional Source Comments The information contained in this document represents components of the legal health record. It is not the complete legal health record.[facility]
--- OUTSIDE RECORDS SUMMARY | 2025-04-07 15:53 | XMS_ITS | Encounter Summary ---
Author Organization [facility] Address [address] [place] [address] Phone Care Team Providers Care Stockroom Helper Name Role Phone Anup Jaramillo MD Primary Care Provider [phone] Marianela Plummer MD Primary Care Provider [phone] Pcp, Unknown Unavailable Unavailable Encounter Details Date Type Department Care Team (Late st Contact Info) Description 02/06/2022 Procedure Pass [facility] Admitting Dept Virtual Department [address] [place] [address] Social History Tobacco Use Types Packs/Day Years [...] PM EDT documented as of this encounter Functional Status * Calculated C-SSRS Risk Score (Lifetime/Recent) Answer Date of Assessment Author No Risk Indicated 02/06/2022 3:59 PM EDT Matthew Taveras RN * [place] Suicide Severity Rating Scale (Screener/Recent Self-Report) Question Answer Date of Assessment Author 1. Wish to be (Past 1 Month) No 022 3:59 PM EDT Marly Taveras LAUREL 2. Non-Specific Active Suici barrington Thoughts (Past 1 Month) No 02/06/2022 3:59 PM EDT Marly Taveras , RN 6. Suicidal Behavior (Lifetime) No 3:59 PM EDT Marly Taveras, RN documented as of this encounter Plan of Treatment Upcoming Encounters Date Type Department Care Team (Late st Contact Info) Description 12/30/2025 10:40 AM EDT Office Visit [facility] [address] [place] [address] Estefania Busch MD [address] [address] [email or web address] documented as of this encounter Visit Diagnoses Not on filedocumented in this encounter Care Teams Stockroom Helper Relationship Specialty Start Date End Date Anup Jaramillo MD [address] [place] [address] PCP - General Internal Medicine 10/21/18 09/23/23 Marianela Plummer MD [address] [place] [address] [place] [address] PCP - General Internal Medicine 09/24/23 Pcp, Unknown 05/08/17 documented as of this encounter Additional Source Comments The information contained in this document represents components of the legal health record. It is not the complete legal health record.[facility]
--- OUTSIDE RECORDS SUMMARY | 2025-04-07 15:53 | XMS_ITS | Encounter Summary ---
Author Organization [facility] Address [address] [place] [address] Phone Care Team Providers Care Head Knitting Machine Fixer Name Role Phone Anup Jaramillo MD Primary Care Provider [phone] Marianela Plummer MD Primary Care Provider [phone] Pcp, Unknown Unavailable Unavailable Tamara Diaz MD Unavailable [phone] Anjali Murdock CNM Unavailable Encounter Details Date Type Department Care Team (Late st Contact Info) Description 06/30/2020 Procedure Pass [facility], [address] [address] Social History Tobacco Use Types Packs/Day Years Used Date Smoking Tobacco: Never Smokeless Tobacco: Never Alcohol Use Standard Drinks/Week Comments Yes 1 (1 standard drink = 0.6 oz pur e alcohol) Comments No Sex and Gender Information Value Date Recorded Sex Assigned at Female 04/24/2023 7:49 PM EDT Legal Sex Female 9:41 PM EDT Gender Identity Female 04/24/2023 7:49 PM EDT Sexual Orientation Straight 04/24/2023 7: 49 PM EDT documented as of this encounter Last Filed Vital Signs Vital Sign Reading Time Taken Comments Blood Pressure - - Pulse - - Temperature - - Respiratory Rate - - Oxygen Saturation - - Inhaled Oxygen Concentration - - Weight 83.9 kg (185 lb) 06/30/2020 1:30 PM EST Height 172.7 cm (5' 8 ) 06/30/2020 1:30 PM EST Body Mass Index 28.13 06/30/2020 1:30 PM EST documented in this encounter Plan of Treatment Upcoming Encounters Date Type Department Care Team (Late st Contact Info) Description 12/30/2025 10:40 AM EDT Office Visit [facility] [address] [place] [address] Estefania Busch MD [address] [address] [email or web address] documented as of this encounter Visit Diagnoses Not on filedocumented in this encounter Care Teams Head Knitting Machine Fixer Relationship Specialty Start Date End Date Anup Jaramillo MD [address] [place] [address] PCP - General Internal Medicine 10/21/18 09/23/23 Marianela Plummer MD [address] [place] [address] PCP - General Internal Medicine 09/24/23 Pcp, Unknown 05/08/17 Tamara Diaz MD [address] [place] [address] [email or web address] Historical LMR Provider 05/10/17 07/30/21 Anjali Murdock CNM [address] [place] [address] Historical LMR Provider 05/10/17 2 documented as of this encounter Additional Source Comments The information contained in this document represents components of the legal health record. It is not the complete legal health record.[facility]
--- OUTSIDE RECORDS SUMMARY | 2025-04-07 15:53 | XMS_ITS | Encounter Summary ---
Author Organization [facility] Address [address] [place] [address] Phone Care Team Providers Care Theatrical Dresser Name Role Phone Anup Jaramillo MD Primary Care Provider [phone] Marianela Plummer MD Primary Care Provider [phone] Pcp, Unknown Unavailable Unavailable Encounter Details Date Type Department Care Team (Late st Contact Info) Description 02/06/2022 Procedure Pass [facility], Ct Scan - [address] [address] Social History Tobacco Use Types Packs/Day Years [...] 3:59 PM EDT Matthew Taveras RN * [place] Suicide Severity Rating Scale (Screener/Recent Self-Report) Question Answer Date of Assessment Author 1. Wish to be (Past 1 Month) No 022 3:59 PM EDT Marly Taveras RN 2. Non-Specific Active Suici barrington Thoughts (Past 1 Month) No 02/06/2022 3:59 PM EDT Marly Taveras RN 6. Suicidal Behavior (Lifetime) No 3:59 PM EDT Marly Taveras, RN documented as of this encounter Plan of Treatment Upcoming Encounters Date Type Department Care Team (Late st Contact Info) Description 12/30/2025 10:40 AM EDT Office Visit [facility] [address] [place] [address] Estefania Busch MD [address] [address] [email or web address] documented as of this encounter Visit Diagnoses Not on filedocumented in this encounter Care Teams Theatrical Dresser Relationship Specialty Start Date End Date Anup Jaramillo MD [address] [place] [address] PCP - General Internal Medicine 10/21/18 09/23/23 Marianela Plummer MD [address] [place] [address] [place] [address] PCP - General Internal Medicine 09/24/23 Pcp, Unknown 05/08/17 documented as of this encounter Additional Source Comments The information contained in this document represents components of the legal health record. It is not the complete legal health record.[facility]
--- OUTSIDE RECORDS SUMMARY | 2025-04-07 15:53 | XMS_ITS | Clinical Summary ---
Author Organization [facility] Address [address] [place] [address] Care Team Providers Care Infantry Weapons Crewmember Name Role Phone Marianela Plummer Primary Care Provider Allergies Active Allergy Reactions Criticality Noted Date Comments Allergen Liv-Pimqg-Anlsv Bee Itching,Oth er (see comments),Swelling High 01/20/2002 [...] this topic Insurance [employer] Care Teams Infantry Weapons Crewmember Relationship Specialty Start Date End Date Marianela Plummer [address] [place] [address] PCP - General Internal Medicine 08/21/24
--- OUTSIDE RECORDS SUMMARY | 2025-04-07 15:54 | XMS_ITS | Encounter Summary ---
Author Organization [facility] Address [address] [place] [address] Phone Care Team Providers Care Regulatory Law Specialist Name Role Phone Anup Jaramillo MD Primary Care Provider [phone] Marianela Plummer MD Primary Care Provider [phone] Pcp, Unknown Unavailable Unavailable Tamara Diaz MD Unavailable [phone] Anjali Murdock CNM Unavailable Encounter Details Date Type Department Care Team (Late st Contact Info) Description 05/24/2020 Procedure Pass [facility] - [address] [place] [address] Social History Tobacco Use Types Packs/Day Years [...] AM EDT Office Visit [facility] [address] [place] [address] Estefania Busch MD [address] [address] documented as of this encounter Visit Diagnoses Not on filedocumented in this encounter Care Teams Regulatory Law Specialist Relationship Specialty Start Date End Date Anup Jaramillo MD [address] [place] [address] PCP - General Internal Medicine 10/21/18 09/23/23 Marianela Plummer MD [facility] [place] [address] PCP - General Internal Medicine 09/24/23 Pcp, Unknown 05/08/17 Tamara Diaz MD [address] [place] [address] Historical LMR Provider 05/10/17 07/30/21 Anjali Murdock CNM [address] [place] [address] Historical LMR Provider 05/10/17 2 documented as of this encounter Additional Source Comments The information contained in this document represents components of the legal health record. It is not the complete legal health record.[facility]
--- OUTSIDE RECORDS SUMMARY | 2025-04-07 15:54 | XMS_ITS | Clinical Summary ---
Author Organization [facility] Address [address] [place] [address] Phone Care Team Providers Care Brass Buffer Name Role Phone Marianela Plummer MD Primary Care Provider Pcp, Unknown Unavailable Unavailable Allergies Active Allergy Reactions Criticality Noted Date Comments Hymenoptera Allergenic Extract 01/06 Allergic to bees Penicillin G Benzathine Rash Low 09/08/2015 Medications minoxidiL (LONITEN) 2.5 MG tablet Take 2.5 mg by mouth daily. 10/25/19 22 Active atorvastatin (LIPITOR) 10 MG tablet Take 10 mg by mouth daily. 10/02/19 24 Active levothyroxine (SYNTHROID, LEVOTHROID) 75 MCG tabletIndications :Acquired hypothyroidism Take 1 tablet (75 mcg total) by mouth daily. 90 tablet 3 01/08/20 24 Active omeprazole (PRILOSEC) 20 MG capsule Take 20 mg by mouth daily. Active acetaminophen (TYLENOL) 325 mg tablet Take 1-2 tablets (325-650 mg total) by mouth every 6 (six) hours as needed (mild - moderate pain). 02/26/20 24 Active EPINEPHrine 0.3 mg/0.3 mL auto-injector INJECT 0.3MG DIRECTED INTRAMUSCULARLY EVERY 10 MINUTES NEEDED FOR ANAPHYLAXIS 01/16/20 24 Active phentermine (ADIPEX-P) 37.5 MG capsule Take 37.5 mg by mouth daily before breakfast. Active estradioL (CLIMARA) 0.05 mg/[address] 1 patch onto the skin once a week. 13 patch 01/16/20 Active Additional Information Patient not taking.Reported on 01/21/2025 progesterone (PROMETRIUM) 100 mg capsule Take 1 capsule (100 mg total) by mouth daily. 90 capsule 01/16/20 Active Additional Information Patient not taking.Reported on 01/21/2025 solifenacin (VESICARE) 5 MG tablet Take 1 tablet by mouth every morning. 01/15/20 Active topiramate (TOPAMAX) 25 MG tablet Take 1 tablet by mouth every morning. 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 Assessment & Plan (01/15/2025 1:25 PM EDT): Reviewed small increased risk of cardiovascular events, though she is within the 10-year timeframe when she stopped HRT, sent prescription for 0.05 mg patch and 100 mg of progesterone, follow-up in 2 months before renewing for the year to reassess, adjust dose as needed, etc. S/P ventral herniorrhaphy 03/12/2024 S/P laparoscopic cholecystectomy 09/24/2023 Multinodular goiter 12/08/2022 Overview (12/12/2023): Incidental finding. niece w/ aggressive thyroid CA; u/s stable 2022, previously rayus - report in media 11/22/22); u/s 2022 w/o concerning findings Assessment & Plan (01/09/2025 3:03 PM EDT): No compressive symptoms. Exam unrevealing. Stable u/s in 2022. Will continue to monitor, will repeat u/s prior to follow up. Assessment & Plan (12/12/2023 2:11 PM EDT): No compressive symptoms. Exam unrevealing. Stable u/s last year. Will continue to monitor. Assessment & Plan (12/08/2022 2:04 PM EDT): No compressive symptoms. Exam unrevealing. Stable u/s, reviewed images. Several areas of altered echogenicity measured as focal nodule. Will continue to monitor. Acquired hypothyroidism 12/08/2022 Assessment & Plan (01/09/2025 3:04 PM EDT): Reports good consistency taking rx appropriately. Has lost weight. Will check labs with upcoming labs for PCP with copy here & adjust rx as appropriate. To call/message via portal if hasn't heard from me with results within 1-2 weeks. If levels normal, will repeat labs yearly, sooner prn symptoms of thyroid dysfunction or > 10-15# weight change, or as otherwise clinically indicated. Assessment & Plan (12/12/2023 2:11 PM EDT): Reports good consistency taking rx appropriately. Has gained weight. Will check labs & adjust rx as appropriate. To call/message via portal if hasn't heard from me with results within 1-2 weeks. If levels normal, will repeat labs yearly, sooner prn symptoms of thyroid dysfunction or > 10-15# weight change, or as otherwise clinically indicated. Assessment & Plan (12/08/2022 2:05 PM EDT): Clinically euthyroid. Reports good consistency taking rx appropriately. Will check labs & adjust rx as appropriate. To call/message via portal if hasn't heard from me with results within 1-2 weeks. If levels normal, will repeat labs yearly, sooner prn symptoms of thyroid dysfunction or > 10-15# weight change, or as otherwise clinically indicated. S/P right colectomy 02/17/2022 Bowel perforation 02/06/2022 Hair loss 07/15/2020 Overview (07/15/2020): Not typical of menopause per se; recommend seeing derm for this Urinary incontinence 07/13/2020 Overview (07/15/2020): Advise juan, may benefit from bladder training and pelvic floor PT Overactive bladder 07/13/2020 Overview (07/11/2023): Needs 24 hour voiding and liquid intake diary; RTO with that info May be OAB or increased urine output Improved with Detrol LA 4 mg daily. - later reported no help so she stopped after a year Assessment & Plan (07/11/2023 12:39 PM EST): Reports drinking 140 ounces a day and she does not want to cut back on that as it helps her arthritis pain. Recommended having she do 24-hour voiding diary, because of her urge to void is coming with volumes of 300 cc, then that is an appropriate interval. She should avoid any potential irritants and we discussed those. If she is voiding small amounts and then bladder training can be helpful. In the meantime I encouraged Shers Assessment & Plan (11/02/2021 2:41 PM EDT): Recommend 24-hour voiding diary followed by bladder training to try to reduce dose and then stop the Detrol. Will send for pelvic floor PT Assessment & Plan (12/02/2020 1:11 PM EDT): Will increase to 4 mg LA daily as 2 mg some help but issue not resolved SHELBY (stress urinary incontinence, female) 2018 Assessment & Plan (11/02/2021 2:40 PM EDT): Better with detrol - recommend pelvic susan PT to strengthen kegel Assessment & Plan (10/29/2018 1:25 PM EDT): Kegels BID x 10, RTO if not helping Resolved Problems Problem Noted Date Diagnosed Date Resolved Date Abnormal uterine bleeding 10/21/2020 Overview (11/01/2020): After 6 weeks of Climarapro HRT Stopped with addition of norethindrone orally Resumed after she tapered off norethindrone May be due to residual ovarian fxn or side effect of HRT or structural issue in endometrium Assessment & Plan (11/01/2020 2:42 PM EDT): Recommend changing to E2 patch 0.05 mg and oral higher dose prometrium (400 mg at HS) If this does not stop bleeding, RTO for endometrial bx; [facility]G is booked in 4 weeks, there is a dearth of appts for SHG currenlty, unable to move up sooner 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 Methods of doing so discussed, will decrease dose of E2 patch to 0.0375; can also start black cohash as she drops the dose Assessment & Plan (01/05/2021 3:53 PM EDT): Better on HRT but there is ongoing frequent bleeding Does not want to stop HRT to test the FSH May opt for OCP for 6-12 months Assessment & Plan (10/21/2020 2:13 PM EDT): Responded well to climra pro patch- if the moodiness does nto resolve with the cessation of the oral norethindrone, will switch to another method (suggest E2 patch with prometrium,usually fewer mood side effects with this Assessment & Plan (09/02/2020 7:53 PM EST): Non HRT and HRT measures discussed, pros and cons, R&B Would like to try combined E2/progestin patch, Rx sent for combipatch Abnormal perimenopausal bleeding 10/29/2018 07/11/2023 Assessment & Plan (05/05/2021 9:28 AM EDT): Light spotting on HRT after polypectomy; at this time, is planning ot taper off the HRT Assessment & Plan (01/05/2021 3:52 PM EDT): On HRT after only 2 months amenorrhea, bleeding may be due to ongoing ovarian function with the HRT not able to suppress Will readdress meds if the polypectomy does not resolve bleeding Assessment & Plan (09/28/2020 4:21 PM EST): Patient with long history of menorrhagia with regular cycles. Currently perimenopausal with increased vasomotor symptoms. Regular menses through May. Started on HRT patch in early August due to exacerbation of vasomotor symptoms. Still no menses at that time. Approximately 2 weeks later, started with onset of intermittent heavy vaginal bleeding. Bleeding has persisted to this date. Has become heavier with clots. Discussed with patient possible etiologies of. Isi- menopausal bleeding including but not limited to endometrial polyp, hyperplasia, carcinoma. In patient's case, however, it may be iatrogenic secondary to recent continuous HRT start. Due to persistent active bleeding at this time, I have suggested norethindrone 5 mg 3 times daily until bleeding stops and then continue twice daily. Schedule follow- up virtual visit in 7 to 10 days. Continue to use HRT patch. May be better candidate for continuous estrogen patch and cyclic progestin as she is not in menopause. Assessment & Plan (10/29/2018 1:27 PM EDT): SHG and labs; bx prn; some Tx options include P only OCP ( has had migraine with aura) , LNG IUD, ablation, hyst, and other options based on findings with tests noted Encounters Date Type Department Care Team Description 01/21/2025 2:30 PM EDT [facility] Visit [facility] [address] [address] Ileana Gomez PA-C Bilateral impacted cerumen (Primary Dx); Right ear pain 01/15/2025 11:40 AM EDT Office Visit [facility] [address] [place] [address] [place] [address] Omaira Obregon MD Encounter for gynecological examination without abnormal finding (Primary Dx); Screening for cervical cancer; Menopause syndrome 01/07/2025 9:20 AM EDT Office Visit [facility] [address] [place] [address] Estefania Busch MD Acquired hypothyroidism (Primary Dx); Multinodular goiter from Last 3 Months Immunizations Immunization Administration Dates Next Due COVID-19 (Pre-05/14) Maritza Vaccine, rS-Ad26, PF 10/25/2020 INFLUENZA, SPLIT VIRUS, TRIV ALENT W/ PRESERVATIVE IM 08/29/2022,07/12/2021,05/13/2020,2018 Influenza Quadrivalent Prese rvative Free IM 08/14/2023 Tdap 12/08/2020,09/12/2011 Family History Medical History Relation Comments Prostate cancer Father Breast cancer Maternal Grandmother @ 70s Other Mother Ruptured esophag us Relation Status Comments Father Alive Maternal Grandmother Mother Alive Social History Tobacco Use Types Packs/Day Years Used Date Smoking Tobacco: Former Cigarettes Smokeless Tobacco: Never Tobacco Cessation:Counseling Given: Not Answered Comments:IN COLLEGE 30 YEARS AGO Alcohol Use Standard Drinks/Week Comments Yes 0 (1 standard drink = 0.6 oz pur e alcohol) occasionally Education Answer Date Recorded Are you interested [...] Orientation Straight 04/24/2023 7: 49 PM EDT Last Filed Vital Signs Vital Sign Reading Time Taken Comments Blood Pressure 128/82 01/21/2025 2:48 PM EDT Pulse 98 01/21/2025 2:48 PM EDT Temperature 36.9 C (98.4 F) 01/21/2025 2:48 PM EDT Respiratory Rate 17 01/21/2025 2:48 PM EDT Oxygen Saturation 100% 01/21/2025 2:48 PM EDT Inhaled Oxygen Concentration - - Weight 91.7 kg (202 lb 3.2 oz) 01/07/2025 9:25 A M EDT Height 172.7 cm (5' 8 ) 01/07/2025 9:25 AM EDT Body Mass Index 30.74 01/07/2025 9:25 AM EDT Plan of Treatment Upcoming Encounters Date Type Department Care Team (Late st Contact Info) Description 12/30/2025 10:40 AM EDT Office Visit [facility] [address] [place] [phone] Estefania Busch MD [address] [place] [phone] [email or web address] Due Date Last Done Comments LIPID PANEL 1965 DEPRESSION SCREENING 1977 SMOKING Hx and SMOKELESS TOBACCO SCREENING 1978 HEPATITIS C SCREENING 1983 HIV ONE-TIME SCREENING (18-65 YEARS) 1983 COLOGUARD 2010 FIT TEST 2010 FOBT 2010 SIGMOIDOSCOPY 2010 VIRTUAL COLONOSCOPY 2010 PNEUMOCOCCAL VACCINES (50+ years) (1 of 1 - PCV) 2015 ZOSTER VACCINES (1 of 2) 2015 MAMMOGRAM 11/05/2023 11/04/2021, 12/0 09/2019, 12/11/2018, Additional history exists TSH LEVEL 12/11/2024 12/12/2023, 04/22, 03/28/2023, Additional history exists SCREENING FOR DIABETES 02/08/2025 02/08/2022 INFLUENZA VACCINE (#1) 2025 , 08/14/2023, 08/29/2022, Additional history exists PAP SMEAR 01/15/2030 01/15/2025, 06/23, 09/14/2015, Additional history exists COLONOSCOPY 02/07/2032 02/06/2022 COLORECTAL CANCER SCREENING 02/07/2032 Adult Td,Tdap Booster 11/25/2034 11/25/2024 , 12/08/2020, 09/12/2011 RSV VACCINE (1 - 1-dose 75+ series) 02/29/2040 COVID-19 VACCINE Completed 06/17/2024, 04/2022, 05/26/2021, Additional history exists HEPATITIS A VACCINES Aged Out No long er eligible based on patient's age to complete this topic HIB VACCINES Aged Out No longer eligi ble based on patient's age to complete this topic MENINGOCOCCAL VACCINES (ACWY) Aged Out No longer eligible based on patient's age to complete this topic MENINGOCOCCAL VACCINES (B) Aged Out N o longer eligible based on patient's age to complete this topic Medical Devices Implanted Type Area Rock Splitter Device Identifier Shelf Expiration Date Model / Serial / Lot Prosthetic Joint-05/25/2016 Implanted:05/25 (Quantity not on file) Prosthetic Joint Knee Mesh Graft 6.[address] Polypropylene Echo Positioning System Hydrogel Barrier Hernia [place] - [id number] Implanted:Qty: 1 on 02/26/2024 by Wendy Uribe MD at [facility] N/A: Abdomen [employer] [id number] 04/19/2025 [id number] / / [id number] Procedures Procedure Name Priority Date/Time Associated Diagnosis Comments EAR CERUMEN REMOVAL Routine 01/21/2025 4 :17 PM EDT Bilateral impacted cerumen POCT COVID-19 RT-PCR/INFLUENZA A & B/RSV CEPHEID Routine 01/21/2025 2:54 PM EDT PAP TEST Routine 01/15/2025 12:00 AM EDT TSH WITH REFLEX Routine 12/12/2023 10:03 AM EDT Acquired hypothyroidism ENDOSCOPY, COLON 02/06/2022 11:5 7 AM EDT BI MAMMOGRAM SCREENING WITH TOMOSYNTHESIS WITH CAD (BILATERAL) Routine 11/04/2021 3:14 PM EDT Encounter for gynecological examination without abnormal finding from Last 3 Months or Most Recently Relevant to Health Maintenance Results * EAR CERUMEN REMOVAL (01/21/2025 4:17 PM EDT) Other Narrative Ileana Gomez PA-C - 01/21/2025 4:17 PM EDT Ileana Gomez PA-C 01/21/2025 4:18 PM Cerumen Removal Date/Time: 01/21/2025 4:17 PM Visualization: Otoscopy Cerumen in: Bilateral ears Removed with: Irrigation and Curette Patient tolerated procedure well: Yes Cypress Protocol: Verbal consent obtained: Yes Written consent obtained: Yes Time out: Immediately prior to the procedure, a time out was called to verify that there is a signed consent form and that the correct patient, planned procedure, site and side are consistent with documentation and that necessary equipment and/or blood products are available prior to the start of the case. Ileana Gomez PA-C PROCEDURE/MINOR SURG ICAL ORDERABLES Final Result * POCT COVID-19 RT-PCR/Influenza A & B/RSV (Cepheid) (01/21/2025 2:54 PM EDT) [facility] RSV PCR Negative Negative [facility] SARS-CoV-2 (COVID-19) Negative Negative [facility] Influenza A PCR Negative Negative [facility] Influenza B PCR Negative Negative [facility] 01/21/2025 2:54 PM EDT 01/21/2025 3:33 PM EDT Ileana Gomez PA-C POINT OF CARE TEST O RDERABLES Final Result [facility] [address] [address], [facility] [phone] * Pap Test (01/15/2025 12:00 AM EDT) 01/15/2025 01/16/2025 10: 01 AM EDT Narrative SEE NARRATIVE - 01/22/2025 3:12 PM EDT [address] [address] Solar Energy Advisor: Heriberto Jay MD CUSTOMER ENGAGEMENT MANAGER Cytology Report FINAL DIAGNOSIS A. PAP SMEAR (THIN PREP) CE: SPECIMEN ADEQUACY: Satisfactory for evaluation; transformation zone present. Evaluation limited by scant cellularity. INTERPRETATION: NEGATIVE FOR INTRAEPITHELIAL LESION OR MALIGNANCY. Atrophy. This specimen was analyzed by the automated ThinPrep Imaging System ([employer] Barbara.) and the selected lawson were reviewed by a chucking lathe operator. Electronically Signed Out By: TREVER Regalado(ASCP) The Pap test is a screening test primarily for squamous cancers and precursors and has associated false-negative and false-positive results. New technologies such as liquid-based preparations may decrease but will not eliminate all false-negative results. Regular sampling and follow-up of unexplained clinical signs and symptoms are recommended to minimize false negative results. PROCEDURES/ADDENDA HPV Testing (Requested) Ordered Date: 01/16/2025 A. PAP SMEAR (THIN PREP) CE: High-risk HPV Panel w/ extended genotyping NEG HPV 16-NEG HPV 18-NEG HPV 45-NEG HPV 33/58-NEG HPV 31-NEG HPV 56/59/66-NEG HPV 51-NEG HPV 52-NEG HPV 35/39/68-NEG Performed by real-time polymerase chain reaction (PCR) at [facility], [address] [place] [address] using the FDA-approved [employer] Onclarity HPV Assay with extended genotyping. Uses of the assay in scenarios other than those approved by the FDA should be considered off-label use. The accuracy and precision of this test for all other off-label specimen sources has been verified in the Cytopathology Laboratory of the [facility] and has not been cleared or approved by the U.S. Food and Drug Administration. Clinical correlation is advised. The assay assesses the E6/E7 DNA target and utilizes human beta globin as an internal control. Cytology and HPV testing are screening assays and should not be used as the sole means of detecting cancer. False-positives and false-negatives can occur. CLINICAL HISTORY Date of Last Menstrual Period: Not Provided Menstrual History: Post Menopausal Treatment History: Hormone Therapy Other Clinical Conditions: Screening Pap SPECIMEN SOURCE A: PAP SMEAR (THIN PREP) CE Patient Name: KATHY VELAZQUEZ : 1965 (Age: 59) Sex: F Institution: [facility] Location: [facility] Date of Collection: 01/15/2025 Date of Reported: 01/22/2025 15:12 Results to: Omaira Obregon MD Omaira Obregon MD CYTOLOGY ORDERABLES Final Result SEE NARRATIVE * TSH with reflex (12/12/2023 10:03 AM EDT) TSH 2.65 0.27 - 4.20 uIU/mL [facility] Blood 12/12/2023 10:0 3 AM EDT 12/12/2023 10:12 AM EDT Estefania Bsuch MD LAB BLOOD ORDERABLES F inal Result [facility] [address] [place] [address] * ENDOSCOPY, COLON (02/06/2022 11:57 AM EDT) Narrative Transcriptions Bobby Ramsey MD - 02/06/2022 11:57 AM EDT Patient Name: Kathy Christosramu Attending MD:: BOBBY RAMSEY MD Procedure Date: 02/06/2022 11:57 AM Date of : 1965 Age: 56 Admit Type: Outpatient Gender: Female Room: [place] [address] Referring MD: Mary Beth Diaz MD Exam Type: Colonoscopy Indications: Surveillance: Personal history of adenomatouspolyps on last colonoscopy > 5 years ago, Lastcolonoscopy: September 2016 Medications: Propofol per Anesthesia Procedure: Informed consent was obtained from the patientafter discussion of the indications, limitations, alternatives, benefits, and risks of the procedure. Risks specifically discussed include but are not limited to medication reactions, missed lesions, bleeding, perforation, or the need for emergent surgery. Throughout the procedure, the patient's blood pressure, pulse, end-tidal CO2, and oxygensaturations were monitored continuously. The Olympus pediatric variable [id number] #4 was introduced through the anus and advanced tothe cecum, identified by the appendiceal orifice, ileocecal valve and palpation. The colonoscopy was performed without difficulty. The patient tolerated the procedure well. The quality of the bowel preparation was good. The ileocecal valve,appendiceal orifice, and rectum were photographed. Complications: No immediate complications. Estimated blood loss: Minimal. Findings: The perianal and digital rectal examinations were normal. Pertinent negatives include no palpablerectal lesions. Multiple small and large-mouthed diverticula were found in the sigmoid colon, descending colon and ascending colon. A 5 mm polyp was found in the cecum. The polyp was sessile. The polyp was removed with a cold snare. Resection and retrieval were complete. Estimatedblood loss was minimal. A 13 mm polyp was found in the mid ascending colon. The polyp was flat. The polyp was removed with a piecemeal technique using a hot snare. Resectionand retrieval were complete. Estimated blood loss:none. Retroflexion in the right colon was performed. The exam was otherwise without abnormality ondirect and retroflexion views. Impression: - Diverticulosis in the sigmoid colon, in the descending colon and in the ascending colon. - One 5 mm polyp in the cecum, removed with a cold snare. Resected and retrieved. - One 13 mm polyp in the mid ascending colon,removed piecemeal using a hot snare. Resected andretrieved. - The examination was otherwise normal on directand retroflexion views. Recommendation: - I will send results of your biopsy to you andyour referring physician or provider. If you do notreceive notification within 3 weeks, please call ouroffice. - Repeat colonoscopy in 3 years for surveillance of polyps greater than 1 cm in size. - No aspirin, ibuprofen, naproxen, or other non-steroidal anti-inflammatory drugs for 10 days after polyp removal. BOBBY RAMSEY MD 02/06/2022 12:34:25 PM This report has been signed electronically. Number of Addenda: 0 Note Initiated On: 02/06/2022 11:57 AM Procedure Code(s): --- Professional --- 18550, Colonoscopy, flexible; with removal of tumor(s), polyp(s), or other lesion(s) by snare technique --- Technical --- 07352, Colonoscopy, flexible; with removal of tumor(s), polyp(s), or other lesion(s) by snare technique Diagnosis Code(s): --- Professional --- Z86.010, Personal history of colonic polyps K63.5, Polyp of colon K57.30, Diverticulosis of large intestine without perforation or abscess without bleeding --- Technical --- Z86.010, Personal history of colonic polyps K63.5, Polyp of colon K57.30, Diverticulosis of large intestine without perforation or abscess without bleeding CPT copyright 2020 [employer]. All rights reserved. The codes documented in this report are preliminary and upon electrical repairer reviewmay be revised to meet current compliance requirements. Procedure Date: 02/06/2022 11:57:[address] [place] [id number] Tamara Diaz MD GI PROCEDURE ORDERABLES Edited Result - Final * BI MAMMOGRAM SCREENING WITH TOMOSYNTHESIS WITH CAD (BILATERAL) (11/04/2021 3:14 PM EDT) Anatomical Region Laterality Modality Breast Left, Breast Right, Breast Bilateral Bila teral Mammography 11/04/2021 3:36 PM EDT Impressions 11/04/2021 3:39 PM EDT No mammographic evidence of malignancy. Recommend routine annual surveillance. BI-RADS CATEGORY: 2 - Benign finding. DENSITY: There are scattered fibroglandular densities. Narrative 11/04/2021 3:39 PM EDT 56-year-old female with no current breast symptoms. Comparison made to previous on 06/24/2020 and as far back as 05/29/2013. Interpretation made in conjunction with computer-aided detection and tomosynthesis. There are scattered areas of fibroglandular density. Chronic right breast biopsy marker and calcifications. There are no suspicious masses, areas of architectural distortion, or suspicious clusters of microcalcifications. Procedure Note Thuan Smith MD - 11/04/2021 56-year-old female with no current breast symptoms. Comparison made toprevious on 06/24/2020 and as far back as 05/29/2013. Interpretation madein conjunction with computer-aided detection and tomosynthesis. There are scattered areas of fibroglandular density. Chronic right breastbiopsy marker and calcifications. There are no suspicious masses, areas of architectural distortion, orsuspicious clusters of microcalcifications. IMPRESSION: No mammographic evidence of malignancy. Recommend routine annualsurveillance. BI-RADS CATEGORY: 2 - Benign finding. DENSITY: There are scattered fibroglandular densities. Omaira Obregon MD IMG MG EXAMS Final Result from Last 3 Months or Most Recently Relevant to Health Maintenance [place] [address] [place] [address] [place] [address] [place] [place] [address] [place] [address] [place] [place] [address] [place] [place] [address] ACO Advance Directives For more information, please contact: [phone] (9AM - 5PM [facility], Sunday-Sunday) Documents on File Type Date Recorded Patient Electronics Warfare Technician Expl anation Healthcare Proxy 01/12/2021 4:02 PM * Full Code (Latest Code Status on File) Date Activated Date Inactivated Comments 02/26/2024 6:18 AM Question Answer Comments Code Status Confirmed With: Patient * Full Code Date Activated Date Inactivated Comments 09/04/2023 8:33 AM 02/26/2024 6:18 AM Question Answer Comments Code Status Confirmed With: Patient * Full Code Date Activated Date Inactivated Comments 02/06/2022 9:22 PM 09/04/2023 8:33 AM Question Answer Comments Code Status Confirmed With: Patient * Full Code Date Activated Date Inactivated Comments 01/11/2021 10:30 AM 02/06/2022 9:22 PM Question Answer Comments Code Status Confirmed With: Patient Care Teams Brass Buffer Relationship Specialty Start Date End Date Marianela Plummer MD [address] [place] [address] PCP - General Internal Medicine 09/24/23 Pcp, Unknown 05/08/17 Additional Source Comments The information contained in this document represents components of the legal health record. It is not the complete legal health record.[facility]
--- OUTSIDE RECORDS SUMMARY | 2025-04-07 15:54 | XMS_ITS | Encounter Summary ---
Author Organization [facility] Address [address] [place] [address] Phone Care Team Providers Care Mumps Developer Name Role Phone Anup Jaramillo MD Primary Care Provider [phone] Marianela Plummer MD Primary Care Provider Pcp, Unknown Unavailable Unavailable Tamara Diaz MD Unavailable [phone] Anjali Murdock CNM Unavailable Encounter Details Date Type Department Care Team (Late st Contact Info) Description 06/30/2020 Procedure Pass [facility], [address] [address] Social History Tobacco Use Types Packs/Day Years [...] 10:40 AM EDT Office Visit [facility] [address] [place] [address] [place] [address] Estefania Busch MD [address] [address] documented as of this encounter Visit Diagnoses Not on filedocumented in this encounter Care Teams Mumps Developer Relationship Specialty Start Date End Date Anup Jaramillo MD [address] [place] [address] PCP - General Internal Medicine 10/21/18 09/23/23 Marianela Plummer MD [facility] [place] [address] PCP - General Internal Medicine 09/24/23 Pcp, Unknown 05/08/17 Tamara Diaz MD [address] [place] [address] Historical LMR Provider 05/10/17 07/30/21 Anjali Murdock CNM [address] [place] [address] Historical LMR Provider 05/10/17 2 documented as of this encounter Additional Source Comments The information contained in this document represents components of the legal health record. It is not the complete legal health record.[facility]
--- OUTSIDE RECORDS SUMMARY | 2025-04-07 15:54 | XMS_ITS | Encounter Summary ---
Author Organization [facility] Address [address] [place] [address] Phone Care Team Providers Care Document Preparation Specialist Name Role Phone Anup Jaramillo MD Primary Care Provider [phone] Marianela Plummer MD Primary Care Provider [phone] Pcp, Unknown Unavailable Unavailable Tamara Diaz MD Unavailable [phone] Anjali Murdock CNM Unavailable [phone] Reason for Referral * MRI/CAT Scan - Closed Specialty Diagnoses / Procedures Referred By Keli nielsen Referred To Contact Radiology Diagnoses Lumbar radiculopathy Procedures MRI Lumbar Spine Cheo Rojo DO Phone: tel: fax: mailto:[email or web address] Referral ID Status Reason Start Date Expiration Date Visits Re quested Visits Authorized [id number] Closed 06/30/2020 12/27/2020 1 1 * MRI/CAT Scan - Closed Specialty Diagnoses / Procedures Referred By Keli nielsen Referred To Contact Radiology Diagnoses Cervical radiculopathy Procedures MRI Cervical Spine Cheo Rojo DO Phone: tel: fax: mailto:[email or web address] Referral ID Status Reason Start Date Expiration Date Visits Re quested Visits Authorized [id number] Closed 06/30/2020 12/27/2020 1 1 Encounter Details Date Type Department Care Team (Latest Contact Info) Description 06/30/2020 Ancillary Orders Virtual Department [address] [place] [address] Cheo Rojo, DO [address] [place] [address] [email or web address] Cervical radiculopathy; Lumbar radiculopathy Social History Tobacco Use Types Packs/Day Years [...] 10:40 AM EDT Office Visit [facility] [address] [place] [address] Estefania Busch MD [address] [place] [address] [email or web address] documented as of this encounter Results * MRI LUMBAR SPINE (NEURO) WITHOUT CONTRAST (07/04/2020 11:51 AM EST) Anatomical Region Laterality Modality L-spine Magnetic Resonan ce 07/04/2020 5:14 PM EST Impressions 07/04/2020 5:29 PM EST 1. Presumed synovial cyst associated with the right facet joint at L4-L5 effacing and displacing the thecal sac to the left is no longer demonstrated. There is moderate persisting central canal stenosis at L4-L5 which is mildly improved from 01/16/2017. 2. Mild progressive degenerative disc change at L4-L5. 3. No other significant changes from 01/16/2017. POS - [id number] Narrative 07/04/2020 5:29 PM EST HISTORY: Recurrent lower back pain with sciatic symptoms. COMPARISON: MRI lumbar spine 01/16/2017, lumbar spine x-ray 02/09/2017. TECHNIQUE: Exam performed on a 1.5 Sandy high-field MRI scanner. Sagittal T1, T2 and STIR, axial T1 and T2 sequences were obtained. FINDINGS: Conus medullaris: Normal. L1-L2: No significant abnormalities. L2-L3: No significant abnormalities. L3-L4: Stable mild loss of T2 signal within the disc. Stable mild-moderate bilateral facet arthropathy thickening of the ligamentum flavum. No central canal stenosis. No significant neuroforaminal narrowing has developed. L4-L5: Loss of T2 signal within the disc. Mild disc space narrowing which has mildly progressed. Minimal degenerative endplate changes. Small broad-based disc- osteophyte complex. Similar severe bilateral facet arthropathy. Similar fluid within both facet joints. The T2 hyperintense mass, likely a synovial cyst which effaced and displaced the thecal sac to the left is no longer demonstrated. Persistent central canal stenosis which is less severe than on 01/16/2017 and overall moderate. Stable mild-moderate bilateral neuroforaminal narrowing. L5-S1: Disc remains well-maintained. Very severe bilateral facet arthropathy appears essentially stable. Very mild grade 1 spondylolisthesis of L5 on S1 is stable. Similar mild broad-based bulging of the disc. No central canal stenosis. Stable mild bilateral neuroforaminal narrowing. Soft tissues: No evidence of paravertebral masses. Vertebral bodies: No compression fractures. Marrow signal: No suspicious marrow signal abnormalities. Other: No other significant changes. Procedure Note Raymon Perdomo MD - 07/04/2020 HISTORY: Recurrent lower back pain with sciatic symptoms. COMPARISON: MRI lumbar spine 01/16/2017, lumbar spine x-ray 02/09/2017. TECHNIQUE: Exam performed on a 1.5 Sandy high-field MRI scanner. SagittalT1, T2 and STIR, axial T1 and T2 sequences were obtained. FINDINGS: Conus medullaris: Normal. L1-L2: No significant abnormalities. L2-L3: No significant abnormalities. L3-L4: Stable mild loss of T2 signal within the disc. Stable mild- moderatebilateral facet arthropathy thickening of the ligamentum flavum. Nocentral canal stenosis. No significant neuroforaminal narrowing hasdeveloped. L4-L5: Loss of T2 signal within the disc. Mild disc space narrowing whichhas mildly progressed. Minimal degenerative endplate changes. Smallbroad-based disc- osteophyte complex. Similar severe bilateral facetarthropathy. Similar fluid within both facet joints. The T2 hyperintensemass, likely a synovial cyst which effaced and displaced the thecal sac tothe left is no longer demonstrated. Persistent central canal stenosiswhich is less severe than on 01/16/2017 and overall moderate. Stablemild-moderate bilateral neuroforaminal narrowing. L5-S1: Disc remains well-maintained. Very severe bilateral facetarthropathy appears essentially stable. Very mild grade 1spondylolisthesis of L5 on S1 is stable. Similar mild broad-based bulgingof the disc. No central canal stenosis. Stable mild bilateralneuroforaminal narrowing. Soft tissues: No evidence of paravertebral masses. Vertebral bodies: No compression fractures. Marrow signal: No suspicious marrow signal abnormalities. Other: No other significant changes. IMPRESSION: 1. Presumed synovial cyst associated with the right facet joint at L4-M5tpqchjfj and displacing the thecal sac to the left is no longerdemonstrated. There is moderate persisting central canal stenosis at L4-Q8mxkzj is mildly improved from 01/16/2017. 2. Mild progressive degenerative disc change at L4-L5. 3. No other significant changes from 01/16/2017. POS - [id number] us Cheo Rojo DO IMG MR XSPECIALTY Final Resu lt * MRI CERVICAL SPINE (BONE) WITHOUT CONTRAST (07/04/2020 11:39 AM EST) Anatomical Region Laterality Modality C-spine Magnetic Resonan ce 07/04/2020 5:00 PM EST Impressions 07/04/2020 5:13 PM EST 1. Motion artifact degrades the quality of the exam. There appears to be fairly severe narrowing of the right neuroforamen at C3-C4 which may be overestimated due to artifact. Estimated moderate neuroforaminal narrowing at C3-C4 on the left and bilaterally at C6-C7. 2. Moderate degenerative disc and endplate changes at C6-C7. More mild degenerative disc and endplate changes at the other levels. 3. Recommend ultrasound for 11 mm nodule within the posterior inferior right thyroid lobe. Narrative 07/04/2020 5:13 PM EST HISTORY:. Cervical pain radiating down left arm. Left arm numbness. COMPARISON: None. TECHNIQUE: Exam performed on a 1.5 Sandy high-field MRI scanner. Sagittal T1, T2 and STIR, axial T2* gradient echo and 3-D bright fluid sequences were obtained. FINDINGS: Motion artifact degrades the quality of exam. Cervicomedullary junction: No abnormalities demonstrated. Spinal cord: No evidence of spinal cord lesions. C2-C3: No significant abnormalities. C3-C4: Disc height well-maintained. Small anterior osteophytes. Small broad- based disc-osteophyte complex. No central canal stenosis. Evidence of fairly severe narrowing of the right neuroforamen by uncovertebral joint osteophytes and mild facet arthropathy. Moderate narrowing of the left neuroforamen. C4-C5: Disc height well-maintained. Minimal broad-based bulging of the disc. No central canal stenosis. Mild bilateral neuroforaminal narrowing. Evidence of facet arthropathy on the left. C5-C6: Minimal broad-based bulging of the disc. No central canal stenosis. Mild-moderate narrowing of the right neuroforamen by uncovertebral joint osteophytes. Mild narrowing of the left neuroforamen. C6-C7: Moderate disc space narrowing and degenerative endplate changes. Small broad-based disc-osteophyte complex. Mild narrowing of the central canal. No central canal stenosis. There is bilateral neuroforaminal narrowing. Neuroforamina are partially obscured by artifact and bilateral neuroforaminal narrowing is estimated to be moderate. C7-T1: No significant abnormalities. Vertebrae: No subluxations. No suspicious marrow signal abnormalities. Soft tissue: No evidence of paravertebral masses. 11 mm mildly heterogeneous T2 hyperintense nodule within the posterior inferior right thyroid lobe. Procedure Note Raymon Perdomo MD - 07/04/2020 HISTORY:. Cervical pain radiating down left arm. Left arm numbness. COMPARISON: None. TECHNIQUE: Exam performed on a 1.5 Sandy high-field MRI scanner.Sagittal T1, T2 and STIR, axial T2* gradient echo and 3-D bright fluidsequences were obtained. FINDINGS: Motion artifact degrades the quality of exam. Cervicomedullary junction: No abnormalities demonstrated. Spinal cord: No evidence of spinal cord lesions. C2-C3: No significant abnormalities. C3-C4: Disc height well-maintained. Small anterior osteophytes. Smallbroad-based disc-osteophyte complex. No central canal stenosis. Evidenceof fairly severe narrowing of the right neuroforamen by uncovertebraljoint osteophytes and mild facet arthropathy. Moderate narrowing of theleft neuroforamen. C4-C5: Disc height well-maintained. Minimal broad-based bulging of thedisc. No central canal stenosis. Mild bilateral neuroforaminal narrowing.Evidence of facet arthropathy on the left. C5-C6: Minimal broad-based bulging of the disc. No central canal stenosis.Mild-moderate narrowing of the right neuroforamen by uncovertebral jointosteophytes. Mild narrowing of the left neuroforamen. C6-C7: Moderate disc space narrowing and degenerative endplate changes.Small broad-based disc-osteophyte complex. Mild narrowing of the centralcanal. No central canal stenosis. There is bilateral neuroforaminalnarrowing. Neuroforamina are partially obscured by artifact and bilateralneuroforaminal narrowing is estimated to be moderate. C7-T1: No significant abnormalities. Vertebrae: No subluxations. No suspicious marrow signal abnormalities. Soft tissue: No evidence of paravertebral masses. 11 mm mildlyheterogeneous T2 hyperintense nodule within the posterior inferior rightthyroid lobe. IMPRESSION: 1. Motion artifact degrades the quality of the exam. There appears to befairly severe narrowing of the right neuroforamen at C3-C4 which may beoverestimated due to artifact. Estimated moderate neuroforaminal narrowingat C3-C4 on the left and bilaterally at C6-C7. 2. Moderate degenerative disc and endplate changes at C6-C7. More milddegenerative disc and endplate changes at the other levels. 3. Recommend ultrasound for 11 mm nodule within the posterior inferiorright thyroid lobe. us Cheo Rojo DO IMG MR XSPECIALTY Final Resu lt documented in this encounter Visit Diagnoses Diagnosis Cervical radiculopathy Brachial neuritis or radiculitis nos Lumbar radiculopathy Thoracic or lumbosacral neuritis or radiculitis, unspecified Lumbar radiculopathy Thoracic or lumbosacral neuritis or radiculitis, unspecified Cervical radiculopathy Brachial neuritis or radiculitis nos documented in this encounter Care Teams Document Preparation Specialist Relationship Specialty Start Date End Date Anup Jaramillo MD [address] [place] [address] PCP - General Internal Medicine 10/21/18 09/23/23 Marianela Plummer MD [address] [place] [address] [place] [address] PCP - General Internal Medicine 09/24/23 Pcp, Unknown 05/08/17 Tamara Diaz MD [address] [place] [address] [email or web address] Historical LMR Provider 05/10/17 07/30/21 Anjali Murdock CNM [address] [place] [address] Historical LMR Provider 05/10/17 2 documented as of this encounter Additional Source Comments The information contained in this document represents components of the legal health record. It is not the complete legal health record.[facility]
--- OUTSIDE RECORDS SUMMARY | 2025-04-07 15:54 | XMS_ITS | Encounter Summary ---
Author Organization [facility] Address [address] [place] [address] Phone Care Team Providers Care Stereotyper Helper Name Role Phone Anup Jaramillo MD Primary Care Provider [phone] Marianela Plummer MD Primary Care Provider [phone] Pcp, Unknown Unavailable Unavailable Tamara Diaz MD Unavailable [phone] Anjali Murdock CNM Unavailable [phone] Encounter Details Date Type Department Care Team (Late st Contact Info) Description 10/21/2018 Ancillary Orders Virtual Department [address] [place] [address] Anup Jaramillo MD [address] [place] [address] Breast screening Social History Tobacco Use Types Packs/Day Years Used Date Smoking Tobacco: Never Assessed Comments No Sex and Gender Information Value [...] AM EDT Office Visit [facility] [address] [place] [address] Estefania Busch MD [address] [place] [address] [email or web address] documented as of this encounter Results * BI MAMMOGRAM SCREENING WITH TOMOSYNTHESIS WITH CAD (BILATERAL) (12/11/2018 10:31 AM EDT) Anatomical Region Laterality Modality Breast Left, Breast Right, Breast Bilateral Bila teral Mammography 12/11/2018 10:0 6 PM EDT Impressions 12/11/2018 10:08 PM EDT No mammographic evidence of malignancy. RECOMMENDED FOLLOWUP: Routine screening mammography is recommended, as clinically appropriate. The results will be sent to the patient. BI-RADS CATEGORY: 2 - Benign finding. BREAST DENSITY: There are scattered fibroglandular densities. POS - CDHMAMA Narrative 12/11/2018 10:08 PM EDT BI MAMMOGRAM SCREENING WITH TOMOSYNTHESIS WITH CAD (BILATERAL) HISTORY: Screening. Prior benign right breast cyst aspiration, 2013. COMPARISON: Prior studies dating back to 05/29/2013, most recently 11/30/2017. TECHNIQUE: Digital breast tomosynthesis was performed in CC and MLO projections. Reconstructed 2-D C-views generated from the tomosynthesis images. Images interpreted in conjunction with R-2 Image Mushroom Farmer computer-aided detection (CAD). FINDINGS: BREAST DENSITY: There are scattered fibroglandular densities. There are no suspicious masses, suspicious areas of architectural distortion or suspicious clusters of microcalcifications. Stable upper outer quadrant right breast biopsy clip and a few benign scattered microcalcifications. Procedure Note Keisha Dey MD - 12/11/2018 BI MAMMOGRAM SCREENING WITH TOMOSYNTHESIS WITH CAD (BILATERAL) HISTORY: Screening. Prior benign right breast cyst aspiration, 2013. COMPARISON: Prior studies dating back to 05/29/2013, most sltsjerw92/11/2018. TECHNIQUE: Digital breast tomosynthesis was performed in CC and MLOprojections. Reconstructed 2-D C-views generated from the tomosynthesisimages. Images interpreted in conjunction with R-2 Image Checkercomputer-aided detection (CAD). FINDINGS: BREAST DENSITY: There are scattered fibroglandular densities. There are no suspicious masses, suspicious areas of architecturaldistortion or suspicious clusters of microcalcifications. Stable upperouter quadrant right breast biopsy clip and a few benign scatteredmicrocalcifications. IMPRESSION: No mammographic evidence of malignancy. RECOMMENDED FOLLOWUP: Routine screening mammography is recommended, asclinically appropriate. The results will be sent to the patient. BI-RADS CATEGORY: 2 - Benign finding. BREAST DENSITY: There are scattered fibroglandular densities. POS - CDHMAMA Anup Jaramillo MD IMG MG EXAMS Final Resu lt documented in this encounter Visit Diagnoses Diagnosis Breast screening Breast screening, unspecified Breast screening Breast screening, unspecified documented in this encounter Care Teams Stereotyper Helper Relationship Specialty Start Date End Date Anup Jaramillo MD [address] [place] [address] PCP - General Internal Medicine 10/21/18 09/23/23 Marianela Plummer MD [address] [place] [address] PCP - General Internal Medicine 09/24/23 Pcp, Unknown 05/08/17 Tamara Diaz MD [address] [place] [address] Historical LMR Provider 05/10/17 07/30/21 Anjali Murdock CNM [address] [place] [address] Historical LMR Provider 05/10/17 2 documented as of this encounter Additional Source Comments The information contained in this document represents components of the legal health record. It is not the complete legal health record.[facility]
--- OUTSIDE RECORDS SUMMARY | 2025-04-07 15:54 | XMS_ITS | Encounter Summary ---
Author Organization [facility] Address [address] [place] [address] Phone Care Team Providers Care Concrete Layer Name Role Phone Anup Jaramillo MD Primary Care Provider [phone] Marianela Plummer MD Primary Care Provider [phone] Pcp, Unknown Unavailable Unavailable Tamara Diaz MD Unavailable [phone] Anjali Murdock CNM Unavailable [phone] Encounter Details Date Type Department Care Team (Late st Contact Info) Description 05/24/2020 Ancillary Orders Virtual Department [address] [place] [address] Anup Jaramillo MD [address] [place] [address] Breast cancer screening by mammogram Social History Tobacco Use Types Packs/Day Years [...] 10:40 AM EDT Office Visit [facility] [address] [place] [address] [place] [address] Estefania Busch MD [address] [place] [address] [email or web address] documented as of this encounter Results * BI MAMMOGRAM SCREENING WITH TOMOSYNTHESIS WITH CAD (BILATERAL) (06/24/2020 2:37 PM EST) Anatomical Region Laterality Modality Breast Left, Breast Right, Breast Bilateral Bila teral Mammography 06/24/2020 2:53 PM EST Impressions 06/24/2020 2:56 PM EST No findings suspicious for malignancy are identified. In the absence of a worrisome palpable abnormality, annual screening mammography is recommended. BI-RADS CATEGORY: 1 - Negative. DENSITY: There are scattered fibroglandular densities. Narrative 06/24/2020 2:56 PM EST COMPARISON: 06/02/2014 through 12/11/2018 Bilateral 3-D tomosynthesis with 2-D reconstructions in the CC and MLO projection. Computer-aided detection system also utilized. No new mass, asymmetry, architectural distortion or suspicious calcifications have become apparent on either side. Procedure Note Fareed Welsh MD - 06/24/2020 COMPARISON: 06/02/2014 through 12/11/2018 Bilateral 3-D tomosynthesis with 2-D reconstructions in the CC and MLOprojection. Computer-aided detection system also utilized. No new mass, asymmetry, architectural distortion or suspiciouscalcifications have become apparent on either side. IMPRESSION: No findings suspicious for malignancy are identified. In the absence of aworrisome palpable abnormality, annual screening mammography isrecommended. BI-RADS CATEGORY: 1 - Negative. DENSITY: There are scattered fibroglandular densities. Anup Jaramillo MD IMG MG EXAMS Final Resu lt documented in this encounter Visit Diagnoses Diagnosis Breast cancer screening by mammogram Breast cancer screening by mammogram documented in this encounter Care Teams Concrete Layer Relationship Specialty Start Date End Date Anup Jaramillo MD [address] [place] [address] PCP - General Internal Medicine 10/21/18 09/23/23 Marianela Plummer MD [facility] [place] [address] PCP - General Internal Medicine 09/24/23 Pcp, Unknown 05/08/17 Tamara Diaz MD [address] [place] [address] [email or web address] Historical LMR Provider 05/10/17 07/30/21 Anjali Murdock CNM [address] [place] [address] Historical LMR Provider 05/10/17 2 documented as of this encounter Additional Source Comments The information contained in this document represents components of the legal health record. It is not the complete legal health record.[facility]
--- OUTSIDE RECORDS SUMMARY | 2025-04-07 15:54 | XMS_ITS | Encounter Summary ---
Author Organization [facility] Address [address] [place] [address] Phone Care Team Providers Care Ice Cutter Name Role Phone Tamara Diaz MD Primary Care Provider [phone] Neo Milligan MD Primary Care Provider [phone] Tamara Diaz MD Primary Care Provider [phone] Neo Milligan MD Primary Care Provider [phone] Anup Jaramillo MD Primary Care Provider [phone] Marianela Plummer MD Primary Care Provider [phone] Pcp, Unknown Unavailable Unavailable Tamara Diaz MD Unavailable [phone] Anjali Murdock CNM Unavailable [phone] Encounter Details Date Type Department Care Team (Late st Contact Info) Description 10/19/2017 Ancillary Orders Virtual Department [address] [place] [address] Tamara Diaz MD [address] [place] [address] Breast screening Social History Tobacco Use Types [...] 10:40 AM EDT Office Visit [facility] [address] [place] [address] [place] [address] Estefania Busch MD [address] [place] [address] documented as of this encounter Results * (ABNORMAL) BI MAMMOGRAM SCREENING WITH TOMOSYNTHESIS WITH CAD (BILATERAL) (11/30/2017 9:45 AM EDT) Anatomical Region Laterality Modality Breast Left, Breast Right, Breast Bilateral Bila teral Mammography 11/30/2017 4:06 PM EDT Impressions 11/30/2017 4:14 PM EDT Recommend additional imaging for possible new six more meter mass in left breast. No other findings suspicious for malignancy. The radiology report will attempt recall the patient for the additional imaging. BI-RADS CATEGORY 0 - INCOMPLETE NEED ADDITIONAL IMAGING LEFT RECOMMENDATION DATE: Within 1 Month Additional Imaging RIGHT RECOMMENDATION DATE: Annual Mammography Screening DENSITY: There are scattered fibroglandular densities. Recall imaging: Spot compression MLO, 90 degree ML and rolled medial cc views, block off left breast ultrasound in case necessary. POS - CDHMAMA Narrative 11/30/2017 4:14 PM EDT Bilateral mammography is performed in conjunction with computed aided detection. 3-D tomography along with 2-D C view imaging was also performed. Comparison made to previous dated as far back as 10/30/2011 and as recent as 09/21/2016. Possible new 6 mm mass in the central left breast on the MLO view. This may be located laterally but is not visible on the cc view. Otherwise, no suspicious masses, areas of architectural distortion or suspicious microcalcifications. Biopsy marker remains present in the posterior outer right breast. us Tamara Diaz MD IMG MG EXAMS Final Result documented in this encounter Visit Diagnoses Diagnosis Breast screening Breast screening, unspecified Breast screening Breast screening, unspecified documented in this encounter Care Teams Ice Cutter Relationship Specialty Start Date End Date Tamara Diaz MD [address] [place] [address] [email or web address] PCP - General 05/08/17 11/26/17 Neo Milligan MD [address] [place] [address] PCP - General Internal Medicine 11/27/17 11/29/17 Tamara Diaz MD [address] [place] [address] [email or web address] PCP - General Internal Medicine 11/30/17 12/04/17 Neo Milligan MD [address] [place] [address] PCP - General Internal Medicine 12/05/17 10/20/18 Anup Jaramillo MD [address] [place] [address] PCP - General Internal Medicine 10/21/18 09/23/23 Marianela Plummer MD [address] [place] [address] [place] [address] PCP - General Internal Medicine 09/24/23 Pcp, Unknown 05/08/17 Tamara Diaz MD [address] [place] [address] [email or web address] Historical LMR Provider 05/10/17 07/30/21 Anjali Murdock CNM [address] [place] [address] Historical LMR Provider 05/10/17 2 documented as of this encounter Additional Source Comments The information contained in this document represents components of the legal health record. It is not the complete legal health record.[facility]
--- OUTSIDE RECORDS SUMMARY | 2025-04-07 15:54 | XMS_ITS | Encounter Summary ---
Author Organization [facility] Address [address] [place] [address] Phone Care Team Providers Care Informatics Consultant Name Role Phone Tamara Diaz MD Primary Care Provider [phone] Neo Milligan MD Primary Care Provider [phone] Anup Jaramillo MD Primary Care Provider [phone] Marianela Plummer MD Primary Care Provider [phone] Pcp, Unknown Unavailable Unavailable Tamara Diaz MD Unavailable [phone] Anjali Murdock CNM Unavailable Encounter Details Date Type Department Care Team (Late Contact Info) Description 12/03/2017 Ancillary Orders Virtual Department 30 [place] [address] Tamara Diaz MD [address] [place] [address] [email or web address] Abnormal mammogram Social History Tobacco Use Types Packs/Day [...] Encounters Date Type Department Care Team (Late Contact Info) Description 12/30/2025 10:40 AM EDT Office Visit [facility] [address] [place] [address] [place] [address] Estefania Busch MD [address] [place] [address] [email or web address] documented as of this encounter Results * BI US BREAST LIMITED (LEFT) (12/10/2017 1:59 PM EDT) Anatomical Region Laterality Modality Breast Left, Breast Bilateral Left Ul trasound 12/10/2017 2:59 PM EDT Impressions 12/10/2017 3:00 PM EDT Simple 7 mm cyst in 4 o'clock position of left breast. No findings suspicious for malignancy. Annual mammographic screening recommended. Results and recommendation conveyed to the patient before she left the breast center. BI-RADS CATEGORY 2 - BENIGN POS [id number] Narrative 12/10/2017 3:00 PM EDT HISTORY: Abnormal left screening mammogram. EXAMS: Left diagnostic mammogram, left breast ultrasound. FINDINGS: A partially obscured sub-cm mass persists in the outer, slightly lower left breast. This correlates with a well-circumscribed anechoic mass which enhances sound posteriorly in the 4 o'clock position on ultrasound which measures 7 mm x 7 mm x 6 mm. No other masses demonstrated. Procedure Note Raymon Mcrae MD - 12/10/2017 HISTORY: Abnormal left screening mammogram. EXAMS: Left diagnostic mammogram, left breast ultrasound. FINDINGS: A partially obscured sub-cm mass persists in the outer, slightly lowerleft breast. This correlates with a well-circumscribed anechoic masswhich enhances sound posteriorly in the 4 o'clock position on ultrasoundwhich measures 7 mm x 7 mm x 6 mm. No other masses demonstrated. IMPRESSION: Simple 7 mm cyst in 4 o'clock position of left breast. No findingssuspicious for malignancy. Annual mammographic screening recommended. Results and recommendation [facility] the [facility] BI-RADS CATEGORY 2 - BENIGN POS [id number] Tamara Diaz MD [facility] US BREAST Final Result * BI MAMMOGRAM DIAGNOSTIC WITH TOMOSYNTHESIS WITH CAD (LEFT) (12/10/2017 1:38 PM EDT) Anatomical Region Laterality Modality Breast Left Left Mammography 12/10/2017 2:59 PM EDT Impressions 12/10/2017 3:00 PM EDT Simple 7 mm cyst in 4 o'clock position of left breast. No findings suspicious for malignancy. Annual mammographic screening recommended. Results and recommendation conveyed to the patient before she left the breast center. BI-RADS CATEGORY 2 - BENIGN POS [id number] Narrative 12/10/2017 3:00 PM EDT HISTORY: Abnormal left screening mammogram. EXAMS: Left diagnostic mammogram, left breast ultrasound. FINDINGS: A partially obscured sub-cm mass persists in the outer, slightly lower left breast. This correlates with a well-circumscribed anechoic mass which enhances sound posteriorly in the 4 o'clock position on ultrasound which measures 7 mm x 7 mm x 6 mm. No other masses demonstrated. Tamara Diaz MD IMG MG EXAMS Final Result documented in this encounter Visit Diagnoses Diagnosis Abnormal mammogram Abnormal mammogram, unspecified Abnormal mammogram Abnormal mammogram, unspecified Abnormal mammogram Abnormal mammogram, unspecified documented in this encounter Care Teams Informatics Consultant Relationship Specialty Start Date End Date Tamara Diaz MD [address] [place] [address] PCP - General Internal Medicine 11/30/17 12/04/17 Neo Milligan MD [address] [place] [address] PCP - General Internal Medicine 12/05/17 10/20/18 Anup Jaramillo MD [address] [place] [address] PCP - General Internal Medicine 10/21/18 09/23/23 Marianela Plummer MD [address] [place] [address] [place] [address] PCP - General Internal Medicine 09/24/23 Pcp, Unknown 05/08/17 Tamara Diaz MD [address] [place] [address] [email or web address] Historical LMR Provider 05/10/17 07/30/21 Anjali Murdock CNM [address] [place] [address] Historical LMR Provider 05/10/17 2 documented as of this encounter Additional Source Comments The information contained in this document represents components of the legal health record. It is not the complete legal health record.[facility]
== END 2025-04-07 12:10 | disposition home or self-care (01) ==
LOC: HO.HMCC 11:40
PROVIDERS: PCP Internal Medicine; Visit Provider Internal Medicine
DX: M43.16 Spondylolisthesis, lumbar region (principal); M48.061 Spinal stenosis, lumbar region without neurogenic claudication; E66.09 Other obesity due to excess calories; Z68.31 Body mass index [BMI] 31.0-31.9, adult; M47.816 Spondylosis without myelopathy or radiculopathy, lumbar region

== ENCOUNTER → 2025-04-07 11:38 | Outpatient (BNVA) | payer OTHER, SELFPAY | PROVIDERS: PCP Internal Medicine; Visit Provider Internal Medicine | DX: M43.16 Spondylolisthesis, lumbar region (principal); M48.061 Spinal stenosis, lumbar region without neurogenic claudication; E66.09 Other obesity due to excess calories; M47.816 Spondylosis without myelopathy or radiculopathy, lumbar region; Z68.31 Body mass index [BMI] 31.0-31.9, adult | CPT/HCPCS: 99212 ==

== ENCOUNTER 2025-05-05 10:13 | Outpatient (AMB) | payer OTHER, SELFPAY ==
[2025-05-05 10:15] VITALS: BP 138/82; PULSE 80; O2SAT 97; BMI 29.6
--- NOTE | 2025-05-05 10:15 | A.OFFPC_ITS ---
Vital Signs 05/05/25 10:15 Height 5 ft 8 in Weight 195 lb BMI 29.6 BP 138/82 Blood Pressure Location Rt brachial Position Sitting Pulse 80 Pulse Source Pulse Oximeter Pulse Oximetry (%) 97 Intake Visit Reasons: 28 days f/up Allergies Penicillins Allergy (Mild, Verified 05/05/25 10:15) rash bee Allergy (Severe, Uncoded 02/23/25 10:30) Swelling Medication List - Last Reconciled 05/05/25 by Marianela Plummer MD atorvastatin 10 mg PO BEDTIME epinephrine (EpiPen 2-Tramaine) 0.3 mg (0.3 mL) IM Q10M PRN gabapentin 200 mg (2 x 100 mg) PO BEDTIME levothyroxine 75 mcg PO DAILY minoxidil 2.5 mg PO ONCE omeprazole 20 mg PO DAILY phentermine 37.5 mg PO DAILY 30 days solifenacin (Vesicare) 5 mg PO DAILY topiramate 50 mg PO DAILY 30 days Tobacco use date assessed: 11/11/24 Dental Screening Dental Screen Date: 11/11/24 HPI 28 days f/up HPI Details History of Present Illness The patient is a 60-year-old female presenting with spinal stenosis, gabapentin management, and hair loss. Spinal Stenosis: - The patient reports persistent back pa in despite current treatment. - Pain is described as variable, with si gnificant discomfort during specific movements or extended standing. - The current management includes gabape ntin, taken at a dosage of 200 mg, with plans to increase to 300 mg at night. - Evaluation of pain with consultation f rom a back surgeon is scheduled for a second opinion. Hair Loss: - The patient reports significant hair l oss over the past month and a half. - She is currently using minoxidil with minimal improvement. - Stress and possible hormonal changes a re discussed as potential contributing factors. - Derm has provided with prescription of spironolactone to manage hair loss, which is not started yet. Medical History: - Spinal stenosis - Neuropathic pain - Hair loss Surgical History: - Knee replacement surgery (date unspeci fied) Medications: - Gabapentin 200 mg for neuropathy, incr easing to 300 mg at night - Minoxidil for hair loss - Topamax (Topiramate) for weight manage ment - Phentermin for wt lose Social History: - Stress levels are reportedly high. - Nutritional intake deviated from lois l habits, with less home-cooked meals and attention to diet. Problem List - Spinal Stenosis - Neuropathic Pain - Hair Loss Plan - Increase gabapentin to 300 mg at night for neuropathic pain management, with an evaluation after one month to assess efficacy and side effects. - Consideration for spironolactone for h air loss while monitoring the patient's blood pressure and assessing for interactions with existing medications. - Scheduled follow-up with a back surgeo n for a second opinion regarding spinal stenosis; exploration of surgical options if no improvement is observed. - Continuous monitoring of weight manage ment with Topamax and Phentermine, with reevaluation planned in one month. Review of Systems - General: No fever no chills - Neurological: No headaches no dizziness - Ear nose throat: No sore throat no hearing difficulty no ear pain - Cardiovascular: No syncope, no chest pain, no palpitations - Gastrointestinal: No nausea vomiting or diarrhea - Endocrine: No polyuria polydipsia no heat intolerance - Genitourinary: No dysuria , no blood in urine Physical Exam General: No acute distress HEENT: No acute findings Neck: Supple Respiratory system: Able to talk in full sentences, no audible wheeze Cardiovascular: S1-S2 regular in rate and rhythm, blood pressure 138/82 Gastrointestinal: No pain Extremities: No new findings MATERIAL REPROCESSING ASSOCIATE: Alert awake oriented x3 motor intact Skin: Normal turgor, patient reports significant hair loss [facility] Surgical History No pertinent past surgical history Family History Daughter Mental health disorder Social History Housing: House Patient Tobacco Use Status: Never used Tobacco e-Cigarette/Vaping Use: Never Used service: No Current occupational status: employed Cognitive needs: No Hearing needs: No Vision needs: Yes Questionnaire PHQ-9 Over the last 2 weeks, how often have you been bothered by any of the following problems? 1. Little interest or pleasure in doing things: not at all 2. Feeling down, depressed, or hopeless: not at all 3. Trouble falling or staying asleep, or sleeping too much: not at all 4. Feeling tired or having little energy: not at all 5. Poor appetite or overeating: not at all 6. Feeling bad about yourself - or that you are a failure or have let yourself or your family down: not at all 7. Trouble concentrating on things, such as reading the newspaper or watching television: not at all 8. Moving or speaking so slowly that other people could have noticed. Or the opposite - being so fidgety or restless that you have been moving around a lot more than usual: not at all 9. Thoughts that you would be better off or of hurting yourself in some way: not at all Total score: 0 Depression Screening Interpretation: Negative Depression Screening Done: Yes 99359 - PHQ-9 Billing: Yes Source: Developed by Drs. Clark Roy, Evette Guzman, Chip Esposito and colleagues, with an educational jono from [employer]. Thrive Questionnaire Date Thrive assessed: 08/08/24 I am a: Patient What is your living situation today?: I have a steady place to live Within the past 12 months, did the food you bought not last and you didn't have the money to get more?: Never true Within the past 12 months, did you worry whether your food would run out before you got money to buy more?: Never true Do you have trouble paying for medicines?: No Do you have trouble getting transportation to medical appointments?: No Do you have trouble paying your heating and electricity bill?: No Do you have trouble taking care of your child, family member or friend?: No Do you have trouble with day-to-day activities such as bathing, preparing meals, shopping, managing finances, etc.?: No Are you currently unemployed and looking for a job?: No Are you interested in more education?: No Please select the resources that you would like help with: None Currently or been in a relationship where the following occur: No concerns reported THRIVE Score: 0 AUDIT C Alcohol Use Questionnaire (AUDIT-C) 1. How often do you have a drink containing alcohol?: Never 3. How often do you have six or more drinks on one occasion?: Never Total Score: 0 FELIPE-7 AMB Questionnaire FELIPE-7 Date FELIPE - 7 assessed: 01/14/25 Feeling nervous, anxious, or on edge: 0 = Not at all Not being able to stop or control worryin = Not at all Worrying too much about different things: 0 = Not at all Trouble relaxin = Not at all Being so restless that it is hard to sit still: 0 = Not at all Becoming easily annoyed or irritable: 0 = Not at all Feeling afraid as if something awful might happen: 0 = Not at all Total FELIPE-7 score (0-4 normal; 5-9 mild; 10-14 moderate; 15-21 severe): 0 Source: Developed by Drs. Clark Roy, Evette Guzman, Chip Esposito and colleagues, with an educational jono from [employer]. Physical exam (Primary Care) Vital Signs: Last Vital Signs Pulse 80 05/05/25 10:15 BP 138/82 05/05/25 10:15 Pulse Ox 97 05/05/25 10:15 BMI result Body Mass Index 29.6 Tobacco/Smoking Status: Tobacco use Status Tobacco use date assessed 11/11/24 05/05/25 10:16 Patient Tobacco Use Status Never used Tobacco 05/05/25 10:16 e-Cigarette/Vaping Use Never Used 05/05/25 10:16 PHQ-9: PHQ-9 Score PHQ-9: Total score 0 05/05/25 10:36 Depression Screening Interpretation: Negative Thrive Assessment: Date of Thrive Assessment Date Thrive assessed 08/08/24 05/05/25 10:16 Currently or been in a relationship where the following occur: No concerns reported Coding Level of Care Code Est Pt Level 3 (41004) Diagnoses Spinal stenosis of lumbar region without neurogenic claudication M48.061 Neurogenic claudication status: without neurogenic claudication Hair loss disorder L65.9 Educated about management of weight Z78.9 Additional Codes PHQ-9 - 09864 - PHQ-9 Billing: Yes ([id number]) Assessment & Plan Assessment & Plan (1) Lumbar spinal stenosis: Code(s): M48.061 - Spinal stenosis, lumbar region without neurogenic claudication Category: Medical Qualifiers: Neurogenic claudication status: without neurogenic claudication Qualified Code(s): M48.061 - Spinal stenosis, lumbar region without neurogenic claudication (2) Hair loss disorder: Code(s): L65.9 - Nonscarring hair loss, unspecified Category: Medical (3) Educated about management of weight: Code(s): Z78.9 - Other specified health status Category: Medical Plan History of Present Illness The patient is a 60-year-old female presenting with spinal stenosis, gabapentin management, and hair loss. Spinal Stenosis: - The patient reports persistent back pain despite current treatment. - Pain is described as variable, with significant discomfort during specific movements or extended standing. - The current management includes gabapentin, taken at a dosage of 200 mg, with plans to increase to 300 mg at night. - Evaluation of pain with consultation from a back surgeon is scheduled for a second opinion. Hair Loss: - The patient reports significant hair loss over the past month and a half. - She is currently using minoxidil with minimal improvement. - Stress and possible hormonal changes are discussed as potential contributing factors. - Derm has provided with prescription of spironolactone to manage hair loss, which is not started yet. Medical History: - Spinal stenosis - Neuropathic pain - Hair loss Surgical History: - Knee replacement surgery (date unspecified) Medications: - Gabapentin 200 mg for neuropathy, increasing to 300 mg at night - Minoxidil for hair loss - Topamax (Topiramate) for weight management - Phentermin for wt lose Social History: - Stress levels are reportedly high. - Nutritional intake deviated from normal habits, with less home-cooked meals and attention to diet. Problem List - Spinal Stenosis - Neuropathic Pain - Hair Loss Plan - Increase gabapentin to 300 mg at night for neuropathic pain management, with an evaluation after one month to assess efficacy and side effects. - Consideration for spironolactone for hair loss while monitoring the patient's blood pressure and assessing for interactions with existing medications. - Scheduled follow-up with a back surgeon for a second opinion regarding spinal stenosis; exploration of surgical options if no improvement is observed. - Continuous monitoring of weight management with Topamax and Phentermine, with reevaluation planned in one month. Medications: Changed From gabapentin 200 mg (2 x 100 mg) PO BEDTIME 60 caps 0RF To gabapentin 300 mg PO BEDTIME 30 caps 0RF Refilled phentermine must administer 2 hours after breakfast 37.5 mg PO DAILY 30 caps 0RF 30 days topiramate 50 mg PO DAILY 30 tabs 0RF 30 days
--- OUTSIDE RECORDS SUMMARY | 2025-05-05 11:55 | XMS_ITS | Encounter Summary ---
Author Organization [facility] Address [address] [place] [address] Phone Care Team Providers Care Call Center Nurse Name Role Phone Tamara Diaz MD Primary Care Provider [phone] Neo Milligan MD Primary Care Provider [phone] Tamara Diaz MD Primary Care Provider [phone] Neo Milligan MD Primary Care Provider [phone] Anup Jaramillo MD Primary Care Provider [phone] Marianela Plummer MD Primary Care Provider [phone] Pcp, Unknown Unavailable Unavailable Tamara Diaz MD Unavailable [phone] Anjali Murdock CNM Unavailable [phone] Encounter Details Date Type Department Care Team (Late st Contact Info) Description 10/19/2017 Ancillary Orders Virtual Department [address] [place] [address] Tamara Diaz MD [address] [place] [address] Breast screening Social History Tobacco Use Types [...] 10:40 AM EDT Office Visit [facility] [address] [place] [address] [place] [address] Estefania Busch MD [address] [place] [address] documented as of this encounter Results * [...] unspecified documented in this encounter Care Teams Call Center Nurse Relationship Specialty Start Date End Date Tamara Diaz MD [address] [place] [address] [email or web address] PCP - General 05/08/17 11/26/17 Neo Milligan MD [address] [place] [address] PCP - General Internal Medicine 11/27/17 11/29/17 Tamara Diaz MD [address] [place] [address] [email or web address] PCP - General Internal Medicine 11/30/17 12/04/17 Neo Milligan MD [address] [place] [address] PCP - General Internal Medicine 12/05/17 10/20/18 Anup Jaramillo MD [address] [place] [address] PCP - General Internal Medicine 10/21/18 09/23/23 Marianela Plummer MD [address] [place] [address] [place] [address] PCP - General Internal Medicine 09/24/23 Pcp, Unknown 05/08/17 Tamara Diaz MD [address] [place] [address] [email or web address] Historical LMR Provider 05/10/17 07/30/21 Anjali Murdock CNM [address] [place] [address] Historical LMR Provider 05/10/17 2 documented as of this encounter Additional Source Comments The information contained in this document represents components of the legal health record. It is not the complete legal health record.[facility]
--- OUTSIDE RECORDS SUMMARY | 2025-05-05 11:55 | XMS_ITS | Encounter Summary ---
Author Organization [facility] Address [address] [place] [address] Phone Care Team Providers Care Tandem Mill Operator Name Role Phone Anup Jaramillo MD Primary Care Provider [phone] Marianela Plummer MD Primary Care Provider [phone] Pcp, Unknown Unavailable Unavailable Encounter Details Date Type Department Care Team (Late st Contact Info) Description 02/06/2022 Procedure Pass [facility], Ct Scan - [address] [address] Social History Tobacco Use Types Packs/Day Years [...] 3:59 PM EDT Matthew Taveras RN * [place] Suicide Severity Rating Scale (Screener/Recent Self-Report) Question [...] AM EDT Office Visit [facility] [address] [place] [address] Estefania Busch MD [address] [address] [email or web address] documented as of this encounter Visit Diagnoses Not on filedocumented in this encounter Care Teams Tandem Mill Operator Relationship Specialty Start Date End Date Anup Jaramillo MD [address] [place] [address] PCP - General Internal Medicine 10/21/18 09/23/23 Marianela Plummer MD [address] [place] [address] [place] [address] PCP - General Internal Medicine 09/24/23 Pcp, Unknown 05/08/17 documented as of this encounter Additional Source Comments The information contained in this document represents components of the legal health record. It is not the complete legal health record.[facility]
--- OUTSIDE RECORDS SUMMARY | 2025-05-05 11:55 | XMS_ITS | Encounter Summary ---
Author Organization [facility] Address [address] [place] [address] Phone Care Team Providers Care Tomahawk Weapon System Operator Name Role Phone Marianela Plummer MD Primary Care Provider [phone] Pcp, Unknown Unavailable Unavailable Encounter Details Date Type Department Care Team (Late st Contact Info) Description 11/27/2023 Procedure Pass [facility], Ct Scan - [address] [address] Social History Tobacco Use Types Packs/Day Years [...] 10:40 AM EDT Office Visit [facility] [address] [place] [address] [place] [address] Estefania Busch MD [address] [place] [address] [email or web address] documented as of this encounter Visit Diagnoses Not on filedocumented in this encounter Care Teams Tomahawk Weapon System Operator Relationship Specialty Start Date End Date Marianela Plummer MD [address] [facility] [place] [address] PCP - General Internal Medicine 09/24/23 Pcp, Unknown 05/08/17 documented as of this encounter Additional Source Comments The information contained in this document represents components of the legal health record. It is not the complete legal health record.[facility]
--- OUTSIDE RECORDS SUMMARY | 2025-05-05 11:55 | XMS_ITS | Encounter Summary ---
Author Organization [facility] Address [address] [place] [address] Phone Care Team Providers Care Java Spring Developer Name Role Phone Marianela Plummer MD Primary Care Provider [phone] Pcp, Unknown Unavailable Unavailable Encounter Details Date Type Department Care Team (Late st Contact Info) Description 02/26/2024 Procedure Pass [place] Admitting Dept - Virtual Department 30 [place] [address] Social History Tobacco Use Types Packs/Day Years [...] AM EDT Office Visit [facility] [address] [place] [address] Estefania Busch MD [address] [place] [address] [email or web address] documented as of this encounter Visit Diagnoses Not on filedocumented in this encounter Care Teams Java Spring Developer Relationship Specialty Start Date End Date Marianela Plummer MD [address] [facility] [place] [address] PCP - General Internal Medicine 09/24/23 Pcp, Unknown 05/08/17 documented as of this encounter Additional Source Comments The information contained in this document represents components of the legal health record. It is not the complete legal health record.[facility]
--- OUTSIDE RECORDS SUMMARY | 2025-05-05 11:55 | XMS_ITS | Encounter Summary ---
Author Organization [facility] Address [address] [place] [address] Phone Care Team Providers Care Special Effects Designer Name Role Phone Anup Jaramillo MD Primary Care Provider [phone] Marianela Plummer MD Primary Care Provider [phone] Pcp, Unknown Unavailable Unavailable Encounter Details Date Type Department Care Team (Late st Contact Info) Description 02/07/2022 Procedure Pass [place] Admitting Dept - Virtual Department 30 [place] [address] Social History Tobacco Use Types Packs/Day Years [...] 10:40 AM EDT Office Visit [facility] [address] [place] [address] Estefania Busch MD [address] [place] [address] [email or web address] documented as of this encounter Visit Diagnoses Not on filedocumented in this encounter Care Teams Special Effects Designer Relationship Specialty Start Date End Date Anup Jaramillo MD [address] [place] [address] PCP - General Internal Medicine 10/21/18 09/23/23 Marianela Plummer MD [facility] [place] [address] PCP - General Internal Medicine 09/24/23 Pcp, Unknown 05/08/17 documented as of this encounter Additional Source Comments The information contained in this document represents components of the legal health record. It is not the complete legal health record.[facility]
--- OUTSIDE RECORDS SUMMARY | 2025-05-05 11:55 | XMS_ITS | Encounter Summary ---
Author Organization [facility] Address [address] [place] [address] Phone Care Team Providers Care Demonstrator Sales Name Role Phone Anup Jaramillo MD Primary Care Provider [phone] Marianela Plummer MD Primary Care Provider [phone] Pcp, Unknown Unavailable Unavailable Encounter Details Date Type Department Care Team (Late st Contact Info) Description 09/04/2023 Procedure Pass [place] Admitting Dept - Virtual Department 30 [place] [address] Social History Tobacco Use Types Packs/Day Years [...] AM EDT Office Visit [facility] [address] [place] [address] Estefania Busch MD [address] [address] [email or web address] documented as of this encounter Visit Diagnoses Not on filedocumented in this encounter Care Teams Demonstrator Sales Relationship Specialty Start Date End Date Anup Jaramillo MD [address] [place] [address] PCP - General Internal Medicine 10/21/18 09/23/23 Marianela Plummer MD [address] [place] [address] [place] [address] PCP - General Internal Medicine 09/24/23 Pcp, Unknown 05/08/17 documented as of this encounter Additional Source Comments The information contained in this document represents components of the legal health record. It is not the complete legal health record.[facility]
--- OUTSIDE RECORDS SUMMARY | 2025-05-05 11:55 | XMS_ITS | Encounter Summary ---
Author Organization [facility] Address [address] [place] [address] Phone Care Team Providers Care Rail Manager Name Role Phone Anup Jaramillo MD Primary Care Provider [phone] Marianela Plummer MD Primary Care Provider [phone] Pcp, Unknown Unavailable Unavailable Tamara Diaz MD Unavailable [phone] Anjali Murdock CNM Unavailable [phone] Encounter Details Date Type Department Care Team (Late st Contact Info) Description 06/30/2020 Procedure Pass [facility], [address] [address] Social History Tobacco Use Types Packs/Day Years [...] AM EDT Office Visit [facility] 22 [place] [address] Estefania Busch MD [address] [address] [email or web address] documented as of this encounter Visit Diagnoses Not on filedocumented in this encounter Care Teams Rail Manager Relationship Specialty Start Date End Date Anup Jaramillo MD [address] [place] [address] PCP - General Internal Medicine 10/21/18 09/23/23 Marianela Plummer MD [address] [place] [address] PCP - General Internal Medicine 09/24/23 Pcp, Unknown 05/08/17 Tamara Diaz MD [address] [place] [address] [email or web address] Historical LMR Provider 05/10/17 07/30/21 Anjali Murdock CNM [address] [place] [address] Historical LMR Provider 05/10/17 2 documented as of this encounter Additional Source Comments The information contained in this document represents components of the legal health record. It is not the complete legal health record.[facility]
--- OUTSIDE RECORDS SUMMARY | 2025-05-05 11:55 | XMS_ITS | Encounter Summary ---
Author Organization [facility] Address [address] [place] [address] Phone Care Team Providers Care Order Takers Supervisor Name Role Phone Tamara Diaz MD Primary Care Provider [phone] Neo Milligan MD Primary Care Provider [phone] Anup Jaramillo MD Primary Care Provider [phone] Marianela Plummer MD Primary Care Provider [phone] Pcp, Unknown Unavailable Unavailable Tamara Diaz MD Unavailable [phone] Anjali Murdock CNM Unavailable [phone] Encounter Details Date Type Department Care Team (Late Contact Info) Description 12/03/2017 Ancillary Orders Virtual Department 30 [place] [address] Tamara Daiz MD [address] [place] [address] [email or web address] Abnormal mammogram Social History Tobacco Use Types [...] 10:40 AM EDT Office Visit [facility] [address] [place] [address] [place] [address] Estefania Busch MD [address] [place] [address] [email or web address] documented as of this encounter Results * [...] center. BI-RADS CATEGORY 2 - BENIGN POS [id number] Narrative 12/10/2017 3:00 PM EDT HISTORY: Abnormal [...] [facility] BI-RADS CATEGORY 2 - BENIGN POS [id number] Tamara Diaz MD [facility] US BREAST Final Result * BI MAMMOGRAM [...] center. BI-RADS CATEGORY 2 - BENIGN POS [id number] Narrative 12/10/2017 3:00 PM EDT HISTORY: Abnormal [...] unspecified documented in this encounter Care Teams Order Takers Supervisor Relationship Specialty Start Date End Date Tamara Diaz MD [address] [place] [address] PCP - General Internal Medicine 11/30/17 12/04/17 Neo Milligan MD [address] [place] [address] PCP - General Internal Medicine 12/05/17 10/20/18 Anup Jaramillo MD [address] [place] [address] PCP - General Internal Medicine 10/21/18 09/23/23 Marianela Plummer MD [address] [place] [address] [place] [address] PCP - General Internal Medicine 09/24/23 Pcp, Unknown 05/08/17 Tamara Diaz MD [address] [place] [address] [email or web address] Historical LMR Provider 05/10/17 07/30/21 Anjali Murdock CNM [address] [place] [address] Historical LMR Provider 05/10/17 2 documented as of this encounter Additional Source Comments The information contained in this document represents components of the legal health record. It is not the complete legal health record.[facility]
--- OUTSIDE RECORDS SUMMARY | 2025-05-05 11:55 | XMS_ITS | Encounter Summary ---
Author Organization [facility] Address [address] [place] [address] Phone Care Team Providers Care Floor Grinder Name Role Phone Anup Jaramillo MD Primary Care Provider [phone] Marianela Plummer MD Primary Care Provider [phone] Pcp, Unknown Unavailable Unavailable Tamara Diaz MD Unavailable [phone] Anjali Murdock CNM Unavailable Encounter Details Date Type Department Care Team (Late st Contact Info) Description 05/24/2020 Procedure Pass [facility] - [address] [place] [address] Social History Tobacco Use Types Packs/Day Years [...] AM EDT Office Visit [facility] [address] [place] [address] Estefania Busch MD [address] [address] documented as of this encounter Visit Diagnoses Not on filedocumented in this encounter Care Teams Floor Grinder Relationship Specialty Start Date End Date Anup Jaramillo MD 46 [place] [address] PCP - General Internal Medicine 10/21/18 09/23/23 Marianela Plummer MD [facility] [place] [address] PCP - General Internal Medicine 09/24/23 Pcp, Unknown 05/08/17 Tamara Diaz MD [address] [place] [address] Historical LMR Provider 05/10/17 07/30/21 Anjali Murdock CNM [address] [place] [address] Historical LMR Provider 05/10/17 2 documented as of this encounter Additional Source Comments The information contained in this document represents components of the legal health record. It is not the complete legal health record.[facility]
--- OUTSIDE RECORDS SUMMARY | 2025-05-05 11:55 | XMS_ITS | Encounter Summary ---
Author Organization [facility] Address [address] [place] [address] Phone Care Team Providers Care Buyer Liaison Name Role Phone Anup Jaramillo MD Primary Care Provider [phone] Marianela Plummer MD Primary Care Provider [phone] Pcp, Unknown Unavailable Unavailable Tamara Diaz MD Unavailable [phone] Anjali Murdock CNM Unavailable Encounter Details Date Type Department Care Team (Late st Contact Info) Description 01/11/2021 Procedure Pass [place] Admitting Dept - Virtual Department 30 [place] [address] Social History Tobacco Use Types Packs/Day Years [...] AM EDT Office Visit [facility] [address] [place] [address] Estefania Busch MD [address] [address] documented as of this encounter Visit Diagnoses Not on filedocumented in this encounter Care Teams Buyer Liaison Relationship Specialty Start Date End Date Anup Jaramillo MD 46 [place] [address] PCP - General Internal Medicine 10/21/18 09/23/23 Marianela Plummer MD [employer] [facility] [address] PCP - General Internal Medicine 09/24/23 Pcp, Unknown 05/08/17 Tamara Diaz MD 73 [place] [address] [email or web address] Historical LMR Provider 05/10/17 07/30/21 Anjali Murdock CNM [address] [place] [address] Historical LMR Provider 05/10/17 2 documented as of this encounter Additional Source Comments The information contained in this document represents components of the legal health record. It is not the complete legal health record.[facility]
--- OUTSIDE RECORDS SUMMARY | 2025-05-05 11:55 | XMS_ITS | Encounter Summary ---
Author Organization [facility] Address [address] [place] [address] Phone Care Team Providers Care Commodity Supervisor Name Role Phone Anup Jaramillo MD Primary Care Provider [phone] Marianela Plummer MD Primary Care Provider [phone] Pcp, Unknown Unavailable Unavailable Encounter Details Date Type Department Care Team (Late st Contact Info) Description 11/02/2021 Procedure Pass [facility], [address] [address] Social History Tobacco Use Types Packs/Day Years [...] 10:40 AM EDT Office Visit [facility] [address] [place] [address] Estefania Busch MD [address] [place] [address] [email or web address] documented as of this encounter Visit Diagnoses Not on filedocumented in this encounter Care Teams Commodity Supervisor Relationship Specialty Start Date End Date Anup Jaramillo MD [address] [place] [address] PCP - General Internal Medicine 10/21/18 09/23/23 Marianela Plummer MD [facility] [place] [address] PCP - General Internal Medicine 09/24/23 Pcp, Unknown 05/08/17 documented as of this encounter Additional Source Comments The information contained in this document represents components of the legal health record. It is not the complete legal health record.[facility]
--- OUTSIDE RECORDS SUMMARY | 2025-05-05 11:55 | XMS_ITS | Encounter Summary ---
Author Organization [facility] Address [address] [facility] [address] [place] [address] Phone Care Team Providers Care Brand Designer Name Role Phone Anup Jaramillo MD Primary Care Provider [phone] Marianela Plummer MD Primary Care Provider [phone] Pcp, Unknown Unavailable Unavailable Tamara Diaz MD Unavailable [phone] Anjali Murdock CNM Unavailable Encounter Details Date Type Department Care Team (Late st Contact Info) Description 10/21/2018 Ancillary Orders Virtual Department 30 [place] [address] Anup Jaramillo MD [address] [place] [address] Breast screening Social History Tobacco Use Types [...] AM EDT Office Visit [facility] 22 [place] [address] Estefania Busch MD [address] [place] [address] [email or web address] documented as of this encounter Results * [...] Images interpreted in conjunction with R-2 Image Gauge And Instrument Inspector computer-aided detection (CAD). FINDINGS: BREAST DENSITY: There [...] Prior studies dating back to 05/29/2013, most kaqskoyg90/11/2018. TECHNIQUE: Digital breast tomosynthesis was performed in [...] unspecified documented in this encounter Care Teams Brand Designer Relationship Specialty Start Date End Date Anup Jaramillo MD [address] [place] [address] PCP - General Internal Medicine 10/21/18 09/23/23 Marianela Plummer MD [address] [place] [address] PCP - General Internal Medicine 09/24/23 Pcp, Unknown 05/08/17 Tamara Diaz MD [address] [place] [address] Historical LMR Provider 05/10/17 07/30/21 Anjali Murdock CNM [address] [place] [address] Historical LMR Provider 05/10/17 2 documented as of this encounter Additional Source Comments The information contained in this document represents components of the legal health record. It is not the complete legal health record.[facility]
--- OUTSIDE RECORDS SUMMARY | 2025-05-05 11:55 | XMS_ITS | Encounter Summary ---
Author Organization [facility] Address [address] [place] [address] Phone Care Team Providers Care Supervisor Yard Name Role Phone Anup Jaramillo MD Primary Care Provider [phone] Marianela Plummer MD Primary Care Provider [phone] Pcp, Unknown Unavailable Unavailable Tamara Diaz MD Unavailable [phone] Anjali Murdock CNM Unavailable Encounter Details Date Type Department Care Team (Late st Contact Info) Description 06/30/2020 Procedure Pass [facility], [address] [address] Social History Tobacco Use Types Packs/Day Years [...] 10:40 AM EDT Office Visit [facility] [address] [place] [address] [place] [address] Estefania Busch MD [address] [address] documented as of this encounter Visit Diagnoses Not on filedocumented in this encounter Care Teams Supervisor Yard Relationship Specialty Start Date End Date Anup Jaramillo MD 46 [place] [address] PCP - General Internal Medicine 10/21/18 09/23/23 Marianela Plummer MD [facility] [place] [address] PCP - General Internal Medicine 09/24/23 Pcp, Unknown 05/08/17 Tamara Diaz MD [address] [place] [address] Historical LMR Provider 05/10/17 07/30/21 Anjali Murdock CNM [address] [place] [address] Historical LMR Provider 05/10/17 2 documented as of this encounter Additional Source Comments The information contained in this document represents components of the legal health record. It is not the complete legal health record.[facility]
--- OUTSIDE RECORDS SUMMARY | 2025-05-05 11:55 | XMS_ITS | Encounter Summary ---
Author Organization [facility] Address [address] [place] [address] Phone Care Team Providers Care Manager Video Name Role Phone Anup Jaramillo MD Primary Care Provider [phone] Marianela Plummer MD Primary Care Provider [phone] Pcp, Unknown Unavailable Unavailable Encounter Details Date Type Department Care Team (Late st Contact Info) Description 02/06/2022 Procedure Pass [facility] Admitting Dept Virtual Department 30 [place] [address] Social History Tobacco Use Types Packs/Day Years [...] 3:59 PM EDT Matthew Taveras RN * [place] Suicide Severity Rating Scale (Screener/Recent Self-Report) Question [...] AM EDT Office Visit [facility] [address] [place] [address] Estefania Busch MD [address] [address] [email or web address] documented as of this encounter Visit Diagnoses Not on filedocumented in this encounter Care Teams Manager Video Relationship Specialty Start Date End Date Anup Jaramillo MD [address] [place] [address] PCP - General Internal Medicine 10/21/18 09/23/23 Marianela Plummer MD [address] [place] [address] [place] [address] PCP - General Internal Medicine 09/24/23 Pcp, Unknown 05/08/17 documented as of this encounter Additional Source Comments The information contained in this document represents components of the legal health record. It is not the complete legal health record.[facility]
--- OUTSIDE RECORDS SUMMARY | 2025-05-05 11:55 | XMS_ITS | Encounter Summary ---
Author Organization [facility] Address [address] [place] [address] Phone Care Team Providers Care Presser Hand Name Role Phone Anup Jaramillo MD Primary Care Provider [phone] Marianela Plummer MD Primary Care Provider [phone] Pcp, Unknown Unavailable Unavailable Encounter Details Date Type Department Care Team (Late st Contact Info) Description 04/25/2023 Procedure Pass [facility], Ct Scan - [facility] [address] [place] [address] Social History Tobacco Use Types Packs/Day Years [...] AM EDT Office Visit [facility] [address] [place] [address] Estefania Busch MD [address] [place] [address] [address] [email or web address] documented as of this encounter Visit Diagnoses Not on filedocumented in this encounter Care Teams Presser Hand Relationship Specialty Start Date End Date Anup Jaramillo MD [address] [place] [address] PCP - General Internal Medicine 10/21/18 09/23/23 Marianela Plummer MD [address] [place] [address] [place] [address] PCP - General Internal Medicine 09/24/23 Pcp, Unknown 05/08/17 documented as of this encounter Additional Source Comments The information contained in this document represents components of the legal health record. It is not the complete legal health record.[facility]
--- OUTSIDE RECORDS SUMMARY | 2025-05-05 11:55 | XMS_ITS | Clinical Summary ---
Author Organization [facility] Address [address] [place] [address] Care Team Providers Care Analyst Microbiology Lab Name Role Phone Marianela Plummer Primary Care Provider [phone] Allergies Active Allergy Reactions Criticality Noted Date Comments Allergen Jpe-Coblq-Gjqsu Bee Itching,Oth er (see comments),Swelling High 01/20/2002 [...] Social Drivers of Health Annual Screening 07/23/2024 COVID-19 Vaccine ( season) 2025 06/17/2024, 05/01/2022, 05/26/2021, Additional history exists Influenza Vaccine (#1) 2025 , 08/14/2023, 08/29/2022, Additional history exists DTaP,Tdap,and Td Vaccines (3 - Td or Tdap) 12/08/2030 12/08/2020, 09/12/2011 RSV Vaccine (60+ years old and patients) (1 - 1-dose 75+ series) 02/29/2040 Hepatitis B Vaccines Aged Out No long er eligible based on patient's age to complete this topic Insurance [facility] MEDICAID Care Teams Analyst Microbiology Lab Relationship Specialty Start Date End Date Marianela Plummer [address] [place] [address] PCP - General Internal Medicine 08/21/24
--- OUTSIDE RECORDS SUMMARY | 2025-05-05 11:56 | XMS_ITS | Encounter Summary ---
Author Organization [facility] Address [address] [place] [address] Phone Care Team Providers Care Technical Business Systems Analyst Name Role Phone Anup Jaramillo MD Primary Care Provider [phone] Marianela Plummer MD Primary Care Provider [phone] Pcp, Unknown Unavailable Unavailable Tamara Diaz MD Unavailable [phone] Anjali Murdock CNM Unavailable [phone] Reason for Referral * MRI/CAT Scan - Closed Specialty Diagnoses / Procedures Referred By Keli nielsen Referred To Contact Radiology Diagnoses Lumbar radiculopathy Procedures MRI Lumbar Spine Cheo Rojo DO Phone: tel: fax: mailto:[email or web address] Referral ID Status Reason Start Date Expiration Date Visits Re quested Visits Authorized [id number] Closed 06/30/2020 12/27/2020 1 1 * MRI/CAT Scan - Closed Specialty Diagnoses / Procedures Referred By Keli nielsen Referred To Contact Radiology Diagnoses Cervical radiculopathy Procedures MRI Cervical Spine Cheo Rojo DO Phone: tel: fax: mailto:[email or web address] Referral ID Status Reason Start Date Expiration Date Visits Re quested Visits Authorized [id number] Closed 06/30/2020 12/27/2020 1 1 Encounter Details Date Type Department Care Team (Latest Contact Info) Description 06/30/2020 Ancillary Orders Virtual Department [address] [place] [address] Cheo Rojo, DO [address] [place] [address] Cervical radiculopathy; Lumbar radiculopathy Social History Tobacco [...] 10:40 AM EDT Office Visit [facility] [address] [place] [address] Estefania Busch MD [address] [place] [address] [email or web address] documented as of this encounter Results * [...] associated with the right facet joint at L4-P1ksjqatka and displacing the thecal sac to the left is no longerdemonstrated. There is moderate persisting central canal stenosis at L4-T9nobgg is mildly improved from 01/16/2017. 2. Mild [...] nos documented in this encounter Care Teams Technical Business Systems Analyst Relationship Specialty Start Date End Date Anup Jaramillo MD [address] [place] [address] PCP - General Internal Medicine 10/21/18 09/23/23 Marianela Plummer MD [address] [place] [address] [place] [address] PCP - General Internal Medicine 09/24/23 Pcp, Unknown 05/08/17 Tamara Diaz MD [address] [place] [address] [email or web address] Historical LMR Provider 05/10/17 07/30/21 Anjali Murdock CNM [address] [place] [address] Historical LMR Provider 05/10/17 2 documented as of this encounter Additional Source Comments The information contained in this document represents components of the legal health record. It is not the complete legal health record.[facility]
--- OUTSIDE RECORDS SUMMARY | 2025-05-05 11:56 | XMS_ITS | Clinical Summary ---
Author Organization [facility] Address [address] [place] [phone] Phone Care Team Providers Care Web Methods Developer Name Role Phone Marianela Plummer MD Primary Care Provider [phone] Pcp, Unknown Unavailable Unavailable Allergies Active Allergy [...] SHG currenlty, unable to move up sooner Ribbon Inker consider other options, such as LNG IUD and E2 patch Assessment & Plan (10/21/2020 2:12 PM EDT): Taper to once daily norethindrone x 1 weeks then stop, may have diamond cutter bleeding episode Check SHG Perimenopausal vasomotor symptoms [...] options based on findings with tests noted Immunizations Immunization Administration Dates Next Due COVID-19 [...] 10:40 AM EDT Office Visit [facility] [address] [place] [address] [place] [address] Estefania Busch MD [address] [place] [address] Health Maintenance Due Date Last Done Comments LIPID PANEL 1965 DEPRESSION SCREENING 1977 SMOKING Hx and SMOKELESS TOBACCO SCREENING 1978 HEPATITIS C SCREENING 1983 HIV ONE-TIME SCREENING (18-65 YEARS) 1983 COLOGUARD 2010 FIT TEST 2010 FOBT 2010 SIGMOIDOSCOPY 2010 VIRTUAL COLONOSCOPY 2010 PNEUMOCOCCAL VACCINES (50+ years) (1 of 1 - PCV) 2015 ZOSTER VACCINES (1 of 2) 2015 MAMMOGRAM 11/05/2023 11/04/2021, 12/09/2019, 12/11/2018, Additional history exists TSH LEVEL 12/11/2024 12/12/2023, 04/22, 03/28/2023, Additional history exists SCREENING FOR DIABETES 02/08/2025 02/08/2022 INFLUENZA VACCINE (#1) 2025 , 08/14/2023, 08/29/2022, Additional history exists COVID-19 VACCINE ( - season) 2025 06/17/2024, 05/01/2022, 05/26/2021, Additional history exists PAP SMEAR 01/15/2030 01/15/2025, 06/23, 09/14/2015, Additional history exists COLONOSCOPY 02/07/2032 02/06/2022 COLORECTAL CANCER SCREENING 02/07/2032 Adult Td,Tdap Booster 11/25/2034 11/25/2024 , 12/08/2020, 09/12/2011 RSV VACCINE (1 - 1-dose 75+ series) 02/29/2040 HEPATITIS A VACCINES Aged Out No long [...] this topic Medical Devices Implanted Type Area [id number] Armor Crewman Device Identifier Shelf Expiration Date Model / Serial / Lot Prosthetic Joint-05/25/2016 Implanted:05/25 (Quantity not on file) Prosthetic Joint Knee Mesh Graft 6.[address] Polypropylene Echo Positioning System Hydrogel Barrier Hernia [place] - [id number] Implanted:Qty: 1 on 02/26/2024 by Wendy Uribe MD at [facility] N/A: Abdomen [employer] [id number] 04/19/2025 [id number] / / [id number] Procedures Procedure Name Priority Date/Time Associated Diagnosis Comments PAP TEST Routine 01/15/2025 12:00 AM EDT TSH WITH REFLEX Routine 12/12/2023 10:03 AM EDT Acquired hypothyroidism ENDOSCOPY, COLON 02/06/2022 11:5 7 AM EDT BI MAMMOGRAM SCREENING WITH TOMOSYNTHESIS WITH CAD (BILATERAL) Routine 11/04/2021 3:14 PM EDT Encounter for gynecological examination without abnormal finding from Last 3 Months or Most Recently Relevant to Health Maintenance Results * Pap Test (01/15/2025 12:00 AM EDT) Report [address] [address] Lithographic Press Operator Apprentice: Heriberto Jay MD WASHING MACHINE LOADER AND PULLER Cytology Report FINAL DIAGNOSIS A. PAP SMEAR (THIN PREP) CE: SPECIMEN ADEQUACY: Satisfactory for evaluation; transformation zone present. Evaluation limited by scant cellularity. INTERPRETATION: NEGATIVE FOR INTRAEPITHELIAL LESION OR MALIGNANCY. Atrophy. This specimen was analyzed by the automated ThinPrep Imaging System ([facility] and the selected lawson were reviewed by a cooker casing. Electronically Signed Out By: TREVER Regalado(ASCP) The [...] by real-time polymerase chain reaction (PCR) at [facility], [address] [place] [address] using the FDA-approved [employer] [place] Onclarity HPV Assay with extended genotyping. Uses of the assay in scenarios other than those approved by the FDA should be considered off-label use. The accuracy and precision of this test for all other off-label specimen sources has been verified in the Cytopathology Laboratory of the [facility] and has not been cleared or approved [...] SMEAR (THIN PREP) CE Patient Name: KATHY DESOUZA : 1965 (Age: 59) Sex: F Institution: [facility] Location: [facility] Date of Collection: 01/15/2025 Date of Reported: 01/22/2025 15:12 Results to: Omaira Obregon MD [facility] Final Diagnosis A. PAP SMEAR (THIN PREP) CE: SPECIMEN ADEQUACY: Satisfactory for evaluation; transformation zone present. Evaluation limited by scant cellularity. INTERPRETATION: NEGATIVE FOR INTRAEPITHELIAL LESION OR MALIGNANCY. Atrophy. This specimen was analyzed by the automated ThinPrep Imaging System ([facility] and the selected lawson were reviewed by a cooker casing. [facility] Results\Inter pretation A. PAP SMEAR (THIN PREP) CE: High-risk HPV Panel w/ extended genotyping NEG HPV 16-NEG HPV 18-NEG HPV 45-NEG HPV 33/58-NEG HPV 31-NEG HPV 56/59/66-NEG HPV 51-NEG HPV 52-NEG HPV 35/39/68-NEG Performed by real-time polymerase chain reaction (PCR) at [facility], [address] [place] [address] using the FDA-approved [employer] [place] Onclarity HPV Assay with extended genotyping. Uses of the assay in scenarios other than those approved by the FDA should be considered off-label use. The accuracy and precision of this test for all other off-label specimen sources has been verified in the Cytopathology Laboratory of the [facility] and has not been cleared or approved by the U.S. Food and Drug Administration. Clinical correlation is advised. The assay assesses the E6/E7 DNA target and utilizes human beta globin as an internal control. Cytology and HPV testing are screening assays and should not be used as the sole means of detecting cancer. False-positives and false-negatives can occur. [facility] Conversion Type 01/15/2025 10:01 AM EDT us Omaira Obregon MD CYTOLOGY ORDERABLES Edited Resul t - Final [facility] [address] [place] [address] * TSH with reflex (12/12/2023 10:03 AM EDT) TSH 2.65 0.27 - 4.20 uIU/mL [facility] Blood 12/12/2023 10:0 3 AM EDT 12/12/2023 10:12 AM EDT us Estefania Busch MD LAB BLOOD ORDERABLES F inal Result [address] [address] * ENDOSCOPY, COLON (02/06/2022 11:57 AM EDT) Narrative Transcriptions Bobby Zavala MD - 02/06/2022 11:57 AM EDT Patient Name: Kathy Caroline Attending MD:: BOBBY ZAVALA MD Procedure Date: 02/06/2022 11:57 AM Date of : 1965 Age: 56 Admit Type: Outpatient Gender: Female Room: [place] [address] Referring MD: Mary Beth Diaz MD Exam [...] for 10 days after polyp removal. BOBBY ZAVALA MD 02/06/2022 12:34:25 PM This report has been signed electronically. Number of Addenda: 0 Note Initiated On: 02/06/2022 11:57 AM Procedure Code(s): --- Professional --- 49526, Colonoscopy, flexible; with removal of tumor(s), polyp(s), or other lesion(s) by snare technique --- Technical --- 43554, Colonoscopy, flexible; with removal of tumor(s), polyp(s), [...] or abscess without bleeding CPT copyright 2020 [employer]. All rights reserved. The codes documented in this report are preliminary and upon mooner reviewmay be revised to meet current compliance requirements. Procedure Date: 02/06/2022 11:57:35 AM [address] [place] [address] Tamara Diaz MD GI PROCEDURE ORDERABLES Edited [...] Most Recently Relevant to Health Maintenance Insurance [facility] [place] [address] [place] [address] [place] [address] [place] [address] [place] [address] [place] [address] [place] [place] [address] [employer] Advance Directives For more information, please contact: [phone] (9AM - 5PM [facility], Sunday-Sunday) Documents on File Type Date Recorded Patient Supportability Engineer Expl anation Healthcare Proxy 01/12/2021 4:02 PM [...] Code Status Confirmed With: Patient Care Teams Web Methods Developer Relationship Specialty Start Date End Date Marianela Plummer MD [address] [facility] [place] [address] PCP - General Internal Medicine 09/24/23 Pcp, Unknown 05/08/17 Additional Source Comments The information contained in this document represents components of the legal health record. It is not the complete legal health record.[facility]
--- OUTSIDE RECORDS SUMMARY | 2025-05-05 11:56 | XMS_ITS | Encounter Summary ---
Author Organization [facility] Address [address] [place] [address] Phone Care Team Providers Care Administrative Support Technician Name Role Phone Anup Jaramillo MD Primary Care Provider [phone] Marianela Plummer MD Primary Care Provider [phone] Pcp, Unknown Unavailable Unavailable Tamara Diaz MD Unavailable [phone] Anjali Murdock CNM Unavailable [phone] Encounter Details Date Type Department Care Team (Late st Contact Info) Description 05/24/2020 Ancillary Orders Virtual Department [address] [place] [id number] Anup Jaramillo MD [address] [place] [address] Breast cancer screening by mammogram Social History [...] 10:40 AM EDT Office Visit [facility] [address] [place] [address] [place] [address] Estefania Busch MD [address] [place] [address] documented as of this encounter Results * [...] mammogram documented in this encounter Care Teams Administrative Support Technician Relationship Specialty Start Date End Date Anup Jaramillo MD [address] [place] [address] PCP - General Internal Medicine 10/21/18 09/23/23 Marianela Plummer MD [facility] [place] [address] PCP - General Internal Medicine 09/24/23 Pcp, Unknown 05/08/17 Tamara Diaz MD [address] [place] [address] Historical LMR Provider 05/10/17 07/30/21 Anjali Murdock CNM [address] [place] [address] Historical LMR Provider 05/10/17 2 documented as of this encounter Additional Source Comments The information contained in this document represents components of the legal health record. It is not the complete legal health record.[facility]
== END 2025-05-05 10:47 | disposition home or self-care (01) ==
LOC: HO.HMCC 10:14
PROVIDERS: PCP Internal Medicine; Visit Provider Internal Medicine
DX: M48.061 Spinal stenosis, lumbar region without neurogenic claudication (principal); L65.9 Nonscarring hair loss, unspecified; Z78.9 Other specified health status

== ENCOUNTER → 2025-05-05 10:13 | Outpatient (BNVA) | payer OTHER, SELFPAY | PROVIDERS: PCP Internal Medicine; Visit Provider Internal Medicine | DX: M48.061 Spinal stenosis, lumbar region without neurogenic claudication (principal); L65.9 Nonscarring hair loss, unspecified; Z78.9 Other specified health status; Z79.899 Other long term (current) drug therapy | CPT/HCPCS: 96127; 99212 ==

== ENCOUNTER 2025-06-02 09:43 | Outpatient (AMB) | payer OTHER, SELFPAY ==
[2025-06-02 09:49] VITALS: BP 142/82; PULSE 89; RESP 16; TEMP 37.1; O2SAT 99; BMI 29.2
--- NOTE | 2025-06-02 09:49 | A.OFFPC_ITS ---
Vital Signs 06/02/25 09:49 06/02/25 09:54 Height 5 ft 8 in Weight 192 lb BMI 29.2 BP 142/82 H 138/86 Blood Pressure Location Lt brachial Rt brachial Position Sitting Sitting Respiration 16 Pulse 89 Pulse Source Pulse Oximeter Temp 98.8 F Temp Source Oral Pulse Oximetry (%) 99 Oxygen Delivery Method Room Air Intake Visit Reasons: 4 weeks follow up Allergies Penicillins Allergy (Mild, Verified 06/02/25 09:51) rash bee Allergy (Severe, Uncoded 06/02/25 09:51) Swelling Medication List - Last Reconciled 06/02/25 by Marianela Plummer MD atorvastatin 10 mg PO BEDTIME epinephrine (EpiPen 2-Tramaine) 0.3 mg (0.3 mL) IM Q10M PRN gabapentin 300 mg PO BEDTIME levothyroxine 75 mcg PO DAILY minoxidil 2.5 mg PO ONCE omeprazole 20 mg PO DAILY phentermine 37.5 mg PO DAILY 30 days solifenacin (Vesicare) 5 mg PO DAILY topiramate 50 mg PO DAILY 30 days Tobacco use date assessed: 06/02/25 Dental Screening Dental Screen Date: 11/11/24 HPI 4 weeks follow up HPI Details History of Present Illness The patient is a 60-year-old female presenting for follow-up on medication management and chronic conditions. Chronic Back Pain: - The patient is scheduled for back surg trin[place] on July [address] Webber. - She reports that the surgeon felt surg trinidad was important and only recommends it for about 20% of his patients. - She is optimistic that the surgery sergio l significantly improve her pain and allow her to be more active. - She is taking gabapentin, which was re cently increased, and has noticed morning fogginess as a side effect. Gastroesophageal Reflux Disease (GERD): - The patient reports a recent increase in reflux symptoms, a condition she has had for a long time. - Symptoms primarily manifest at night, waking her from sleep. - She has experienced three episodes thi s month, two at night and one in the afternoon after eating spicy food. - Eating half a banana resolved one epis ode. - She reports tomatoes also trigger her symptoms. Hiatal hernia: - The patient recalls being told she had a small hiatal hernia and signs of acid reflux on a previous endoscopy, though the official report is unavailable. Obesity: - The patient reports a 3-pound weight l oss. - She is taking phentermine and Topamax for weight management and requests a refill for another month. History of Iatrogenic Colon Perforation: - The patient experienced a colon perfor ation during a prior colonoscopy , which required emergency surgery. History of Colon Polyp: - A colonoscopy procedure report from indicates a 13 mm polyp was removed, though the biopsy report is not on file. Hypothyroidism: - The patient reports taking levothyroxi ne at night. Medical History: - Chronic back pain - Gastroesophageal reflux disease - Hiatal hernia, small - Hypothyroidism - Obesity - History of colon polyp, status post re moval - History of diverticulosis Problem List - Chronic back pain - Gastroesophageal reflux disease - Hiatal hernia - Obesity - Hypothyroidism Plan - Will send a prescription for Topamax a nd phentermine to continue for one more month for weight management. - Advised the patient to stop taking phe ntermine one week prior to her back surgery on July 31. - Recommended reversing the timing of he r medications: take omeprazole at night and levothyroxine in the morning to better control reflux symptoms. - Counseled the patient to avoid eating for five hours before bedtime and to avoid dietary triggers like spicy foods and tomatoes to manage GERD. - The office will contact Ailyn on to obtain the report from her previous endoscopy. - A follow-up visit is scheduled in one month. Review of Systems - General: No fever no chills - Neurological: No headaches no dizziness - Ear nose throat: No sore throat no hearing difficulty no ear pain - Cardiovascular: No syncope, no chest pain, no palpitations - Gastrointestinal: No nausea vomiting or diarrhea Physical Exam General: No acute distress HEENT: No acute findings Neck: Supple Respiratory system: Able to talk in full sentences, no audible wheeze Cardiovascular: S1-S2 regular in rate and rhythm Gastrointestinal: No pain at this time Extremities: No new findings ORNAMENTER HAND: Alert awake oriented x3 motor intact Skin: Normal turgor PFSH Surgical History No pertinent past surgical history Family History Daughter Mental health disorder Social History Housing: House Patient Tobacco Use Status: Never used Tobacco e-Cigarette/Vaping Use: Never Used service: No Current occupational status: employed Cognitive needs: No Hearing needs: No Vision needs: Yes Questionnaire Thrive Questionnaire Date Thrive assessed: 08/08/24 I am a: Patient What is your living situation today?: I have a steady place to live Within the past 12 months, did the food you bought not last and you didn't have the money to get more?: Never true Within the past 12 months, did you worry whether your food would run out before you got money to buy more?: Never true Do you have trouble paying for medicines?: No Do you have trouble getting transportation to medical appointments?: No Do you have trouble paying your heating and electricity bill?: No Do you have trouble taking care of your child, family member or friend?: No Do you have trouble with day-to-day activities such as bathing, preparing meals, shopping, managing finances, etc.?: No Are you currently unemployed and looking for a job?: No Are you interested in more education?: No Please select the resources that you would like help with: None Currently or been in a relationship where the following occur: No concerns reported THRIVE Score: 0 FELIPE-7 AMB Questionnaire FELIPE-7 Date FELIPE - 7 assessed: 01/14/25 Source: Developed by Drs. Clark Roy, Evette Guzman, Chip Esposito and colleagues, with an educational jono from [employer]. Physical exam (Primary Care) Vital Signs: Last Vital Signs Temp 98.8 F 06/02/25 09:49 Pulse 89 06/02/25 09:49 Resp 16 06/02/25 09:49 BP 138/86 06/02/25 09:54 Pulse Ox 99 06/02/25 09:49 Oxygen Delivery Method Room Air 06/02/25 09:49 BMI result Body Mass Index 29.2 Tobacco/Smoking Status: Tobacco use Status Tobacco use date assessed 06/02/25 06/02/25 09:56 Patient Tobacco Use Status Never used Tobacco 06/02/25 09:51 e-Cigarette/Vaping Use Never Used 06/02/25 09:51 Thrive Assessment: Date of Thrive Assessment Date Thrive assessed 01/17/25 11/11/25 09:51 Currently or been in a relationship where the following occur: No concerns reported Coding Level of Care Code Est Pt Level 3 (17946) Complex EM visit Add On G2211 Diagnoses Spinal stenosis of lumbar region without neurogenic claudication M48.061 Neurogenic claudication status: without neurogenic claudication Educated about management of weight Z78.9 Chronic GERD K21.9 Hiatal hernia K44.9 Medication refill Z76.0 Assessment & Plan Assessment & Plan (1) Lumbar spinal stenosis: Code(s): M48.061 - Spinal stenosis, lumbar region without neurogenic claudication Category: Medical Qualifiers: Neurogenic claudication status: without neurogenic claudication Qualified Code(s): M48.061 - Spinal stenosis, lumbar region without neurogenic claudication (2) Educated about management of weight: Code(s): Z78.9 - Other specified health status Category: Medical (3) Chronic GERD: Code(s): K21.9 - Gastro-esophageal reflux disease without esophagitis Category: Medical (4) Hiatal hernia: Code(s): K44.9 - Diaphragmatic hernia without obstruction or gangrene Category: Medical (5) Medication refill: Code(s): Z76.0 - Encounter for issue of repeat prescription Category: Medical Plan Chronic Back Pain: - The patient is scheduled for back surgery on July [address] Webber. - She reports that the surgeon felt surgery was important and only recommends it for about 20% of his patients. - She is optimistic that the surgery will significantly improve her pain and allow her to be more active. - She is taking gabapentin, which was recently increased, and has noticed morning fogginess as a side effect. Gastroesophageal Reflux Disease (GERD): - The patient reports a recent increase in reflux symptoms, a condition she has had for a long time. - Symptoms primarily manifest at night, waking her from sleep. - She has experienced three episodes this month, two at night and one in the afternoon after eating spicy food. - Eating half a banana resolved one episode. - She reports tomatoes also trigger her symptoms. Hiatal hernia: - The patient recalls being told she had a small hiatal hernia and signs of acid reflux on a previous endoscopy, though the official report is unavailable. Obesity: - The patient reports a 3-pound weight loss. - She is taking phentermine and Topamax for weight management and requests a refill for another month. History of Iatrogenic Colon Perforation: - The patient experienced a colon perforation during a prior colonoscopy , which required emergency surgery. History of Colon Polyp: - A colonoscopy procedure report from 2021 indicates a 13 mm polyp was removed, though the biopsy report is not on file. Hypothyroidism: - The patient reports taking levothyroxine at night. Medical History: - Chronic back pain - Gastroesophageal reflux disease - Hiatal hernia, small - Hypothyroidism - Obesity - History of colon polyp, status post removal - History of diverticulosis Problem List - Chronic back pain - Gastroesophageal reflux disease - Hiatal hernia - Obesity - Hypothyroidism Plan - Will send a prescription for Topamax and phentermine to continue for one more month for weight management. - Advised the patient to stop taking phentermine one week prior to her back surgery on July 31. - Recommended reversing the timing of her medications: take omeprazole at night and levothyroxine in the morning to better control reflux symptoms. - Counseled the patient to avoid eating for five hours before bedtime and to avoid dietary triggers like spicy foods and tomatoes to manage GERD. - The office will contact Pam to obtain the report from her previous endoscopy. - A follow-up visit is scheduled in one month. Medications: Refilled topiramate 50 mg PO DAILY 30 tabs 0RF 30 days phentermine must administer 2 hours after breakfast 37.5 mg PO DAILY 30 caps 0RF 30 days
[2025-06-02 09:54] VITALS: BP 138/86
--- OUTSIDE RECORDS SUMMARY | 2025-06-02 10:58 | XMS_ITS | Clinical Summary ---
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 Check SHG Perimenopausal vasomotor symptoms [...] 10:40 AM EDT Office Visit [facility] [address] [place] [address] [place] [address] Estefania Busch MD [address] [place] [address] Health Maintenance Due Date Last Done Comments LIPID PANEL 1965 DEPRESSION SCREENING 1977 SMOKING Hx and SMOKELESS TOBACCO SCREENING 1978 HEPATITIS C SCREENING 1983 HIV ONE-TIME SCREENING (18-65 YEARS) 1983 PNEUMOCOCCAL VACCINES (50+ years) (1 of 2 - PCV) 02/29/1984 COLOGUARD 2010 FIT TEST 2010 FOBT 2010 SIGMOIDOSCOPY 2010 VIRTUAL COLONOSCOPY 2010 ZOSTER VACCINES (1 of 2) 2015 MAMMOGRAM 11/05/2023 11/04/2021, 12/09/2019, 12/11/2018, Additional history exists TSH LEVEL 12/11/2024 12/12/2023, 04/22, 03/28/2023, Additional history exists SCREENING FOR DIABETES 02/08/2025 02/08/2022 INFLUENZA VACCINE (#1) 2025 , 08/14/2023, 08/29/2022, Additional history exists COVID-19 VACCINE ( season) 2025 06/17/2024, 05/01/2022, 05/26/2021, Additional [...] on patient's age to complete this topic IPV VACCINES Aged Out No longer eligi ble based on patient's age to complete this topic MENINGOCOCCAL VACCINES (ACWY) Aged Out No longer eligible based on patient's age to complete this topic MENINGOCOCCAL VACCINES (B) Aged Out N o longer eligible based on patient's age to complete this topic Medical Devices Implanted Type Area Property Management Bookkeeper Device Identifier Shelf Expiration Date Model / Serial / Lot Prosthetic Joint-05/25/2016 Implanted:05/25 (Quantity not on file) Prosthetic Joint Knee Mesh Graft 6.[address] Polypropylene Echo Positioning System Hydrogel Barrier Hernia [place] - [id number] Implanted:Qty: 1 on 02/26/2024 by Wendy Uribe MD at [facility] N/A: Abdomen [employer] [id number] 04/19/2025 [id number] / / [id number] Procedures Procedure Name Priority Date/Time Associated Diagnosis [...] Pap Test (01/15/2025 12:00 AM EDT) Report [address] [address] Manager General: Heriberto Jay MD MULTI PUNCH OPERATOR Cytology Report FINAL DIAGNOSIS A. PAP SMEAR (THIN PREP) CE: SPECIMEN ADEQUACY: Satisfactory for evaluation; transformation zone present. Evaluation limited by scant cellularity. INTERPRETATION: NEGATIVE FOR INTRAEPITHELIAL LESION OR MALIGNANCY. Atrophy. This specimen was analyzed by the automated ThinPrep Imaging System ([employer] Barbara.) and the selected lawson were reviewed by a footwear sales coordinator. Electronically Signed Out By: TREVER Regalado(ASCP) The [...] by real-time polymerase chain reaction (PCR) at [address] using the FDA-approved Lumatix Onclarity HPV Assay with extended genotyping. Uses of the assay in scenarios other than those approved by the FDA should be considered off-label use. The accuracy and precision of this test for all other off-label specimen sources has been verified in the Cytopathology Laboratory of the [facility] and has not been cleared or approved [...] : 1965 (Age: 59) Sex: F Institution: [facility] Location: [facility] Date of Collection: 01/15/2025 Date of Reported: 01/22/2025 15:12 Results to: Omaira Obregon MD [facility] Final Diagnosis A. PAP SMEAR (THIN PREP) CE: SPECIMEN ADEQUACY: Satisfactory for evaluation; transformation zone present. Evaluation limited by scant cellularity. INTERPRETATION: NEGATIVE FOR INTRAEPITHELIAL LESION OR MALIGNANCY. Atrophy. This specimen was analyzed by the automated ThinPrep Imaging System ([employer].) and the selected lawson were reviewed by a footwear sales coordinator. [facility] Results\Inter pretation A. PAP SMEAR (THIN PREP) CE: High-risk HPV Panel w/ extended genotyping NEG HPV 16-NEG HPV 18-NEG HPV 45-NEG HPV 33/58-NEG HPV 31-NEG HPV 56/59/66-NEG HPV 51-NEG HPV 52-NEG HPV 35/39/68-NEG Performed by real-time polymerase chain reaction (PCR) at [facility], [address] [place] [address] using the FDA-approved Lumatix Onclarity HPV Assay with extended genotyping. Uses of the assay in scenarios other than those approved by the FDA should be considered off-label use. The accuracy and precision of this test for all other off-label specimen sources has been verified in the Cytopathology Laboratory of the [facility] and has not been cleared or approved by the U.S. Food and Drug Administration. Clinical correlation is advised. The assay assesses the E6/E7 DNA target and utilizes human beta globin as an internal control. Cytology and HPV testing are screening assays and should not be used as the sole means of detecting cancer. False-positives and false-negatives can occur. [facility] Conversion Type (Conversion Source) 01/15/2025 01/16/2025 10:01 AM EDT us Omaira Obregon MD CYTOLOGY ORDERABLES Edited Resul t - Final [facility] [address] [place] [address] * TSH with reflex (12/12/2023 10:03 AM EDT) TSH 2.65 0.27 - 4.20 uIU/mL [facility] Blood 12/12/2023 10:0 3 AM EDT 12/12/2023 10:12 AM EDT us Estefania Busch MD LAB BLOOD BKR ORDERABL ES Final Result [address] [address] * ENDOSCOPY, COLON (02/06/2022 11:57 AM EDT) Narrative Transcriptions Bobby Zavala MD - 02/06/2022 11:57 AM EDT Patient Name: Kathy Desouza Attending MD:: BOBBY ZAVALA MD Procedure Date: 02/06/2022 11:57 AM Date of : 1965 Age: 56 Admit Type: Outpatient Gender: Female Room: [facility] Referring MD: Mary Beth Diaz MD Exam [...] 11:57 AM Procedure Code(s): --- Professional --- 88209, Colonoscopy, flexible; with removal of tumor(s), polyp(s), or other lesion(s) by snare technique --- Technical --- 75297, Colonoscopy, flexible; with removal of tumor(s), polyp(s), [...] or abscess without bleeding CPT copyright 2020 [employer]. All rights reserved. The codes documented in this report are preliminary and upon architectural job captain reviewmay be revised to meet current compliance requirements. 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 It is not the complete legal health record.[facility]
--- OUTSIDE RECORDS SUMMARY | 2025-06-02 10:58 | XMS_ITS | Encounter Summary ---
Author Organization [facility] Address [address] [place] [address] Phone Care Team Providers Care Card Setter Name Role Phone Anup Jaramillo MD Primary Care Provider [phone] Marianela Plummer MD Primary Care Provider [phone] Pcp, Unknown Unavailable Unavailable Tamara Diaz MD Unavailable [phone] Anjali Murdock CNM Unavailable [phone] Reason for Referral * MRI/CAT Scan - Closed Specialty Diagnoses / Procedures Referred By Keli nielsen Referred To Contact Radiology Diagnoses Lumbar radiculopathy Procedures MRI Lumbar Spine Cheo Rojo DO Phone: tel: fax: mailto:[email or web address] Referral ID Status Reason Start Date Expiration Date Visits Re quested Visits Authorized [id number] Closed 06/30/2020 12/27/2020 1 1 * MRI/CAT Scan - Closed Specialty Diagnoses / Procedures Referred By Keli nielsen Referred To Contact Radiology Diagnoses Cervical radiculopathy Procedures MRI Cervical Spine Cheo Rojo DO Phone: tel: fax: mailto:[email or web address] Referral ID Status Reason Start Date Expiration Date Visits Re quested Visits Authorized [id number] Closed 06/30/2020 12/27/2020 1 1 Encounter Details Date Type Department Care Team (Latest Contact Info) Description 06/30/2020 Ancillary Orders Virtual Department [address] [place] [address] Cheo Rojo, DO [address] [place] [address] [email or web address] Cervical radiculopathy; Lumbar radiculopathy Social History Tobacco [...] 10:40 AM EDT Office Visit [facility] [address] [place] [address] Estefania Busch MD [address] [place] [address] [email or web address] documented [...] associated with the right facet joint at [id number] and displacing the thecal sac to the left is no longerdemonstrated. There is moderate persisting central canal stenosis at L4-[id number] is mildly improved from 01/16/2017. 2. Mild [...] nos documented in this encounter Care Teams Card Setter Relationship Specialty Start Date End Date Anup Jaramillo MD [address] [place] [address] PCP - General Internal Medicine 10/21/18 09/23/23 Marianela Plummer MD [address] [place] [address] [place] [address] PCP - General Internal Medicine 09/24/23 Pcp, Unknown 05/08/17 Tamara Diaz MD [address] [place] [address] [email or web address] Historical LMR Provider 05/10/17 07/30/21 Anjali Murdock CNM [address] [place] [address] Historical LMR Provider 05/10/17 2 documented as of this encounter Additional Source Comments The information contained in this document represents components of the legal health record. It is not the complete legal health record.[facility]
--- OUTSIDE RECORDS SUMMARY | 2025-06-02 10:58 | XMS_ITS | Encounter Summary ---
Author Organization [facility] Address [address] [place] [address] Phone Care Team Providers Care Split Leather Department Supervisor Name Role Phone Tamara Diaz MD Primary Care Provider [phone] Neo Milligan MD Primary Care Provider [phone] Tamara Diaz MD Primary Care Provider [phone] Neo Milligan MD Primary Care Provider [phone] Anup Jaramillo MD Primary Care Provider [phone] Marianela Plummer MD Primary Care Provider [phone] Pcp, Unknown Unavailable Unavailable Tamara Diaz MD Unavailable [phone] Anjali Murdock CNM Unavailable [phone] Encounter Details Date Type Department Care Team (Late st Contact Info) Description 10/19/2017 Ancillary Orders Virtual Department [address] [place] [address] Tamara Diaz MD [address] [place] [address] Breast screening Social History Tobacco Use Types [...] 10:40 AM EDT Office Visit [facility] [address] [place] [address] [place] [address] Estefania Busch MD [address] [place] [address] documented as of this encounter Results * [...] unspecified documented in this encounter Care Teams Split Leather Department Supervisor Relationship Specialty Start Date End Date Tamara Diaz MD [address] [place] [address] [email or web address] PCP - General 05/08/17 11/26/17 Neo Milligan MD [address] [place] [address] PCP - General Internal Medicine 11/27/17 11/29/17 Tamara Diaz MD [address] [place] [address] [email or web address] PCP - General Internal Medicine 11/30/17 12/04/17 Neo Milligan MD [address] [place] [address] PCP - General Internal Medicine 12/05/17 10/20/18 Anup Jaramillo MD [address] [place] [address] PCP - General Internal Medicine 10/21/18 09/23/23 Marianela Plummer MD [address] [place] [address] [place] [address] PCP - General Internal Medicine 09/24/23 Pcp, Unknown 05/08/17 Tamara Diaz MD [address] [place] [address] [email or web address] Historical LMR Provider 05/10/17 07/30/21 Anjali Murdock CNM [address] [place] [address] Historical LMR Provider 05/10/17 2 documented as of this encounter Additional Source Comments The information contained in this document represents components of the legal health record. It is not the complete legal health record.[facility]
--- OUTSIDE RECORDS SUMMARY | 2025-06-02 10:58 | XMS_ITS | Encounter Summary ---
Author Organization [facility] Address [address] [place] [address] Phone Care Team Providers Care Hazmat Truck Driver Name Role Phone Anup Jaramillo MD Primary Care Provider [phone] Marianela Plummer MD Primary Care Provider [phone] Pcp, Unknown Unavailable Unavailable Tamara Diaz MD Unavailable [phone] Anjali Murdock CNM Unavailable Encounter Details Date Type Department Care Team (Late st Contact Info) Description 10/21/2018 Ancillary Orders Virtual Department [address] [place] [address] Anup Jaramillo MD [address] [place] [address] Breast screening Social History Tobacco Use Types [...] AM EDT Office Visit [facility] [address] [place] [address] Estefania Busch MD [address] [place] [phone] [email or web address] documented as of this encounter Results * [...] Images interpreted in conjunction with R-2 Image Transitions Manager computer-aided detection (CAD). FINDINGS: BREAST DENSITY: There [...] Prior studies dating back to 05/29/2013, most /11/2018. TECHNIQUE: Digital breast tomosynthesis was performed in [...] unspecified documented in this encounter Care Teams Hazmat Truck Driver Relationship Specialty Start Date End Date Anup Jaramillo MD [address] [place] [phone] PCP - General Internal Medicine 10/21/18 09/23/23 Marianela Plummer MD [address] [place] [id number] PCP - General Internal Medicine 09/24/23 Pcp, Unknown 05/08/17 Tamara Diaz MD [address] [place] [place] [phone] Historical LMR Provider 05/10/17 07/30/21 Anjali Murdock CNM [address] [place] [phone] Historical LMR Provider 05/10/17 2 documented as of this encounter Additional Source Comments The information contained in this document represents components of the legal health record. It is not the complete legal health record.[facility]
--- OUTSIDE RECORDS SUMMARY | 2025-06-02 10:58 | XMS_ITS | Encounter Summary ---
Author Organization [facility] Address [address] [place] [phone] Phone Care Team Providers Care Mamma Logist Name Role Phone Anup Jaramillo MD Primary Care Provider [phone] Marianela Plummer MD Primary Care Provider Pcp, Unknown Unavailable Unavailable Encounter Details Date Type Department Care Team (Late st Contact Info) Description 11/02/2021 Procedure Pass [facility], [address] [address] Social History Tobacco Use Types Packs/Day Years [...] 10:40 AM EDT Office Visit [facility] [address] [place] [phone] Estefania Busch MD [address] [place] [phone] [email or web address] documented as of this encounter Visit Diagnoses Not on filedocumented in this encounter Care Teams Mamma Logist Relationship Specialty Start Date End Date Anup Jaramillo MD [address] [place] [phone] PCP - General Internal Medicine 10/21/18 09/23/23 Marianela Plummer MD [facility] [place] [address] PCP - General Internal Medicine 09/24/23 Pcp, Unknown 05/08/17 documented as of this encounter Additional Source Comments The information contained in this document represents components of the legal health record. It is not the complete legal health record.[facility]
--- OUTSIDE RECORDS SUMMARY | 2025-06-02 10:58 | XMS_ITS | Data Portability ---
Author Organization [facility] [employer], svmg_admin Address [address] [place] [address] Care Team Providers Care Printer Slotter Operator Name Role Phone KAUR DEY Referring Provider [phone] DEONDRE BRONSON OTHER NICOLE ANDREW Primary Care Provider Assessment Encounter Date Assessment Date Assessment LastModified by Organization Details LastModified Time 04/01/2024 04/01/2024 The second right knee Euflexxa [...] medical decision making. Not available 10/21/2024 11:46:25 05/05/2025 05/05/2025 Right knee Zilretta injection was performed today [...] of the medical decision making. Not available 05/06/2025 07:34:21 Plan of Treatment Reminders Order Date Submit Date Provider Last Modified By Organization Details Last Modified Time Details Appointments None recorded. Lab None recorded. Referral None recorded. Procedures None recorded. Surgeries None recorded. Imaging None recorded. Medication Orders Zilretta 32 mg intra-artic ular suspension, extended release [address]/Pharmacy #[id number], [address] [place] [address], [address], 5 07:34:22 Zilretta 32 mg intra-artic ular suspension, extended release [address]/Pharmacy #0838, [address] [place] [address], [address], 5 11:46:26 Depo-Medrol 40 mg/mL suspension for injection [address]/Pharmacy #0838, [address] [place] [address], [address], 5 12:08:37 Euflexxa 10 mg/mL (mw 2.4-3.6 million) intra-artic ular syringe [address]/Pharmacy #0838, [address] [place] [address], [address], 4 14:18:08 Euflexxa 10 mg/mL (mw 2.4-3.6 million) intra-artic ular syringe [address]/Pharmacy #0838, [address] [place] [address], [address], 4 09:29:21 Patient TargetsNo targets recorded. Patient InstructionsNo instructions recorded. Reason for Referral None Reported. Results Created Date Observation Date Name Description Value Unit Range Abnormal Flag Note LastModifiedBy Organization Detail LastModifiedTime 05/05/20 25 05/05/2025 XR, knee, 3 view Patien morales Name: KATHY LANDAVERDE : [birth year] 65 Sex:Pebbles male [phone] Locati on: [facility] - [facility] [address] [place] [address]- Radiol ogy ACCESS ION EXAM DATE/T GAB PROCED URE ORDERI NG STATUS PROVID ER [id number] 2024 XR Knee 3 BRANDY Lagunas PAC, Auth 16 15:36 EDT Views Right DEONDRE (Verif ied) Reason For Exam (XR Knee 3 Views Right) PAIN Report STUDY: Right Knee radiog raph TECHNI QUE: AP, latera l and sunris e views were obtain ed. INDICA TION: Knee pain COMPAR JESUS: Right knee radiog raph on November 20, 2022 FINDIN GS: Slight worsen ing of severe joint space narrow ing, nearly bone-o n-bone in the medial compar tment. Progre ssive severe osteop hytosi s of the femora l and tibial condyl es. Signif icant patell ar spurri ng. Fabell a. No fractu re or sublux ation. Soft tissue s are unrema rkable . IMPRES ELMA: 1.No acute osseou s abnorm alitie s. 2.Prog ressiv e severe osteoa rthrit ic change s of the knee. Attend ing review by Shana BrooksO. I have person ally review ed the study and agree with the report ed findin gs. Laura hickey Site: [facility] ____ Howie brand Report Dictat ed: 2024 3:46 pm Dictat ed By: HANNA SUBRAMANIAN MD onic Signat ure: 2024 4:01 pm Signed By: AUDI PATEL DO ing: DEONDRE OLVERA Consul ting: [email or web address] [facility] (Radiology) [address] [place] [address], [address], 05/06/2025 08:24:34 Result Notes Documentation Provider Name and Address Organization Details Recorded Time Xr, Knee, 3 View : Patient Name: KATHY VELAZQUEZ : 1965 Sex:Female Location: [address] [address]- Radiology ACCESSION EXAM DATE/TIME PROCEDURE ORDERING STATUS PROVIDER [id number] 05/05/2025 XR Knee 3 МАРИЯ BREWER, Auth 16 15:36 EDT Views Right DEONDRE (Verified) Reason For Exam (XR Knee 3 Views Right) PAIN Report STUDY: Right Knee radiograph TECHNIQUE: AP, lateral and sunrise views were obtained. INDICATION: Knee pain COMPARISON: Right knee radiograph on November 20, 2022 FINDINGS: Slight worsening of severe joint space narrowing, nearly dowt-jr-dnbz in the medial compartment. Progressive severe osteophytosis of the femoral and tibial condyles. Significant patellar spurring. Fabella. No fracture or subluxation. Soft tissues are unremarkable. IMPRESSION: 1.No acute osseous abnormalities. 2.Progressive severe osteoarthritic changes of the knee. Attending review by Dr. Audi Davila, D.O. I have personally reviewed the study and agree with the reported findings. Reading Site: [facility] Final Report Dictated: 05/05/2025 3:46 pm Dictated By: SHREYA MARTINEZ ASHLEY Electronic Signature: 05/05/2025 4:01 pm Signed By: AUDI DAVILA DO Admitting: DEONDRE MEDINA Consulting: Deondre Bronson PA-C [address] [place] [address], [phone], [place]UST 05/06/2025 08:24:34 Problems Name Problem SNOMED Code Status Onset Date Resolution Date Notes Provider Name and Address Organization Details Recorded Time Complicati on of anesthesia 88015259 Active 2022 Latesha gonzalez [facility]. 3 01:11:15 Arthritis 8951088 Active 2022 Latesha gonzalez [facility] 3 01:11:22 Osteoarthr itis 642932346 Active 2022 Latesha gonzalez [facility] 3 01:11:28 Total knee replacemen t Active 2022 Latesha gonzalez [facility] 3 01:11:38 Rupture of rotator cuff of shoulder 533762403 Active 2022 complete rotator cuff tear or rupture of right shoulder, not specified as traumatic Latesha gonzalez [facility] 3 01:12:34 Tear of medial meniscus of knee 144482359 Active 2022 Latesha gonzalez [facility] 3 01:12:56 Impingemen t syndrome of shoulder region 433624564 Active 2022 right shoulder Lateshapriti gonzalez [facility] 3 01:13:12 Problem Notes None recorded. Procedures Surgical History Date Name Laterality Status Provider Name and Address Organization Details Recorded Time 2024 Corticosteroid Injection - Zilretta completed Deondre Bronson PA-C [address] [place] [address], [address], [facility] 05/06/2025 07:34:08 2024 Corticosteroid Injection - Zilretta completed Deondre Bronson PA-C [address] [place] [address], [address], [facility] 10/21/2024 11:45:59 2024 Intra-articular Knee Steroid Injection completed Deondre Bronson PA-C [address] [place] [address], [address], [facility] 08/04/2024 11:01:40 2023 Viscosupplementation Knee completed Deondre Bronson PA-C [address] [place], [address], [facility] 04/08/2024 14:18:06 2023 Viscosupplementation Knee completed Deondre Bronson PA-C [address] [place], [address], [facility] 04/01/2024 09:29:19 2023 Viscosupplementation Knee completed Deondre Bronson PA-C [address] [place], [address], [facility] 03/25/2024 15:02:51 2023 Intra-articular Knee Steroid Injection completed Deondre Bronson PA-C [address] [place], [address], [facility] 12/28/2023 12:44:01 2023 Intra-articular Knee Steroid Injection completed Deondre Bronson PA-C [address] [place], [address], [facility] 09/17/2023 11:58:11 2022 Intra-articular Knee Steroid Injection completed Deondre Bronson PA-C [address] [place], [address], [facility] 04/10/2023 15:26:45 2022 Intra-articular Knee Steroid Injection completed Deondre Bronson PA-C [address] [place], [address], [facility] 11/21/2022 17:45:19 2015 total knee replacement completed Latesha Burger [facility] 11/20/2022 01:14:37 2011 Knee arthroscopy/surgery completed Not Available [facility] 09/14/2011 03:36:58 2010 Knee Surgery completed Latesha Burger [facility] 11/20/2022 01:14:20 1995 Section completed Latesha Burger [facility] 11/20/2022 01:14:08 Joint Replacement completed Noreenmaricarmen Escobedosonu [facility] 11/20/2022 13:14:12 Other Surgeries completed Dai Leidy [facility] 09/17/2023 11:48:36 Imaging Results None recorded. Procedure Notes None recorded. Medical Equipment None Reported. Allergies Allergen ID Allergen Name Allergen Category Reaction Reaction Severity Criticality Documentation Date Start Date Code Code System Note Provider Name and Address Organization Details Recorded Time 401510 Product containin g penicilli n (product) medicatio n rash Not available Not available 11/20/2022 30658 8001 SNOMED Latesha Burger [facility] 01:15:24 853044 bee pollen environme nt,medica tion Not available Not available Not available 11/20/2022 91139 7 RxNorm Latesha Burger [facility] 3 01:16:01 166750 ethinyl estradiol / levonorge strel medicatio n Not available Not available Not available 11/20/2022 53875 8 RxNorm Latesha Burger [facility] 3 01:16:07 983110 POLLEN EXTRACTS environme nt,medica tion Not available Not available Not available 11/20/2022 04188 6 RxNorm Noreen Lesniewsk i [facility] 3 13:13:50 911514 mold extract environme nt Not available Not available Not available 11/20/2022 37047 8 RxNorm Noreen Lesniewsk i [facility] 3 13:13:50 217610 insect venom environme nt itching other Not available Not available Not available 11/20/2022 Noreen Demetrioalbertok ruben [facility]. 13:13:50 Medications Name Sig Start Date Stop [...] Not Available Not Available Not Available estradiol 0.05 mg/24 hr weekly transdermal patch APPLY 1 PATCH ONCE A WEEK active Not Available Not Available No t Available phentermine 15 mg capsule TAKE 1 CAPSULE BY MOUTH DAILY 2 HOURS AFTER BREAKFAST FOR 30 DAYS 10/21 completed Not Available Not Available Not Available clindamycin HCl 150 mg capsule TAKE 2 CAPSULES BY MOUTH NOW, THEN 1 CAP EVERY 6 HOURS UNTIL FINISHED. 04/09 completed Not Available Not Available Not Available topiramate 25 mg tablet TAKE 1 TABLET BY MOUTH EVERY DAY active Not Available Not Available No t Available metronidazo le 500 mg tablet TAKE 1 TABLET BY MOUTH THREE TIMES A DAY 12/27 completed Not Available Not Available Not Available ciprofloxac in 500 mg tablet TAKE 1 TABLET BY MOUTH TWICE A DAY 12/27 completed Not Available Not Available Not Available minoxidil 2.5 mg tablet TAKE 1 TABLET BY MOUTH DAILY FOR HAIR LOSS active Not Available Not Available No t Available levothyroxi ne 75 mcg tablet TAKE 1 TABLET BY MOUTH EVERY DAY active Not Available Not Available No t Available oxycodone-a cetaminophe n 5 mg-325 mg tablet TAKE 1 TABLET BY MOUTH EVERY 4 HOURS NEEDED FOR PAIN 04/10 completed Not Available Not Available Not Available ofloxacin 0.3 % ear drops PLACE 5 DROPS INTO THE RIGHT EAR 2 TIMES A DAY FOR 7 DAYS. 05/02 completed Not Available Not Available Not Available [...] Not Available Not Available No t Available gabapentin 100 mg capsule TAKE 2 CAPSULES BY MOUTH AT BEDTIME active Not Available Not Available No t Available Transderm-S hand coper 1 mg over 3 days transdermal patch APPLY 1 PATCH TRANSDERM ALLY EVERY 3 DAYS NEEDED FOR NAUSEA AND VOMITING 08/04 completed Not Available Not Available Not Available epinephrine 0.3 mg/0.3 mL injection, auto-inject or INJECT 0.3 ML INTRAMUSC ULARLY EVERY 10 MINUTES NEEDED FOR ANAPHYLAX IS FOR 2 DOSES active Not Available Not Available No t [...] capsule TAKE 1 CAPSULE BY MOUTH DAILY FOR 30 DAYS MUST ADMINISTE R 2 HOURS AFTER BREAKFAST active Not Available Not Available No t Available spironolact one 50 mg tablet TAKE 1 TABLET BY MOUTH TWICE A DAY active Not Available Not Available No t Available diazepam 5 mg tablet TAKE 1 TABLET BY MOUTH EVERY 6 HOURS NEEDED FOR ANXIETY. 08/04 completed Not Available Not Available Not Available progesteron e micronized 100 mg capsule TAKE 1 CAPSULE BY MOUTH EVERY DAY [...] completed Not Available Not Available Not Available topiramate 50 mg tablet TAKE 1 TABLET BY MOUTH EVERY DAY active Not Available Not Available No t Available solifenacin 5 mg tablet TAKE 1 TABLET BY MOUTH DAILY active Not Available Not Available No t Available chlorhexidi ne gluconate 0.12 % mouthwash [...] Updated DateTime 08/04/2024 172.72 cm 33.1 kg/m2 10598.14 g Yomaira Thom [facility] 08/04/2024 10:26:36 Date Recorded Body height Body mass index (BMI) Body weight Provider Name and Address Organization Details Last Updated DateTime 10/21/2024 172.72 cm 30.9 kg/m2 41595.25 g Dorota Cardenasers [facility] 10/21/2024 10:44:24 Date Recorded Body height Body mass index (BMI) Body weight Provider Name and Address Organization Details Last Updated DateTime 04/01/2024 172.72 cm 29.3 kg/m2 72753.33 g Payton Rollins [facility] 04/01/2024 08:35:29 Date Recorded Body height Body mass index (BMI) Body weight Provider Name and Address Organization Details Last Updated DateTime 04/08/2024 172.72 cm 29.3 kg/m2 57835.33 g Dai Leidy [facility] 04/08/2024 13:48:49 Date Recorded Body height Body mass index (BMI) Body weight Provider Name and Address Organization Details Last Updated DateTime 05/05/2025 172.72 cm 30.9 kg/m2 14557.25 g [facility] 05/05/2025 14:31:43 Social History Question Answer Notes LastModified by Organizat ion Details LastModified Time Tobacco Smoking Status Never Smoker [facility] 08/04/2024 10:26:47 Do You Have An Advance [...] When Did You Quit Smoking? 16+yearssince lastcigarette [email or web address] Information not available 11/20/2022 Which Of Your Hands Is Dominant? Right Information not available 11/20/2022 What Was The Date Of Your Most Recent Tobacco Screening? 05/05/2025 gume Information not available 05/05/2025 Have You Ever Been Counseled For Unhealthy [...] 11/20/2022 Are you able to care for yourself independently? 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 Moderate Information not available 11/20/2022 Mental Status Question Answer Note LastModified by Organization D etails LastModified Time Do you feel stressed (tense, restless, nervous, or anxious, or unable to sleep at night)? [id number] [email or web address] Information not available 04/10/2023 Family History Relationship [...] Diagnosis SNOMED-CT Code Diagnosis ICD10 Code Diagnosis IMO Codes Diagnosis Note [id number] Deondre Bronson PA-C [facility] [address] [place] [address] 11/20/2022 13:02:57 11/20/2022 13:44:20 Osteoarthritis of right knee joint 7719692163 15993 M17.11 Osteoarthr itis of left knee joint 8429134819 68697 M17.12 [id number] Clyde Fisher MD [facility] [address] [place] [address] 04/10/2023 14:46:22 04/10/2023 15:15:05 Osteoarthritis of right knee joint 7664597403 36509 M17.11 [id number] Clyde Fisher MD [facility] [address] [place] [address] 09/17/2023 11:41:51 09/17/2023 11:43:08 Osteoarthritis of right knee joint 5724167681 08590 M17.11 [id number] Clyde Fisher MD [facility] [address] [place] [address] 12/28/2023 10:07:59 12/28/2023 10:40:19 Osteoarthritis of right knee joint 2018542633 37347 M17.11 [id number] Clyde Fisher MD [facility] [address] [place] [address] 03/25/2024 14:43:16 03/25/2024 15:12:13 Osteoarthritis of right knee joint 8857350707 42147 M17.11 [id number] Clyde Fisher MD [facility] [address] [place] [address] 04/01/2024 08:32:29 04/01/2024 08:48:46 Osteoarthritis of right knee joint 3759969709 06241 M17.11 [id number] Clyde Fisher MD [facility] [address] [place] [address] 04/08/2024 13:42:36 04/08/2024 13:59:56 Osteoarthritis of right knee joint 7108713427 91631 M17.11 [id number] Clyde Fisher MD [facility] [address] [place] [address] 08/04/2024 10:15:48 08/04/2024 10:41:26 Osteoarthritis of right knee joint 5979869675 26503 M17.11 [id number] Clyde Fisher MD [facility] [address] [place] [address] 10/21/2024 10:41:16 10/21/2024 11:42:46 Osteoarthritis of right knee joint 1146193050 24326 M17.11 [id number] Clyde Fisher MD [facility] [address] [place] [address] 05/05/2025 14:25:07 05/05/2025 15:14:19 Osteoarthritis of right knee joint 7743100661 66718 M17.11 [id number] Health Concerns Section Related Observation LastModified by Organization Detai ls LastModified Time None Recorded Concern Status LastModified by Organization Details LastModified Time None Recorded Advance Directives Directive Y: Payers Insurance Date Sequence Insurance Name Policy Number Policy Richards Covered Member ID Richards Member ID Guarantor Name 05/29/2025 1 [facility] A[facility] (MEDICAID REPLACEMENT - HMO) [place] Kathy Velazquez [id number] Kathy Velazquez 05/29/2025 1 [facility] (HMO) [id number] Kathy Velazquez [id number] Kathy Velazquez 05/29/2025 1 [facility] (HMO) [id number] Kathy Velazquez [id number] Kathy Velazquez 05/29/2025 1 [place]: [facility] PLAN Kathy Velazquez [id number] Kathy Velazquez 05/29/2025 1 [facility] NET PLAN (MEDICAID HMO) Kathy Velazquez [id number] Kathy Velazquez 05/29/2025 1 [facility] CAREPLUS - CAREPLUS A (MEDICAID HMO) [id number] Kathy Velazquez [id number] Kathy Velazquez 05/29/2025 1 [facility] NET PLAN (MEDICAID HMO) Kathy Velazquez [id number] Kathy Velazquez 05/29/2025 1 [facility] CAREPLUS - CAREPLUS A (MEDICAID HMO) Kathy Velazquez [id number] Kathy Velazquez 05/29/2025 1 [facility] NET PLAN (MEDICAID HMO) Kathy Velazquez [id number] Kathy Velazquez 05/29/2025 1 [facility] CAREPLUS - CAREPLUS A (MEDICAID HMO) [id number] Kathy Velazquez [id number] Kathy Velazquez 05/29/2025 1 [facility] CLARITY (HMO) [id number] Kathy Velazquez [id number] Kathy Velazquez 05/29/2025 1 [facility] NET PLAN (MEDICAID HMO) [id number] Kathy Velazquez [id number] Kathy Velazquez 05/29/2025 1 [facility] CLARITY (HMO) [place] Kathy Velazquez [id number] Kathy Velazquez Notes Date Note Type Note Provider Name and Address Organization Details Recorded Time 04/01/2024 text/html ROS as noted in the HPI Patient presents for her second right knee Euflexxa injection. She denies any adverse effects following previous injection. MADISYN Mullen-[address], [address], [place] [facility] 04/01/2024 09:30:56 04/08/2024 text/html ROS as noted in the HPI Patient presents for her third right knee Euflexxa injection. She denies any adverse effects following previous injections. Deondre Bronson PA-C [address] [place] [address], [address], [facility] 04/08/2024 14:25:07 08/04/2024 text/html ROS as noted in the HPI Patient presents for followup regarding her right [...] performed by Dr. Fisher. Deondre Bronson PA-C [address] [place] [address], [address], [facility] 08/04/2024 12:11:03 10/21/2024 text/html ROS as noted in the HPI Patient presents for right knee Zilretta injection. Deondre Bronson PA-C [address] [place], [address], [facility] 10/21/2024 11:47:05 05/05/2025 text/html ROS as noted in the HPI Patient presents for right knee Zilretta injections. Previous Zilretta injection provided nearly 6 months of significant pain relief. She underwent standing AP and lateral x-rays today, which revealed Kellgren-Jamie grade 3 changes most pronounced over the lateral tibiofemoral and patellofemoral joint spaces. Deondre Bronson PA-C [address] [place], [address], [facility] 05/06/2025 07:35:52 OBGyn Episode No OBEpisode recorded.
--- OUTSIDE RECORDS SUMMARY | 2025-06-02 10:58 | XMS_ITS | Encounter Summary ---
Author Organization [facility] Address [address] [place] [address] Phone Care Team Providers Care Digital Photographic Printer Name Role Phone Anup Jaramillo MD Primary Care Provider [phone] Marianela Plummer MD Primary Care Provider [phone] Pcp, Unknown Unavailable Unavailable Tamara Diaz MD Unavailable [phone] Anjali Murdock CNM Unavailable [phone] Encounter Details Date Type Department Care Team (Late st Contact Info) Description 05/24/2020 Procedure Pass [facility] - [address] [place] [address] Social History Tobacco Use Types Packs/Day Years [...] AM EDT Office Visit [facility] [address] [place] [address] Estefania Busch MD [address] [address] documented as of this encounter Visit Diagnoses Not on filedocumented in this encounter Care Teams Digital Photographic Printer Relationship Specialty Start Date End Date Anup Jaramillo MD [address] [place] [address] PCP - General Internal Medicine 10/21/18 09/23/23 Marianela Plummer MD [facility] [address] PCP - General Internal Medicine 09/24/23 Pcp, Unknown 05/08/17 Tamara Diaz MD [address] [place] [address] Historical LMR Provider 05/10/17 07/30/21 Anjali Murdock CNM [address] [place] [address] Historical LMR Provider 05/10/17 2 documented as of this encounter Additional Source Comments The information contained in this document represents components of the legal health record. It is not the complete legal health record.[facility]
--- OUTSIDE RECORDS SUMMARY | 2025-06-02 10:58 | XMS_ITS | Encounter Summary ---
Author Organization [facility] Address [address] [place] [address] Phone Care Team Providers Care Pigment Furnace Tender Name Role Phone Anup Jaramillo MD Primary Care Provider [phone] Marianela Plummer MD Primary Care Provider [phone] Pcp, Unknown Unavailable Unavailable Tamara Diaz MD Unavailable [phone] Anjali Murdock CNM Unavailable Encounter Details Date Type Department Care Team (Late st Contact Info) Description 06/30/2020 Procedure Pass [facility], [address] [address] Social History Tobacco Use Types Packs/Day Years [...] 10:40 AM EDT Office Visit [facility] [address] [place] [address] [place] [address] Estefania Busch MD [address] [address] documented as of this encounter Visit Diagnoses Not on filedocumented in this encounter Care Teams Pigment Furnace Tender Relationship Specialty Start Date End Date Anup Jaramillo MD [address] [place] [address] PCP - General Internal Medicine 10/21/18 09/23/23 Marianela Plummer MD [facility] [place] [address] PCP - General Internal Medicine 09/24/23 Pcp, Unknown 05/08/17 Tamara Diaz MD [address] [place] [address] Historical LMR Provider 05/10/17 07/30/21 Anjali Murdock CNM [address] [place] [address] Historical LMR Provider 05/10/17 2 documented as of this encounter Additional Source Comments The information contained in this document represents components of the legal health record. It is not the complete legal health record.[facility]
--- OUTSIDE RECORDS SUMMARY | 2025-06-02 10:58 | XMS_ITS | Encounter Summary ---
Author Organization [facility] Address [address] [place] [address] Phone Care Team Providers Care Director Of Marketing And Promotions Name Role Phone Anup Jaramillo MD Primary Care Provider [phone] Marianela Plummer MD Primary Care Provider [phone] Pcp, Unknown Unavailable Unavailable Encounter Details Date Type Department Care Team (Late st Contact Info) Description 09/04/2023 Procedure Pass [place] Admitting Dept - Virtual Department [address] [place] [address] Social History Tobacco Use Types Packs/Day Years [...] AM EDT Office Visit [facility] [address] [place] [address] Estefania Busch MD [address] [address] [email or web address] documented as of this encounter Visit Diagnoses Not on filedocumented in this encounter Care Teams Director Of Marketing And Promotions Relationship Specialty Start Date End Date Anup Jaramillo MD [address] [place] [address] PCP - General Internal Medicine 10/21/18 09/23/23 Marianela Plummer MD [address] [place] [address] [place] [address] PCP - General Internal Medicine 09/24/23 Pcp, Unknown 05/08/17 documented as of this encounter Additional Source Comments The information contained in this document represents components of the legal health record. It is not the complete legal health record.[facility]
--- OUTSIDE RECORDS SUMMARY | 2025-06-02 10:58 | XMS_ITS | Encounter Summary ---
Author Organization [facility] Address [address] [place] [address] Phone Care Team Providers Care White Spooler Name Role Phone Anup Jaramillo MD Primary Care Provider [phone] Marianela Plummer MD Primary Care Provider [phone] Pcp, Unknown Unavailable Unavailable Tamara Diaz MD Unavailable [phone] Anjali Murdock CNM Unavailable [phone] Encounter Details Date Type Department Care Team (Late st Contact Info) Description 05/24/2020 Ancillary Orders Virtual Department [address] [place] [address] Anup Jaramillo MD [address] [place] [address] Breast cancer screening by mammogram Social History [...] 10:40 AM EDT Office Visit [facility] [address] [place] [address] [place] [address] Estefania Busch MD [address] [place] [address] [email or web address] documented as of this encounter Results * [...] mammogram documented in this encounter Care Teams White Spooler Relationship Specialty Start Date End Date Anup Jaramillo MD [address] [place] [address] PCP - General Internal Medicine 10/21/18 09/23/23 Marianela Plummer MD [facility] [place] [address] PCP - General Internal Medicine 09/24/23 Pcp, Unknown 05/08/17 Tamara Diaz MD [address] [place] [address] [email or web address] Historical LMR Provider 05/10/17 07/30/21 Anjali Murdock CNM [address] [place] [address] Historical LMR Provider 05/10/17 2 documented as of this encounter Additional Source Comments The information contained in this document represents components of the legal health record. It is not the complete legal health record.[facility]
--- OUTSIDE RECORDS SUMMARY | 2025-06-02 10:58 | XMS_ITS | Encounter Summary ---
Author Organization [facility] Address [address] [place] [address] Phone Care Team Providers Care Saddle Stitch Operator Name Role Phone Anup Jaramillo MD Primary Care Provider [phone] Marianela Plummer MD Primary Care Provider [phone] Pcp, Unknown Unavailable Unavailable Encounter Details Date Type Department Care Team (Late st Contact Info) Description 04/25/2023 Procedure Pass [facility], Ct Scan - [facility] 30 [place] [address] Social History Tobacco Use Types Packs/Day Years [...] AM EDT Office Visit [facility] [address] [place] [address] Estefania Busch MD [address] [address] [email or web address] documented as of this encounter Visit Diagnoses Not on filedocumented in this encounter Care Teams Saddle Stitch Operator Relationship Specialty Start Date End Date Anup Jaramillo MD [address] [place] [address] PCP - General Internal Medicine 10/21/18 09/23/23 Marianela Plummer MD [address] [place] [address] [place] [address] PCP - General Internal Medicine 09/24/23 Pcp, Unknown 05/08/17 documented as of this encounter Additional Source Comments The information contained in this document represents components of the legal health record. It is not the complete legal health record.[facility]
--- OUTSIDE RECORDS SUMMARY | 2025-06-02 10:58 | XMS_ITS | Encounter Summary ---
Author Organization [facility] Address [address] [place] [address] Phone Care Team Providers Care Grinder Chipper Name Role Phone Tamara Diaz MD Primary Care Provider [phone] Neo Milligan MD Primary Care Provider [phone] Anup Jaramillo MD Primary Care Provider [phone] Marianela Plummer MD Primary Care Provider [phone] Pcp, Unknown Unavailable Unavailable Tamara Diaz MD Unavailable [phone] Anjali Murdock CNM Unavailable Encounter Details Date Type Department Care Team (Late Contact Info) Description 12/03/2017 Ancillary Orders Virtual Department 30 [place] [address] Tamara Diaz MD [address] [place] [address] [email or web address] Abnormal mammogram Social History Tobacco [...] AM EDT Office Visit [facility] [address] [place] [address] [place] [address] Estefania Busch MD [address] [place] [address] [email or web address] documented as of this encounter Results * [...] center. BI-RADS CATEGORY 2 - BENIGN POS [id number] Narrative 12/10/2017 3:00 PM EDT HISTORY: Abnormal [...] [facility] the [facility] BI-RADS CATEGORY 2 - BENIGN POS [id number] Tamara Diaz MD [facility] [...] center. BI-RADS CATEGORY 2 - BENIGN POS [id number] Narrative 12/10/2017 3:00 PM EDT HISTORY: Abnormal [...] unspecified documented in this encounter Care Teams Grinder Chipper Relationship Specialty Start Date End Date Tamara Diaz MD [address] [place] [address] PCP - General Internal Medicine 11/30/17 12/04/17 Neo Milligan MD [address] [place] [address] PCP - General Internal Medicine 12/05/17 10/20/18 Anup Jaramillo MD 46 [place] [address] PCP - General Internal Medicine 10/21/18 09/23/23 Marianela Plummer MD [address] [place] [address] [place] [address] PCP - General Internal Medicine 09/24/23 Pcp, Unknown 05/08/17 Tamara Diaz MD [address] [place] [address] [email or web address] Historical LMR Provider 05/10/17 07/30/21 Anjali Murdock CNM [address] [place] [address] Historical LMR Provider 05/10/17 2 documented as of this encounter Additional Source Comments The information contained in this document represents components of the legal health record. It is not the complete legal health record.[facility]
--- OUTSIDE RECORDS SUMMARY | 2025-06-02 10:58 | XMS_ITS | Encounter Summary ---
Author Organization [facility] Address [address] [place] [address] Phone Care Team Providers Care Procurement Professional Logistics Name Role Phone Anup Jaramillo MD Primary Care Provider [phone] Marianela Plummer MD Primary Care Provider [phone] Pcp, Unknown Unavailable Unavailable Encounter Details Date Type Department Care Team (Late st Contact Info) Description 02/06/2022 Procedure Pass [facility], Ct Scan - [address] [address] Social History Tobacco Use Types Packs/Day Years [...] 3:59 PM EDT Matthew Taveras RN * [place] Suicide Severity Rating Scale (Screener/Recent Self-Report) Question [...] AM EDT Office Visit [facility] [address] [place] [address] Estefania Busch MD [address] [address] [email or web address] documented as of this encounter Visit Diagnoses Not on filedocumented in this encounter Care Teams Procurement Professional Logistics Relationship Specialty Start Date End Date Anup Jaramillo MD [address] [place] [address] PCP - General Internal Medicine 10/21/18 09/23/23 Marianela Plummer MD [address] [place] [address] [place] [address] PCP - General Internal Medicine 09/24/23 Pcp, Unknown 05/08/17 documented as of this encounter Additional Source Comments The information contained in this document represents components of the legal health record. It is not the complete legal health record.[facility]
--- OUTSIDE RECORDS SUMMARY | 2025-06-02 10:58 | XMS_ITS | Encounter Summary ---
Author Organization [facility] Address [address] [place] [address] Phone Care Team Providers Care Program Paraprofessional Name Role Phone Anup Jaramillo MD Primary Care Provider [phone] Marianela Plummer MD Primary Care Provider [phone] Pcp, Unknown Unavailable Unavailable Tamara Diaz MD Unavailable [phone] Anjali Murdock CNM Unavailable [phone] Encounter Details Date Type Department Care Team (Late st Contact Info) Description 01/11/2021 Procedure Pass [place] Admitting Dept - Virtual Department 30 [place] [address] Social History Tobacco Use Types Packs/Day Years [...] AM EDT Office Visit [facility] 22 [place] [address] Estefania Busch MD [address] [address] documented as of this encounter Visit Diagnoses Not on filedocumented in this encounter Care Teams Program Paraprofessional Relationship Specialty Start Date End Date Anup Jaramillo MD 46 [place] [address] PCP - General Internal Medicine 10/21/18 09/23/23 Marianela Plummer MD [facility] [place] [address] PCP - General Internal Medicine 09/24/23 Pcp, Unknown 05/08/17 Tamara Diaz MD 73 [place] [address] [email or web address] Historical LMR Provider 05/10/17 07/30/21 Anjali Murdock CNM [address] [place] [address] Historical LMR Provider 05/10/17 2 documented as of this encounter Additional Source Comments The information contained in this document represents components of the legal health record. It is not the complete legal health record.[facility]
--- OUTSIDE RECORDS SUMMARY | 2025-06-02 10:58 | XMS_ITS | Encounter Summary ---
Author Organization [facility] Address [address] [place] [address] Phone Care Team Providers Care Deposit Clerk Name Role Phone Marianela Plummer MD Primary Care Provider [phone] Pcp, Unknown Unavailable Unavailable Encounter Details Date Type Department Care Team (Late st Contact Info) Description 11/27/2023 Procedure Pass [facility], Ct Scan - [address] [address] Social History Tobacco Use Types Packs/Day Years [...] 10:40 AM EDT Office Visit [facility] [address] [place] [address] [place] [address] Estefania Busch MD [address] [place] [address] [email or web address] documented as of this encounter Visit Diagnoses Not on filedocumented in this encounter Care Teams Deposit Clerk Relationship Specialty Start Date End Date Marianela Plummer MD [address] [facility] [place] [address] PCP - General Internal Medicine 09/24/23 Pcp, Unknown 05/08/17 documented as of this encounter Additional Source Comments The information contained in this document represents components of the legal health record. It is not the complete legal health record.[facility]
--- OUTSIDE RECORDS SUMMARY | 2025-06-02 10:58 | XMS_ITS | Encounter Summary ---
Author Organization [facility] Address [address] [place] [address] Phone Care Team Providers Care Steam Box Hand Name Role Phone Anup Jaramillo MD Primary Care Provider [phone] Marianela Plummer MD Primary Care Provider [phone] Pcp, Unknown Unavailable Unavailable Tamara Diaz MD Unavailable [phone] Anjali Murdock CNM Unavailable [phone] Encounter Details Date Type Department Care Team (Late st Contact Info) Description 06/30/2020 Procedure Pass [facility], [address] [address] Social History Tobacco Use Types Packs/Day Years [...] AM EDT Office Visit [facility] 22 [place] [address] Estefania Busch MD [address] [address] [email or web address] documented as of this encounter Visit Diagnoses Not on filedocumented in this encounter Care Teams Steam Box Hand Relationship Specialty Start Date End Date Anup Jaramillo MD [address] [place] [address] PCP - General Internal Medicine 10/21/18 09/23/23 Marianela Plummer MD [address] [place] [address] PCP - General Internal Medicine 09/24/23 Pcp, Unknown 05/08/17 Tamara Diaz MD [address] [place] [address] [email or web address] Historical LMR Provider 05/10/17 07/30/21 Anjali Murdock CNM [address] [place] [address] Historical LMR Provider 05/10/17 2 documented as of this encounter Additional Source Comments The information contained in this document represents components of the legal health record. It is not the complete legal health record.[facility]
--- OUTSIDE RECORDS SUMMARY | 2025-06-02 10:58 | XMS_ITS | Encounter Summary ---
Author Organization [facility] Address [address] [place] [address] Phone Care Team Providers Care Wire Stockkeeper Name Role Phone Anup Jaramillo MD Primary Care Provider [phone] Marianela Plummer MD Primary Care Provider [phone] Pcp, Unknown Unavailable Unavailable Encounter Details Date Type Department Care Team (Late st Contact Info) Description 02/06/2022 Procedure Pass [facility] Admitting Dept Virtual Department 30 [place] [address] Social History Tobacco Use Types Packs/Day Years [...] 3:59 PM EDT Matthew Taveras RN * [place] Suicide Severity Rating Scale (Screener/Recent Self-Report) Question [...] AM EDT Office Visit [facility] [address] [place] [address] Estefania Busch MD [address] [address] [email or web address] documented as of this encounter Visit Diagnoses Not on filedocumented in this encounter Care Teams Wire Stockkeeper Relationship Specialty Start Date End Date Anup Jaramillo MD [address] [place] [address] PCP - General Internal Medicine 10/21/18 09/23/23 Marianela Plummer MD [address] [place] [address] [place] [address] PCP - General Internal Medicine 09/24/23 Pcp, Unknown 05/08/17 documented as of this encounter Additional Source Comments The information contained in this document represents components of the legal health record. It is not the complete legal health record.[facility]
--- OUTSIDE RECORDS SUMMARY | 2025-06-02 10:58 | XMS_ITS | Encounter Summary ---
Author Organization [facility] Address [address] [place] [address] Phone Care Team Providers Care Application Support Technician Name Role Phone Anup Jaramillo MD Primary Care Provider [phone] Marianela Plummer MD Primary Care Provider [phone] Pcp, Unknown Unavailable Unavailable Encounter Details Date Type Department Care Team (Late st Contact Info) Description 02/07/2022 Procedure Pass [place] Admitting Dept - Virtual Department 30 [place] [address] Social History Tobacco Use Types Packs/Day Years [...] 10:40 AM EDT Office Visit [facility] [address] [place] [address] Estefania Busch MD [address] [address] [email or web address] documented as of this encounter Visit Diagnoses Not on filedocumented in this encounter Care Teams Application Support Technician Relationship Specialty Start Date End Date Anup Jaramillo MD [address] [place] [address] PCP - General Internal Medicine 10/21/18 09/23/23 Marianela Plummer MD [facility] [place] [address] PCP - General Internal Medicine 09/24/23 Pcp, Unknown 05/08/17 documented as of this encounter Additional Source Comments The information contained in this document represents components of the legal health record. It is not the complete legal health record.[facility]
--- OUTSIDE RECORDS SUMMARY | 2025-06-02 10:58 | XMS_ITS | Data Portability ---
Author Organization [facility], [facility] Address [address] [place] [phone] Care Team Providers Care Carburetor Mechanic Name Role Phone LUC NORRIS Primary Care Provider [phone] LUC NORRIS Referring Provider [phone] Assessment No assessment recorded. Plan of Treatment [...] By Organization Details Last Modified Time 04/09/2024 [id number] The above clinic al findings and radiographic [...] portions of this report were transcribed using [employer] speech recognition software. If any discrepancy or [...] ICD10 Code Diagnosis IMO Codes Diagnosis Note [id number] Clark Pope DPM [facility] [address] [address] 04/09/2024 15:38:52 04/09/2024 17:16:49 Peroneal tendinitis 98271339 M76.71 Pain of ri ght ankle joint [id number] M25.571 Health Concerns Section Related Observation LastModified by Organization Detai ls LastModified Time None Recorded Concern Status LastModified by Organization Details LastModified Time None Recorded Advance Directives Directive None Recorded Payers Insurance Date Sequence Insurance Name Policy Number Policy Richards Covered Member ID Richards Member ID Guarantor Name 03/25/2024 3 [place] [facility] Kathy Velazquez [id number] Kathy Velazquez 03/25/2024 2 [place] [facility] Kathy Velazquez [id number] Kathy Velazquez 04/09/[address] [facility] PLAN (MEDICAID HMO) [facility] Kathy Velazquez [id number] Kathy Velazquez Notes Date Note Type Note Provider Name and Address Organization Details Recorded Time 04/09/2024 text/html Podiatry FootReported by PatientPatient presents today for evaluation right ankle pain. She states it started about 2 or 3 months ago. She was receiving gel injections in her right knee for Dr. Fisher's office. The physician trade sales assistant recommended using an ankle brace that she was having swelling and pain on the outside part of the ankle. She started wearing ankle brace 2 weeks ago and has noticed a marked improvement. It does occasionally walk up on her and she notices it when she drives for long periods of time. Clark Pope DPM [address] [place] [address], [phone], [facility], [facility] 04/09/2024 16:30:43 OBGyn Episode No OBEpisode recorded.
--- OUTSIDE RECORDS SUMMARY | 2025-06-02 10:58 | XMS_ITS | Clinical Summary ---
Author Organization [facility] Address [address] [place] [address] Care Team Providers Care Dispatcher Service Name Role Phone Marianela Plummer Primary Care Provider [phone] Allergies Active Allergy Reactions Criticality Noted Date Comments Allergen Cps-Xoxrp-Udpeu Bee Itching,Oth er (see comments),Swelling High 01/20/2002 [...] patient's age to complete this topic Insurance [facility] MEDICAID Care Teams Dispatcher Service Relationship Specialty Start Date End Date Marianela Plummer [address] [place] [address] PCP - General Internal Medicine 08/21/24
--- OUTSIDE RECORDS SUMMARY | 2025-06-02 10:58 | XMS_ITS | Encounter Summary ---
Author Organization [facility] Address [address] [place] [address] Phone Care Team Providers Care Feather Baler Name Role Phone Marianela Plummer MD Primary Care Provider [phone] Pcp, Unknown Unavailable Unavailable Encounter Details Date Type Department Care Team (Late st Contact Info) Description 02/26/2024 Procedure Pass [place] Admitting Dept - Virtual Department [address] [place] [address] Social History Tobacco Use Types Packs/Day Years [...] AM EDT Office Visit [facility] [address] [place] [address] Estefania Busch MD [address] [place] [address] [email or web address] documented as of this encounter Visit Diagnoses Not on filedocumented in this encounter Care Teams Feather Baler Relationship Specialty Start Date End Date Marianela Plummer MD [address] [facility] [place] [address] PCP - General Internal Medicine 09/24/23 Pcp, Unknown 05/08/17 documented as of this encounter Additional Source Comments The information contained in this document represents components of the legal health record. It is not the complete legal health record.[facility]
== END 2025-06-02 10:08 | disposition home or self-care (01) ==
LOC: HO.HMCC 09:44
PROVIDERS: PCP Internal Medicine; Visit Provider Internal Medicine
DX: M48.061 Spinal stenosis, lumbar region without neurogenic claudication (principal); Z78.9 Other specified health status; K21.9 Gastro-esophageal reflux disease without esophagitis; K44.9 Diaphragmatic hernia without obstruction or gangrene; Z76.0 Encounter for issue of repeat prescription

== ENCOUNTER → 2025-06-02 09:43 | Outpatient (BNVA) | payer OTHER, SELFPAY | PROVIDERS: PCP Internal Medicine; Visit Provider Internal Medicine | DX: M48.061 Spinal stenosis, lumbar region without neurogenic claudication (principal); K21.9 Gastro-esophageal reflux disease without esophagitis; K44.9 Diaphragmatic hernia without obstruction or gangrene; Z78.9 Other specified health status; Z76.0 Encounter for issue of repeat prescription; Z79.899 Other long term (current) drug therapy | CPT/HCPCS: 99212 ==

== ENCOUNTER 2025-07-03 12:01 | Outpatient (AMB) | payer OTHER, SELFPAY ==
[2025-07-03 12:03] VITALS: BP 140/80; PULSE 90; O2SAT 97; BMI 28.0
--- NOTE | 2025-07-03 12:03 | A.OFFPC_ITS ---
Vital Signs 07/03/25 12:03 07/03/25 12:25 Height 5 ft 8 in Weight 184 lb BMI 28.0 BP 140/80 H 134/80 Blood Pressure Location Lt brachial Lt brachial Position Sitting Sitting Pulse 90 Pulse Source Pulse Oximeter Pulse Oximetry (%) 97 Intake Visit Reasons: 1 mo follow up Allergies Penicillins Allergy (Mild, Verified 07/03/25 12:04) rash bee Allergy (Severe, Uncoded 06/02/25 09:51) Swelling Medication List - Last Reconciled 07/03/25 by Marianela Plummer MD atorvastatin 10 mg PO BEDTIME epinephrine (EpiPen 2-Tramaine) 0.3 mg (0.3 mL) IM Q10M PRN gabapentin 300 mg PO BEDTIME levothyroxine 75 mcg PO DAILY minoxidil 2.5 mg PO ONCE omeprazole 20 mg PO DAILY phentermine 37.5 mg PO DAILY 30 days solifenacin (Vesicare) 5 mg PO DAILY spironolactone 50 mg PO BID topiramate 50 mg PO DAILY 30 days Tobacco use date assessed: 06/02/25 Dental Screening Dental Screen Date: 11/11/24 HPI HPI Comments History of Present Illness Details History of Present Illness The patient is a 60 year old female presenting for follow-up, management of post-COVID symptoms, and other medical problems [id number] Syndrome: - The patient reports getting really sic k with COVID-19 before Thanksgi and has since experienced a constant postnasal drip, a cough, and a feeling of heaviness in her lungs, which is particularly bothersome at night. - She has a tendency to develop a deep c ough. - The patient has noticed slow improveme nt in her symptoms. Hypertension: - The patient's blood pressure was sligh tly elevated at 140 systolic during the visit. - She takes spironolactone 50 mg twice d aily. - The blood pressure reading improved to 134/80 after a period of rest. Preoperative Evaluation: - The patient has a back surgery [facility] ed for July 31. - A pre-operative visit is scheduled for Sunday at [facility] with a nurse practitioner, and she is concerned about her post-COVID cough affecting the s urgery. Medication Management: - The patient discussed tapering off Top amax. and phentermine Colon Screening: - The patient had a colonoscopy in January 2022 at [facility], where she was found to have diverticulosis in the descending and ascending colon and a hyperplastic polyp. - Her prior colonoscopy was in 2017. - It was recommended that she have her n ext colonoscopy in 10 years, in 2031. Medical History: - COVID-19 infection prior to [place]. - Gastroesophageal reflux disease (GERD) . - Hypothyroidism. - Diverticulosis. - History of hyperplastic colon polyp. - Lipid disorder. Surgical History: - Colonoscopy in January 2022. - Colonoscopy in 2017. [facility] Surgical History No pertinent past surgical history Family History Daughter Mental health disorder Social History Housing: House Patient Tobacco Use Status: Never used Tobacco e-Cigarette/Vaping Use: Never Used service: No Current occupational status: employed Cognitive needs: No Hearing needs: No Vision needs: Yes Questionnaire Thrive Questionnaire Date Thrive assessed: 08/08/24 I am a: Patient What is your living situation today?: I have a steady place to live Within the past 12 months, did the food you bought not last and you didn't have the money to get more?: Never true Within the past 12 months, did you worry whether your food would run out before you got money to buy more?: Never true Do you have trouble paying for medicines?: No Do you have trouble getting transportation to medical appointments?: No Do you have trouble paying your heating and electricity bill?: No Do you have trouble taking care of your child, family member or friend?: No Do you have trouble with day-to-day activities such as bathing, preparing meals, shopping, managing finances, etc.?: No Are you currently unemployed and looking for a job?: No Are you interested in more education?: No Please select the resources that you would like help with: None Currently or been in a relationship where the following occur: No concerns reported THRIVE Score: 0 FELIPE-7 AMB Questionnaire FELIPE-7 Date FELIPE - 7 assessed: 01/14/25 Source: Developed by Drs. Clark Roy, Evette B.W. Chip Guzman and colleagues, with an educational jono from [email or web address]. Review of Systems Narrative Review of Systems - General: No fever no chills - Neurological: No headaches no dizziness - Ear nose throat: No sore throat no hearing difficulty no ear pain - Cardiovascular: No syncope, no chest pain, no palpitations - Gastrointestinal: No nausea vomiting or diarrhea - Endocrine: No polyuria polydipsia no heat intolerance - Genitourinary: No dysuria , no blood in urine Physical exam (Primary Care) Vital Signs: Last Vital Signs Pulse 90 07/03/25 12:03 BP 134/80 07/03/25 12:25 Pulse Ox 97 07/03/25 12:03 BMI result Body Mass Index 28.0 Tobacco/Smoking Status: Tobacco use Status Tobacco use date assessed 06/02/25 07/03/25 12:04 Patient Tobacco Use Status Never used Tobacco 07/03/25 12:04 e-Cigarette/Vaping Use Never Used 07/03/25 12:04 Thrive Assessment: Date of Thrive Assessment Date Thrive assessed 08/08/24 07/03/25 12:04 Currently or been in a relationship where the following occur: No concerns reported Narrative Physical Exam General: No acute distress HEENT: No acute findings Neck: Supple Respiratory system: Able to talk in full sentences, no audible wheeze Cardiovascular: S1-S2 regular in rate and rhythm, blood pressure slightly elevated at 140 systolic Gastrointestinal: No pain Extremities: No new findings LEADERSHIP INTERN: Alert awake oriented x3 motor intact Skin: Normal turgor Coding Level of Care Code Est Pt Level 4 (01357) Diagnoses Post-COVID syndrome U09.9 PND (post-nasal drip) R09.82 Spinal stenosis of lumbar region without neurogenic claudication M48.061 Neurogenic claudication status: without neurogenic claudication Lumbar pain M54.50 Lipid disorder E78.9 Other specified hypothyroidism E03.8 Chronic GERD K21.9 Hiatal hernia K44.9 Assessment & Plan Assessment & Plan (1) Post-COVID syndrome: Code(s): U09.9 - Post COVID-19 condition, unspecified Category: Medical (2) PND (post-nasal drip): Code(s): R09.82 - Postnasal drip Category: Medical (3) Lumbar spinal stenosis: Code(s): M48.061 - Spinal stenosis, lumbar region without neurogenic claudication Category: Medical Qualifiers: Neurogenic claudication status: without neurogenic claudication Qualified Code(s): M48.061 - Spinal stenosis, lumbar region without neurogenic claudication (4) Lumbar pain: Code(s): M54.50 - Low back pain, unspecified Category: Medical (5) Lipid disorder: Code(s): E78.9 - Disorder of lipoprotein metabolism, unspecified Category: Medical (6) Other specified hypothyroidism: Code(s): E03.8 - Other specified hypothyroidism Category: Medical (7) Chronic GERD: Code(s): K21.9 - Gastro-esophageal reflux disease without esophagitis Category: Medical (8) Hiatal hernia: Code(s): K44.9 - Diaphragmatic hernia without obstruction or gangrene Category: Medical Plan Problem List - [id number] syndrome - Hypertension - Hyperlipidemia - Gastroesophageal reflux disease - Hypothyroidism Plan - For post-COVID respiratory symptoms, a prescription for Symbicort inhaler was sent. - She is to use the inhaler once or twice a day for a month, rinsing her mouth after use. - [id number] Flonase nasal spray was recommended for postnasal drip for a couple of weeks. - To taper off Topamax, she will cut her current pills in half for a week and then stop. - A new prescription for phentermine 15 mg will be sent; she can take it for a couple of weeks and then stop. - A new set of labs was ordered but will be held, as they are likely to be done at her pre-operative appointment. - The patient was advised to follow up in October. Orders: Orders Complete Blood Count Auto Diff Today E03.8 - Other specified hypothyroidism, E78.9 - Disorder of lipoprotein metabolism, unspecified, K21.9 - Gastro-esoph ageal reflux disease without esophagitis, K44.9 - Diaphragmatic hernia without obstruction or gangrene, M48.061 - Spinal stenosis, lumbar region without neurogenic claudication, M54.50 - Low back pain, unspecified, R79.89 - Other specified abnormal findings of blood chemistry Comprehensive [place]. Panel Fast Today E03.8 - Other specified hypothyroidism, E78.9 - Disorder of lipoprotein metabolism, unspecified, K21.9 - Gastro- esophageal reflux disease without esophagitis, K44.9 - Diaphragmatic hernia without obstruction or gangrene, M48.061 - Spinal stenosis, lumbar region without neurogenic claudication, M54.50 - Low back pain, unspecified, R79.89 - Other specified abnormal findings of blood chemistry Lipid Panel Today E03.8 - Other specified hypothyroidism, E78.9 - Disorder of lipoprotein metabolism, unspecified, K21.9 - Gastro-esophageal reflux disease without esophagitis, K44.9 - Diaphragmatic hernia without obstruction or gangrene, M48.061 - Spinal stenosis, lumbar region without neurogenic claudication, M54.50 - Low back pain, unspecified, R79.89 - Other specified abnormal findings of blood chemistry TSH reflex Free T4 Today E03.8 - Other specified hypothyroidism, E78.9 - Disorder of lipoprotein metabolism, unspecified, K21.9 - Gastro-esophageal reflux disease without esophagitis, K44.9 - Diaphragmatic hernia without obstruction or gangrene, M48.061 - Spinal stenosis, lumbar region without neurogenic claudication, M54.50 - Low back pain, unspecified, R79.89 - Other specified abnormal findings of blood chemistry Medications: New budesonide-formoterol 160-4.5 mcg/actuation (Symbicort) 1 puff inhalation BID 10.2 grams 0RF cough Changed From phentermine must administer 2 hours after breakfast 37.5 mg PO DAILY 30 days 30 caps 0RF To phentermine must administer 2 hours after breakfast 15 mg PO DAILY 30 caps 0RF 30 days Discontinued topiramate Discontinued Reason: Doctor's Order 50 mg PO DAILY 30 days 30 tabs 0RF
[2025-07-03 12:25] VITALS: BP 134/80
--- OUTSIDE RECORDS SUMMARY | 2025-07-03 17:14 | XMS_ITS | Encounter Summary ---
Author Organization [facility] Address [address] [place] [phone] Phone Care Team Providers Care Hospice Physician Name Role Phone Anup Jaramillo MD Primary Care Provider [phone] Marianela Plummer MD Primary Care Provider Pcp, Unknown Unavailable Unavailable Tamara Diaz MD Unavailable [phone] Anjali Murdock CNM Unavailable Encounter Details Date Type Department Care Team (Late st Contact Info) Description 06/30/2020 Procedure Pass [facility], [address] [address] Social History Tobacco Use Types Packs/Day Years [...] AM EDT Office Visit [facility] [address] [place] [address] Estefania Busch MD [address] [address] [email or web address] documented as of this encounter Visit Diagnoses Not on filedocumented in this encounter Care Teams Hospice Physician Relationship Specialty Start Date End Date Anup Jaramillo MD [address] [place] [phone] PCP - General Internal Medicine 10/21/18 09/23/23 Marianela Plummer MD [address] [place] [phone] PCP - General Internal Medicine 09/24/23 Pcp, Unknown 05/08/17 Tamara Diaz MD [address] [place] [id number] [email or web address] Historical LMR Provider 05/10/17 07/30/21 Anjali Murdock CNM [address] [place] [id number] Historical LMR Provider 05/10/17 2 documented as of this encounter Additional Source Comments The information contained in this document represents components of the legal health record. It is not the complete legal health record.[facility]
--- OUTSIDE RECORDS SUMMARY | 2025-07-03 17:14 | XMS_ITS | Encounter Summary ---
Author Organization [facility] Address [address] [place] [address] Phone Care Team Providers Care Salesman/Owner Name Role Phone Anup Jaramillo MD Primary Care Provider [phone] Marianela Plummer MD Primary Care Provider [phone] Pcp, Unknown Unavailable Unavailable Encounter Details Date Type Department Care Team (Late st Contact Info) Description 11/02/2021 Procedure Pass [facility], [address] [address] Social History Tobacco Use Types Packs/Day Years [...] AM EDT Office Visit [facility] [address] [place] [address] Estefania Busch MD [address] [place] [phone] [email or web address] documented as of this encounter Visit Diagnoses Not on filedocumented in this encounter Care Teams Salesman/Owner Relationship Specialty Start Date End Date Anup Jaramillo MD [address] [place] [phone] PCP - General Internal Medicine 10/21/18 09/23/23 Marianela Plummer MD [place] [address] PCP - General Internal Medicine 09/24/23 Pcp, Unknown 05/08/17 documented as of this encounter Additional Source Comments The information contained in this document represents components of the legal health record. It is not the complete legal health record.[facility]
--- OUTSIDE RECORDS SUMMARY | 2025-07-03 17:15 | XMS_ITS | Encounter Summary ---
Author Organization [facility] Address [address] [place] [address] Phone Care Team Providers Care Talent Analyst Name Role Phone Anup Jaramillo MD Primary Care Provider [phone] Marianela Plummer MD Primary Care Provider [phone] Pcp, Unknown Unavailable Unavailable Encounter Details Date Type Department Care Team (Late st Contact Info) Description 04/25/2023 Procedure Pass [facility], Ct Scan - [facility] [address] [place] [address] Social History Tobacco Use Types Packs/Day Years [...] AM EDT Office Visit [facility] [address] [place] [address] Estefania Busch MD [address] [address] [email or web address] documented as of this encounter Visit Diagnoses Not on filedocumented in this encounter Care Teams Talent Analyst Relationship Specialty Start Date End Date Anup Jaramillo MD [address] [place] [address] PCP - General Internal Medicine 10/21/18 09/23/23 Marianela Plummer MD [address] [place] [address] [place] [phone] PCP - General Internal Medicine 09/24/23 Pcp, Unknown 05/08/17 documented as of this encounter Additional Source Comments The information contained in this document represents components of the legal health record. It is not the complete legal health record.[facility]
--- OUTSIDE RECORDS SUMMARY | 2025-07-03 17:15 | XMS_ITS | Data Portability ---
Author Organization [facility] Address [address] [place] [address] Care Team Providers Care Public Health Inspector Name Role Phone KAUR DEY Referring Provider [phone] DEONDRE BRONSNO OTHER NICOLE ANDREW Primary Care Provider Assessment [...] intra-artic ular suspension, extended release [address]/[id number], [address] [place] [address], [address], 5 07:34:22 Zilretta 32 mg intra-artic ular suspension, extended release [address], [address] [place] [address], [address], 5 11:46:26 Depo-Medrol 40 mg/mL suspension for injection [address], [address] [place] [address], [address], 5 12:08:37 Euflexxa 10 mg/mL (mw 2.4-3.6 million) intra-artic ular syringe [address], [address] [place] [address], [address], 4 14:18:08 Euflexxa 10 mg/mL (mw 2.4-3.6 million) intra-artic ular syringe [address]08[facility], [address] [place] [address], [address], 4 09:29:21 Patient TargetsNo targets recorded. Patient InstructionsNo instructions recorded. Reason for Referral None Reported. Results Created Date Observation Date Name Description Value Unit Range Abnormal Flag Note LastModifiedBy Organization Detail LastModifiedTime 05/05/20 25 05/05/2025 XR, knee, 3 view Patien morales Name: KATHY LANDAVERDE : [birth year] Sex:Pebbles male [phone] Locati on: [facility] [address] [place] [address]- Radiol ogy ACCESS ION EXAM DATE/T GAB [...] report ed findin gs. Laura hickey Site: [facility] ____ Howie brand Report Dictat ed: 2024 3:46 pm Dictat ed By: HANNA SUBRAMANIAN MD onic Signat ure: 2024 4:01 pm Signed By: AUDI PATEL DO ing: DEONDRE OLVERA Consul ting: [email or web address] [facility] (Radiology) [address] [place] [address], [address], 05/06/2025 08:24:34 Result Notes Documentation Provider Name and Address Organization Details Recorded Time Xr, Knee, 3 View : Patient Name: KATHY VELAZQUEZ : 1965 Sex:Female Location: [address] [address]- Radiology ACCESSION EXAM DATE/TIME PROCEDURE ORDERING STATUS PROVIDER [id number] 05/05/2025 XR Knee 3 МАРИЯ BREWER, Auth 16 15:36 EDT Views Right DEONDRE (Verified) Reason For Exam (XR Knee 3 Views Right) PAIN Report STUDY: Right Knee radiograph TECHNIQUE: AP, lateral and sunrise views were obtained. INDICATION: Knee pain COMPARISON: Right knee radiograph on November 20, 2022 FINDINGS: Slight worsening of severe joint space narrowing, nearly ezve-aq-[id number] in the medial compartment. Progressive severe osteophytosis of the femoral and tibial condyles. Significant patellar spurring. Fabella. No fracture or subluxation. Soft tissues are unremarkable. IMPRESSION: 1.No acute osseous abnormalities. 2.Progressive severe osteoarthritic changes of the knee. Attending review by Dr. Audi Davila, D.O. I have personally reviewed the study and agree with the reported findings. Reading Site: [facility] Final Report Dictated: 05/05/2025 3:46 pm Dictated By: SHREYA MARTINEZ ASHLEY Electronic Signature: 05/05/2025 4:01 pm Signed By: AUDI DAVILA DO Admitting: DEONDRE MEDINA Consulting: Deondre Bronson PA-C [address] [place] [address], [phone], [facility] 05/06/2025 08:24:34 Problems Name Problem SNOMED Code Status Onset Date Resolution Date Notes Provider Name and Address Organization Details Recorded Time Complicati on of anesthesia 96295916 Active 2022 Latesha gonzalez [facility]. 3 01:11:15 Arthritis 3541261 Active 2022 Latesha gonzalez [facility] 3 01:11:22 Osteoarthr itis 689537263 Active 2022 Latesha gonzalez [facility] 3 01:11:28 Total knee replacemen t Active 2022 Latesha gonzalez [facility] 3 01:11:38 Rupture of rotator cuff of shoulder 091399854 Active 2022 complete rotator cuff tear or rupture of right shoulder, not specified as traumatic Latesha gonzalez [facility] 3 01:12:34 Tear of medial meniscus of knee 295730037 Active 2022 Latesha gonzalez [facility] 3 01:12:56 Impingemen t syndrome of shoulder region 204454536 Active 2022 right shoulder Lateshapriti gonzalez [facility] 3 01:13:12 Problem Notes None recorded. Procedures Surgical History Date Name Laterality Status Provider Name and Address Organization Details Recorded Time 2024 Corticosteroid Injection - Zilretta completed Deondre Bronson PA-C [address] [place] [address], [phone], [facility] 05/06/2025 07:34:08 2024 Corticosteroid Injection - Zilretta completed Deondre Bronson PA-C [address] [place] [address], [address], [facility] 10/21/2024 11:45:59 2024 Intra-articular Knee Steroid Injection completed Deondre Bronson PA-C [address] [place] [address], [address], [facility] 08/04/2024 11:01:40 2023 Viscosupplementation Knee completed Deondre Bronson PA-C [address] [place], [address], [facility] 04/08/2024 14:18:06 2023 Viscosupplementation Knee completed Deondre Bronson PA-C [address] [place], [address], [facility] 04/01/2024 09:29:19 2023 Viscosupplementation Knee completed Deondre Bronson PA-C [address] [place], [address], [facility] 03/25/2024 15:02:51 2023 Intra-articular Knee Steroid Injection completed Deondre Bronson PA-C [address] [place], [address], [facility] 12/28/2023 12:44:01 2023 Intra-articular Knee Steroid Injection completed Deondre Bronson PA-C [address] [place], [address], [facility] 09/17/2023 11:58:11 2022 Intra-articular Knee Steroid Injection completed Deondre Bronson PA-C [address] [place], [address], [facility] 04/10/2023 15:26:45 2022 Intra-articular Knee Steroid Injection completed Deondre Bronson PA-C [address] [place], [address], [facility] 11/21/2022 17:45:19 2015 total knee replacement completed Latesha Burger [facility] 11/20/2022 01:14:37 2011 Knee arthroscopy/surgery completed Not Available [facility] 09/14/2011 03:36:58 2010 Knee Surgery completed Latesha Burger [facility] 11/20/2022 01:14:20 1995 Section completed Latesha Burger [facility] 11/20/2022 01:14:08 Joint Replacement completed Noreenmaricarmen Escobedosonu [facility] 11/20/2022 13:14:12 Other Surgeries completed Dai Leidy [facility] 09/17/2023 11:48:36 Imaging Results None recorded. Procedure Notes None recorded. Medical Equipment None Reported. Allergies Allergen ID Allergen Name Allergen Category Reaction Reaction Severity Criticality Documentation Date Start Date Code Code System Note Provider Name and Address Organization Details Recorded Time 674346 Product containin g penicilli n (product) medicatio n rash Not available Not available 11/20/2022 64454 8001 SNOMED Latesha Burger [facility] 01:15:24 917435 bee pollen environme nt,medica tion Not available Not available Not available 11/20/2022 12092 7 RxNorm Latesha Burger [facility] 3 01:16:01 293040 ethinyl estradiol / levonorge strel medicatio n Not available Not available Not available 11/20/2022 46895 8 RxNorm Latesha Burger [facility] 3 01:16:07 738218 POLLEN EXTRACTS environme nt,medica tion Not available Not available Not available 11/20/2022 45259 6 RxNorm Noreen Lesniewsk i [facility] 3 13:13:50 181978 mold extract environme nt Not available Not available Not available 11/20/2022 04850 8 RxNorm Noreen Lesniewsk i [facility] 3 13:13:50 023068 insect venom environme nt itching other Not available Not available Not available 11/20/2022 Noreen Demetrioalbertok ruben [facility]. 13:13:50 Medications Name Sig Start Date Stop [...] Updated DateTime 08/04/2024 172.72 cm 33.1 kg/m2 24473.14 g Yomaira Thom [facility] 08/04/2024 10:26:36 Date Recorded Body height Body mass index (BMI) Body weight Provider Name and Address Organization Details Last Updated DateTime 10/21/2024 172.72 cm 30.9 kg/m2 38632.25 g Dorota Cardenasers [facility] 10/21/2024 10:44:24 Date Recorded Body height Body mass index (BMI) Body weight Provider Name and Address Organization Details Last Updated DateTime 04/01/2024 172.72 cm 29.3 kg/m2 65566.33 g Payton Rollins [facility]. 04/01/2024 08:35:29 Date Recorded Body height Body mass index (BMI) Body weight Provider Name and Address Organization Details Last Updated DateTime 04/08/2024 172.72 cm 29.3 kg/m2 85190.33 g Dai Leidy [facility] 04/08/2024 13:48:49 Date Recorded Body height Body mass index (BMI) Body weight Provider Name and Address Organization Details Last Updated DateTime 05/05/2025 172.72 cm 30.9 kg/m2 97569.25 g [facility] 05/05/2025 14:31:43 Social History Question Answer Notes LastModified by Organizat ion Details LastModified Time Tobacco Smoking Status Never Smoker [email or web address] 08/04/2024 10:26:47 Do You Have An [...] Has Tobacco Cessation Counseling Been Provided? 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 Moderate Information not available 11/20/2022 Mental Status Question Answer Note LastModified by Organization D etails LastModified Time Do you feel stressed (tense, restless, nervous, or anxious, or unable to sleep at night)? [id number] Information not available 04/10/2023 Family History Relationship [...] ICD10 Code Diagnosis IMO Codes Diagnosis Note [id number] Denodre Bronson PA-C [facility] [address] [place] [address] 11/20/2022 13:02:57 11/20/2022 13:44:20 Osteoarthritis of right knee joint 8948944634 79171 M17.11 Osteoarthr itis of left knee joint 9453555853 69986 M17.12 [id number] Clyde Fisher MD [facility] [address] [place] [address] 04/10/2023 14:46:22 04/10/2023 15:15:05 Osteoarthritis of right knee joint 3337702280 68082 M17.11 [id number] Clyde Fisher MD [facility] [address] [place] [address] 09/17/2023 11:41:51 09/17/2023 11:43:08 Osteoarthritis of right knee joint 4541589907 07856 M17.11 [id number] Clyde Fisher MD [facility] [address] [place] [address] 12/28/2023 10:07:59 12/28/2023 10:40:19 Osteoarthritis of right knee joint 9003310946 67860 M17.11 [id number] Clyde Fisher MD [facility] [address] [place] [address] 03/25/2024 14:43:16 03/25/2024 15:12:13 Osteoarthritis of right knee joint 1317374042 60441 M17.11 [id number] Clyde Fisher MD [facility] [address] [place] [address] 04/01/2024 08:32:29 04/01/2024 08:48:46 Osteoarthritis of right knee joint 0263516619 11226 M17.11 [id number] Clyde Fisher MD [facility] [address] [place] [address] 04/08/2024 13:42:36 04/08/2024 13:59:56 Osteoarthritis of right knee joint 2087485303 16543 M17.11 [id number] Clyde Fisher MD [facility] [address] [place] [address] 08/04/2024 10:15:48 08/04/2024 10:41:26 Osteoarthritis of right knee joint 3478861505 99949 M17.11 [id number] Clyde Fisher MD [facility] [address] [place] [address] 6 10/21/2024 10:41:16 10/21/2024 11:42:46 Osteoarthritis of right knee joint 3655773462 70797 M17.11 [id number] Clyde Fisher MD [facility] [address] [place] [address] 05/05/2025 14:25:07 05/05/2025 15:14:19 Osteoarthritis of right knee joint 2327957704 96804 M17.11 3528101 Health Concerns Section Related Observation LastModified by Organization Detai ls LastModified Time None Recorded Concern Status LastModified by Organization Details LastModified Time None Recorded Advance Directives Directive Y: Payers Insurance Date Sequence Insurance Name Policy Number Policy Richards Covered Member ID Richards Member ID Guarantor Name 05/29/2025 1 [facility] (MEDICAID REPLACEMENT - HMO) [place] Kathy Velazquez [id number] Kathy Velazquez 05/29/2025 1 [facility] (HMO) [id number] Kathy Velazquez [id number] Kathy Velazquez 05/29/2025 1 [facility] (HMO) [id number] Kathy Velazquez [id number] Kathy Velazquez 05/29/2025 1 MEDICAID-[place]: [facility] PLAN Kathy Velazquez [id number] Kathy Velazquez 05/29/2025 1 [facility] NET PLAN (MEDICAID HMO) Kathy Velazquez [id number] Kathy Velazquez 05/29/2025 1 [facility] CAREPLUS - CAREPLUS A (MEDICAID HMO) [id number] Kathy Velazquez [id number] Kathy Velazquez 05/29/2025 1 [facility] NET PLAN (MEDICAID HMO) Kathy Velazquez [id number] Kathy Velazquez 05/29/2025 1 [facility] CAREPLUS - CAREPLUS A (MEDICAID HMO) Kathy Velazquez [id number] Kathy Velazquez 05/29/2025 1 [facility] NET PLAN (MEDICAID HMO) Kathy Velazquez [id number] Kathy Velazquez 05/29/2025 1 [facility] CAREPLUS - CAREPLUS A (MEDICAID HMO) [id number] Kathy Velazquez [id number] Kathy Velazquez 05/29/2025 1 [facility] CLARITY (HMO) [id number] Kathy Velazquez [id number] Kathy Velazquez 05/29/2025 1 [facility] NET PLAN (MEDICAID HMO) [id number] Kathy Velazquez [id number] Kathy Velazquez 05/29/2025 1 [facility] CLARITY (HMO) [place] Kathy Velazquez [id number] Kathy Velazquez Notes Date Note Type Note Provider Name and Address Organization Details Recorded Time 04/01/2024 text/html ROS as noted in the HPI Patient presents for her second right knee Euflexxa injection. She denies any adverse effects following previous injection. MADISYN Mullen-[address], [address], [place] [facility] 04/01/2024 09:30:56 04/08/2024 text/html ROS as noted in the HPI Patient presents for her third right knee Euflexxa injection. She denies any adverse effects following previous injections. Deondre Bronson PA-C [address] [place] [address], [address], [facility] 04/08/2024 14:25:07 08/04/2024 text/html ROS [...] performed by Dr. Fisher. Deondre Bronson PA-C [address] [place] [address], [address], [facility] 08/04/2024 12:11:03 10/21/2024 text/html ROS as noted in the HPI Patient presents for right knee Zilretta injection. Deondre Bronson PA-C [address] [place], [address], [facility] 10/21/2024 11:47:05 05/05/2025 text/html ROS as noted in the HPI Patient presents for right knee Zilretta injections. Previous Zilretta injection provided nearly 6 months of significant pain relief. She underwent standing AP and lateral x-rays today, which revealed Kellgren-Jamie grade 3 changes most pronounced over the lateral tibiofemoral and patellofemoral joint spaces. Deondre Bronson PA-C [address] [place], [address], [facility] 05/06/2025 07:35:52 OBGyn Episode No OBEpisode recorded.
--- OUTSIDE RECORDS SUMMARY | 2025-07-03 17:15 | XMS_ITS | Encounter Summary ---
Author Organization [facility] Address [address] [place] [address] Phone Care Team Providers Care Train Starter Name Role Phone Anup Jaramillo MD Primary Care Provider [phone] Marianela Plummer MD Primary Care Provider Pcp, Unknown Unavailable Unavailable Encounter Details Date Type Department Care Team (Late st Contact Info) Description 02/06/2022 Procedure Pass [facility]oscopy Admitting Dept Virtual Department [address] [place] [address] Social History Tobacco Use Types Packs/Day Years [...] 3:59 PM EDT Matthew Taveras RN * [place] Suicide Severity Rating Scale (Screener/Recent Self-Report) Question [...] AM EDT Office Visit [facility] [address] [place] [address] Estefania Busch MD [address] [address] [email or web address] documented as of this encounter Visit Diagnoses Not on filedocumented in this encounter Care Teams Train Starter Relationship Specialty Start Date End Date Anup Jaramillo MD [address] [place] [address] PCP - General Internal Medicine 10/21/18 09/23/23 Marianela Plummer MD [address] [place] [address] [place] [address] PCP - General Internal Medicine 09/24/23 Pcp, Unknown 05/08/17 documented as of this encounter Additional Source Comments The information contained in this document represents components of the legal health record. It is not the complete legal health record.[facility]
--- OUTSIDE RECORDS SUMMARY | 2025-07-03 17:15 | XMS_ITS | Encounter Summary ---
Author Organization [facility] Address [address] [place] [address] Phone Care Team Providers Care Supervisor Display Fabrication Name Role Phone Anup Jaramillo MD Primary Care Provider [phone] Marianela Plummer MD Primary Care Provider [phone] Pcp, Unknown Unavailable Unavailable Encounter Details Date Type Department Care Team (Late st Contact Info) Description 09/04/2023 Procedure Pass [place] Admitting Dept - Virtual Department [address] [place] [address] Social History Tobacco Use Types Packs/Day Years [...] AM EDT Office Visit [facility] [address] [place] [address] Estefania Busch MD [address] [address] [email or web address] documented as of this encounter Visit Diagnoses Not on filedocumented in this encounter Care Teams Supervisor Display Fabrication Relationship Specialty Start Date End Date Anup Jaramillo MD [address] [place] [address] PCP - General Internal Medicine 10/21/18 09/23/23 Marianela Plummer MD [address] [place] [address] [place] [address] PCP - General Internal Medicine 09/24/23 Pcp, Unknown 05/08/17 documented as of this encounter Additional Source Comments The information contained in this document represents components of the legal health record. It is not the complete legal health record.[facility]
--- OUTSIDE RECORDS SUMMARY | 2025-07-03 17:15 | XMS_ITS | Encounter Summary ---
Author Organization [facility] Address [address] [place] [address] Phone Care Team Providers Care Labor Representative Name Role Phone Marianela Plummer MD Primary Care Provider [phone] Pcp, Unknown Unavailable Unavailable Encounter Details Date Type Department Care Team (Late st Contact Info) Description 02/26/2024 Procedure Pass [place] Admitting Dept - Virtual Department [address] [place] [address] Social History Tobacco Use Types Packs/Day Years [...] AM EDT Office Visit [facility] [address] [place] [address] Estefania Busch MD [address] [place] [address] [email or web address] documented as of this encounter Visit Diagnoses Not on filedocumented in this encounter Care Teams Labor Representative Relationship Specialty Start Date End Date Mraianela Plummer MD [address] [facility] [place] [address] PCP - General Internal Medicine 09/24/23 Pcp, Unknown 05/08/17 documented as of this encounter Additional Source Comments The information contained in this document represents components of the legal health record. It is not the complete legal health record.[facility]
--- OUTSIDE RECORDS SUMMARY | 2025-07-03 17:15 | XMS_ITS | Continuity of Care Document ---
Author Organization [facility] Address [address] [address] Care Team Providers Care Supply Chain Business Analyst Name Role Phone KAUR DEY Referring Provider DEONDRE BRONSON OTHER NICOLE ANDREW Primary Care Provider Assessment Encounter Date Assessment Date Assessment LastModified by Organization Details LastModified Time 05/05/2025 05/05/2025 Right knee Zilretta injection was [...] the medical decision making. [email or web address] Not available 05/06/2025 07:34:21 Plan of Treatment Reminders Order Date Submit Date Provider Last Modified By Organization Details Last Modified Time Details Appointments None recorded. Lab None recorded. Referral None recorded. Procedures None recorded. Surgeries None recorded. Imaging None recorded. Medication Orders Zilretta 32 mg intra-calista cular suspension ,extended release 2024 025 [email or web address] [id number], [address] [facility], [place], [address], 07:34:22 Patient TargetsNo targets recorded. Patient InstructionsNo instructions recorded. Reason for Referral None Reported. Results Created Date Observation Date Name Description Value Unit Range Abnormal Flag Note LastModifiedBy Organization Detail LastModifiedTime 05/05/2005/05/2025 XR, knee, 3 view Patien t Name: KATHY LANDAVERDE : [birth year] Sex:Fe male 813 051 Locati on: [facility] - [facility] [address] [place] [address]- Radiol ogy ACCESS ION EXAM DATE/T GAB [...] report ed findin gs. Laura hickey Site: [facility] ____ Howie brand Report Dictat ed: 2024 3:46 pm Dictat ed By: RENETTA Baumann MD, HANNA Grissom onic Signat ure: 2024 4:01 pm Signed By: AUDI PATEL DO ing: DEONDRE OLVERA ting: [email or web address] [facility] (Radiology) [address] [place] [address], [address], 05/06/2025 08:24:34 Result Notes Documentation Provider Name and Address Organization Details Recorded Time Xr, Knee, 3 View : Patient Name: KATHY VELAZQUEZ : 1965 Sex:Female Location: [address] [address]- Radiology ACCESSION EXAM DATE/TIME PROCEDURE ORDERING STATUS PROVIDER [id number] 05/05/2025 XR Knee 3 МАРИЯ BREWER, Auth 16 15:36 EDT Views Right DEONDRE (Verified) Reason For Exam (XR Knee 3 Views Right) PAIN Report STUDY: Right Knee radiograph TECHNIQUE: AP, lateral and sunrise views were obtained. INDICATION: Knee pain COMPARISON: Right knee radiograph on November 20, 2022 FINDINGS: Slight worsening of severe joint space narrowing, nearly [id number] in the medial compartment. Progressive severe osteophytosis of the femoral and tibial condyles. Significant patellar spurring. Fabella. No fracture or subluxation. Soft tissues are unremarkable. IMPRESSION: 1.No acute osseous abnormalities. 2.Progressive severe osteoarthritic changes of the knee. Attending review by Dr. Audi Davila, Gabriela.O. I have personally reviewed the study and agree with the reported findings. Reading Site: [facility] Final Report Dictated: 05/05/2025 3:46 pm Dictated By: ASHLEY CASH MD Electronic Signature: 05/05/2025 4:01 pm Signed By: AUDI DAVILA DO Admitting: DEONDRE MEDINA Consulting: Deondre Bronson PA-C [address] [place] [address], [phone], [facility]. 05/06/2025 08:24:34 Problems Name Problem SNOMED Code Status Onset Date Resolution Date Notes Provider Name and Address Organization Details Recorded Time Complicati on of anesthesia 01115600 Active 2022 Latesha gonzalez [facility] 3 01:11:15 Arthritis 4957231 Active 2022 Latesha gonzalez [facility] 3 01:11:22 Osteoarthr itis 271850587 Active 2022 Latesha gonzalez [facility] 3 01:11:28 Total knee replacemen t Active 2022 Latesha gonzalez, [facility] 3 01:11:38 Rupture of rotator cuff of shoulder 473370656 Active 2022 complete rotator cuff tear or rupture of right shoulder, not specified as traumatic Latesha gonzalez [facility] 3 01:12:34 Tear of medial meniscus of knee 967819216 Active 2022 Latesha gonzalez [facility] 3 01:12:56 Impingemen t syndrome of shoulder region 499291606 Active 2022 right shoulder Lateshapriti gonzalez [facility] 3 01:13:12 Problem Notes None recorded. Procedures Surgical History Date Name Laterality Status Provider Name and Address Organization Details Recorded Time 2024 Corticosteroid Injection - Zilretta completed Deondre Bronson PA-C [address] [place] [address], [address], [facility] 05/06/2025 07:34:08 2024 Corticosteroid Injection - Zilretta completed Deondre Bronson PA-C [address] [place] [address], [address], [facility] 10/21/2024 11:45:59 2024 Intra-articular Knee Steroid Injection completed Deondre Bronson PA-C [address] [place] [address], [address], [facility] 08/04/2024 11:01:40 2023 Viscosupplementation Knee completed Deondre Bronson PA-C [address] [place] [address], [address], [facility] 04/08/2024 14:18:06 2023 Viscosupplementation Knee completed Deondre Bronson PA-C [address] [place] [address], [address], [facility] 04/01/2024 09:29:19 2023 Viscosupplementation Knee completed Deondre Bronson PA-C [address] [place] [address], [address], [facility] 03/25/2024 15:02:51 2023 Intra-articular Knee Steroid Injection completed Deondre Bronson PA-C [address] [place] [address], [address], [facility] 12/28/2023 12:44:01 2023 Intra-articular Knee Steroid Injection completed Deondre Bronson PA-C [address] [place] [address], [address], [facility] 09/17/2023 11:58:11 2022 Intra-articular Knee Steroid Injection completed Deondre Bronson PA-C [address] [place] [address], [address], [facility] 04/10/2023 15:26:45 2022 Intra-articular Knee Steroid Injection completed Deondre Bronson PA-C [address] [place] [address], [address], [facility] 11/21/2022 17:45:19 2015 total knee replacement completed Latesha Burger [facility] 11/20/2022 01:14:37 2011 Knee arthroscopy/surgery completed Not Available [facility] 09/14/2011 03:36:58 2010 Knee Surgery completed Latesha Burger [facility] 11/20/2022 01:14:20 1995 Section completed Latesha Burger [facility] 11/20/2022 01:14:08 Joint Replacement completed Noreen Lopez [facility] 11/20/2022 13:14:12 Other Surgeries completed Dai Forbes [facility] 09/17/2023 11:48:36 Imaging Results None recorded. Procedure Notes None recorded. Medical Equipment None Reported. Allergies Allergen ID Allergen Name Allergen Category Reaction Reaction Severity Criticality Documentation Date Start Date Code Code System Note Provider Name and Address Organization Details Recorded Time 150379 Product containin g penicilli n (product) medicatio n rash Not available Not available 11/20/2022 46065 8001 SNOMED Latesha Burger [facility] 3 01:15:24 787187 bee pollen environme nt,medica tion Not available Not available Not available 11/20/2022 44215 7 [facility] 01:16:01 811263 ethinyl estradiol / levonorge strel medicatio n Not available Not available Not available 11/20/2022 25443 8 [facility]Norm [facility] 3 01:16:07 947337 POLLEN EXTRACTS environme nt,medica tion Not available Not available Not available 11/20/2022 88441 6 RxNorm [facility]oreen Lesniewsk [facility] 3 13:13:50 426914 mold extract environme nt Not available Not available Not available 11/20/2022 77426 8 RxNorm Noreen Earlenialbertok ruben lisa [facility] 3 13:13:50 374101 insect venom environme nt itching other Not available Not available Not available 11/20/2022 Noreen gonzalez [place] - [facility]ician [facility]. 13:13:50 Medications Name Sig Start [...] Available Not Available No t Available Transderm-S copy camera operator 1 mg over 3 days transdermal [...] Updated DateTime 05/05/2025 172.72 cm 30.9 kg/m2 52646.25 g Payton Rollins [facility] 05/05/2025 14:31:43 Social History Question Answer Notes LastModified by Organizat ion Details LastModified Time Tobacco Smoking Status Never Smoker [facility] 08/04/2024 10:26:47 Do You [...] Of Your Most Recent Tobacco Screening? 05/05/2025 Information not available 05/05/2025 Have You Ever Been Counseled For Unhealthy Alcohol Use? No sadu Information not available 08/04/2024 Do You Have Any Pets? Yes Information not available 11/20/2022 What Is Your Relationship Status? Information not available 11/20/2022 Has Tobacco Cessation Counseling Been Provided? 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 Moderate Information not available 11/20/2022 Mental Status Question Answer Note LastModified by Organization D etails LastModified Time Do you feel stressed (tense, restless, nervous, or anxious, or unable to sleep at night)? [id number] [email or web address] Information not available 04/10/2023 Family History Relationship [...] ICD10 Code Diagnosis IMO Codes Diagnosis Note [id number] Clyde Fisher MD [facility] [address] [place] [phone] 05/05/2025 14:25:07 05/05/2025 15:14:19 Osteoarthritis of right knee joint 6312736541 20462 M17.11 [id number] Health Concerns Section Related Observation LastModified by Organization Detai ls LastModified Time None Recorded Concern Status LastModified by Organization Details LastModified Time None Recorded Payers Encounter Date Sequence Insurance Name Policy Number Policy Richards Covered Member ID Richards Member ID Guarantor Name 05/05/2025 1 [facility] ([facility] SELENA Kathy Velazquez [id number] Kathy Velazqeuz Notes Date Note Type Note Provider Name and Address Organization Details Recorded Time 05/05/2025 text/html ROS as noted in the HPI Patient presents for right knee Zilretta injections. Previous Zilretta injection provided nearly 6 months of significant pain relief. She underwent standing AP and lateral x-rays today, which revealed Kellgren-Jamie grade 3 changes most pronounced over the lateral tibiofemoral and patellofemoral joint spaces. Deondre Bronson PA-C [address] [place] [address], [address], [facility] - [facility]. 05/06/2025 07:35:52 OBGyn Episode No OBEpisode recorded.
--- OUTSIDE RECORDS SUMMARY | 2025-07-03 17:15 | XMS_ITS | Clinical Summary ---
Author Organization [facility] Address [address] [place] [address] Care Team Providers Care Topography Technician Name Role Phone Marianela Plummer Primary Care Provider [phone] Allergies Active Allergy Reactions Criticality Noted Date Comments Allergen Ofe-Qjrpe-Lptkh Bee Itching,Oth er (see comments),Swelling High 01/20/2002 [...] , 08/14/2023, 08/29/2022, Additional history exists COVID-19 Vaccine (2024- season) 2025 06/17/2024, 05/01/2022, 05/26/2021, Additional history exists DTaP,Tdap,and Td Vaccines (3 - Td or Tdap) 12/08/2030 12/08/2020, 09/12/2011 RSV Vaccine (60+ years old and patients) (1 - 1-dose 75+ series) 02/29/2040 Hepatitis B Vaccines Aged Out No long er eligible based on patient's age to complete this topic Insurance [facility] MEDICAID Care Teams Topography Technician Relationship Specialty Start Date End Date Marianela Plummer [address] [place] [address] PCP - General Internal Medicine 08/21/24
--- OUTSIDE RECORDS SUMMARY | 2025-07-03 17:15 | XMS_ITS | Encounter Summary ---
Author Organization [facility] Address [address] [place] [address] Phone Care Team Providers Care Rehabilitation Physician Name Role Phone Anup Jaramillo MD Primary Care Provider [phone] Marianela Plummer MD Primary Care Provider [phone] Pcp, Unknown Unavailable Unavailable Encounter Details Date Type Department Care Team (Late st Contact Info) Description 02/07/2022 Procedure Pass OR Admitting Dept - Virtual Department [address] [place] [address] Social History Tobacco Use Types Packs/Day Years [...] 10:40 AM EDT Office Visit [facility] [address] [place] [address] Estefania Busch MD [address] [place] [address] [email or web address] documented as of this encounter Visit Diagnoses Not on filedocumented in this encounter Care Teams Rehabilitation Physician Relationship Specialty Start Date End Date Anup Jaramillo MD [address] [place] [address] PCP - General Internal Medicine 10/21/18 09/23/23 Marianela Plummer MD [facility] [place] [address] PCP - General Internal Medicine 09/24/23 Pcp, Unknown 05/08/17 documented as of this encounter Additional Source Comments The information contained in this document represents components of the legal health record. It is not the complete legal health record.[facility]
--- OUTSIDE RECORDS SUMMARY | 2025-07-03 17:15 | XMS_ITS | Encounter Summary ---
Author Organization [facility] Address [address] [place] [address] Phone Care Team Providers Care School Photograph Editor Name Role Phone Anup Jaramillo MD Primary Care Provider [phone] Marianela Plummer MD Primary Care Provider [phone] Pcp, Unknown Unavailable Unavailable Encounter Details Date Type Department Care Team (Late st Contact Info) Description 02/06/2022 Procedure Pass [facility], Ct Scan - [address] [address] Social History Tobacco Use Types Packs/Day Years [...] 3:59 PM EDT Matthew Taveras RN * [place] Suicide Severity Rating Scale (Screener/Recent Self-Report) Question [...] AM EDT Office Visit [facility] [address] [place] [address] Estefania Busch MD [address] [address] [email or web address] documented as of this encounter Visit Diagnoses Not on filedocumented in this encounter Care Teams School Photograph Editor Relationship Specialty Start Date End Date Anup Jaramillo MD [address] [place] [address] PCP - General Internal Medicine 10/21/18 09/23/23 Marianela Plummer MD [address] [place] [address] [place] [address] PCP - General Internal Medicine 09/24/23 Pcp, Unknown 05/08/17 documented as of this encounter Additional Source Comments The information contained in this document represents components of the legal health record. It is not the complete legal health record.[facility]
--- OUTSIDE RECORDS SUMMARY | 2025-07-03 17:16 | XMS_ITS | Encounter Summary ---
Author Organization [facility] Address [address] [place] [address] Phone Care Team Providers Care Baseball Umpire [employer] Name Role Phone Tamara Diaz MD Primary Care Provider [phone] Neo Milligan MD Primary Care Provider [phone] Anup Jaramillo MD Primary Care Provider [phone] Marianela Plummer MD Primary Care Provider [phone] Pcp, Unknown Unavailable Unavailable Tamara Diaz MD Unavailable [phone] Anjali Murdock CNM Unavailable [phone] Encounter Details Date Type Department Care Team (Late Contact Info) Description 12/03/2017 Ancillary Orders Virtual Department [address] [place] [address] Tamara Diaz MD [address] [place] [address] [email or web address] Abnormal mammogram Social History Tobacco Use Types [...] AM EDT Office Visit [facility] [address] [place] [address] [place] [address] Estefania Busch MD [address] [place] [address] [email or web address] documented as of this encounter Results * [...] center. BI-RADS CATEGORY 2 - BENIGN POS [id number] Narrative 12/10/2017 3:00 PM EDT HISTORY: Abnormal [...] [facility] BI-RADS CATEGORY 2 - BENIGN POS [id number] Tamara Diaz MD [facility] BREAST Final Result * BI MAMMOGRAM [...] center. BI-RADS CATEGORY 2 - BENIGN POS [id number] Narrative 12/10/2017 3:00 PM EDT HISTORY: Abnormal [...] unspecified documented in this encounter Care Teams Baseball U[employer]ire [employer] Relationship Specialty Start Date End Date Tamara Diaz MD [address] [place] [address] PCP - General Internal Medicine 11/30/17 12/04/17 Neo Milligan MD [address] [place] [address] PCP - General Internal Medicine 12/05/17 10/20/18 Anup Jaramillo MD [address] [place] [address] PCP - General Internal Medicine 10/21/18 09/23/23 Marianela Plummer MD [address] [place] [address] [place] [address] PCP - General Internal Medicine 09/24/23 Pcp, Unknown 05/08/17 Tamara Diaz MD [address] [place] [address] [email or web address] Historical LMR Provider 05/10/17 07/30/21 Anjali Murdock CNM [address] [place] [address] Historical LMR Provider 05/10/17 2 documented as of this encounter Additional Source Comments The information contained in this document represents components of the legal health record. It is not the complete legal health record.[facility]
--- OUTSIDE RECORDS SUMMARY | 2025-07-03 17:16 | XMS_ITS | Encounter Summary ---
Author Organization [facility] Address [address] [place] [address] Phone Care Team Providers Care Teacher Name Role Phone Anup Jaramillo MD Primary Care Provider [phone] Marianela Plummer MD Primary Care Provider [phone] Pcp, Unknown Unavailable Unavailable Tamara Diaz MD Unavailable [phone] Anjali Murdock CNM Unavailable [phone] Encounter Details Date Type Department Care Team (Late st Contact Info) Description 05/24/2020 Procedure Pass [facility] - [address] [place] [address] Social History Tobacco Use Types Packs/Day Years [...] AM EDT Office Visit [facility] [address] [place] [address] Estefania Busch MD [address] [address] documented as of this encounter Visit Diagnoses Not on filedocumented in this encounter Care Teams Teacher Relationship Specialty Start Date End Date Anup Jaramillo MD [address] [place] [address] PCP - General Internal Medicine 10/21/18 09/23/23 Marianela Plummer MD [facility] [place] [address] PCP - General Internal Medicine 09/24/23 Pcp, Unknown 05/08/17 Tamara Diaz MD [address] [place] [address] Historical LMR Provider 05/10/17 07/30/21 Anjali Murdock CNM [address] [place] [address] Historical LMR Provider 05/10/17 2 documented as of this encounter Additional Source Comments The information contained in this document represents components of the legal health record. It is not the complete legal health record.[facility]
--- OUTSIDE RECORDS SUMMARY | 2025-07-03 17:16 | XMS_ITS | Encounter Summary ---
Author Organization [facility] Address [address] [place] [address] Phone Care Team Providers Care Physical Therapy Instructor Name Role Phone Anup Jaramillo MD Primary Care Provider [phone] Marianela Plummer MD Primary Care Provider [phone] Pcp, Unknown Unavailable Unavailable Tamara Diaz MD Unavailable [phone] Anjali Murdock CNM Unavailable Encounter Details Date Type Department Care Team (Late st Contact Info) Description 06/30/2020 Procedure Pass [facility], [address] [address] Social History Tobacco Use Types Packs/Day Years [...] 10:40 AM EDT Office Visit [facility] [address] [place] [address] [place] [address] Estefania Busch MD [address] [address] documented as of this encounter Visit Diagnoses Not on filedocumented in this encounter Care Teams Physical Therapy Instructor Relationship Specialty Start Date End Date Anup Jaramillo MD [address] [place] [address] PCP - General Internal Medicine 10/21/18 09/23/23 Marianela Plummer MD [facility] [place] [address] PCP - General Internal Medicine 09/24/23 Pcp, Unknown 05/08/17 Tamara Diaz MD [address] [place] [address] Historical LMR Provider 05/10/17 07/30/21 Anjali Murdock CNM [address] [place] [address] Historical LMR Provider 05/10/17 2 documented as of this encounter Additional Source Comments The information contained in this document represents components of the legal health record. It is not the complete legal health record.[facility]
--- OUTSIDE RECORDS SUMMARY | 2025-07-03 17:16 | XMS_ITS | Encounter Summary ---
Author Organization [facility] Address [address] [place] [address] Phone Care Team Providers Care Professional Services Specialist Name Role Phone Marianela Plummer MD Primary Care Provider [phone] Pcp, Unknown Unavailable Unavailable Encounter Details Date Type Department Care Team (Late st Contact Info) Description 11/27/2023 Procedure Pass [facility], Ct Scan - [address] [address] Social History Tobacco Use Types Packs/Day Years [...] 10:40 AM EDT Office Visit [facility] [address] [place] [address] [place] [address] Estefania Busch MD [address] [place] [address] [email or web address] documented as of this encounter Visit Diagnoses Not on filedocumented in this encounter Care Teams Professional Services Specialist Relationship Specialty Start Date End Date Marianela Plummer MD [address] [facility] [place] [address] PCP - General Internal Medicine 09/24/23 Pcp, Unknown 05/08/17 documented as of this encounter Additional Source Comments The information contained in this document represents components of the legal health record. It is not the complete legal health record.[facility]
--- OUTSIDE RECORDS SUMMARY | 2025-07-03 17:16 | XMS_ITS | Encounter Summary ---
Author Organization [facility] Address [address] [place] [address] Phone Care Team Providers Care Computer Aided Design Drafter Name Role Phone Tamara Diaz MD Primary Care Provider [phone] Neo Milligan MD Primary Care Provider [phone] Tamara Diaz MD Primary Care Provider [phone] Neo Milligan MD Primary Care Provider [phone] Anup Jaramillo MD Primary Care Provider [phone] Marianela Plummer MD Primary Care Provider Pcp, Unknown Unavailable Unavailable Tamara Diaz MD Unavailable [phone] Anjali Murdock CNM Unavailable [phone] Encounter Details Date Type Department Care Team (Late st Contact Info) Description 10/19/2017 Ancillary Orders Virtual Department 30 [place] [address] Tamara Diaz MD [address] [place] [address] Breast screening Social History Tobacco Use Types [...] AM EDT Office Visit [facility] [address] [place] [address] [place] [address] Estefania Busch MD [address] [place] [address] documented as of this encounter Results * [...] unspecified documented in this encounter Care Teams Computer Aided Design Drafter Relationship Specialty Start Date End Date Tamara Diaz MD [address] [place] [address] [email or web address] PCP - General 05/08/17 11/26/17 Neo Milligan MD [address] [place] [address] PCP - General Internal Medicine 11/27/17 11/29/17 Tamara Diaz MD [address] [place] [address] [email or web address] PCP - General Internal Medicine 11/30/17 12/04/17 Neo Milligan MD [address] [place] [address] PCP - General Internal Medicine 12/05/17 10/20/18 Anup Jaramillo MD [address] [place] [address] PCP - General Internal Medicine 10/21/18 09/23/23 Marianela Plummer MD [address] [place] [address] [place] [address] PCP - General Internal Medicine 09/24/23 Pcp, Unknown 05/08/17 Tamara Diaz MD [address] [place] [address] [email or web address] Historical LMR Provider 05/10/17 07/30/21 Anjali Murdock CNM [address] [place] [address] Historical LMR Provider 05/10/17 2 documented as of this encounter Additional Source Comments The information contained in this document represents components of the legal health record. It is not the complete legal health record.[facility]
--- OUTSIDE RECORDS SUMMARY | 2025-07-03 17:16 | XMS_ITS | Encounter Summary ---
Author Organization [facility] Address [address] [place] [address] Phone Care Team Providers Care Hand Wood Sander Name Role Phone Anup Jaramillo MD Primary Care Provider [phone] Marianela Plummer MD Primary Care Provider [phone] Pcp, Unknown Unavailable Unavailable Tamara Diaz MD Unavailable [phone] Anjali Murdock CNM Unavailable Encounter Details Date Type Department Care Team (Late st Contact Info) Description 01/11/2021 Procedure Pass OR Admitting Dept - Virtual Department 30 [place] [address] Social History Tobacco Use Types Packs/Day Years [...] AM EDT Office Visit [facility] [address] [place] [address] Estefania Busch MD [address] [address] documented as of this encounter Visit Diagnoses Not on filedocumented in this encounter Care Teams Hand Wood Sander Relationship Specialty Start Date End Date Anup Jaramillo MD 46 [place] [address] PCP - General Internal Medicine 10/21/18 09/23/23 Marianela Plummer MD [facility] [place] [address] PCP - General Internal Medicine 09/24/23 Pcp, Unknown 05/08/17 Tamara Diaz MD 73 [place] [address] [email or web address] Historical LMR Provider 05/10/17 07/30/21 Anjali Murdock CNM [address] [place] [address] Historical LMR Provider 05/10/17 2 documented as of this encounter Additional Source Comments The information contained in this document represents components of the legal health record. It is not the complete legal health record.[facility]
--- OUTSIDE RECORDS SUMMARY | 2025-07-03 17:16 | XMS_ITS | Encounter Summary ---
Author Organization [facility] Address [address] [place] [address] Phone Care Team Providers Care Auto Body Man Name Role Phone Anup Jaramillo MD Primary Care Provider [phone] Marianela Plummer MD Primary Care Provider [phone] Pcp, Unknown Unavailable Unavailable Tamara Diaz MD Unavailable [phone] Anjali Murdock CNM Unavailable Encounter Details Date Type Department Care Team (Late st Contact Info) Description 10/21/2018 Ancillary Orders Virtual Department 30 [place] [address] Anup Jaramillo MD [address] [place] [address] Breast screening Social History Tobacco Use Types [...] AM EDT Office Visit [facility] [address] [place] [address] Estefania Busch MD [address] [place] [address] [email or web address] documented as of this encounter Results * [...] Images interpreted in conjunction with R-2 Image Pivot Maker computer-aided detection (CAD). FINDINGS: BREAST DENSITY: There [...] Prior studies dating back to 05/29/2013, most olvlzyfp46/11/2018. TECHNIQUE: Digital breast tomosynthesis was performed in [...] unspecified documented in this encounter Care Teams Auto Body Man Relationship Specialty Start Date End Date Anup Jaramillo MD [address] [place] [address] PCP - General Internal Medicine 10/21/18 09/23/23 Marianela Plummer MD [address] [place] [address] PCP - General Internal Medicine 09/24/23 Pcp, Unknown 05/08/17 Tamara Diaz MD [address] [place] [address] Historical LMR Provider 05/10/17 07/30/21 Anjali Murdock CNM [address] [place] [address] Historical LMR Provider 05/10/17 2 documented as of this encounter Additional Source Comments The information contained in this document represents components of the legal health record. It is not the complete legal health record.[facility]
--- OUTSIDE RECORDS SUMMARY | 2025-07-03 17:17 | XMS_ITS | Encounter Summary ---
Author Organization [facility] Address [address] [place] [address] Phone Care Team Providers Care Property Management Bookkeeper Name Role Phone Anup Jaramillo MD Primary Care Provider [phone] Marianela Plummer MD Primary Care Provider [phone] Pcp, Unknown Unavailable Unavailable Tamara Diaz MD Unavailable [phone] Anjali Murdock CNM Unavailable [phone] Reason for Referral * MRI/CAT Scan - Closed Specialty Diagnoses / Procedures Referred By Keli nielsen Referred To Contact Radiology Diagnoses Lumbar radiculopathy Procedures MRI Lumbar Spine Cheo Rojo DO Phone: tel: fax: mailto:[email or web address] Referral ID Status Reason Start Date Expiration Date Visits Re quested Visits Authorized [id number] Closed 06/30/2020 12/27/2020 1 1 * MRI/CAT Scan - Closed Specialty Diagnoses / Procedures Referred By Keli nielsen Referred To Contact Radiology Diagnoses Cervical radiculopathy Procedures MRI Cervical Spine Cheo Rojo DO Phone: tel: fax: mailto:[email or web address] Referral ID Status Reason Start Date Expiration Date Visits Re quested Visits Authorized [id number] Closed 06/30/2020 12/27/2020 1 1 Encounter Details Date Type Department Care Team (Latest Contact Info) Description 06/30/2020 Ancillary Orders Virtual Department 30 [place] [address] Cheo Rojo, DO [address] [place] [address] ([employer]) Cervical radiculopathy; Lumbar radiculopathy Social History Tobacco [...] 10:40 AM EDT Office Visit [facility] [address] [place] [address] Estefania Busch MD [address] [place] [address] [email or web address] documented as of this encounter Results * [...] associated with the right facet joint at L4-F6eplchvul and displacing the thecal sac to the left is no longerdemonstrated. There is moderate persisting central canal stenosis at L4-T2dtizc is mildly improved from 01/16/2017. 2. Mild [...] nos documented in this encounter Care Teams Property Management Bookkeeper Relationship Specialty Start Date End Date Anup Jaramillo MD [address] [place] [address] PCP - General Internal Medicine 10/21/18 09/23/23 Marianela Plummer MD [address] [place] [address] [place] [address] PCP - General Internal Medicine 09/24/23 Pcp, Unknown 05/08/17 Tamara Diaz MD 73 [place] [address] [email or web address] Historical LMR Provider 05/10/17 07/30/21 Anjali Murdock CNM [address] [place] [address] Historical LMR Provider 05/10/17 2 documented as of this encounter Additional Source Comments The information contained in this document represents components of the legal health record. It is not the complete legal health record.[facility]
--- OUTSIDE RECORDS SUMMARY | 2025-07-03 17:17 | XMS_ITS | Clinical Summary ---
Author Organization [facility] Address [address] [place] [address] Phone Care Team Providers Care Analysis Specialist Name Role Phone Marianela Plummer MD Primary Care Provider [phone] Pcp, Unknown Unavailable Unavailable Allergies Active Allergy [...] SHG currenlty, unable to move up sooner Logistics Technician consider other options, such as LNG IUD and E2 patch Assessment & Plan (10/21/2020 2:12 PM EDT): Taper to once daily norethindrone x 1 weeks then stop, may have film archivist bleeding episode Check SHG Perimenopausal vasomotor symptoms [...] 10:40 AM EDT Office Visit [facility] [address] [place] [address] [place] [address] Estefania Busch MD [address] [place] [address] [email or web address] Health Maintenance Due Date Last Done Comments [...] this topic Medical Devices Implanted Type Area Telephone Answering Service Operator Device Identifier Shelf Expiration Date Model / Serial / Lot Prosthetic Joint-05/25/2016 Implanted:05/25 (Quantity not on file) Prosthetic Joint Knee Mesh Graft 6.[address] Polypropylene Echo Positioning System Hydrogel Barrier Hernia [place] - [id number] Implanted:Qty: 1 on 02/26/2024 by Wendy Uribe MD at [facility] N/A: Abdomen [employer] [id number] 04/19/2025 [id number] / / [id number] Procedures Procedure Name Priority Date/Time Associated Diagnosis [...] Pap Test (01/15/2025 12:00 AM EDT) Report [address] [address] Corpsman: Heriberto Jay MD ACCOUNTS RECEIVABLE COLLECTOR Cytology Report FINAL DIAGNOSIS A. PAP SMEAR (THIN PREP) CE: SPECIMEN ADEQUACY: Satisfactory for evaluation; transformation zone present. Evaluation limited by scant cellularity. INTERPRETATION: NEGATIVE FOR INTRAEPITHELIAL LESION OR MALIGNANCY. Atrophy. This specimen was analyzed by the automated ThinPrep Imaging System (Outfittery.) and the selected lawson were reviewed by a building insulation installer. Electronically Signed Out By: TREVER Regalado(ASCP) The [...] by real-time polymerase chain reaction (PCR) at [facility], [address] [place] [address] using the FDA-approved [employer] Onclarity HPV Assay with extended genotyping. Uses of the assay in scenarios other than those approved by the FDA should be considered off-label use. The accuracy and precision of this test for all other off-label specimen sources has been verified in the Cytopathology Laboratory of the [facility] and has not been cleared or [...] : 1965 (Age: 59) Sex: F Institution: [facility] [place] Date of Collection: 01/15/2025 Date of Reported: 01/22/2025 15:12 Results to: Omaira Obregon MD [facility] Final Diagnosis A. PAP SMEAR (THIN PREP) CE: SPECIMEN ADEQUACY: Satisfactory for evaluation; transformation zone present. Evaluation limited by scant cellularity. INTERPRETATION: NEGATIVE FOR INTRAEPITHELIAL LESION OR MALIGNANCY. Atrophy. This specimen was analyzed by the automated ThinPrep Imaging System (Outfittery.) and the selected lawson were reviewed by a building insulation installer. [facility] Results\Inter pretation A. PAP SMEAR (THIN PREP) CE: High-risk HPV Panel w/ extended genotyping NEG HPV 16-NEG HPV 18-NEG HPV 45-NEG HPV 33/58-NEG HPV 31-NEG HPV 56/59/66-NEG HPV 51-NEG HPV 52-NEG HPV 35/39/68-NEG Performed by real-time polymerase chain reaction (PCR) at [facility], [address] [place] [address] using the FDA-approved [employer] Onclarity HPV Assay with extended genotyping. Uses of the assay in scenarios other than those approved by the FDA should be considered off-label use. The accuracy and precision of this test for all other off-label specimen sources has been verified in the Cytopathology Laboratory of the [facility] and has not been cleared or approved by the U.S. Food and Drug Administration. Clinical correlation is advised. The assay assesses the E6/E7 DNA target and utilizes human beta globin as an internal control. Cytology and HPV testing are screening assays and should not be used as the sole means of detecting cancer. False-positives and false-negatives can occur. [facility] Conversion Type (Conversion Source) 01/15/2025 01/16/2025 10:01 AM EDT Omaira Obregon MD CYTOLOGY ORDERABLES Edited Resul t - Final [address] [address] * TSH with reflex (12/12/2023 10:03 AM EDT) TSH 2.65 0.27 - 4.20 uIU/mL [facility] Blood 12/12/2023 10:0 3 AM EDT 12/12/2023 10:12 AM EDT Estefania Busch MD LAB BLOOD BKR ORDERABL ES Final Result [address] [id number] * ENDOSCOPY, COLON (02/06/2022 11:57 AM EDT) Narrative Transcriptions Bobby Zavala MD - 02/06/2022 11:57 AM EDT Patient Name: Kathy Desouza Attending MD:: BOBBY ZAVALA MD Procedure Date: 02/06/2022 11:57 AM Date of : 1965 Age: 56 Admit Type: Outpatient Gender: Female Room: [place] [address] Referring MD: Mary Beth Diaz MD Exam [...] 11:57 AM Procedure Code(s): --- Professional --- 64461, Colonoscopy, flexible; with removal of tumor(s), polyp(s), or other lesion(s) by snare technique --- Technical --- 20356, Colonoscopy, flexible; with removal of tumor(s), polyp(s), [...] or abscess without bleeding CPT copyright 2020 [employer]. All rights reserved. The codes documented in this report are preliminary and upon private eye reviewmay be revised to meet current compliance requirements. Procedure Date: 02/06/2022 11:57:35 AM 30 [place] [address] Tamara Diaz MD GI PROCEDURE [...] Recently Relevant to Health Maintenance [place] [address] [place] [address] [place] [address] [place] [address] [place] [address] [place] [address] [place] [address] [place] [address] [place] [address] [place] [address] ACO Advance Directives For more information, please contact: [phone] (9AM - 5PM [facility], Sunday-Sunday) Documents on File Type Date Recorded Patient Automobile Travel Club Counselor Expl anation Healthcare Proxy 01/12/2021 4:02 PM [...] Code Status Confirmed With: Patient Care Teams Analysis Specialist Relationship Specialty Start Date End Date Marianela Plummer MD [address] [place] [address] PCP - General Internal Medicine 09/24/23 Pcp, Unknown 05/08/17 Additional Source Comments The information contained in this document represents components of the legal health record. It is not the complete legal health record.[facility]
--- OUTSIDE RECORDS SUMMARY | 2025-07-03 17:17 | XMS_ITS | Patient Health Record ---
Author Organization [facility] Address [address] [place] [address] Care Team Providers Care Development Director Name Role Phone KAMRAN MARTINEZ, [facility] Primary Care Provider KAUSHIK Jones Unavailable Allergies Allergen (clinical drug ingredient) Drug/Non Drug Allergy documented on EMR Reaction Allergy Type Onset Date Status Penicillin rash Drug Allergy Active Reason For Referral No Information Medications Medication SIG (Take, Route, Frequency, Duration) Notes Start Date End Date Status Tolterodine Tartrate ER 4 MG Capsule Extended Release 24 Hour 1 tab(s) orally once a day Not-Taking Climara Pro 0.045 MG-0.015 MG/24 HR FILM, EXTENDED RELEASE 1 PATCH APPLIED TOPICALLY ONCE A WEEK; Duration: 4 WEEK(S) NAME ONLY Conversion from Multum Review and pick correct strength-formula tion from Notegraphyvpod.tv options. If intended option is not shown, discontinue and re-order from Quick Search. Not-Taking Norethindrone Acetate 5 MG Tablet 1 tab(s) orally once a day Not-Taking Levothyroxine Sodium 75 MCG Tablet 1 tab(s) orally once a day Active Ibuprofen 200 MG Tablet 2 tab(s) orally prn Active EpiPen 2-Tramaine 0.3 MG/0.3ML Solution Auto-injector 0.3 mg intramuscularly once if bee sting 02/17/2009 Active Progesterone 200 MG Capsule as directed orally once a day Active Estradiol 0.0375 MG/24 HOURS TWICE WEEKLY FILM, EXTENDED RELEASE 1 PATCH APPLIED TOPICALLY 2 TIMES A WEEK NAME ONLY Conversion from Multum Review and pick correct strength-formula tion from Notegraphyspan options. If intended option is not shown, discontinue and re-order from Quick Search. 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: no Past year's travels: None 2020 alcohol use: yes 3-4 glasses of w ine/week Hobbies/Exercise habits: exercis ingregularly--[employer] dacne class Coffee/Tea/Soda: yes 2 cups coffee i n the morning; occassional cup of coffe in the afternoon; occassional caffeinated tea at night; no soda; daily chocolate recently Marital Status experience no Living with and daug hter Pets cats, dog smokers in household no pt former s moker through college Problems Problem Type SNOMED Code ICD Code Onset Dates Problem Status W/U Status Risk Notes Problem Thyroid nodule (281705147) Thyroid nodule (E04.1) Active confirmed Problem Vitamin D deficiency (48556474) Vitamin D insufficiency (E55.9) Active confirmed Problem Hypothyroidism (44737610) Hypothyroidism (E03.9) Active confirmed Plan Of Treatment No Information Insurance Providers Payer Name Payer Address Payer Phone Subscriber Number Group Number Insured Name Patient Relationship to Insured Coverage Start Date Coverage End Date [facility] [address] [address] [place] [address] [id number] KELLY NEIL Self - patient is the insured 9 Medical (General) History Medical History History ICD Code Bee sting allergy Allergy Arthritis HSV thyroid nodule - 1.2 cm left, incidental finding on MRI c-spine mildly elevated TSH overactive bladder Hair loss Surgical History Surgery Date(Month/Year) uterine polyps 01/2021 TKR 2016 BTL 1998
--- OUTSIDE RECORDS SUMMARY | 2025-07-03 17:17 | XMS_ITS | Encounter Summary ---
Author Organization [facility] Address [address] [place] [address] Phone Care Team Providers Care Event Staff Name Role Phone Anup Jaramillo MD Primary Care Provider [phone] Marianela Plummer MD Primary Care Provider [phone] Pcp, Unknown Unavailable Unavailable Tamara Diaz MD Unavailable [phone] Anjali Murdock CNM Unavailable Encounter Details Date Type Department Care Team (Late st Contact Info) Description 05/24/2020 Ancillary Orders Virtual Department [address] [place] [address] Anup Jaramillo MD [address] [place] [address] Breast cancer screening by mammogram Social History [...] AM EDT Office Visit [facility] [address] [place] [address] [place] [address] Estefania Busch MD [address] [place] [address] [email or web address] documented as of this encounter Results * [...] mammogram documented in this encounter Care Teams Event Staff Relationship Specialty Start Date End Date Anup Jaramillo MD [address] [place] [address] PCP - General Internal Medicine 10/21/18 09/23/23 Marianela Plummer MD [facility] [place] [address] PCP - General Internal Medicine 09/24/23 Pcp, Unknown 05/08/17 Tamara Diaz MD [address] [place] [address] [email or web address] Historical LMR Provider 05/10/17 07/30/21 Anjali Murdock CNM [address] [place] [address] Historical LMR Provider 05/10/17 2 documented as of this encounter Additional Source Comments The information contained in this document represents components of the legal health record. It is not the complete legal health record.[facility]
== END 2025-07-03 12:27 | disposition home or self-care (01) ==
LOC: HO.HMCC 12:02
PROVIDERS: PCP Internal Medicine; Visit Provider Internal Medicine
DX: U09.9 Post COVID-19 condition, unspecified (principal); R09.82 Postnasal drip; M48.061 Spinal stenosis, lumbar region without neurogenic claudication; M54.50 Low back pain, unspecified; E78.9 Disorder of lipoprotein metabolism, unspecified; E03.8 Other specified hypothyroidism; K21.9 Gastro-esophageal reflux disease without esophagitis; K44.9 Diaphragmatic hernia without obstruction or gangrene

== ENCOUNTER → 2025-07-03 12:01 | Outpatient (BNVA) | payer OTHER, SELFPAY | PROVIDERS: PCP Internal Medicine; Visit Provider Internal Medicine | DX: Z01.818 Encounter for other preprocedural examination (principal); M48.061 Spinal stenosis, lumbar region without neurogenic claudication; M54.50 Low back pain, unspecified; U09.9 Post COVID-19 condition, unspecified; R09.82 Postnasal drip; I10 Essential (primary) hypertension; E78.9 Disorder of lipoprotein metabolism, unspecified; E03.8 Other specified hypothyroidism; K21.9 Gastro-esophageal reflux disease without esophagitis; K44.9 Diaphragmatic hernia without obstruction or gangrene; R79.89 Other specified abnormal findings of blood chemistry | CPT/HCPCS: 99212 ==